=== PATIENT | male | born 1930 | race Asian ===

== ENCOUNTER 2016-12-28 23:38 | Inpatient (IN) | payer MEDICARE, OTHER ==
[~2016-12-28] VITALS: Ht 160 cm; Wt 56.3 kg
[~2016-12-28 23:38] MED LIST: ASPI81TA44 PO; ATOR40TA PO; CLOP75TA PO; FURO20TA3 PO; LEVO50TA5 PO; LEVO75TA PO; LISI-338 PO; LISI10TA2 PO; LISI2.5T PO; METO25TA4 PO; METO25TA9 PO; MULT-208 PO; POTA20TA84 PO; SIMV40TA3 PO; SIMV80TA3 PO; WARF3TAB7 PO
[2016-12-29 00:19] LABS: BASO % 1 % (0-3); EOS % 2 % (0-3); HEMATOCRIT 47.6 % (39.0-53.0); HEMOGLOBIN 15.9 g/dL (13.0-17.5); LYMPH # 1.4 x10^3/uL (1.0-4.8); LYMPH % 23 % (24-48); MEAN CORPUSCULAR HEMOGLOBIN 29 pg (25-35); MEAN CORPUSCULAR HGB CONC 34 g/dL (31-37); MEAN CORPUSCULAR VOLUME 88 fL (79-100); MONO % 11 % (0-9); NEUT % 64 % (31-73); PLATELET COUNT 144 x10^3/uL (140-400); RED BLOOD COUNT 5.42 x10^6/uL (4.30-5.70); RED CELL DISTRIBUTION WIDTH 15.3 % (11.5-14.5); WHITE BLOOD COUNT 6.3 x10^3/uL (4.0-11.0)
[2016-12-29 00:27] LABS: CALCIUM 8.9 mg/dL (8.5-10.1); CREATININE 1.3 mg/dL (0.7-1.3); GFR 52.5; POTASSIUM 4.4 mmol/L (3.5-5.1)
[2016-12-29] MEDS ORDERED: IV NORMAL SALINE 500ML BAG 500 ML IV ONE (00:30)
[2016-12-29] MEDS ORDERED: ONDANSETRON PF 4 MG/2 ML VIAL. IV ONE (00:30)
[2016-12-29 00:33] LABS: ALBUMIN 3.8 g/dL (3.4-5.0); ALBUMIN/GLOBULIN RATIO 0.9 (1.0-1.7); TOTAL BILIRUBIN 0.5 mg/dL (0.2-1.0)
[2016-12-29 00:53] LABS: BILIRUBIN,URINE NEGATIVE (NEG); GLUCOSE,URINE NEGATIVE (NEG); NITRITE,URINE NEGATIVE (NEG); UROBILINOGEN,URINE 0.2 mg/dL (0.2 mg/dL)
[2016-12-29 00:58] LABS: BACTERIA,URINE 0 /HPF (0-FEW); PROTEIN,URINE TRACE mg/dL (NEG-TRACE); RBC,URINE 0 /HPF (0-2); SQUAMOUS EPITHELIAL CELL,UR OCC /LPF; WBC,URINE 0 /HPF (0-4)
[2016-12-29] MEDS ORDERED: ONDANSETRON PF 4 MG/2 ML VIAL. IV PRN (01:00)
[2016-12-29] MEDS ORDERED: ASPIRIN 81 MG TAB.CHEW PO ONE (01:15)
[2016-12-29] MEDS ORDERED: ENOXAPARIN ** NOTE DOSE ** SYRINGE SQ ONE (01:30)
[2016-12-29 03:00] VITALS: BP 117/69
--- NOTE | 2016-12-29 05:55 | PHYS DOC ---
Past Medical History Past Medical History: CHF, DVT, High Cholesterol, Hypertension, Hypothyroid, Other Additional Past Medical Histor: SLEEP APNEA, irregular heart rate Past Surgical History: Pacemaker Alcohol Use: None Drug Use: None Adult General Chief Complaint Chief Complaint: NAUSEA/VOMITING/DIARRHA HPI HPI 86-year-old male presents secondary to a 24-hour history of nausea and vomiting. According to the family he says that he just doesn't feel well. He states he feels weak has no energy. He does have some shortness of breath. He denies any chest pain. He denies fever chills or sweats. The son states that he' s felt weak for several days but the nausea and vomiting just started yesterday. [] Review of Systems Review of Systems Constitutional: Denies fever or chills [] Eyes: Denies change in visual acuity, redness, or eye pain [] HENT: Denies nasal congestion or sore throat [] Respiratory: Denies cough or shortness of breath [] Cardiovascular: No additional information not addressed in HPI [] GI: Per history of present illness [] : Denies dysuria or hematuria [] Musculoskeletal: Denies back pain or joint pain [] Integument: Denies rash or skin lesions [] Neurologic: Denies headache, focal weakness or sensory changes [] Endocrine: Denies polyuria or polydipsia [] Current Medications Current Medications Current Medications Medications (Trade) Dose Ordered Sig/Mel Start Time Stop Time Status Last Admin Dose Admin Ondansetron HCl (Zofran) 4 mg 1X ONCE 12/29/16 00:30 12/29/16 00:31 DC 12/29/16 00:31 4 MG Sodium Chloride (Iv Sodium Chloride 0.9% 500ml Bag) 500 ml @ 0 mls/hr 1X ONCE 12/29/16 00:30 12/29/16 00:31 DC 12/29/16 00:31 500 MLS/HR Allergies Allergies Allergies Coded Allergies Type Severity Reaction Last Updated Verified No Known Drug Allergies 05/24/14 No Physical Exam Physical Exam Constitutional: Well developed, well nourished, no acute distress, non-toxic appearance. [] HENT: Normocephalic, atraumatic, bilateral external ears normal, oropharynx moist, no oral exudates, nose normal. [] Eyes: PERRLA, EOMI, conjunctiva normal, no discharge. [] Neck: Normal range of motion, no tenderness, supple, no stridor. [] Cardiovascular:Heart rate regular rhythm, no murmur [] Lungs & Thorax: Bilateral breath sounds clear to auscultation [] Abdomen: Bowel sounds normal, soft, no tenderness, no masses, no pulsatile masses. [] Skin: Warm, dry, no erythema, no rash. [] Back: No tenderness, no CVA tenderness. [] Extremities: No tenderness, no cyanosis, no clubbing, ROM intact, no edema. [] Neurologic: Alert and oriented X 3, normal motor function, normal sensory function, no focal deficits noted. [] Psychologic: Affect normal, judgement normal, mood normal. [] Current Patient Data Vital Signs Vital Signs Date Time Temp Pulse Resp B/P Pulse Ox O2 Delivery O2 Flow Rate FiO2 12/29/16 00:30 58 18 155/68 95 Room Air 12/28/16 23:51 98.6 98.6 Lab Values Laboratory Tests Test 12/29/16 00:10 12/29/16 00:45 White Blood Count 6.3x10^3/uL (4.0-11.0) Red Blood Count 5.42x10^6/uL (4.30-5.70) Hemoglobin 15.9g/dL (13.0-17.5) Hematocrit 47.6% (39.0-53.0) Mean Corpuscular Volume 88fL (79-100) Mean Corpuscular Hemoglobin 29pg (25-35) Mean Corpuscular Hemoglobin Concent 34g/dL (31-37) Red Cell Distribution Width 15.3% (11.5-14.5) H Platelet Count 144x10^3/uL (140-400) Neutrophils (%) (Auto) 64% (31-73) Lymphocytes (%) (Auto) 23% (24-48) L Monocytes (%) (Auto) 11% (0-9) H Eosinophils (%) (Auto) 2% (0-3) Basophils (%) (Auto) 1% (0-3) Neutrophils # (Auto) 4.0x10^3uL (1.8-7.7) Lymphocytes # (Auto) 1.4x10^3/uL (1.0-4.8) Monocytes # (Auto) 0.7x10^3/uL (0.0-1.1) Eosinophils # (Auto) 0.1x10^3/uL (0.0-0.7) Basophils # (Auto) 0.0x10^3/uL (0.0-0.2) Sodium Level 139mmol/L (136-145) Potassium Level 4.4mmol/L (3.5-5.1) Chloride Level 103mmol/L (98-107) Carbon Dioxide Level 25mmol/L (21-32) Anion Gap 11 (6-14) Blood Urea Nitrogen 23mg/dL (8-26) Creatinine 1.3mg/dL (0.7-1.3) Estimated GFR (Cockcroft-Gault) 52.5 BUN/Creatinine Ratio 18 (6-20) Glucose Level 171mg/dL (70-99) H Calcium Level 8.9mg/dL (8.5-10.1) Total Bilirubin 0.5mg/dL (0.2-1.0) Aspartate Amino Transferase (AST) 24U/L (15-37) Alanine Aminotransferase (ALT) 27U/L (16-63) Alkaline Phosphatase 79U/L (46-116) Troponin I Quantitative 0.587ng/mL (0.000-0.055) Total Protein 8.0g/dL (6.4-8.2) Albumin 3.8g/dL (3.4-5.0) Albumin/Globulin Ratio 0.9 (1.0-1.7) L Lipase 258U/L (73-393) Urine Collection Type Unknown Urine Color Yellow Urine Clarity Clear Urine pH 7.0 Urine Specific [place] 1.020 Urine Protein Tracemg/dL (NEG-TRACE) Urine Glucose (UA) Negativemg/dL (NEG) Urine Ketones (Stick) Negativemg/dL (NEG) Urine Blood Negative (NEG) Urine Nitrite Negative (NEG) Urine Bilirubin Negative (NEG) Urine Urobilinogen Dipstick 0.2mg/dL (0.2 mg/dL) Urine Leukocyte Esterase Negative (NEG) Urine RBC 0/HPF (0-2) Urine WBC 0/HPF (0-4) Urine Squamous Epithelial Cells Occ/LPF Urine Bacteria 0/HPF (0-FEW) Urine Mucus Slight/LPF Laboratory Tests 12/29/16 00:10 Laboratory Tests 12/29/16 00:10 EKG EKG [EKG: Normal sinus rhythm rate of [address]-T changes] Radiology/Procedures Radiology/Procedures [Chest x-ray: Negative exam as interpreted by me] Course & Med Decision Making Course & Med Decision Making Pertinent Labs and Imaging studies reviewed. (See chart for details) [ED course: Evaluation reveals an 86-year-old male in no significant distress. He was given IV Zofran during his stay in the emergency department which did help alleviate his symptoms. I did inform the patient and the family that his troponin was significantly elevated we would go ahead and admit him to Dr. Elias.] Dragon Disclaimer Dragon Disclaimer This electronic medical record was generated, in whole or in part, using a voice recognition dictation system. Departure Departure Impression: Primary Impression: Acute coronary syndrome Disposition: ADMITTED INPATIENT Admitting Physician: August Elias Condition: STABLE Referrals: AUGUST ELIAS MD (PCP) MARIAMA SANCHEZ DO Dec 29, 2016 05:54
--- NOTE | 2016-12-29 06:37 | EKG ---
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
--- NOTE | 2016-12-29 07:16 | RAD ---
Portable chest, 12/29/2016: History: Weakness, nausea Comparison is made to a study from 05/07/2016. A left-sided transvenous pacemaker remains in place with 2 leads extending into the right heart. The heart is enlarged. There is calcific plaquing of the thoracic aorta. The pulmonary vascularity is normal. There appears to be minimal parenchymal scarring. No pulmonary consolidation is seen. There is no evidence of pleural fluid. Degenerative changes are evident in the spine. IMPRESSION: 1. Cardiomegaly and aortic atherosclerosis. 2. No acute abnormality is detected.
[2016-12-29 07:23] LABS: CHOLESTEROL/HDL RATIO 3.8
[2016-12-29 07:26] VITALS: BP 116/61
--- NOTE | 2016-12-29 09:50 | PDOC2 ---
TAYLAMARCELL DOMINIQUE BAG SEALER 12/29/16 0950: CARDIAC CONSULT DATE OF CONSULT Date of Consult DATE: 12/29/16 TIME: 09:23 REASON FOR CONSULT Reason for Consult: elevated troponin REFERRING PHYSICIAN Referring Physician: Dr. Virgil Michaels SOURCE Source: Caregiver (ricardo), Chart review HISTORY OF PRESENT ILLNESS HISTORY OF PRESENT ILLNESS 86 year old male; non-Uzbek speaking and contributed no information to this consult. Per daughter, patient had 1 - 11/2 hours of nausea and vomiting yesterday without diarrhea, fever, chest pain, LE edema, syncope, melena or hematemesis yesterday. Reportedly with c/o dyspnea and cough, though unclear if independent of nausea and vomiting. Patient without nausea or vomiting since admission per nursing. No acute changes in EKG. Initial troponin level was 0.587 Reason for Visit: elevated troponin PAST MEDICAL HISTORY Cardiovascular: CAD (with PCI/THOR to D2- 04/2016), CHF, HTN, Hyperlipidemia, Valve insufficiency (aortic), Other ([facility] PPM - 01/2013) Pulmonary: Other (NANCY/CPAP) Heme/Onc: Other (DVT) Musculoskeletal: Osteoarthritis Renal/: Chronic renal insuff (stage III) Endocrine: Hypothyroidism PAST SURGICAL HISTORY Past Surgical History: Pacemaker ([facility]) FAMILY HISTORY Family History negative for CAD SOCIAL HISTORY Smoke: No ALCOHOL: none Drugs: None Lives: with Family CURRENT MEDICATIONS CURRENT MEDICATIONS Current Medications Medications (Trade) Dose Ordered Sig/Mel Route PRN Reason Start Time Stop Time Status Last Admin Dose Admin Sodium Chloride (Iv Sodium Chloride 0.9% 500ml Bag) 500 ml @ 0 mls/hr 1X ONCE IV 12/29/16 00:30 12/29/16 00:31 DC 12/29/16 00:31 Ondansetron HCl (Zofran) 4 mg 1X ONCE IV 12/29/16 00:30 12/29/16 00:31 DC 12/29/16 00:31 Aspirin (Children'S Aspirin) 324 mg 1X ONCE PO 12/29/16 01:15 12/29/16 01:17 DC 12/29/16 02:37 Enoxaparin Sodium (Lovenox 60mg Syringe) 50 mg ONCE ONCE SQ 12/29/16 01:30 12/29/16 01:31 DC 12/29/16 02:41 ALLERGIES ALLERGIES: Coded Allergies: No Known Drug Allergies (Unverified , 05/24/14) ROS Review of System see HPI for pertinent positives PHYSICAL EXAM General: Alert, Cooperative, No acute distress HEENT: Atraumatic, PERRLA Lungs: Clear to auscultation, Normal air movement Heart: Regular rate, Normal S1, Normal S2, No murmurs, Other (no carotid bruits ) Abdomen: Normal bowel sounds, Soft, No tenderness Extremities: No edema, Normal pulses Skin: No rashes Neuro: Normal speech Psych/Mental Status: Mental status NL, Mood NL MUSCULOSKELETAL: Osteoarthritic changes both hands VITALS VITALS Vital Signs Date Time Temp Pulse Resp B/P Pulse Ox O2 Delivery O2 Flow Rate FiO2 12/29/16 07:26 97.2 65 18 116/61 99 Nasal Cannula 2.0 97.2 LABS Lab: Laboratory Tests Test 12/29/16 00:10 12/29/16 00:45 12/29/16 06:40 12/29/16 06:45 White Blood Count 6.3x10^3/uL (4.0-11.0) Red Blood Count 5.42x10^6/uL (4.30-5.70) Hemoglobin 15.9g/dL (13.0-17.5) Hematocrit 47.6% (39.0-53.0) Mean Corpuscular Volume 88fL (79-100) Mean Corpuscular Hemoglobin 29pg (25-35) Mean Corpuscular Hemoglobin Concent 34g/dL (31-37) Red Cell Distribution Width 15.3% (11.5-14.5) Platelet Count 144x10^3/uL (140-400) Neutrophils (%) (Auto) 64% (31-73) Lymphocytes (%) (Auto) 23% (24-48) Monocytes (%) (Auto) 11% (0-9) Eosinophils (%) (Auto) 2% (0-3) Basophils (%) (Auto) 1% (0-3) Neutrophils # (Auto) 4.0x10^3uL (1.8-7.7) Lymphocytes # (Auto) 1.4x10^3/uL (1.0-4.8) Monocytes # (Auto) 0.7x10^3/uL (0.0-1.1) Eosinophils # (Auto) 0.1x10^3/uL (0.0-0.7) Basophils # (Auto) 0.0x10^3/uL (0.0-0.2) Sodium Level 139mmol/L (136-145) Potassium Level 4.4mmol/L (3.5-5.1) Chloride Level 103mmol/L (98-107) Carbon Dioxide Level 25mmol/L (21-32) Anion Gap 11 (6-14) Blood Urea Nitrogen 23mg/dL (8-26) Creatinine 1.3mg/dL (0.7-1.3) Estimated GFR (Cockcroft-Gault) 52.5 BUN/Creatinine Ratio 18 (6-20) Glucose Level 171mg/dL (70-99) Calcium Level 8.9mg/dL (8.5-10.1) Total Bilirubin 0.5mg/dL (0.2-1.0) Aspartate Amino Transf (AST/SGOT) 24U/L (15-37) Alanine Aminotransferase (ALT/SGPT) 27U/L (16-63) Alkaline Phosphatase 79U/L (46-116) Troponin I Quantitative 0.587ng/mL (0.000-0.055) 0.519ng/mL (0.000-0.055) Total Protein 8.0g/dL (6.4-8.2) Albumin 3.8g/dL (3.4-5.0) Albumin/Globulin Ratio 0.9 (1.0-1.7) Lipase 258U/L (73-393) Urine Collection Type Unknown Urine Color Yellow Urine Clarity Clear Urine pH 7.0 Urine Specific [place] 1.020 Urine Protein Tracemg/dL (NEG-TRACE) Urine Glucose (UA) Negativemg/dL (NEG) Urine Ketones (Stick) Negativemg/dL (NEG) Urine Blood Negative (NEG) Urine Nitrite Negative (NEG) Urine Bilirubin Negative (NEG) Urine Urobilinogen Dipstick 0.2mg/dL (0.2 mg/dL) Urine Leukocyte Esterase Negative (NEG) Urine RBC 0/HPF (0-2) Urine WBC 0/HPF (0-4) Urine Squamous Epithelial Cells Occ/LPF Urine Bacteria 0/HPF (0-FEW) Urine Mucus Slight/LPF Triglycerides Level 85mg/dL (0-150) Cholesterol Level 173mg/dL (0-200) LDL Cholesterol, Calculated 110mg/dL (0-100) VLDL Cholesterol, Calculated 17mg/dL (0-40) HDL Cholesterol 46mg/dL (40-60) Cholesterol/HDL Ratio 3.8 IMAGES IMAGES CXR: Comparison is made to a study from 05/07/2016. A left-sided transvenous pacemaker remains in place with 2 leads extending into the right heart. The heart is enlarged. There is calcific plaquing of the thoracic aorta. The pulmonary vascularity is normal. There appears to be minimal parenchymal scarring. No pulmonary consolidation is seen. There is no evidence of pleural fluid. Degenerative changes are evident in the spine. IMPRESSION: 1. Cardiomegaly and aortic atherosclerosis. 2. No acute abnormality is detected. EKG EKG A-paced; V-sensed ECHOCARDIOGRAM ECHOCARDIOGRAM 05/07/2016: TTE: Mild LV systolic dysfunction. EF 45%. Mild to moderate polyvalvular insufficiency. HEART CATH HEART CATH 05/08/2016: HEMODYNAMICS: LVEDP 30 mm Hg No gradient on LV to aortic pullback. ANGIOGRAPHY: LM is a large caliber vessel with an ostial 10% stenosis. LAD is a large caliber vessel with normal angiographic appearance. The 1st/2nd diagonals are moderate caliber vessels with a 80% stenosis in the mid segment of the 2nd diagonal. Ramus is a small caliber vessel with normal angiographic apeparance. LCx is a moderate caliber non-dominant vessel with mild luminal irregularities. OM1 is a moderate caliber vessel with mild luminal irregularities. RCA is a large caliber dominant vessel with mild irregularities of up to 30%. RPDA and RPL are moderate caliber vessels with normal angiographic appearance. INTERVENTIONAL TECHNIQUE: Based upon the angiographic findings and presenting symptoms (elevated troponin , chest pain), an intervention was planned on the 2nd diagonal. Bivalirudin was administered for anticoagulation. Through a 6Fr EBU 3.75 guide catheter, a 0.014 '' Prowater wire was advanced to the distal 2nd diagonal. The lesion was then direct stented with a 2.25/14 THOR at 9 lisa. Post-PCI angiography demonstreated 0 % residual stenosis with MARCIE 3 flow in the LAD and diagonal vessels. All catheter exchanges and advancements were performed over a guidewire. At case completion the right radial sheath was removed and a Terumo radial band was applied with 13 ml of air. The patient tolerated the procedure well and there were no immediate complications. The patient received Ticagrelor 180mg at case completion. Conclusion 1. Elevated left sided filling pressures. 2. One vessel CAD. 3. Successful PCI of the 2nd Diagonal with implantation of a Resolute THOR. ASSESSMENT/PLAN ASSESSMENT/PLAN 1. elevated troponin ? etiology cath < 1 year ago demonstrated only single vessel disease which was treated daughter denies missed dosages of DAPT echo to evaluate for WMA and assess LV function 2. nausea/vomiting ? gastroenteritis 3. CAD previous PCI/THOR to D2 continue DAPT & medical management with BB and statin therapy 4. HTN controlled with meds 5. Hyperlipidemia LDLS = 110 would treat more aggressively & recommend increasing atorvastatin to 80 mg daily [address] [facility] - will interrogate ? no home interrogation patient reports pt " will not come to office" 7. hypothyroidism check TSH 8. NANCY continue home CPAP 9. CKD - stage III per primary service Problems: PETE ZUÑIGA MD 12/29/16 1540: CARDIAC CONSULT ALLERGIES ALLERGIES: Coded Allergies: No Known Drug Allergies (Unverified , 05/24/14) ASSESSMENT/PLAN ASSESSMENT/PLAN Patient seen and examined. Agree with [facility]'s assessment and plan. Patient admitted with nausea and vomiting and found to have slightly elevated troponin level. 2-D echo showed wall motion abnormalities suspicious for ischemic etiology. We will proceed with cardiac catheterization and possible angioplasty. Pacemaker check showed normal function. Thank you for consultation Problems: MARCELL QUEEN APRN Dec 29, 2016 09:50 PETE ZUÑIGA MD Dec 29, 2016 15:40
--- NOTE | 2016-12-29 10:13 | PDOC ---
Provider Note Provider Note Pt seen .H&P dictated. #[id number] AUGUST HUITRON MD Dec 29, 2016 10:13
[2016-12-29] MEDS ORDERED: CLOPIDOGREL BISULFATE 75 MG TABLET PO SCH (10:15)
[2016-12-29] MEDS ORDERED: ASPIRIN 81 MG TAB.CHEW PO SCH (10:15)
[2016-12-29 10:31] VITALS: BP 118/65
[2016-12-29] MEDS ORDERED: HEPARIN PF for SUB-Q USE 5,000 UNIT/0.5 ML VIAL. SQ SCH (11:00)
--- NOTE | 2016-12-29 11:24 | HP ---
ADMIT DATE: 12/29/2016 LOCATION: 204 DATE OF ADMISSION: 12/29/2016 REASON FOR ADMISSION TO THE HOSPITAL: Nausea, vomiting, acute coronary syndrome, elevated troponin. HISTORY OF PRESENT ILLNESS: The patient is an 86-year-old male. The patient known to me, has a history of coronary artery disease, cardiac catheterization, has a pacemaker and he also has hypertension, hypothyroidism, hyperlipidemia. He has been having nausea and vomiting for the last 24 hours, got progressively worse. Denies any chest pain, but has some shortness of breath, came to the Emergency Room. His troponin was elevated to 0.5. EKG negative for acute ischemia. The patient was admitted with a diagnosis of acute coronary syndrome. Cardiology is being consulted. PAST MEDICAL HISTORY: Sleep apnea, hypertension, hyperlipidemia, hypothyroidism, coronary artery disease, history of congestive heart failure - chronic systolic, and DVT in the past. PAST SURGICAL HISTORY: Had a pacemaker four years ago, cardiac stent last year. ALLERGIES: No known drug allergies. MEDICATIONS AT HOME: Aspirin 81 mg daily, Lipitor 40 mg daily, Plavix 75 mg daily, Lasix 20 mg daily, levothyroxine 75 mcg daily, lisinopril 5 mg daily, metoprolol 25 mg daily, vitamin 1 daily, potassium 20 mEq daily. PERSONAL HISTORY: No history of smoking, alcohol, or drug abuse. FAMILY HISTORY: Positive for hypertension, heart disease. REVIEW OF SYMPTOMS: CARDIAC: No chest pain or shortness of breath, has some nausea, vomiting. Rest of the 14-system was reviewed and negative. PHYSICAL EXAMINATION: GENERAL: The patient is pleasant, not in any distress. VITAL SIGNS: At the time of admission, temperature 98, pulse 61, respiration 17, blood pressure 147/84, 95% on room air. HEENT: Head is atraumatic. Pupils equal. Oral cavity: No congestion. NECK: Supple. Thyroid not enlarged. JVD not elevated. CHEST: Symmetrical. Pacemaker left side of the chest. CARDIOVASCULAR: S1, S2. No murmurs. LUNGS: Clear to auscultation. No wheezing. ABDOMEN: Soft, bowel sounds present, no mass palpable. No epigastric tenderness about. EXTERNAL GENITALIA: No Jose. RECTAL: Deferred. EXTREMITIES: No calf tenderness, no edema. Pulses 1+. NEUROLOGIC: Cranial has intact. Power 5/5 in all extremities. LABORATORY DATA: Shows a white count of 6, hemoglobin 16, platelets 144. Electrolytes show sodium 139, potassium 4.4, chloride 103, bicarbonate 35, BUN 30, creatinine 1.3, glucose 171. Troponin 0.5 x2. Cholesterol 173. TSH 2.3. LDL 110 and HDL 46. Chest x-ray: Cardiomegaly, no acute abnormality, pacemaker present. EKG: Negative for acute ischemic changes, some T waves in V5 and V6 inversion. FINAL IMPRESSION: 1. Acute coronary syndrome. 2. Elevated troponin. 3. Slightly inverted T waves. 4. History of cardiac stent last year. 5. History of pacemaker. 6. Hypertension. 7. Hyperlipidemia. 8. Hypothyroidism. PLAN: At this time, he was admitted to the hospital, given aspirin and Plavix and sq heparin for the present time, seen by cardiology, probably may go for cardiac catheterization once the patient is stabilized at this point. AUGUST HUITRON MD DR: TIMI/lara JOB#: [id number] / [id number] BILLY
--- NOTE | 2016-12-29 11:38 | CARD ---
APPROVED REPORT EXAM: Two-dimensional and M-mode echocardiogram with Doppler and color Doppler. Other Information Quality : GoodHR: 64bpm Rhythm : Pacemaker INDICATION Weakness RISK FACTORS Hypertension 2D DIMENSIONS RVDd2.7 (2.9-3.5cm)Left Atrium(2D)4.2 (1.6-4.0cm) IVSd1.1 (0.7-1.1cm)Aortic Root(2D)2.7 (2.0-3.7cm) LVDd5.0 (3.9-5.9cm)LVOT Diameter2.1 (1.8-2.4cm) PWd1.0 (0.7-1.1cm)LVDs3.7 (2.5-4.0cm) FS (%) 25.3 %SV59.0 ml LVEF(%)49.7 (>50%) Aortic Valve AoV Peak Deion.174.0cm/sAoV VTI39.1cm AO Peak GR.12.1mmHgLVOT Peak Deion.81.9cm/s AO Mean GR.7mmHgAVA (VMAX)1.67cm2 AI P 1/2 [id number] Mitral Valve MV E Jjlebrym26.0cm/sMV E Peak Gr.93mmHg MV DECEL [id number] A Kpafdzlb50.0cm/s MV E Mean Gr.2mmHgE/A Ratio0.8 MV A [id number] Pulmonary Valve PV Peak Xkexbqxb362.8cm/s Tricuspid Valve TR P. Dfzdlxdr629mp/sTR Peak Gr.32mmHg Pulmonary Vein S1 Lguxyjmj15.1cm/sD2 Hhixbxvj73.5cm/s PVa yblhwptv17zowm LEFT VENTRICLE The left ventricle is normal size and wall thickness. Mild LV dysfunction. EF 40-45% There is moderat e to severe hypokinesis in the basal posterior, mid posterior and the mid lateral torrez. All other wa lls appear to contract normally. Transmitral Doppler flow pattern is Grade I-abnormal relaxation thomas tg. RIGHT VENTRICLE The right ventricle is normal size. There is normal right ventricular wall thickness. The right ventr icular systolic function is normal. ATRIA The left atrium is mildly dilated. The right atrium size is normal. The interatrial septum is intact with no evidence for an atrial septal defect or patent foramen ovale as noted on 2-D or Doppler imagi ng. AORTIC VALVE The aortic valve is mildly sclerotic. Doppler and Color Flow revealed mild aortic regurgitation There is no significant aortic valvular stenosis. MITRAL VALVE The mitral valve is normal in structure and function. There is no mitral valve stenosis. Doppler and Color-flow revealed mild mitral regurgitation. TRICUSPID VALVE The tricuspid valve is normal in structure and function. Doppler and Color Flow revealed mild tricusp id regurgitation. The pulmonary artery systolic pressure is estimated at 37 mmHg. There is no tricusp id valve stenosis. PULMONIC VALVE Doppler and Color Flow revealed mild pulmonic valvular regurgitation. There is no pulmonic valvular s tenosis. GREAT VESSELS The aortic root and ascending aorta are normal in size. The IVC is normal in size and collapses >50% with inspiration. PERICARDIAL EFFUSION There is no evidence of significant pericardial effusion. Critical Notification Critical Value: No <Conclusion> Mild LV dysfunction. EF 40-45% There is moderate to severe hypokinesis in the basal posterior, mid posterior and the mid lateral wa lls. All other torrez appear to contract normally. Doppler and Color Flow revealed mild aortic regurgitation
[2016-12-29] MEDS: CLOPIDOGREL BISULFATE 75 MG TABLET PO SCH (12:42)
[2016-12-29] MEDS: LEVOTHYROXINE 75 MCG TABLET PO SCH (12:43)
[2016-12-29] MEDS: LISINOPRIL 5 MG TABLET. PO SCH (12:43)
[2016-12-29] MEDS: METOPROLOL SUCC 24HR ER 25 MG TAB.ER.24H. PO SCH (12:44)
[2016-12-29] MEDS: FUROSEMIDE 20 MG TABLET PO SCH (12:44)
[2016-12-29] MEDS: MULTIVITAMIN with MINERAL TABLET. PO SCH (12:45)
[2016-12-29] MEDS: ASPIRIN ENTERIC COATED 81 MG TABLET.DR. PO SCH (12:45)
[2016-12-29] MEDS: POTASSIUM CHLORIDE 10 MEQ TABLET.ER. PO SCH ×2 (12:45→17:00)
[2016-12-29] MEDS: ANTI-COAG MONITOR BY PHARMACY. MC PRN (14:53)
[2016-12-29 15:15] VITALS: BP 114/62
[2016-12-29 19:00] VITALS: BP 107/61
[2016-12-29] MEDS ORDERED: ATORVASTATIN CALCIUM 40 MG TABLET. PO SCH (21:00)
[2016-12-29] MEDS ORDERED: ENOXAPARIN 30 MG/0.3 ML DISP.SYRIN. SQ SCH (21:00)
[2016-12-29] MEDS: ENOXAPARIN ** NOTE DOSE ** SYRINGE SQ SCH (21:12)
[2016-12-29 23:00] VITALS: BP 114/67
[2016-12-30] VITALS (11 sets, daily range): BP systolic 84–114; BP diastolic 54–73
[2016-12-30] MEDS ORDERED: IOHEXOL 300 MG/ML 100ML VIAL. ONE (07:42)
[2016-12-30] MEDS: ANTI-COAG MONITOR BY PHARMACY. MC PRN (08:30)
[2016-12-30] MEDS: ASPIRIN ENTERIC COATED 81 MG TABLET.DR. PO SCH (08:50)
[2016-12-30] MEDS: LEVOTHYROXINE 75 MCG TABLET PO SCH (08:50)
[2016-12-30] MEDS: METOPROLOL SUCC 24HR ER 25 MG TAB.ER.24H. PO SCH (08:51)
[2016-12-30] MEDS: LISINOPRIL 5 MG TABLET. PO SCH (09:00)
[2016-12-30] MEDS: FUROSEMIDE 20 MG TABLET PO SCH (09:00)
[2016-12-30] MEDS ORDERED: LIDOCAINE 2% 20 ML VIAL. ONE (09:16)
[2016-12-30] MEDS ORDERED: FENTANYL PF 100 MCG/2 ML VIAL. ONE (09:25)
[2016-12-30] MEDS ORDERED: MIDAZOLAM HCL 2 MG/2 ML VIAL. ONE (09:25)
[2016-12-30] MEDS ORDERED: VERAPAMIL 5 MG/2 ML VIAL. ONE (09:26)
[2016-12-30] MEDS ORDERED: HEPARIN for IV BOLUS 10,000 UNIT/10 ML VIAL. ONE (09:26)
[2016-12-30] MEDS ORDERED: NITROGLYCERIN 200 MCG/2 ML SYRINGE FOR CATH/VASC LAB. ONE (09:26)
--- NOTE | 2016-12-30 09:58 | ACF ---
Admission Forms Criteria CARDIOLOGY GRG Clinical Indications for Admission to Inpatient Care ( Place 'X' for any and all applicable criteria): Hospital admission is needed for appropriate care of the patient because of ANY ONE of the following (1): [ ] I. Hemodynamic instability as indicated by ALL of the following (1)(2)(3) (4)(5) [ ]a) Vital signs or other findings not as expected for chronic patient condition or baseline [ ]b) Instability indicated by ANY ONE of the following: [ ]i) Hypotension [ ]ii) Symptomatic Tachycardia unresponsive to treatment ( e.g., analgesia, fluids, sedation as indicated) [ ]iii) Inadequate perfusion indicated by ANY ONE of the following: [ ] 1) Lactic acidosis (> 2 mmol/L) [ ] 2) New abnormal capillary refill (> 3 seconds) [ ] 3) Reduced urine output [ ] 4) New altered mental status [ ]iv) Orthostatic vital sign changes unresponsive to treatment (e.g., fluids) [ ]v) IV inotropic or vasopressor medication required to maintain adequate blood pressure or perfusion [ ] II. Severe heart failure as indicated by ANY ONE of the following(17)(18) [ ]a) Respiratory distress [ ]b) Hypotension [ ]c) Anasarca (refractory to outpatient therapy) [ ]d) Cardiac arrhythmias of immediate concern [ ]e) Myocardial ischemia [ ] III. Cardiac arrhythmias or findings of immediate concern indicated by ANY ONE of the following (19)(20): [ ] a) Heart rhythms that are inherently dangerous or unstable indicated by ANY ONE of the following (21)(22)(23): [ ] i) Resuscitated ventricular fibrillation or cardiac arrest [ ] ii) Ventricular escape rhythm [ ] iii) Sustained ventricular tachycardia (30 seconds or more of ventricular rhythm at greater than 100 beats per minute) [ ] iv) Nonsustained ventricular tachycardia and ANY ONE of the following: [ ] 1) Suspected cardiac ischemia as cause or consequence of ventricular tachycardia [ ] 2) In setting of acute myocarditis [ ] b) Unstable cardiac conduction defects indicated by ANY ONE of the following(23)(24)(25) [ ] i) Type II second-degree atrioventricular block [ ]ii) Third-degree atrioventricular block [ ]iii) New-onset left bundle branch block with suspected myocardial ischemia [ ]c) Any heart rhythm and ANY ONE of the following (21)(22)(26)(27) (28) [ ] i) Continuous long-term ECG monitoring needed (e.g., initiation of drug requiring monitoring for more than 24 hours) [ ] ii) Patient has automatic implanted cardioverter defibrillator that is repeatedly firing, malfunctioning, or in need of immediate adjustment of settings beyond the scope of ambulatory or observation care [ ]d) Heart rhythms of concern due to ANY ONE of the following: [ ] i) Hypotension [ ] ii) Respiratory distress [ ] iii) Association with other significant symptoms (e.g., bradycardia with syncope or ongoing dizziness, supraventricular tachycardia with chest pain (14)(15)(17) [ ] IV. Monitoring for cardiac contusion beyond the scope of observation care needed [A](30)(31)(32) [ ] V. Surgical or device complication (e.g., valve replacement complication , pacemaker dysfunction) (35)(41)(44)(45)(46) [ ] . Inpatient palliative care needed. [B](49) Also use Inpatient Palliative Care Criteria [ ] VII. Nonbacterial thrombotic (marantic) endocarditis (36)(43)(47)(48) [X] VIII. Cardiology condition, symptom, or finding for which emergency and observation care has failed or are not considered appropriate. [ ] IX. Acute valvular disease requiring inpatient as indicated by ANY ONE of the following (41) [ ]a) Acute valvular regurgitation (42) [ ]b) Noninfectious valvulitis (43) [ ]c) Obstructive valve thrombosis [ ]d) Paravalvular leak [ ]e) Other significant valvular disorder remaining after emergency or observation level of care (as appropriate) [ ]X. Pericardial disease requiring inpatient treatment as indicated by ANY ONE of the following (33)(34)(35)(36)(37) [ ]a) Suspected tamponade (38)(39)(40) [ ]b) Hemopericardium [ ]c) Other significant pericardial disorder remaining after emergency or observation level of care (as appropriate) [ ] XI. Cardiac ischemia beyond scope of emergency and observation care. [ ] XII. Hypertension requiring inpatient treatment as indicated by ANY ONE of the following (6)(7)(8) [ ]a) SBP greater than 220 mm Hg or DBP greater than 120 mmHg despite treatment [ ]b) SBP greater than 140 mm Hg or DBP greater than 100 mm Hg with evidence of acute end organ damage as indicated by ANY ONE of the following [ ] i) Encephalopathy [ ] ii) Acute renal failure as indicated by new onset of ANY ONE of the following (9)(10)(11)(12)(13) [ ]1) 3-fold rise in serum creatinine from baseline [ ]2) Serum creatinine greater than 4 mg/dL ( 354 micromoles/L) with acute rise greater than 0.5 mg/dL (44.2 micromoles/L) [ ]3) Reduction of more than 75% in estimated glomerular filtration rate from baseline [ ]4) Estimated glomerular filtration rate less than 35 mL/min/1.73m2 (0.59 mL/sec/1.73m2) in child up to 18 years of age [ ]5) Cessation of urine output indicated by ALL of the following [ ]A. Adequate volume status [ ]B. Inadequate urine output as indicated by ANY ONE of the following [ ]a. Urine output less than 0.3 mL/kg/hr for 24 hours [ ]b. Anuria (urine output less than 0.1 mL/kg/hr) for 12 hours [ ] iii) Aortic dissection [ ] iv) Myocardial Ischemia [ ] v) Left ventricular heart failure [ ]vi) Retinal Hemorrhage [ ]vii) Other significant finding [ ]c) Hypertension in child requiring inpatient treatment as indicated by ALL of the following(14)(15)(16) [ ] i) Outpatient treatment not effective, not available, or not appropriate [ ]ii) SBP or DBP greater than 95th percentile for age [ ]iii) Evidence of acute end organ damage as indicated by ANY ONE of the following [ ]1) Altered mental status [ ]2) Acute renal failure as indicated by new onset of ANY ONE of the following(9)(10)(11)(12)(13) [ ]A. 3-fold rise in serum creatinine from baseline [ ]B. Serum creatinine greater than 4 mg/dL (354 micromoles/L) with acute rise greater than 0.5 mg/dL (44.2 micromoles/L) [ ]C. Reduction of more than 75% in estimated glomerular filtration rate from baseline [ ]D. Estimated glomerular filtration rate less than 35 mL/min/1.73m2 (0.59 mL/sec/1.73m2) in child up to 18 years of age [ ]E. Cessation of urine output indicated by ALL of the following [ ]a. Adequate volume status [ ]b. Inadequate urine output as indicated by ANY ONE of the following [ ]i) Urine output less than 0.3 mL/kg/hr for 24 hours [ ]ii) Anuria ( urine output less than 0.1 mL/kg/hr) for 12 hours [ ]3) Severe headache [ ]4) Visual disturbance [ ]5) Retinal hemorrhage [ ]6) Other significant finding [ ]XIII. Complications of transplanted heart indicated by ANY ONE of the following(61): [ ]a) Acute graft rejection requiring inpatient management (eg, intravenous immunosuppression)(62)(63) [ ]b) Acute graft heart failure indicated by ANY ONE of the following(64): [ ]i) Hemodynamic instability [ ]ii) Cardiac arrhythmias of immediate concern [ ]iii) Pulmonary edema that is very severe (eg, mechanical ventilation needed, imminent or likely, need for 100% oxygen to keep oxygen saturation above 90%) [ ]iv) Pulmonary edema that is persistent as indicated by ALL of the following: [ ]1) New need for oxygen therapy to keep oxygen saturation above 90% (or increased FiO2 need from baseline) [ ]2) Has not improved sufficiently with emergency department or observation care IV diuretics or other heart failure treatments[E] [ ]v) Altered mental status that is severe or persistent [ ]vi) Increased creatinine (new on laboratory test) with reduction of more than 50% in estimated glomerular filtration rate from baseline [ ]vii) Progressively (ongoing) rising creatinine (known from past laboratory test) with reduction of more than 25% in estimated glomerular filtration rate from baseline [ ]viii) Acute renal failure [ ]ix) Acute peripheral ischemia (eg, examination shows pulseless, cool, mottled, or cyanotic extremity) [ ]x) Pulmonary artery catheter monitoring needed [ ]xi) Other sign or symptom of heart failure requiring inpatient treatment (ie, too severe or not responsive to outpatient and observation care treatment) [ ]c) Infection requiring inpatient management (eg, Hemodynamic instability, need for intravenous antimicrobial treatment)(66)(67)(68)(69)(70) [ ]d) Cardiac allograft vasculopathy requiring inpatient management ( eg evidence of cardiac ischemia)(71) [ ]e) Other complication of transplanted heart (eg, stroke, severe pulmonary hypertension, severe valvular dysfunction) requiring inpatient management(72) The original [facility] content created by [facility] has been revised. The portions of the content which have been revised are identified through the use of italic text or in bold, and [facility] has neither reviewed nor approved the modified material. All other unmodified content is copyright [facility]. Please see references footnoted in the original [facility] edition 2016 Admission Criteria Met?: Yes JAVAD DARDEN Dec 30, 2016 09:57
[2016-12-30] MEDS ORDERED: NITROGLYCERIN 4 MG/20 ML SYRINGE for CATH LAB. IV ONE (10:00)
[2016-12-30] MEDS ORDERED: LIDOCAINE 2% 20 ML VIAL. IJ ONE (10:00)
[2016-12-30] MEDS ORDERED: FENTANYL PF 100 MCG/2 ML VIAL. IV ONE (10:00)
[2016-12-30] MEDS ORDERED: VERAPAMIL 5 MG/2 ML VIAL. IART ONE (10:00)
[2016-12-30] MEDS ORDERED: HEPARIN for IV BOLUS 10,000 UNIT/10 ML VIAL. IART ONE (10:00)
[2016-12-30] MEDS ORDERED: MIDAZOLAM HCL 2 MG/2 ML VIAL. IV ONE (10:00)
[2016-12-30] MEDS ORDERED: IOHEXOL 300 MG/ML 100ML VIAL. IART ONE (10:00)
--- NOTE | 2016-12-30 10:12 | PDOC ---
PROGRESS NOTES Subjective Subjective feels better today, less sob ,no vomiting Objective Objective Vital Signs Date Time Temp Pulse Resp B/P Pulse Ox O2 Delivery O2 Flow Rate FiO2 12/30/16 08:51 98 110/61 12/30/16 08:00 Room Air 2.0 12/30/16 07:00 97.5 20 98 97.5 Intake and Output 12/30/16 07:00 Intake Total 990 ml Output Total 750 ml Balance 240 ml Intake Oral 990 ml Output Urine Total 750 ml Physical Exam Abdomen: Normal bowel sounds, Soft, No tenderness Heart: Regular rate, Normal S1, Normal S2, No murmurs, Other (no carotid bruits ) Extremities: No edema, Normal pulses General: Alert, Cooperative, No acute distress HEENT: Atraumatic, PERRLA Lungs: Clear to auscultation, Normal air movement MUSCULOSKELETAL: Osteoarthritic changes both hands Neuro: Normal speech Psych/Mental Status: Mental status NL, Mood NL Skin: No rashes Diagnosis Problem List Problems Medical Problems: (1) Acute coronary syndrome Status: Acute Assessment Assessment Problems Medical Problems: (1) Acute coronary syndrome Status: Acute FINAL IMPRESSION: 1. Acute coronary syndrome. 2. Elevated troponin. 3. Slightly inverted T waves. 4. History of cardiac stent last year. 5. History of pacemaker. 6. Hypertension. 7. Hyperlipidemia. 8. Hypothyroidism. PLAN: cardiac cath today. troponin 0.5 peak. cxr mild chf. medical treatment for now. At this time, he was admitted to the hospital, given aspirin and Plavix and Lovenox for the present time, seen by cardiology, probably may go for cardiac catheterization once the patient is stabilized at this point. Problems: Plan Plan of Care Problems Medical Problems: (1) Acute coronary syndrome Status: Acute Comment Review of Relevant I have reviewed the following items zully (where applicable) has been applied. Labs Laboratory Tests Test 12/29/16 12:45 12/30/16 08:05 Troponin I Quantitative 0.508ng/mL (0.000-0.055) Magnesium Level 2.2mg/dL (1.8-2.4) Medications Current Medications Aspirin (Children'S Aspirin) 81 mg DAILY PO ; Start 12/29/16 at 10:15; Stop at 14:45; Status DC Aspirin (Ecotrin) 81 mg DAILYWBKFT PO Last administered on 12/30/16 08:50; Start 12/29/16 at 10:15 Atorvastatin Calcium (Lipitor) 40 mg HS PO Last administered on 12/29/16 21:11 ; Start 12/29/16 at 21:00 Clopidogrel Bisulfate (Plavix) 75 mg DAILY PO ; Start 12/29/16 at 10:15; Stop at 14:46; Status DC Clopidogrel Bisulfate (Plavix) 75 mg DAILYWBKFT PO Last administered on 12:42; Start 12/29/16 at 10:15 Enoxaparin Sodium (Lovenox 30mg Syringe) 30 mg Q12H SQ ; Start 12/29/16 at 21:00 ; Stop 12/29/16 at 21:00; Status DC Enoxaparin Sodium (Lovenox 60mg Syringe) 60 mg Q24H SQ Last administered on 21:12; Start 12/29/16 at 21:00 Fentanyl Citrate (Fentanyl 2ml Vial) 100 mcg 1X ONCE IV ; Start 12/30/16 at 10: 00; Stop 12/30/16 at 10:06; Status DC Fentanyl Citrate (Fentanyl 2ml Vial) 100 mcg STK-MED ONCE .ROUTE ; Start at 09:25; Stop 12/30/16 at 09:26; Status DC Furosemide (Lasix) 20 mg DAILY PO Last administered on 12/29/16 12:44; Start 12/29/16 at 10:15 Heparin Sodium (Porcine) 2,500 unit 1X ONCE IART ; Start 12/30/16 at 10:00; Stop 12/30/16 at 10:06; Status DC Heparin Sodium (Porcine) 5,000 unit Q8HRS SQ Last administered on 12/29/16 12: 51; Start 12/29/16 at 11:00; Stop 12/29/16 at 14:50; Status DC Heparin Sodium (Porcine) 10,000 unit STK-MED ONCE .ROUTE ; Start 12/30/16 at 09: 26; Stop 12/30/16 at 09:27; Status DC Heparin Sodium/ Sodium Chloride 500 ml @ As Directed STK-MED ONCE .ROUTE ; Start 12/30/16 at 07:43; Stop 12/30/16 at 07:44; Status DC Heparin Sodium/ Sodium Chloride 500 ml @ As Directed STK-MED ONCE .ROUTE ; Start 12/30/16 at 09:16; Stop 12/30/16 at 09:17; Status DC Heparin Sodium/ Sodium Chloride 1,000 unit 1X ONCE IART ; Start 12/30/16 at 10: 00; Stop 12/30/16 at 10:06; Status DC Info (Anti-Coagulation Monitoring By Pharmacy) 1 each PRN DAILY PRN MC SEE COMMENTS Last administered on 12/30/16 08:30; Start 12/29/16 at 15:00 Info (Do NOT chart on this entry -- for MONITORING) 1 each PRN DAILY PRN MC SEE COMMENTS; Start 12/30/16 at 10:15; Stop 01/01/17 at 10:14 Iohexol (Omnipaque 300 Mg/ml) 100 ml 1X ONCE IART ; Start 12/30/16 at 10:00; Stop 12/30/16 at 10:06; Status DC Iohexol 100 ml 100 ml STK-MED ONCE .ROUTE ; Start 12/30/16 at 07:42; Stop at 07:43; Status DC Levothyroxine Sodium (Synthroid) 75 mcg DAILYAC PO Last administered on 08:50; Start 12/29/16 at 10:15 Lidocaine HCl 20 ml 1X ONCE IJ ; Start 12/30/16 at 10:00; Stop 12/30/16 at 10: 06; Status DC Lidocaine HCl 20 ml STK-MED ONCE .ROUTE ; Start 12/30/16 at 09:16; Stop at 09:17; Status DC Lisinopril (Prinivil) 5 mg DAILY PO Last administered on 12/29/16 12:43; Start 12/29/16 at 10:15 Metoprolol Succinate (Toprol Xl) 50 mg DAILY PO Last administered on 12/30/16 08:51; Start 12/29/16 at 10:15 Midazolam HCl (Versed) 2 mg 1X ONCE IV ; Start 12/30/16 at 10:00; Stop at 10:06; Status DC Midazolam HCl (Versed) 2 mg STK-MED ONCE .ROUTE ; Start 12/30/16 at 09:25; Stop 12/30/16 at 09:26; Status DC Multivitamins/ Calcium (Thera M Plus) 1 tab DAILY PO Last administered on t 12:45; Start 12/29/16 at 10:15 Nitroglycerin (Nitroglycerin) 200 mcg STK-MED ONCE .ROUTE ; Start 12/30/16 at 09 :26; Stop 12/30/16 at 09:27; Status DC Nitroglycerin/ Dextrose (Nitroglycerin) 4 mg 1X ONCE IV ; Start 12/30/16 at 10: 00; Stop 12/30/16 at 10:06; Status DC Potassium Chloride (Klor-Con) 10 meq BIDWMEALS PO Last administered on 17:00; Start 12/29/16 at 10:30 Verapamil HCl (Verapamil) 2.5 mg 1X ONCE IART ; Start 12/30/16 at 10:00; Stop 12/30/16 at 10:06; Status DC Verapamil HCl (Verapamil) 5 mg STK-MED ONCE .ROUTE ; Start 12/30/16 at 09:26; Stop 12/30/16 at 09:27; Status DC Vitals/I & O Vital Sign - Last 24 Hours 12/29/16 12/29/16 12/29/16 12/29/16 10:31 12:43 12:44 15:15 Temp 97.5 98.0 97.5 98.0 Pulse 62 62 62 66 Resp 20 20 B/P 118/65 118/65 118/65 114/62 Pulse Ox 98 98 O2 Delivery Nasal Cannula Nasal Cannula O2 Flow Rate 2.0 2.0 12/29/16 12/29/16 12/29/16 12/30/16 19:00 20:00 23:00 03:00 Temp 99.5 98.9 98.1 99.5 98.9 98.1 Pulse 89 61 64 Resp 18 18 16 B/P 107/61 114/67 94/54 Pulse Ox 98 98 98 O2 Delivery Room Air Room Air Nasal Cannula Room Air O2 Flow Rate 2.0 2.0 2.0 12/30/16 12/30/16 12/30/16 07:00 08:00 08:51 Temp 97.5 97.5 Pulse 61 98 Resp 20 B/P 114/64 110/61 Pulse Ox 98 O2 Delivery Nasal Cannula Room Air O2 Flow Rate 2.0 2.0 Intake and Output 12/29/16 12/29/16 12/30/16 15:00 23:00 07:00 Intake Total 240 ml 750 ml 0 ml Output Total 750 ml Balance 240 ml 0 ml 0 ml AUGUST HUITRON MD Dec 30, 2016 10:12
[2016-12-30] MEDS ORDERED: CONTRAST GIVEN MC PRN (10:15)
--- NOTE | 2016-12-30 10:24 | PDOC ---
MODERATE SEDATION ASSESSMENT RISKS/ALTERNATIVES Risks/Alternatives Risks and alternatives of this type of sedation and procedure discussed with: RISK/ALTERNATIVES: Patient H & P ON CHART H & P H & P on chart and reviewed for co-morbid conditions and appropriate labs. H&P ON CHART: Yes STATUS PREG STATUS ASSESSED: N/A MEDS/ALLERGIES REVIEWED Meds/Allergies Reviewed Medications and Allergies including time and route of recently administered narcotics and sedatives. MEDS/ALLERGIES REVIEWED: Yes ASA RATING ASA RATING: II AIRWAY ASSESSMENT Airway Assessment Airway patency, oral function limitations, presence of caps, crowns, dentures, partials, and ability to extend neck assessed. AIRWAY ASSESSMENT: Yes MALLAMPATI SCORE MALLAMPATI SCORE: II PRE-SEDATION ASSESSMENT PRE-SEDATION ASSESSMENT: Yes PETE ZUÑIGA MD Dec 30, 2016 10:24
--- NOTE | 2016-12-30 10:34 | CARD ---
APPROVED REPORT Procedure(s) performed: Left heart catheterization, selective coronary angiography and left ventricul ography via the right transradial approach INDICATION The indication(s) include : unstable angina . PROCEDURE NARRATIVE After explaining the risks, benefits and alternative options, informed consent was obtained from neptali ent. Patient was brought to the cardiac [facility] and right wrist was prepped and draped in the usual fashion after confirming a positive modified Massimo's test. Arterial access was obtained in the rig t radial artery and a 6 [place]ib[place] sheath was inserted. 6 [place] TIG catheter was used to perform [place] angiography of the left and right coronary arteries. 6 [place] pigtail catheter was used to perfo rm left ventriculography. Patient tolerated the procedure well. Hemostasis was achieved using TR ba nd. There were no immediate complications. The following findings were noted. FINDINGS 1. Hemodynamics: Left ventricular end-diastolic pressure of 15 mmHg. No pullback gradient across th e aortic valve. 2. Left ventriculography: Moderate global left ventricle systolic dysfunction with ejection fraction estimated at 35-40%. 1-2+ mitral regurgitation seen. 3. Coronary angiography: a. The left main coronary artery arose from the left sinus of Valsalva, gave rise to the left anteri or descending and left circumflex arteries and did not show any significant stenosis. b. The left anterior descending artery showed 40% stenosis in the very distal segment posterior apic al wall. The previously placed stent in the second diagonal branch was widely patent. c. The left circumflex artery did not show any significant stenosis. d. The right coronary artery was a large and dominant vessel arising from the right sinus of Valsalv a that showed 40-50% stenosis in the midsegment. Conclusion 1. Nonobstructive coronary artery disease as described above with widely patent previously placed st ent in second diagonal branch of left anterior descending artery. 2. Moderate global left ventricle systolic dysfunction with ejection fraction estimated at 35-40% Recommendations Medical Therapy
[2016-12-30] MEDS ORDERED: IV 1/2 NORMAL SALINE 1,000 ML IV SCH (11:00)
[2016-12-30] MEDS: MULTIVITAMIN with MINERAL TABLET. PO SCH (12:35)
[2016-12-30] MEDS: CLOPIDOGREL BISULFATE 75 MG TABLET PO SCH (12:35)
[2016-12-30] MEDS: ENOXAPARIN ** NOTE DOSE ** SYRINGE SQ SCH (12:36)
[2016-12-30] MEDS: POTASSIUM CHLORIDE 10 MEQ TABLET.ER. PO SCH (12:48)
--- NOTE | 2016-12-30 20:13 | PDOC ---
Provider Note Provider Note Discharge summary dictated. #[id number] AUGUST HUITRON MD Dec 30, 2016 20:13
--- NOTE | 2016-12-31 04:07 | DS ---
DATE OF DISCHARGE: 12/30/2016 REASON FOR ADMISSION TO THE HOSPITAL: Nausea, vomiting, elevated troponin, acute coronary syndrome. CONSULTATIONS: Dr. Askew. PROCEDURES DONE: 1. Echocardiogram. 2. Cardiac catheterization. COMPLICATIONS: Noted none. HOSPITAL COURSE: The patient is an 86-year-old male patient has a history of pacemaker and cardiac stents last year and he was having nausea, vomiting for the last 24 hours, came to the Emergency Room. Troponin was slightly elevated to 0.5 and the patient was admitted to the hospital with diagnosis of acute coronary syndrome. EKG negative for acute ST elevation. The patient was given beta blockers, BAYRON inhibitors, Lasix, aspirin, also on Plavix and heparin subQ. The patient had an echocardiogram which shows ejection fraction 40-45%, moderate to severe hypokinesia and baseline posterior segment mild aortic regurgitation. The patient had a cardiac cath which shows ejection fraction 35-40%. 2+ mitral regurgitation. The patient had a previous stent in the second diagonal branch of LAD which was widely patent and no significant other stenosis in the left main, LAD, right coronary, or circumflex and it was recommended that patient could be discharged. Follow as outpatient for medical management and the patient was discharged. FINAL DIAGNOSES: 1. Slightly elevated troponin, borderline elevation no ID, may be demand ischemia. 2. Cardiac catheterizations shows patent stent in the second diagonal branch of the LAD. Rest of the coronaries, no significant stenosis. 3. Mild Systolic heart failure, ejection fraction 35-40%. 4. History of cardiac stent placed last year. 5. History of pacemaker. 6. Hypertension, hyperlipidemia, hypothyroidism. DISPOSITION: Home. DISCHARGE MEDICATIONS: See MRAD. Follow up in the office in 2 weeks. AUGUST HUITRON MD DR: TIMI/lara JOB#: [id number] / [id number] AUGUST Carter MD [facility]
== END 2016-12-30 16:45 | disposition home or self-care (01) | DRG 287 ==
LOC: ER 23:38 → 2 NORTH 12-29 00:50
PROVIDERS: ADMIT Internal Medicine; ATTEND Internal Medicine
PROC: 4A023N7 Measurement of Cardiac Sampling and Pressure, Left Heart, Percutaneous Approach (ICD-10-PCS; principal; 2016-12-30)
PROC: B2111ZZ Fluoroscopy of Multiple Coronary Arteries using Low Osmolar Contrast (ICD-10-PCS; 2016-12-30)
PROC: B2151ZZ Fluoroscopy of Left Heart using Low Osmolar Contrast (ICD-10-PCS; 2016-12-30)
DX: I24.9 Acute ischemic heart disease, unspecified (principal); I50.22 Chronic systolic (congestive) heart failure; I13.0 Hypertensive heart and chronic kidney disease with heart failure and stage 1 through stage 4 chronic kidney disease, or unspecified chronic kidney disease; I25.110 Atherosclerotic heart disease of native coronary artery with unstable angina pectoris; E03.9 Hypothyroidism, unspecified; E78.00 Pure hypercholesterolemia, unspecified; E78.5 Hyperlipidemia, unspecified; G47.33 Obstructive sleep apnea (adult) (pediatric); I70.0 Atherosclerosis of aorta; I34.0 Nonrheumatic mitral (valve) insufficiency; M19.90 Unspecified osteoarthritis, unspecified site; N18.3 Chronic kidney disease, stage 3 (moderate); Z82.49 Family history of ischemic heart disease and other diseases of the circulatory system; Z86.718 Personal history of other venous thrombosis and embolism; Z95.0 Presence of cardiac pacemaker; Z95.5 Presence of coronary angioplasty implant and graft; Z79.82 Long term (current) use of aspirin
CPT/HCPCS: 36415; 71010; 80053; 80061; 81001; 83690; 83735; 84443; 84484; 85027; 93005; 93306; 93458; 96361; 96372; 96374; C1769; C1892; J1650; J2250; J2405; J3010; J7040; Q9967; 99285-25

== ENCOUNTER 2017-03-30 09:18 | Inpatient (IN) | payer MEDICARE, OTHER ==
[~2017-03-30] VITALS: Ht 160 cm; Wt 54.6 kg
--- NOTE | 2017-03-30 09:44 | EKG ---
[facility] [address] [place] [id number] Test Date: 2017-03-30 Test Time: 09:24:26 Pat Name: ZOHRA RICH Department: Room: Gender: M Physiatrist: : [id number] Requested By: TURNER JONES Order Number: [id number] Reading MD: Aishwarya Valero Measurements Intervals [place] Rate: 75 P: -30 TN: 216 QRS: -29 QRSD: 90 T: -84 QT: 402 QTc: 452 Interpretive Statements SINUS RHYTHM VENTRICULAR PREMATURE COMPLEX(ES) LEFTWARD AXIS QRS(T) CONTOUR ABNORMALITY CONSISTENT WITH LATERAL INFARCT AGE UNDETERMINED T ABNORMALITY IN INFEROLATERAL LEADS ABNORMAL ECG Electronically Signed On 03-30-2017 21:11:18 CDT by Aishwarya Valero
--- NOTE | 2017-03-30 09:45 | RAD ---
Indication chest pain for 3 days. A single view of the chest was obtained. Comparison is made to an examination December 29, 2016. Mild cardiomegaly is noted, unchanged. There is no gross congestive heart failure. A focal infiltrate is not seen. Bipolar cardiac pacing device is noted. There is an oval, partially calcified, mass at the right lung apex medially. This is consistent with a partially calcified tyroid nodule is demonstrated on examination 09/20/2014 IMPRESSION: Stable mild cardiomegaly. No acute or focal process seen in the chest
[2017-03-30 09:46] LABS: BASO % 1 % (0-3); EOS % 3 % (0-3); HEMOGLOBIN 15.5 g/dL (13.0-17.5); LYMPH # 1.9 x10^3/uL (1.0-4.8); LYMPH % 31 % (24-48); MEAN CORPUSCULAR HEMOGLOBIN 30 pg (25-35); MEAN CORPUSCULAR HGB CONC 35 g/dL (31-37); MEAN CORPUSCULAR VOLUME 87 fL (79-100); MONO % 6 % (0-9); NEUT % 60 % (31-73); PLATELET COUNT 139 x10^3/uL (140-400); RED BLOOD COUNT 5.18 x10^6/uL (4.30-5.70); WHITE BLOOD COUNT 6.2 x10^3/uL (4.0-11.0)
[2017-03-30 10:01] LABS: CALCIUM 9.6 mg/dL (8.5-10.1); CREATININE 1.1 mg/dL (0.7-1.3); GFR 63.6; POTASSIUM 3.9 mmol/L (3.5-5.1)
[2017-03-30 10:07] LABS: ALBUMIN 3.5 g/dL (3.4-5.0); ALBUMIN/GLOBULIN RATIO 0.8 (1.0-1.7); TOTAL BILIRUBIN 0.6 mg/dL (0.2-1.0); TOTAL PROTEIN 7.7 g/dL (6.4-8.2)
--- NOTE | 2017-03-30 10:17 | ED.ADGEN ---
Past Medical History Past Medical History: CHF, DVT, High Cholesterol, Hypertension, Hypothyroid, Other Additional Past Medical Histor: SLEEP APNEA, irregular heart rate Past Surgical History: Angioplasty, Pacemaker, Other Additional Past Surgical Histo: CARDIAC STENTS Alcohol Use: None Drug Use: None Adult General Chief Complaint Chief Complaint: CHEST PAIN-CARDIAC NATURE HPI HPI Patient is a 86 year [id number] male with history of CAD and stent placement who presents with exertional chest pain for the past 3 days. Pain is worse with slight exertion and is partially lead with resting nitroglycerin. Pain is located in left chest and radiates to shoulder. Associated with shortness of breath. Patient has not had nausea vomiting or sweats per patient's daughter. Review of Systems Review of Systems ROS as per HPI. Current Medications Current Medications Current Medications Medications (Trade) Dose Ordered Sig/Mel Start Time Stop Time Status Last Admin Dose Admin Nitroglycerin/ Dextrose (Nitroglycerin Drip) 250 ml @ 0 mls/hr 1X ONCE 03/30/17 10:30 03/30/17 10:31 DC Allergies Allergies Allergies Coded Allergies Type Severity Reaction Last Updated Verified No Known Drug Allergies 05/24/14 No Physical Exam Physical Exam Constitutional: Well developed, well nourished, no acute distress, non-toxic appearance. HENT: Normocephalic, atraumatic, bilateral external ears normal, oropharynx moist, no oral exudates, nose normal. Eyes: PERRLA, EOMI. Neck: Normal range of motion, no tenderness. Cardiovascular:Heart rate regular rhythm, no murmur. Lungs & Thorax: Bilateral breath sounds clear to auscultation. Abdomen: Bowel sounds normal, soft. Skin: Warm, dry, no erythema, no rash. Back: No tenderness. Extremities: No tenderness, no cyanosis, no clubbing, ROM intact, no edema. Neurologic: Alert and oriented, normal motor function, normal sensory function, no focal deficits noted. Psychologic: Affect normal, judgement normal, mood normal. Current Patient Data Vital Signs Vital Signs Date Time Temp Pulse Resp B/P Pulse Ox O2 Delivery O2 Flow Rate FiO2 03/30/17 09:18 98.6 69 20 159/79 97 Room Air 98.6 Lab Values Laboratory Tests Test 03/30/17 09:30 White Blood Count 6.2x10^3/uL (4.0-11.0) Red Blood Count 5.18x10^6/uL (4.30-5.70) Hemoglobin 15.5g/dL (13.0-17.5) Hematocrit 45.0% (39.0-53.0) Mean Corpuscular Volume 87fL (79-100) Mean Corpuscular Hemoglobin 30pg (25-35) Mean Corpuscular Hemoglobin Concent 35g/dL (31-37) Red Cell Distribution Width 15.0% (11.5-14.5) H Platelet Count 139x10^3/uL (140-400) L Neutrophils (%) (Auto) 60% (31-73) Lymphocytes (%) (Auto) 31% (24-48) Monocytes (%) (Auto) 6% (0-9) Eosinophils (%) (Auto) 3% (0-3) Basophils (%) (Auto) 1% (0-3) Neutrophils # (Auto) 3.7x10^3uL (1.8-7.7) Lymphocytes # (Auto) 1.9x10^3/uL (1.0-4.8) Monocytes # (Auto) 0.3x10^3/uL (0.0-1.1) Eosinophils # (Auto) 0.2x10^3/uL (0.0-0.7) Basophils # (Auto) 0.0x10^3/uL (0.0-0.2) Sodium Level 138mmol/L (136-145) Potassium Level 3.9mmol/L (3.5-5.1) Chloride Level 104mmol/L (98-107) Carbon Dioxide Level 27mmol/L (21-32) Anion Gap 7 (6-14) Blood Urea Nitrogen 22mg/dL (8-26) Creatinine 1.1mg/dL (0.7-1.3) Estimated GFR (Cockcroft-Gault) 63.6 BUN/Creatinine Ratio 20 (6-20) Glucose Level 110mg/dL (70-99) H Calcium Level 9.6mg/dL (8.5-10.1) Total Bilirubin 0.6mg/dL (0.2-1.0) Aspartate Amino Transferase (AST) 23U/L (15-37) Alanine Aminotransferase (ALT) 28U/L (16-63) Alkaline Phosphatase 73U/L (46-116) Troponin I Quantitative 0.690ng/mL (0.000-0.055) Total Protein 7.7g/dL (6.4-8.2) Albumin 3.5g/dL (3.4-5.0) Albumin/Globulin Ratio 0.8 (1.0-1.7) L Laboratory Tests 03/30/17 09:30 Laboratory Tests 03/30/17 09:30 EKG EKG [EKG: Normal sinus rhythm, occasional PAC, T-wave abnormalities in inferior lateral leads.] Radiology/Procedures Radiology/Procedures [Chest x-ray: No acute cardiopulmonary disease per radiology report.] Impressions: Unstable angina without findings of acute ST segment elevation on EKG with elevated troponin. Course & Med Decision Making Course & Med Decision Making Pertinent Labs and Imaging studies reviewed. (See chart for details) [Case reviewed with Dr. Askew on-call for cardiology. Patient remains pain- free. Nitroglycerin drip and PCP admission with cardiology consult. ] Dragon Disclaimer Dragon Disclaimer This electronic medical record was generated, in whole or in part, using a voice recognition dictation system. TURNER JONES DO March 30, 2017 10:17
[2017-03-30] MEDS ORDERED: NITROGLYCERIN PREMIX 250 ML IV ONE (10:30)
[2017-03-30] MEDS ORDERED: HEPARIN for IV BOLUS 10,000 UNIT/10 ML VIAL. IV ONE (10:45)
[2017-03-30] MEDS ORDERED: HEPARIN 25,000UTS/500ML PREMIX 500 ML IV PRN (10:45)
[2017-03-30] MEDS ORDERED: ASPIRIN CHEWABLE 81 MG TABLET. PO ONE (11:00)
[2017-03-30] MEDS ORDERED: ONDANSETRON PF 4 MG/2 ML VIAL. IV PRN (11:00)
[2017-03-30 12:15] VITALS: BP 150/77
[2017-03-30] MEDS ORDERED: ASPI81TA2 PO (13:04)
[2017-03-30] MEDS ORDERED: MULT-245 PO (13:04)
[2017-03-30 15:06] VITALS: BP 157/78
--- NOTE | 2017-03-30 15:18 | PDOC2 ---
CARTER BLOCK FLOORLEADER 03/30/17 1518: CARDIAC CONSULT DATE OF CONSULT Date of Consult DATE: 03/30/17 TIME: 15:09 REASON FOR CONSULT Reason for Consult: Elevated troponin REFERRING PHYSICIAN Referring Physician: Dr. Elias SOURCE Source: Caregiver, Chart review, Patient HISTORY OF PRESENT ILLNESS HISTORY OF PRESENT ILLNESS This is an 86 yo male, with a h/o CAD s/p THOR to second diagonal branch of the LAD, who presented with complaints of chest pain. Pain began 3 days ago. Initially located in mid-epigastric region. Described as stabbing in nature. Pain resolved with Tums and Pepto Bismol. Pain returned yesterday afternoon. Again, began in the mid-epigastric region but radiated upward and eventually through to his back. This time, antacids did not seem to help. This morning, patient was apparently pale and diaphoretic and pain was significantly worse so family called EMS. Pain associated with mild SOA. Denies any dizziness, palpitations, or nausea/vomiting. Pain worsens with activity. No worsened with deep breath, palpation to affected area, or with specific movements. Reports compliance with medications. Does have a history of GERD and takes Tums daily. Not on PPI. Pain similar to what he previously experienced with admission in November; cardiac cath at that time with no obstructive disease with previously placed stent patent. PAST MEDICAL HISTORY Past Medical History Cardiovascular: CAD (with PCI/THOR to D2- 04/2016), CHF, HTN, Hyperlipidemia, Valve insufficiency (aortic), Other ([facility] PPM - 01/2013) Pulmonary: Other (NANCY/CPAP) GI: GERD Heme/Onc: Other (DVT) Musculoskeletal: Osteoarthritis Renal/: Chronic renal insuff (stage III) Endocrine: Hypothyroidism PAST SURGICAL HISTORY Past Surgical History Pacemaker ([facility]) FAMILY HISTORY Family History: Other (noncontributory ) SOCIAL HISTORY Social History Smoke: No ALCOHOL: none Drugs: None Lives: with Family CURRENT MEDICATIONS CURRENT MEDICATIONS Current Medications Medications (Trade) Dose Ordered Sig/Mel Route PRN Reason Start Time Stop Time Status Last Admin Dose Admin Nitroglycerin/ Dextrose (Nitroglycerin Drip) 250 ml @ 0 mls/hr 1X ONCE IV 03/30/17 10:30 03/30/17 10:31 DC 03/30/17 10:46 Heparin Sodium (Porcine) 3350 unit 3,350 unit 1X ONCE IV 03/30/17 10:45 03/30/17 10:47 DC 03/30/17 11:12 Heparin Sodium/ Dextrose 500 ml @ 0 mls/hr CONT PRN IV SEE I/O RECORD 03/30/17 10:45 03/30/17 11:17 ALLERGIES ALLERGIES: Coded Allergies: No Known Drug Allergies (Unverified , 05/24/14) ROS Review of System 14 point ROS conducted with pertinent positives noted above in HPI. PHYSICAL EXAM PHYSICAL EXAM General: Alert, Cooperative, No acute distress HEENT: Atraumatic, PERRLA Lungs: Clear to auscultation, Normal air movement Heart: Regular rate, Normal S1, Normal S2, No murmurs, Other (2/6 systolic murmur) Abdomen: Normal bowel sounds, Soft, No tenderness Extremities: No edema, Normal pulses Skin: No rashes Neuro: Normal speech Psych/Mental Status: Mental status NL, Mood NL MUSCULOSKELETAL: Osteoarthritic changes both hands VITALS VITALS Vital Signs Date Time Temp Pulse Resp B/P Pulse Ox O2 Delivery O2 Flow Rate FiO2 03/30/17 15:06 97.5 68 16 157/78 95 Room Air 97.5 LABS Lab: Laboratory Tests Test 03/30/17 09:30 White Blood Count 6.2x10^3/uL (4.0-11.0) Red Blood Count 5.18x10^6/uL (4.30-5.70) Hemoglobin 15.5g/dL (13.0-17.5) Hematocrit 45.0% (39.0-53.0) Mean Corpuscular Volume 87fL (79-100) Mean Corpuscular Hemoglobin 30pg (25-35) Mean Corpuscular Hemoglobin Concent 35g/dL (31-37) Red Cell Distribution Width 15.0% (11.5-14.5) Platelet Count 139x10^3/uL (140-400) Neutrophils (%) (Auto) 60% (31-73) Lymphocytes (%) (Auto) 31% (24-48) Monocytes (%) (Auto) 6% (0-9) Eosinophils (%) (Auto) 3% (0-3) Basophils (%) (Auto) 1% (0-3) Neutrophils # (Auto) 3.7x10^3uL (1.8-7.7) Lymphocytes # (Auto) 1.9x10^3/uL (1.0-4.8) Monocytes # (Auto) 0.3x10^3/uL (0.0-1.1) Eosinophils # (Auto) 0.2x10^3/uL (0.0-0.7) Basophils # (Auto) 0.0x10^3/uL (0.0-0.2) Sodium Level 138mmol/L (136-145) Potassium Level 3.9mmol/L (3.5-5.1) Chloride Level 104mmol/L (98-107) Carbon Dioxide Level 27mmol/L (21-32) Anion Gap 7 (6-14) Blood Urea Nitrogen 22mg/dL (8-26) Creatinine 1.1mg/dL (0.7-1.3) Estimated GFR (Cockcroft-Gault) 63.6 BUN/Creatinine Ratio 20 (6-20) Glucose Level 110mg/dL (70-99) Calcium Level 9.6mg/dL (8.5-10.1) Total Bilirubin 0.6mg/dL (0.2-1.0) Aspartate Amino Transf (AST/SGOT) 23U/L (15-37) Alanine Aminotransferase (ALT/SGPT) 28U/L (16-63) Alkaline Phosphatase 73U/L (46-116) Troponin I Quantitative 0.690ng/mL (0.000-0.055) Total Protein 7.7g/dL (6.4-8.2) Albumin 3.5g/dL (3.4-5.0) Albumin/Globulin Ratio 0.8 (1.0-1.7) ECHOCARDIOGRAM ECHOCARDIOGRAM DATE: 05/07/16 1644 <Conclusion> Mild LV systolic dysfunction. EF 45%. Mild to moderate polyvalvular insufficiency. DATE: 12/29/16 1137 <Conclusion> Mild LV dysfunction. EF 40-45% There is moderate to severe hypokinesis in the basal posterior, mid posterior and the mid lateral torrez. All other torrez appear to contract normally. Doppler and Color Flow revealed mild aortic regurgitation HEART CATH HEART CATH 3. Coronary angiography: a. The left main coronary artery arose from the left sinus of Valsalva, gave rise to the left anterior descending and left circumflex arteries and did not show any significant stenosis. b. The left anterior descending artery showed 40% stenosis in the very distal segment posterior apical wall. The previously placed stent in the second diagonal branch was widely patent. c. The left circumflex artery did not show any significant stenosis. d. The right coronary artery was a large and dominant vessel arising from the right sinus of Valsalva that showed 40-50% stenosis in the midsegment. Conclusion 1. Nonobstructive coronary artery disease as described above with widely patent previously placed stent in second diagonal branch of left anterior descending artery. 2. Moderate global left ventricle systolic dysfunction with ejection fraction estimated at 35-40% DATE: 12/30/16 1033 ASSESSMENT/PLAN ASSESSMENT/PLAN 1. Elevated troponin chronic elevation; ? etiology previous admission trop peak 0.587 and cath without obstruction disease with previously placed D2 stent patent will trend enzymes. check limited echo. stop heparin and nitro gtt. Will give dose of Lovenox. 2. Chest pain atypical suspect pain is GI in nature; possible reflux or esophagitis will try GI cocktail and note response; add PPI 3. CAD s/p previous PCI/THOR to D2 continue DAPT & medical management with BB and statin therapy 4. Chronic systolic HF echo 12/16 with an EF 40-45% compensated 4. HTN controlled with meds 5. Hyperlipidemia 12/16 LDL= [address] [facility] recent device check with normal function 7. hypothyroidism recent TSH WNL 8. NANCY continue home CPAP 9. GERD add PPI 10. CKD - stage III per primary service Problems: PETE ZUÑIGA MD 03/30/17 1703: CARDIAC CONSULT ALLERGIES ALLERGIES: Coded Allergies: No Known Drug Allergies (Unverified , 05/24/14) ASSESSMENT/PLAN ASSESSMENT/PLAN Patient seen and examined. Agree with ENGINEERING SYSTEMS ANALYST's assessment and plan Chest pain with atypical features and most probably GI in etiology Recent cardiac catheterization showed patent stent in diagonal branch Stop heparin infusion Agree with checking 2-D echo to rule out any new wall motion abnormalities Chronic systolic heart failure clinically well compensated Recent pacemaker interrogation showed normal function Continue current medical regimen Thank you for your consultation Problems: CARTER BLOCK APRN March 30, 2017 15:18 PETE ZUÑIGA MD March 30, 2017 17:03
[2017-03-30] MEDS ORDERED: LIDO:MAALOX:DONNATAL 1:1:1 15 ML SINGLE DOSE SWSW ONE (16:00)
[2017-03-30] MEDS ORDERED: ANTI-COAG MONITOR BY PHARMACY. MC PRN (16:45)
[2017-03-30] MEDS: POTASSIUM CHLORIDE 10 MEQ TABLET.ER. PO SCH (18:17)
[2017-03-30] MEDS: PANTOPRAZOLE 40 MG TABLET.DR. PO SCH (18:17)
[2017-03-30] MEDS: LISINOPRIL 5 MG TABLET. PO SCH (18:17)
[2017-03-30] MEDS: FUROSEMIDE 20 MG TABLET PO SCH (18:18)
[2017-03-30] MEDS: METOPROLOL SUCC 24HR ER 50 MG TAB.ER.24H. PO SCH (18:18)
[2017-03-30 19:00] VITALS: BP 146/69
[2017-03-30] MEDS ORDERED: MORPHINE SULFATE 4 MG/ML DISP.SYRIN. IV PRN (20:00)
[2017-03-30] MEDS: MORPHINE SULFATE 2 MG/ML DISP.SYRIN. IV PRN (20:12)
[2017-03-30] MEDS ORDERED: ATORVASTATIN CALCIUM 40 MG TABLET. PO SCH (21:00)
[2017-03-30 23:00] VITALS: BP 114/65
[2017-03-31 03:00] VITALS: BP 117/63
[2017-03-31 05:03] LABS: BASO % 1 % (0-3); EOS % 4 % (0-3); HEMATOCRIT 46.6 % (39.0-53.0); HEMOGLOBIN 15.4 g/dL (13.0-17.5); LYMPH # 1.9 x10^3/uL (1.0-4.8); LYMPH % 38 % (24-48); MEAN CORPUSCULAR HEMOGLOBIN 29 pg (25-35); MEAN CORPUSCULAR HGB CONC 33 g/dL (31-37); MEAN CORPUSCULAR VOLUME 89 fL (79-100); MONO % 8 % (0-9); NEUT % 49 % (31-73); PLATELET COUNT 159 x10^3/uL (140-400); RED BLOOD COUNT 5.26 x10^6/uL (4.30-5.70); RED CELL DISTRIBUTION WIDTH 14.9 % (11.5-14.5)
[2017-03-31 05:06] LABS: CALCIUM 9.1 mg/dL (8.5-10.1); CREATININE 1.4 mg/dL (0.7-1.3); GFR 48.2; POTASSIUM 3.9 mmol/L (3.5-5.1)
[2017-03-31 05:12] LABS: CHOLESTEROL/HDL RATIO 3.9
--- NOTE | 2017-03-31 05:35 | ACF ---
Admission Forms Criteria CARDIOLOGY GRG Clinical Indications for Admission to Inpatient Care ( Place 'X' for any and all applicable criteria): Hospital admission is needed for appropriate care of the patient because of ANY ONE of the following (1): [ ] I. Hemodynamic instability as indicated by ALL of the following (1)(2)(3) (4)(5) [ ]a) Vital signs or other findings not as expected for chronic patient condition or baseline [ ]b) Instability indicated by ANY ONE of the following: [ ]i) Hypotension [ ]ii) Symptomatic Tachycardia unresponsive to treatment ( e.g., analgesia, fluids, sedation as indicated) [ ]iii) Inadequate perfusion indicated by ANY ONE of the following: [ ] 1) Lactic acidosis (> 2 mmol/L) [ ] 2) New abnormal capillary refill (> 3 seconds) [ ] 3) Reduced urine output [ ] 4) New altered mental status [ ]iv) Orthostatic vital sign changes unresponsive to treatment (e.g., fluids) [ ]v) IV inotropic or vasopressor medication required to maintain adequate blood pressure or perfusion [ ] II. Severe heart failure as indicated by ANY ONE of the following(17)(18) [ ]a) Respiratory distress [ ]b) Hypotension [ ]c) Anasarca (refractory to outpatient therapy) [ ]d) Cardiac arrhythmias of immediate concern [ ]e) Myocardial ischemia [ ] III. Cardiac arrhythmias or findings of immediate concern indicated by ANY ONE of the following (19)(20): [ ] a) Heart rhythms that are inherently dangerous or unstable indicated by ANY ONE of the following (21)(22)(23): [ ] i) Resuscitated ventricular fibrillation or cardiac arrest [ ] ii) Ventricular escape rhythm [ ] iii) Sustained ventricular tachycardia (30 seconds or more of ventricular rhythm at greater than 100 beats per minute) [ ] iv) Nonsustained ventricular tachycardia and ANY ONE of the following: [ ] 1) Suspected cardiac ischemia as cause or consequence of ventricular tachycardia [ ] 2) In setting of acute myocarditis [ ] b) Unstable cardiac conduction defects indicated by ANY ONE of the following(23)(24)(25) [ ] i) Type II second-degree atrioventricular block [ ]ii) Third-degree atrioventricular block [ ]iii) New-onset left bundle branch block with suspected myocardial ischemia [ ]c) Any heart rhythm and ANY ONE of the following (21)(22)(26)(27) (28) [ ] i) Continuous long-term ECG monitoring needed (e.g., initiation of drug requiring monitoring for more than 24 hours) [ ] ii) Patient has automatic implanted cardioverter defibrillator that is repeatedly firing, malfunctioning, or in need of immediate adjustment of settings beyond the scope of ambulatory or observation care [ ]d) Heart rhythms of concern due to ANY ONE of the following: [ ] i) Hypotension [ ] ii) Respiratory distress [ ] iii) Association with other significant symptoms (e.g., bradycardia with syncope or ongoing dizziness, supraventricular tachycardia with chest pain (14)(15)(17) [ ] IV. Monitoring for cardiac contusion beyond the scope of observation care needed [A](30)(31)(32) [ ] V. Surgical or device complication (e.g., valve replacement complication , pacemaker dysfunction) (35)(41)(44)(45)(46) [ ] . Inpatient palliative care needed. [B](49) Also use Inpatient Palliative Care Criteria [ ] VII. Nonbacterial thrombotic (marantic) endocarditis (36)(43)(47)(48) [X] VIII. Cardiology condition, symptom, or finding for which emergency and observation care has failed or are not considered appropriate. [ ] IX. Acute valvular disease requiring inpatient as indicated by ANY ONE of the following (41) [ ]a) Acute valvular regurgitation (42) [ ]b) Noninfectious valvulitis (43) [ ]c) Obstructive valve thrombosis [ ]d) Paravalvular leak [ ]e) Other significant valvular disorder remaining after emergency or observation level of care (as appropriate) [ ]X. Pericardial disease requiring inpatient treatment as indicated by ANY ONE of the following (33)(34)(35)(36)(37) [ ]a) Suspected tamponade (38)(39)(40) [ ]b) Hemopericardium [ ]c) Other significant pericardial disorder remaining after emergency or observation level of care (as appropriate) [ ] XI. Cardiac ischemia beyond scope of emergency and observation care. [ ] XII. Hypertension requiring inpatient treatment as indicated by ANY ONE of the following (6)(7)(8) [ ]a) SBP greater than 220 mm Hg or DBP greater than 120 mmHg despite treatment [ ]b) SBP greater than 140 mm Hg or DBP greater than 100 mm Hg with evidence of acute end organ damage as indicated by ANY ONE of the following [ ] i) Encephalopathy [ ] ii) Acute renal failure as indicated by new onset of ANY ONE of the following (9)(10)(11)(12)(13) [ ]1) 3-fold rise in serum creatinine from baseline [ ]2) Serum creatinine greater than 4 mg/dL ( 354 micromoles/L) with acute rise greater than 0.5 mg/dL (44.2 micromoles/L) [ ]3) Reduction of more than 75% in estimated glomerular filtration rate from baseline [ ]4) Estimated glomerular filtration rate less than 35 mL/min/1.73m2 (0.59 mL/sec/1.73m2) in child up to 18 years of age [ ]5) Cessation of urine output indicated by ALL of the following [ ]A. Adequate volume status [ ]B. Inadequate urine output as indicated by ANY ONE of the following [ ]a. Urine output less than 0.3 mL/kg/hr for 24 hours [ ]b. Anuria (urine output less than 0.1 mL/kg/hr) for 12 hours [ ] iii) Aortic dissection [ ] iv) Myocardial Ischemia [ ] v) Left ventricular heart failure [ ]vi) Retinal Hemorrhage [ ]vii) Other significant finding [ ]c) Hypertension in child requiring inpatient treatment as indicated by ALL of the following(14)(15)(16) [ ] i) Outpatient treatment not effective, not available, or not appropriate [ ]ii) SBP or DBP greater than 95th percentile for age [ ]iii) Evidence of acute end organ damage as indicated by ANY ONE of the following [ ]1) Altered mental status [ ]2) Acute renal failure as indicated by new onset of ANY ONE of the following(9)(10)(11)(12)(13) [ ]A. 3-fold rise in serum creatinine from baseline [ ]B. Serum creatinine greater than 4 mg/dL (354 micromoles/L) with acute rise greater than 0.5 mg/dL (44.2 micromoles/L) [ ]C. Reduction of more than 75% in estimated glomerular filtration rate from baseline [ ]D. Estimated glomerular filtration rate less than 35 mL/min/1.73m2 (0.59 mL/sec/1.73m2) in child up to 18 years of age [ ]E. Cessation of urine output indicated by ALL of the following [ ]a. Adequate volume status [ ]b. Inadequate urine output as indicated by ANY ONE of the following [ ]i) Urine output less than 0.3 mL/kg/hr for 24 hours [ ]ii) Anuria ( urine output less than 0.1 mL/kg/hr) for 12 hours [ ]3) Severe headache [ ]4) Visual disturbance [ ]5) Retinal hemorrhage [ ]6) Other significant finding [ ]XIII. Complications of transplanted heart indicated by ANY ONE of the following(61): [ ]a) Acute graft rejection requiring inpatient management (eg, intravenous immunosuppression)(62)(63) [ ]b) Acute graft heart failure indicated by ANY ONE of the following(64): [ ]i) Hemodynamic instability [ ]ii) Cardiac arrhythmias of immediate concern [ ]iii) Pulmonary edema that is very severe (eg, mechanical ventilation needed, imminent or likely, need for 100% oxygen to keep oxygen saturation above 90%) [ ]iv) Pulmonary edema that is persistent as indicated by ALL of the following: [ ]1) New need for oxygen therapy to keep oxygen saturation above 90% (or increased FiO2 need from baseline) [ ]2) Has not improved sufficiently with emergency department or observation care IV diuretics or other heart failure treatments[E] [ ]v) Altered mental status that is severe or persistent [ ]vi) Increased creatinine (new on laboratory test) with reduction of more than 50% in estimated glomerular filtration rate from baseline [ ]vii) Progressively (ongoing) rising creatinine (known from past laboratory test) with reduction of more than 25% in estimated glomerular filtration rate from baseline [ ]viii) Acute renal failure [ ]ix) Acute peripheral ischemia (eg, examination shows pulseless, cool, mottled, or cyanotic extremity) [ ]x) Pulmonary artery catheter monitoring needed [ ]xi) Other sign or symptom of heart failure requiring inpatient treatment (ie, too severe or not responsive to outpatient and observation care treatment) [ ]c) Infection requiring inpatient management (eg, Hemodynamic instability, need for intravenous antimicrobial treatment)(66)(67)(68)(69)(70) [ ]d) Cardiac allograft vasculopathy requiring inpatient management ( eg evidence of cardiac ischemia)(71) [ ]e) Other complication of transplanted heart (eg, stroke, severe pulmonary hypertension, severe valvular dysfunction) requiring inpatient management(72) The original [facility] content created by [facility] has been revised. The portions of the content which have been revised are identified through the use of italic text or in bold, and [facility] has neither reviewed nor approved the modified material. All other unmodified content is copyright [facility]. Please see references footnoted in the original [facility] edition 2016 Admission Criteria Met?: Yes AL RAMIREZ March 31, 2017 05:35
[2017-03-31] MEDS ORDERED: LEVOTHYROXINE 75 MCG TABLET PO SCH (07:30)
[2017-03-31] MEDS ORDERED: SULFUR HEXAFLUORIDE MICROSPHR 25 MG VIAL. IVP ONE ×2 (08:13→09:00)
--- NOTE | 2017-03-31 09:16 | PDOC ---
Provider Note Provider Note Pt seen,H&P dictated. #[id number] AUGUST HUITRON MD March 31, 2017 09:16
[2017-03-31] MEDS: MORPHINE SULFATE 2 MG/ML DISP.SYRIN. IV PRN ×2 (10:12→11:27)
[2017-03-31] MEDS ORDERED: CONTRAST GIVEN MC PRN (10:45)
--- NOTE | 2017-03-31 10:57 | PDOC2 ---
GI CONSULT Reason For Consult: Epigastric pain HPI: HPI: 86 y/o male admitted w/ chest pain w/ mildly elevated troponin. Cardiology workup is complete, pain felt likely GI related. His daughter provides history and translation. Has a h/o upper abd pain w/ radiation to left back/flank, occurs intermittently w/o precipitating events x 3 years. She relates that usually pain starts in abdomen, spreads to chest, and he is usually admitted/ treated for a cardiac issue. Has not had previous GI eval. Currently pain is LUQ/epigastric w/ upper back pain unimproved w/ morphine. Previously, at home, pain has improved w/ Tums or Pepto-Bismol or Pepcid. Per RN, GI cocktail was ineffective yesterday. Denies reflux/heartburn, although his daughter has suspected this. No n/v or weight loss, although doesn't eat much. Reports long h/o "diarrhea" (soft/loose stools about once daily). No hematochezia, melena. No NSAID use. CT A/P has been ordered, along w/ x-ray of thoracolumbar spine. Has been started on PPI. PMH: PMH: CAD (with PCI/THOR 206), CHF, HTN, HLD, aortic valve insufficiency, NANCY, DVT, OA , chronic renal insufficiency, hypothyroidism, pacemaker FH: Family History: No pertinent hx (noncontributory due to age) Social History: Smoke: Quit ALCOHOL: none Drugs: None ROS: GEN: Denies fevers, chills, sweats HEENT: Denies blurred vision, sore throat CV: +chest pain RESP: Denies shortness of air, cough GI: Per HPI : Denies hematuria, dysuria ENDO: Denies weight changes NEURO: Denies confusion, dizziness MSK: Denies weakness, joint pain/swelling SKIN: Denies jaundice, pruritus VItals: Vitals: Vital Signs Date Time Temp Pulse Resp B/P Pulse Ox O2 Delivery O2 Flow Rate FiO2 03/31/17 10:12 Room Air 03/31/17 03:00 97.5 99 18 117/63 95 97.5 Labs: Labs: Laboratory Tests Test 03/30/17 16:15 03/30/17 21:55 03/31/17 03:20 Heparin Anti-Xa Act, Unfractionated 0.65IU/mL (0.30-0.70) Troponin I Quantitative 0.584ng/mL (0.000-0.055) 0.576ng/mL (0.000-0.055) 0.593ng/mL (0.000-0.055) White Blood Count 5.0x10^3/uL (4.0-11.0) Red Blood Count 5.26x10^6/uL (4.30-5.70) Hemoglobin 15.4g/dL (13.0-17.5) Hematocrit 46.6% (39.0-53.0) Mean Corpuscular Volume 89fL (79-100) Mean Corpuscular Hemoglobin 29pg (25-35) Mean Corpuscular Hemoglobin Concent 33g/dL (31-37) Red Cell Distribution Width 14.9% (11.5-14.5) Platelet Count 159x10^3/uL (140-400) Neutrophils (%) (Auto) 49% (31-73) Lymphocytes (%) (Auto) 38% (24-48) Monocytes (%) (Auto) 8% (0-9) Eosinophils (%) (Auto) 4% (0-3) Basophils (%) (Auto) 1% (0-3) Neutrophils # (Auto) 2.5x10^3uL (1.8-7.7) Lymphocytes # (Auto) 1.9x10^3/uL (1.0-4.8) Monocytes # (Auto) 0.4x10^3/uL (0.0-1.1) Eosinophils # (Auto) 0.2x10^3/uL (0.0-0.7) Basophils # (Auto) 0.0x10^3/uL (0.0-0.2) Sodium Level 141mmol/L (136-145) Potassium Level 3.9mmol/L (3.5-5.1) Chloride Level 105mmol/L (98-107) Carbon Dioxide Level 28mmol/L (21-32) Anion Gap 8 (6-14) Blood Urea Nitrogen 27mg/dL (8-26) Creatinine 1.4mg/dL (0.7-1.3) Estimated GFR (Cockcroft-Gault) 48.2 Glucose Level 91mg/dL (70-99) Calcium Level 9.1mg/dL (8.5-10.1) Triglycerides Level 92mg/dL (0-150) Cholesterol Level 185mg/dL (0-200) LDL Cholesterol, Calculated 120mg/dL (0-100) VLDL Cholesterol, Calculated 18mg/dL (0-40) Non-HDL Cholesterol Calculated 138mg/dL (0-129) HDL Cholesterol 47mg/dL (40-60) Cholesterol/HDL Ratio 3.9 Thyroid Stimulating Hormone (TSH) 9.614uIU/mL (0.358-3.74) Allergies: Coded Allergies: No Known Drug Allergies (Unverified , 05/24/14) Medications: Current Medications Medications (Trade) Dose Ordered Sig/Mel Route PRN Reason Start Time Stop Time Status Last Admin Dose Admin Heparin Sodium (Porcine) 3350 unit 3,350 unit 1X ONCE IV 03/30/17 10:45 03/30/17 10:47 DC 03/30/17 11:12 Heparin Sodium/ Dextrose 500 ml @ 0 mls/hr CONT PRN IV SEE I/O RECORD 03/30/17 10:45 03/30/17 16:28 DC 03/30/17 11:17 Atorvastatin Calcium (Lipitor) 40 mg HS PO 03/30/17 21:00 03/31/17 10:02 DC 03/30/17 21:07 Furosemide (Lasix) 20 mg DAILY PO 03/30/17 15:00 03/30/17 18:18 Lisinopril (Prinivil) 5 mg DAILY PO 03/30/17 15:00 03/30/17 18:17 Metoprolol Succinate (Toprol Xl) 50 mg DAILY PO 03/30/17 15:00 03/30/17 18:18 Potassium Chloride (Klor-Con) 10 meq DAILYWBKFT PO 03/30/17 15:00 03/30/17 18:17 Multi-Ingredient Mouthwash/Gargle (Gi Cocktail Single Dose) 15 ml 1X ONCE SWSW 03/30/17 16:00 03/30/17 16:01 DC 03/30/17 16:07 Pantoprazole Sodium (Protonix) 40 mg DAILYAC PO 03/30/17 16:00 03/30/17 18:17 Enoxaparin Sodium (Lovenox 60mg Syringe) 50 mg Q12HR SQ 03/30/17 17:00 03/30/17 18:19 Morphine Sulfate 2 mg PRN Q4HRS PRN IV CHEST PAIN 03/30/17 20:00 03/31/17 10:12 Sulfur Hexafluoride Microspheres (Lumason) 25 mg 1X ONCE IVP 03/31/17 09:00 03/31/17 09:01 DC 03/31/17 08:52 Imaging: Imaging: CXR 03/30/17 IMPRESSION: Stable mild cardiomegaly. No acute or focal process seen in the chest. Echocardiogram 03/31/17 PENDING PE: GEN: NAD, sitting up in bed HEENT: Atraumatic, PERRL LUNGS: CTAB HEART: RRR ABD: NABS, S/ND, perhaps LUQ/epigastric tenderness to deep palpation EXTREMITY: No edema SKIN: No rashes, no jaundice NEURO/PSYCH: A & O 3 A/P: A/P: Upper abd pain, back pain -intermittent for 3 years -no triggering factors, sometimes relieved w/ Pepcid/Tums (GI cocktail ineffective yesterday) -denies reflux/heartburn, n/v CAD on Plavix CRC screen -no previous colonoscopy -- Await CT A/P. Agree w/ PPI. Will review w/ Dr. Hernandez. KAY CORNEJO March 31, 2017 10:56
--- NOTE | 2017-03-31 11:08 | CARD ---
APPROVED REPORT EXAM: Two-dimensional and M-mode echocardiogram with Doppler and color Doppler. Other Information Quality : GoodHR: 68bpm Rhythm : NSR INDICATION Chest Pain Echo Enhancing Agent Indication: Endocardial border delineation Agent/Amount Used: Lumason 2mL 2D DIMENSIONS RVDd3.0 (2.9-3.5cm)Left Atrium(2D)4.0 (1.6-4.0cm) IVSd1.3 (0.7-1.1cm)Aortic Root(2D)3.2 (2.0-3.7cm) LVDd4.5 (3.9-5.9cm)LVOT Diameter2.2 (1.8-2.4cm) PWd1.0 (0.7-1.1cm)LVDs3.6 (2.5-4.0cm) FS (%) 21.5 %SV41.0 ml LVEF(%)43.7 (>50%) LEFT VENTRICLE Limited echo for LV wall assessment only, the cardiac valves were not assessed. The left ventricle is normal size. There is normal left ventricular wall thickness. The systolic function is moderately im paired.EF 35% There is severe hypokinesis of the ventricle. The distal 2/3 of the septum is severely hypokinetic, the distal 1/3 of the LV is severely hypokinetic. Left ventricular compliance was not as sessed at this time. No left ventricle thrombus noted on this study. RIGHT VENTRICLE The right ventricle is normal size. The right ventricular systolic function is normal. ATRIA The left atrium size is normal. The interatrial septum is intact with no evidence for an atrial septa l defect or patent foramen ovale as noted on 2-D or Doppler imaging. TRICUSPID VALVE Unable to determine pulmonary artery pressure at exam time. GREAT VESSELS The aortic root is normal in size. The ascending aorta is normal in size. The IVC was not assessed at exam time. PERICARDIAL EFFUSION There is no evidence of significant pericardial effusion. Critical Notification Critical Value: No <Conclusion> Limited echo for EF only. EF 30-35% Severe LV dysfunction and global hypokinesis.
[2017-03-31] MEDS ORDERED: IOHEXOL 240 MG/ML 50ML VIAL. PO ONE (11:15)
[2017-03-31 11:26] VITALS: BP 108/73
--- NOTE | 2017-03-31 12:27 | HP ---
ADMIT DATE: 03/30/2017 REASON FOR ADMISSION TO THE HOSPITAL: 1. Chest pain. 2. Slightly elevated troponin. The patient has a known history of coronary artery disease with previous cardiac stents in the past. HISTORY OF PRESENT ILLNESS: The patient is an 86-year-old male patient known to me as he has a history of coronary artery disease and had a stent to the diagonal branch of the LAD, and he also has a history of hypertension, hyperlipidemia, and hypothyroidism. He is also complaining of abdominal pain and epigastric, going to the back, and the patient was seen and EKG showed no acute ST elevation. Troponin was slightly elevated at 0.5. The patient was admitted with a diagnosis of possible unstable angina and was put on heparin drip and nitroglycerin drip, seen by Cardiology. PAST MEDICAL HISTORY: Has a history of coronary artery disease, had a drug-eluting stent to the diagonal last year in April 2016. History of hypertension, hyperlipidemia, aortic valve insufficiency, hypothyroidism, heart failure, obstructive sleep apnea on CPAP, GERD, arthritis, and hypothyroidism. PAST SURGICAL HISTORY: He had a [employer] pacemaker cardiac stent last year. FAMILY HISTORY: Unremarkable except for hypertension. SOCIAL HISTORY: No history of smoking, alcohol, or drug abuse. ALLERGIES: No known allergies. MEDICATIONS: At home, the patient is on aspirin 81 mg daily, atorvastatin 40 mg daily, Plavix 75 mg daily, Lasix 20 mg daily, levothyroxine 75 mcg daily, lisinopril 5 mg daily, metoprolol 50 mg daily, succinate potassium 20 mEq, takes half a tablet daily. REVIEW OF SYSTEMS: The patient complains of back pain, epigastric pain as well as pain going upper to the chest. LUNGS: No cough or sputum. GASTROINTESTINAL: Heartburn. Rest of the 14-system was reviewed and negative. PHYSICAL EXAMINATION: GENERAL: The patient is not in any distress, resting comfortably. VITAL SIGNS: Temperature 98, pulse 69, respirations 20, blood pressure 159/79, and 97% on room air. HEENT: Head is atraumatic. Pupils are equal. Oral cavity: No congestion. NECK: Supple. Thyroid not enlarged. JVD not elevated. No mass palpable in the neck. CHEST: Symmetrical, has a pacemaker in left side of the chest. CARDIOVASCULAR: S1, S2. No murmurs. LUNGS: Clear to auscultation, no wheezing. GASTROINTESTINAL: Epigastric slight pain, no tenderness. No rebound. Bowel sounds present. No mass palpable. EXTERNAL GENITALIA: No Jose. RECTAL: Deferred. EXTREMITIES: No calf tenderness, no edema. Pulses 1+. NEUROLOGIC: Cranial nerves intact. Power 5/5 in all extremities. IMAGING STUDIES: The patient had an echocardiogram in November of this year which showed an ejection fraction 45% with hypokinesia and mild aortic regurgitation. LABORATORY DATA: Shows a creatinine of 1.4, troponin 0.58, his cholesterol 195, LDL 120, HDL 47, and TSH 9.6. CBC was normal. Chest x-ray stable, no acute infiltrations. EKG shows PVCs and T-wave abnormalities. FINAL IMPRESSION: 1. Chest pain, unstable angina. The patient has history of coronary artery disease, previous cardiac stents. 2. Slightly elevated troponin. 3. Hypertension. 4. Hyperlipidemia. 5. Hypothyroidism. 6. Gastroesophageal reflux disease. PLAN: Plan at this time is to admit to the hospital, seen by Cardiology, and does not think any cardiac issue at the present time. The patient had slightly similarly elevated troponins last time, and cardiac catheterization shows a patent stent, and we will also do a CT of the abdomen and pelvis, GI consult, probably needs EGD and an echocardiogram for left ventricular function and see how the patient's condition improves. AUGUST HUITRON MD DR: TIMI/lara JOB#: [id number] / [id number]
--- NOTE | 2017-03-31 13:36 | PDOC ---
CARDIO Progress Notes Date and Time Date of Service 03/31/17 Time of Evaluation 1120 Subjective Subjective: No shortness of breath, No Palpitations, Other (c/o LUQ abdominal pain and back pain) Vitals Vitals Vital Signs Date Time Temp Pulse Resp B/P Pulse Ox O2 Delivery O2 Flow Rate FiO2 03/31/17 11:27 Room Air 03/31/17 11:26 97.6 88 20 108/73 97 97.6 Weight Weight [ ] Input and Output Intake and Output Intake and Output 03/31/17 07:00 Intake Total 100 ml Output Total 300 ml Balance -200 ml Intake Oral 100 ml Output Urine Total 300 ml Laboratory Labs Laboratory Tests Test 03/30/17 16:15 03/30/17 21:55 03/31/17 03:20 Heparin Anti-Xa Act, Unfractionated 0.65IU/mL (0.30-0.70) Troponin I Quantitative 0.584ng/mL (0.000-0.055) 0.576ng/mL (0.000-0.055) 0.593ng/mL (0.000-0.055) White Blood Count 5.0x10^3/uL (4.0-11.0) Red Blood Count 5.26x10^6/uL (4.30-5.70) Hemoglobin 15.4g/dL (13.0-17.5) Hematocrit 46.6% (39.0-53.0) Mean Corpuscular Volume 89fL (79-100) Mean Corpuscular Hemoglobin 29pg (25-35) Mean Corpuscular Hemoglobin Concent 33g/dL (31-37) Red Cell Distribution Width 14.9% (11.5-14.5) Platelet Count 159x10^3/uL (140-400) Neutrophils (%) (Auto) 49% (31-73) Lymphocytes (%) (Auto) 38% (24-48) Monocytes (%) (Auto) 8% (0-9) Eosinophils (%) (Auto) 4% (0-3) Basophils (%) (Auto) 1% (0-3) Neutrophils # (Auto) 2.5x10^3uL (1.8-7.7) Lymphocytes # (Auto) 1.9x10^3/uL (1.0-4.8) Monocytes # (Auto) 0.4x10^3/uL (0.0-1.1) Eosinophils # (Auto) 0.2x10^3/uL (0.0-0.7) Basophils # (Auto) 0.0x10^3/uL (0.0-0.2) Sodium Level 141mmol/L (136-145) Potassium Level 3.9mmol/L (3.5-5.1) Chloride Level 105mmol/L (98-107) Carbon Dioxide Level 28mmol/L (21-32) Anion Gap 8 (6-14) Blood Urea Nitrogen 27mg/dL (8-26) Creatinine 1.4mg/dL (0.7-1.3) Estimated GFR (Cockcroft-Gault) 48.2 Glucose Level 91mg/dL (70-99) Calcium Level 9.1mg/dL (8.5-10.1) Triglycerides Level 92mg/dL (0-150) Cholesterol Level 185mg/dL (0-200) LDL Cholesterol, Calculated 120mg/dL (0-100) VLDL Cholesterol, Calculated 18mg/dL (0-40) Non-HDL Cholesterol Calculated 138mg/dL (0-129) HDL Cholesterol 47mg/dL (40-60) Cholesterol/HDL Ratio 3.9 Thyroid Stimulating Hormone (TSH) 9.614uIU/mL (0.358-3.74) Physical Exam HEENT: Neck Supple W Full Motion Chest: Symmetric LUNGS: Clear to Auscultation Heart: S1S2, RRR, murmurs (2/6 systolic murmur ) Abdomen: Other (mild LUQ tenderness with palpation) Extremities: 2+ Dorsalis Pedis, No Edema Neurology: alert, oriented, follow commands Assessment Assessment 1. Elevated troponin chronic elevation; ? etiology previous admission trop peak 0.587 and cath without obstruction disease with previously placed D2 stent patent limited echo reveals depressed LV function with global hypokinesis 2. Chest pain atypical suspect pain is GI in nature; possible reflux or esophagitis GI following; plan for EGD in am no further cardiac workup warranted. Please call with questions 3. CAD s/p previous PCI/THOR to D2 continue DAPT & medical management with BB and statin therapy 4. Chronic systolic HF compensated continue with optimization therapy 4. HTN controlled with meds 5. Hyperlipidemia 12/16 LDL= 110 [address]in [address] 6[address] PPM [facility] recent device check with normal function 7. hypothyroidism recent TSH WNL 8. NANCY continue home CPAP 9. GERD PPI 10. CKD - stage III per primary service CARTER BLOCK APRN March 31, 2017 13:36
[2017-03-31 14:07] LABS: BILIRUBIN,URINE NEGATIVE (NEG); GLUCOSE,URINE NEGATIVE (NEG); NITRITE,URINE NEGATIVE (NEG); PROTEIN,URINE NEGATIVE (NEG-TRACE); UROBILINOGEN,URINE 0.2 mg/dL (0.2 mg/dL)
[2017-03-31 14:18] LABS: BACTERIA,URINE 0 /HPF (0-FEW); RBC,URINE 0 /HPF (0-2); SQUAMOUS EPITHELIAL CELL,UR FEW /LPF; WBC,URINE 0 /HPF (0-4)
[2017-03-31 15:00] VITALS: BP 116/70
--- NOTE | 2017-03-31 15:13 | RAD ---
Indication upper abdominal pain radiating to the left flank. Chronic. Axial images through the abdomen and pelvis were obtained. Oral contrast was administered. IV contrast was not. Note is made of a previous examination 01/06/2015. The lung bases are clear. Some coronary artery calcification is noted. The liver and spleen appear grossly normal. No pancreatic abnormality is seen. There are no adrenal masses and the kidneys appear unremarkable. A mass inflammatory process or acute finding in the abdomen is not seen. In the pelvis no focal mass inflammatory process or acute finding is seen. The prostate is moderately enlarged. IMPRESSION: No acute or significant finding seen in the abdomen or pelvis
--- NOTE | 2017-03-31 15:19 | RAD ---
Thoracic spine, 3 views, 03/31/2017: History: Upper back pain The vertebral heights are well-maintained. No fracture or destructive bony lesion is seen. There is disc space narrowing and moderate scattered marginal spurring at multiple levels. There is a slight thoracic scoliosis. Moderate degenerative changes are also noted in this lower cervical spine. IMPRESSION: 1. Moderate scattered degenerative changes. 2. No acute bony abnormality is detected. Lumbar spine, 3 views, 03/31/2017: The lumbar vertebral heights are well-maintained. There are mild scattered marginal spurs. The intervertebral disc spaces are fairly well preserved. There are moderate degenerative changes involving the facet joints in the lower lumbar spine. Moderate aortoiliac calcific plaquing is present. IMPRESSION: 1. Moderate facet joint arthropathy in the lower lumbar spine. 2. No acute bony abnormality is detected.
--- NOTE | 2017-03-31 15:28 | EKG ---
[facility] [address] [place] [address] Test Date: 2017-03-31 Test Time: 15:19:43 Pat Name: ZOHRA RICH Department: Room: 207 Gender: M Patent Drafter: BEATRIZ : 1930 Requested By: CARTER BLOCK Order Number: [id number] Reading MD: Francis Askew Measurements Intervals [place] Rate: 65 P: -64 SC: 198 QRS: -72 QRSD: 168 T: 107 QT: 496 QTc: 517 Interpretive Statements SR SUSPECT V-PACING Electronically Signed On 04-01-2017 9:54:33 CDT by Francis Askew
[2017-03-31] MEDS: CLOPIDOGREL BISULFATE 75 MG TABLET PO SCH (15:33)
[2017-03-31] MEDS: LISINOPRIL 5 MG TABLET. PO SCH (15:34)
[2017-03-31] MEDS: METOPROLOL SUCC 24HR ER 50 MG TAB.ER.24H. PO SCH (15:34)
[2017-03-31] MEDS: ASPIRIN CHEWABLE 81 MG TABLET. PO SCH (15:34)
[2017-03-31] MEDS: POTASSIUM CHLORIDE 10 MEQ TABLET.ER. PO SCH (15:34)
[2017-03-31] MEDS: FUROSEMIDE 20 MG TABLET PO SCH (15:35)
[2017-03-31] MEDS: PANTOPRAZOLE 40 MG TABLET.DR. PO SCH (15:35)
[2017-03-31 19:54] VITALS: BP 130/60
[2017-03-31] MEDS ORDERED: IV RINGERS,LACTATED 1000ML 1,000 ML IV SCH (20:00)
[2017-03-31] MEDS ORDERED: HYDROcodone/APAP 5/325MG 1 TAB TABLET PO PRN (21:00)
[2017-03-31] MEDS ORDERED: ATORVASTATIN CALCIUM 40 MG TABLET. PO SCH (21:00)
[2017-03-31 23:54] VITALS: BP 116/57
[2017-04-01 02:19] VITALS: BP 98/68
[2017-04-01 07:00] VITALS: BP 112/73
[2017-04-01] MEDS ORDERED: LEVOTHYROXINE 100 MCG TABLET PO SCH (07:30)
[2017-04-01] MEDS: METOPROLOL SUCC 24HR ER 50 MG TAB.ER.24H. PO SCH (09:00)
--- NOTE | 2017-04-01 09:35 | PDOC ---
PROGRESS NOTES Subjective Subjective feeling better ,wanting to go home, EGD today Objective Objective Vital Signs Date Time Temp Pulse Resp B/P Pulse Ox O2 Delivery O2 Flow Rate FiO2 04/01/17 02:19 98.0 75 20 98/68 96 Room Air 98.0 Intake and Output 04/01/17 06:59 Intake Total 600 ml Output Total 250 ml Balance 350 ml Intake Oral 600 ml Output Urine Total 250 ml # Voids 2 Physical Exam Abdomen: Normal bowel sounds, Soft Heart: Regular rate, Normal S1, Normal S2 Extremities: No clubbing General: Alert HEENT: Atraumatic Lungs: Clear to auscultation MUSCULOSKELETAL: No deformity, Osteoarthritic changes both hands Neck: Supple Neuro: Normal speech Psych/Mental Status: Mental status NL Skin: No breakdown Diagnosis Problem List Problems Medical Problems: (1) Acute coronary syndrome Status: Acute (2) Unstable angina Status: Acute Assessment Assessment Problems Medical Problems: (1) Acute coronary syndrome Status: Acute (2) Unstable angina Status: Acute FINAL IMPRESSION: 1. Chest pain, unstable angina. The patient has history of coronary artery disease, previous cardiac stents. 2. Slightly elevated troponin chronically elevated. 3. Hypertension. 4. Hyperlipidemia. 5. Hypothyroidism. 6. Gastroesophageal reflux disease. PLAN: CT abd and pelvis -ve. x ray spine djd. ECHO 35% EJF. EGD today. home later today. inc dose of synthroid ,lipitor and lisinopril.. Plan at this time is to admit to the hospital, seen by Cardiology, and does not think any cardiac issue at the present time. The patient had slightly similarly elevated troponins last time, and cardiac catheterization shows a patent stent, and we will also do a CT of the abdomen and pelvis, GI consult, probably needs EGD and an echocardiogram for left ventricular function and see how the patient's condition improves. Problems: Plan Plan of Care Problems Medical Problems: (1) Acute coronary syndrome Status: Acute (2) Unstable angina Status: Acute Comment Review of Relevant I have reviewed the following items zully (where applicable) has been applied. Labs Laboratory Tests Test 03/31/17 14:00 Urine Collection Type Unknown Urine Color Yellow Urine Clarity Clear Urine pH 6.0 Urine Specific [place] 1.025 Urine Protein Negativemg/dL (NEG-TRACE) Urine Glucose (UA) Negativemg/dL (NEG) Urine Ketones (Stick) Negativemg/dL (NEG) Urine Blood Negative (NEG) Urine Nitrite Negative (NEG) Urine Bilirubin Negative (NEG) Urine Urobilinogen Dipstick 0.2mg/dL (0.2 mg/dL) Urine Leukocyte Esterase Negative (NEG) Urine RBC 0/HPF (0-2) Urine WBC 0/HPF (0-4) Urine Squamous Epithelial Cells Few/LPF Urine Bacteria 0/HPF (0-FEW) Urine Mucus Marked/LPF Medications Current Medications Acetaminophen/ Hydrocodone Bitart (Lortab 5/325) 1 tab PRN Q6HRS PRN PO SEVERE PAIN Last administered on 03/31/17 21:38; Start 03/31/17 at 21:00 Atorvastatin Calcium (Lipitor) 80 mg HS PO Last administered on 03/31/17 21:38 ; Start 03/31/17 at 21:00 Info (Do NOT chart on this entry -- for MONITORING) 1 each PRN DAILY PRN MC SEE COMMENTS; Start 03/31/17 at 10:45; Stop 04/02/17 at 10:44 Iohexol (Omnipaque 240 Mg/ml) 30 ml 1X ONCE PO ; Start 03/31/17 at 11:15; Stop 03/31/17 at 11:16; Status DC Levothyroxine Sodium (Synthroid) 100 mcg DAILYAC PO ; Start 04/01/17 at 07:30 Vitals/I & O Vital Sign - Last 24 Hours 03/31/17 03/31/17 03/31/17 03/31/17 10:12 11:26 11:27 15:00 Temp 97.6 97.3 97.6 97.3 Pulse 88 69 Resp 20 20 B/P 108/73 116/70 Pulse Ox 97 96 O2 Delivery Room Air Room Air Room Air Room Air 03/31/17 03/31/17 03/31/17 03/31/17 15:34 15:34 16:44 19:54 Temp 98.2 98.2 Pulse 88 88 57 Resp 20 B/P 108/73 108/73 130/60 Pulse Ox 95 O2 Delivery Room Air Room Air 03/31/17 03/31/17 03/31/17 04/01/17 21:38 22:38 23:54 02:19 Temp 97.7 98.0 97.7 98.0 Pulse 64 75 Resp 22 20 18 20 B/P 116/57 98/68 Pulse Ox 97 96 O2 Delivery Room Air Room Air Intake and Output 03/31/17 03/31/17 04/01/17 14:59 22:59 06:59 Intake Total 600 ml 0 ml Output Total 250 ml 0 ml Balance 350 ml 0 ml AUGUST HUITRON MD April 01, 2017 09:35
[2017-04-01] MEDS ORDERED: LISI10TA2 PO (09:42)
[2017-04-01] MEDS ORDERED: PANT40TA5 PO (09:42)
[2017-04-01] MEDS ORDERED: HYDR-2666 PO (09:42)
[2017-04-01] MEDS ORDERED: ATOR40TA59 PO (09:42)
[2017-04-01] MEDS ORDERED: LEVO100T PO (09:42)
--- NOTE | 2017-04-01 09:49 | PDOC ---
Provider Note Provider Note Discharge summary dictated. #[id number]. AUGUST HUITRON MD April 01, 2017 09:49
[2017-04-01] MEDS ORDERED: LISINOPRIL 10 MG TABLET PO SCH (10:00)
[2017-04-01] MEDS ORDERED: LIDOCAINE 2% PF Vial for OR 5 ML VIAL. ONE (10:23)
[2017-04-01] MEDS ORDERED: PROPOFOL 20 ML IV ONE (10:23)
[2017-04-01] MEDS ORDERED: PHENYLEPHRINE 10 MG/ML VIAL. ONE (10:36)
--- NOTE | 2017-04-01 10:37 | PDOC4 ---
PROCEDURE Procedure EGD/biopsies Indication: heartburn/NCCP Meds: per anesthesia Findings: E--Markedly irregular Z-line at 39-40 c/w chronic reflux. G--Generalized atrophy. Patches of erythema in antrum. 2 nearly villous appearing 4-5mm flat white lesions in body. Biopsies from antrum and body. D-Normal to second portion. Yuval. well. IMP: GERD Probable chronic gastritis; high likelihood of H.pylori. REC: PPI Await biopsies. Diet. Thanks. GORDO VIERA MD April 01, 2017 10:37
[2017-04-01 11:15] VITALS: BP 98/64
[2017-04-01 11:45] VITALS: BP 123/83
[2017-04-01 12:45] VITALS: BP 109/64
[2017-04-01 13:45] VITALS: BP 96/58
[2017-04-01] MEDS: CLOPIDOGREL BISULFATE 75 MG TABLET PO SCH (14:42)
[2017-04-01] MEDS: POTASSIUM CHLORIDE 10 MEQ TABLET.ER. PO SCH (14:43)
[2017-04-01] MEDS: PANTOPRAZOLE 40 MG TABLET.DR. PO SCH (14:43)
[2017-04-01] MEDS: ASPIRIN CHEWABLE 81 MG TABLET. PO SCH (14:43)
[2017-04-01] MEDS: FUROSEMIDE 20 MG TABLET PO SCH (14:43)
--- NOTE | 2017-04-01 19:35 | DS ---
DATE OF DISCHARGE: 04/01/2017 REASON FOR ADMISSION TO THE HOSPITAL: Chest pain, epigastric pain. CONSULTATIONS: 1. Francis Askew MD., Cardiology, 2. Ben Hernandez MD., GI. PROCEDURES DONE: 1. Echocardiogram. 2. CT of the abdomen and pelvis. 3. EGD. COMPLICATIONS NOTED: None. HOSPITAL COURSE: The patient is an 86-year-old male with chronic systolic heart failure, ejection fraction 30-35%. The patient has a history of AICD, on medications. The patient has a drug-eluting stent placed last year to the diagonal branch of the LAD and he was admitted a couple of months ago. At that time, had a slight elevated troponin. Cardiac catheterization shows patent stent. This time, also came with chest pain, epigastric pain. His troponin was borderline at 0.5, looks like has a chronically persistent elevated troponin. The patient was seen by Cardiology, does not think he has any acute cardiac event at this time. The patient has history of hypertension, hypothyroidism and hyperlipidemia. The patient had an echocardiogram which shows ejection fraction 30-35%. The patient had a CT of the abdomen and pelvis, was benign. The patient was seen by GI, scheduled for EGD. Some of the medications were changed. His LDL is 120. Increase Lipitor from 40 to 80. Total cholesterol is 185. His TSH is 9.6. Increase Synthroid from 75 to 100. Creatinine 1.4, which has slightly elevated to 1.1 before. Troponin was 0.9, chronically still. Chest x-ray was negative. EKG, no acute ischemic changes. FINAL IMPRESSION: 1. Chest pain, probably looks like more of a gastroesophageal reflux disease with esophagitis. The patient is scheduled for EGD which showed GERD. 2. Chronic systolic heart failure 30-35 %,Pt has AICD. 3. Hypertension. 4. Hyperlipidemia. 5. Hypothyroidism. 6. Back pain secondary to degenerative joint disease. PLAN: At this time, discharge home and medication changed at this time. Follow up in the office in 1 week. Waiting for EGD results which showed GERD. AUGUST HUITRON MD DR: TIMI/lara JOB#: [id number] / [id number] MTDD
--- NOTE | 2017-04-03 17:42 | PATHOLOGY ---
PATHOLOGY REPORT * * * * * * * * FINAL DIAGNOSIS: A. Gastric biopsy, antrum: - Chronic gastritis, mild to moderate, with focal intestinal metaplasia. B. Gastric biopsy, distal stomach: - Gastric xanthelasma. COMMENT: Sections of the gastric antral biopsy show congestion and mild to moderate chronic inflammation with focal intestinal metaplasia. An immunoperoxidase stain for Helicobacter is obtained. There are no Helicobacter organisms identified. Sections of the distal gastric biopsy reveal focally polypoid segments of gastric body mucosa. The polypoid segment shows an infiltrate of foamy histiocytes within the lamina propria consistent with gastric xanthelasma. An immunoperoxidase stain for Helicobacter is obtained. There are no Helicobacter organisms identified. There is no evidence of malignancy. Special stain performed: Immunoperoxidase stain for Helicobacter on A1 and B1. REPORT ELECTRONICALLY SIGNED BY: Carmine Joseph M.D. DATE/TIME: 04/03/2017 17:41 * * * * * * * * GROSS PATHOLOGY: A. Received in formalin labeled "Zohra Veloz, antrum, biopsy," are 2 segments of peterson soft tissue measuring 0.4 cm in aggregate dimensions and ranging from 0.2 to 0.3 cm in maximum dimension. The specimen is submitted entirely in cassette A1. B. Received in formalin labeled "Zohra Veloz, distal gastric biopsy," are 2 segments of peterson soft tissue measuring 0.5 cm in aggregate dimensions and ranging from 0.3 to 0.4 cm in maximum dimension. The specimen is submitted entirely in cassette B1. (SNA; 04/02/2017) INITIAL CPT CODE(S): A; 85143, 43903 B; 14563, 22789 Professional services performed by [facility] at [address] [address] Technical services performed by [facility] at [address] [place] [address], [facility] [address] [address]. SPECIMEN(S) RECEIVED: A.Antrum biopsy B.Distal gastric biopsy CLINICAL HISTORY: Chest pain PATIENT: ZOHRA VELOZ /AGE: 6 1930 (Age: 86) PATIENT #: [id number] ALT CASE #: SPECIMEN COLLECTION DATE: 04/01/2017 SPECIMEN RECEIVED DATE: 04/01/2017 [facility] - [address] [place] [address] - PHONE: [phone] * * * END OF REPORT * * *
== END 2017-04-01 15:55 | disposition home or self-care (01) | DRG 392 ==
LOC: ER 09:20 → 2 NORTH 11:00
PROVIDERS: ADMIT Internal Medicine; ATTEND Internal Medicine
PROC: 0DB68ZX Excision of Stomach, Via Natural or Artificial Opening Endoscopic, Diagnostic (ICD-10-PCS; principal; 2017-04-01 11:00)
DX: K21.0 Gastro-esophageal reflux disease with esophagitis (principal); I25.110 Atherosclerotic heart disease of native coronary artery with unstable angina pectoris; I50.22 Chronic systolic (congestive) heart failure; I13.0 Hypertensive heart and chronic kidney disease with heart failure and stage 1 through stage 4 chronic kidney disease, or unspecified chronic kidney disease; I24.9 Acute ischemic heart disease, unspecified; R07.9 Chest pain, unspecified; Z82.49 Family history of ischemic heart disease and other diseases of the circulatory system; I35.1 Nonrheumatic aortic (valve) insufficiency; G47.33 Obstructive sleep apnea (adult) (pediatric); E78.5 Hyperlipidemia, unspecified; E03.9 Hypothyroidism, unspecified; M19.90 Unspecified osteoarthritis, unspecified site; N18.3 Chronic kidney disease, stage 3 (moderate); K29.50 Unspecified chronic gastritis without bleeding; E78.00 Pure hypercholesterolemia, unspecified; Z95.5 Presence of coronary angioplasty implant and graft; Z95.810 Presence of automatic (implantable) cardiac defibrillator
CPT/HCPCS: 99285; C8924; 36415; 71010; 72072; 72100; 74176; 80048; 80053; 80061; 81001; 84443; 84484; 85027; 85520; 88305; 88342; 93005; 96374; 96375; J1650; J2270; J2704; J3490; G0641; Q9950

== ENCOUNTER → 2018-12-17 | Outpatient (CLI) | payer MEDICARE, OTHER ==
[2018-12-04 10:46] VITALS: BP 156/82
[~2018-12-17] MED LIST changes: +AMOX1TAB58 PO; +APIX5TAB; +ASPI-630 PO; -ASPI81TA44 PO; +ASPI81TA50 PO; +ASPI81TA59 PO; +ATOR40TA59 PO; +HYDR-2761 PO; +ISOS30TA4 PO; +LEVO100T PO; +LEVO250T7 PO; +LEVO50TA PO; +METO-239 PO; -METO25TA9 PO; +METO50TA29 PO; +MULT-245 PO; +PANT40TA5 PO; +PRED-220 PO; +SIMV80TA17 PO; -SIMV80TA3 PO; +WARF3TAB50 PO; -WARF3TAB7 PO
--- NOTE | 2018-12-17 10:18 | RAD ---
Chest, 2 views, 12/17/2018: HISTORY: Follow-up pneumonia Comparison is made to a study from 12/03/2018. A left-sided transvenous pacing device remains in place with 2 leads extending in the right heart. The heart is enlarged. There is calcific plaquing the aorta. The pulmonary infiltrates have improved. There is only minimal residual hazy and interstitial type infiltrate on the right. No significant residual pleural fluid is evident. No new abnormality is seen. IMPRESSION: 1. Cardiomegaly and aortic atherosclerosis. 2. Resolving pulmonary infiltrates. Electronically signed by: Pieter Lassiter MD (12/17/2018 10:13 AM) [facility]
== END | disposition home or self-care (01) ==
LOC: LAB 09:24
PROVIDERS: ATTEND Internal Medicine
DX: J13 Pneumonia due to Streptococcus pneumoniae (principal); I51.7 Cardiomegaly; I70.0 Atherosclerosis of aorta; R91.8 Other nonspecific abnormal finding of lung field
CPT/HCPCS: 71046

== ENCOUNTER 2019-01-28 07:54 | Inpatient (IN) | payer OTHER ==
[~2019-01-28] VITALS: Ht 160 cm; Wt 55.4 kg
[2019-01-28] MEDS ORDERED: ASPIRIN 325 MG TABLET PO ONE (08:30)
[2019-01-28] MEDS ORDERED: IPRATRPIUM/ALBUTEROL 0.5/2.5MG 3 ML NEBU. NEB ONE (08:30)
[2019-01-28 08:34] LABS: BASO # 0.1 x10^3/uL (0.0-0.2); BASO % 1 % (0-3); EOS # 0.2 x10^3/uL (0.0-0.7); EOS % 3 % (0-3); HEMATOCRIT 41.9 % (39.0-53.0); HEMOGLOBIN 13.9 g/dL (13.0-17.5); LYMPH # 1.7 x10^3/uL (1.0-4.8); LYMPH % 27 % (24-48); MEAN CORPUSCULAR HEMOGLOBIN 29 pg (25-35); MEAN CORPUSCULAR HGB CONC 33 g/dL (31-37); MEAN CORPUSCULAR VOLUME 88 fL (79-100); MONO # 0.5 x10^3/uL (0.0-1.1); MONO % 8 % (0-9); NEUT # 3.8 x10^3uL (1.8-7.7); NEUT % 62 % (31-73); PLATELET COUNT 169 x10^3/uL (140-400); RED BLOOD COUNT 4.78 x10^6/uL (4.30-5.70); RED CELL DISTRIBUTION WIDTH 14.8 % (11.5-14.5); WHITE BLOOD COUNT 6.2 x10^3/uL (4.0-11.0)
--- NOTE | 2019-01-28 08:34 | PHYS DOC ---
Past Medical History Past Medical History: Arrhythmia, Dementia, GERD, High Cholesterol, Hypertension, NC Additional Past Medical Histor: SLEEP APNEA, irregular heart rate, THYROID DZ Past Surgical History: Angioplasty, Pacemaker Additional Past Surgical Histo: CARDIAC STENTS, HEART CATH 09/2018 Alcohol Use: None Drug Use: None Adult General Chief Complaint Chief Complaint: CHEST PAIN HPI HPI Patient is a 88 year old male with history of dementia, arrhythmias with pacemaker, hypertension, high cholesterol, who presents today complaining of chest pressure rated at 8/10 mid substernal that began at 11 PM last night. Family states patient took nitroglycerin with relief of his symptoms. They states at 2 AM patient was complaining of chest pressure again. On arrival to the ED, patient states he does not have any pain right now. Family state patient has dementia and sometimes is not able to express himself well. Patient speaks Emiliano family is interpreting. PCP Dr. Huitron Review of Systems Review of Systems Constitutional: Denies fever or chills [] Eyes: Denies change in visual acuity, redness, or eye pain [] HENT: Denies nasal congestion or sore throat [] Respiratory: Denies cough or shortness of breath [] Cardiovascular: Reports chest pressure. GI: Denies abdominal pain, nausea, vomiting, bloody stools or diarrhea [] : Denies dysuria or hematuria [] Musculoskeletal: Denies back pain or joint pain [] Integument: Denies rash or skin lesions [] Neurologic: Denies headache, focal weakness or sensory changes [] All other systems were reviewed and found to be within normal limits, except as documented in this note. Current Medications Current Medications Current Medications Medications (Trade) Dose Ordered Sig/Mel Start Time Stop Time Status Last Admin Dose Admin Albuterol/ Ipratropium (Duoneb) 3 ml 1X ONCE 01/28/19 08:30 01/28/19 08:31 DC 01/28/19 08:33 3 ML Aspirin (Laurie Aspirin) 325 mg 1X ONCE 01/28/19 08:30 01/28/19 08:31 DC 01/28/19 08:50 325 MG Allergies Allergies Allergies Coded Allergies Type Severity Reaction Last Updated Verified No Known Drug Allergies 04/01/17 No Physical Exam Physical Exam Constitutional: Well developed, well nourished, no acute distress, non-toxic appearance. [] HENT: Normocephalic, atraumatic, bilateral external ears normal, oropharynx moist, no oral exudates, nose normal. [] Eyes: PERRLA, EOMI, conjunctiva normal, no discharge. [] Neck: Normal range of motion, no tenderness, supple, no stridor. [] Cardiovascular:left upper chest pace maker, paced rhythm, Lungs & Thorax: Bilateral breath sounds clear to auscultation [] Abdomen: Bowel sounds normal, soft, no tenderness, no masses, no pulsatile masses. [] Skin: Warm, dry, no erythema, no rash. [] Back: No tenderness, no CVA tenderness. [] Extremities: No tenderness, no cyanosis, no clubbing, ROM intact, no edema. [] Neurologic: Alert and oriented X 3, normal motor function, normal sensory function, no focal deficits noted. [] Psychologic: Affect normal, judgement normal, mood normal. [] Current Patient Data Vital Signs Vital Signs Date Time Temp Pulse Resp B/P (MAP) Pulse Ox O2 Delivery O2 Flow Rate FiO2 01/28/19 07:59 97.5 68 16 126/71 (89) 91 Room Air 97.5 Lab Values Laboratory Tests Test 01/28/19 08:18 01/28/19 09:01 White Blood Count 6.2 x10^3/uL (4.0-11.0) Red Blood Count 4.78 x10^6/uL (4.30-5.70) Hemoglobin 13.9 g/dL (13.0-17.5) Hematocrit 41.9 % (39.0-53.0) Mean Corpuscular Volume 88 fL (79-100) Mean Corpuscular Hemoglobin 29 pg (25-35) Mean Corpuscular Hemoglobin Concent 33 g/dL (31-37) Red Cell Distribution Width 14.8 % (11.5-14.5) H Platelet Count 169 x10^3/uL (140-400) Neutrophils (%) (Auto) 62 % (31-73) Lymphocytes (%) (Auto) 27 % (24-48) Monocytes (%) (Auto) 8 % (0-9) Eosinophils (%) (Auto) 3 % (0-3) Basophils (%) (Auto) 1 % (0-3) Neutrophils # (Auto) 3.8 x10^3uL (1.8-7.7) Lymphocytes # (Auto) 1.7 x10^3/uL (1.0-4.8) Monocytes # (Auto) 0.5 x10^3/uL (0.0-1.1) Eosinophils # (Auto) 0.2 x10^3/uL (0.0-0.7) Basophils # (Auto) 0.1 x10^3/uL (0.0-0.2) Prothrombin Time 13.4 SEC (11.7-14.0) Prothrombin Time INR 1.1 (0.8-1.1) Sodium Level 142 mmol/L (136-145) Potassium Level 3.8 mmol/L (3.5-5.1) Chloride Level 106 mmol/L (98-107) Carbon Dioxide Level 23 mmol/L (21-32) Anion Gap 13 (6-14) Blood Urea Nitrogen 18 mg/dL (8-26) Creatinine 1.1 mg/dL (0.7-1.3) Estimated GFR (Cockcroft-Gault) 63.3 BUN/Creatinine Ratio 16 (6-20) Glucose Level 110 mg/dL (70-99) H Calcium Level 8.4 mg/dL (8.5-10.1) L Magnesium Level 2.1 mg/dL (1.8-2.4) Total Bilirubin 0.5 mg/dL (0.2-1.0) Aspartate Amino Transferase (AST) 28 U/L (15-37) Alanine Aminotransferase (ALT) 18 U/L (16-63) Alkaline Phosphatase 99 U/L (46-116) Creatine Kinase 105 U/L (39-308) Creatine Kinase MB (Mass) 2.3 ng/mL (0.0-3.6) Creatine Kinase MB Relative Index 2.2 % (0-4) Troponin I Quantitative 0.464 ng/mL (0.000-0.055) AR-Xdz-R-Type Natriuretic Peptide 2445 pg/mL (0-449) H Total Protein 7.1 g/dL (6.4-8.2) Albumin 3.2 g/dL (3.4-5.0) L Albumin/Globulin Ratio 0.8 (1.0-1.7) L Thyroid Stimulating Hormone (TSH) 8.510 uIU/mL (0.358-3.74) H Urine Collection Type Unknown Urine Color Yellow Urine Clarity Clear Urine pH 6.5 Urine Specific [place] 1.015 Urine Protein Negative mg/dL (NEG-TRACE) Urine Glucose (UA) Negative mg/dL (NEG) Urine Ketones (Stick) Negative mg/dL (NEG) Urine Blood Negative (NEG) Urine Nitrite Negative (NEG) Urine Bilirubin Negative (NEG) Urine Urobilinogen Dipstick 0.2 mg/dL (0.2 mg/dL) Urine Leukocyte Esterase Negative (NEG) Urine RBC 0 /HPF (0-2) Urine WBC 1-4 /HPF (0-4) Urine Squamous Epithelial Cells Few /LPF Urine Bacteria Few /HPF (0-FEW) Urine Mucus Slight /LPF Urine Opiates Screen Neg (NEG) Urine Methadone Screen Neg (NEG) Urine Barbiturates Neg (NEG) Urine Phencyclidine Screen Neg (NEG) Urine Amphetamine/Methamphetamine Neg (NEG) Urine Benzodiazepines Screen Neg (NEG) Urine Cocaine Screen Neg (NEG) Urine Cannabinoids Screen Neg (NEG) Urine Ethyl Alcohol Neg (NEG) Laboratory Tests 01/28/19 08:18 Laboratory Tests 01/28/19 08:18 EKG EKG [] Radiology/Procedures Radiology/Procedures []PROCEDURE: PORTABLE CHEST 1V PORTABLE CHEST 1V Clinical Indication: CHEST PAIN Comparison: Two-view chest, December 17, 2018. Findings: Left chest dual-chamber pacer. Atherosclerotic thoracic aorta. Stable cardiomegaly. Interstitial opacities in the right lung are unchanged. No pleural abnormality. Bones appear stable. IMPRESSION: Right lung interstitial opacities are unchanged. Electronically signed by: Dave Connell MD (01/28/2019 8:52 AM) [id number] DICTATED and SIGNED BY: DAVE CONNELL MD DATE: 01/28/19 0842 Course & Med Decision Making Course & Med Decision Making Pertinent Labs and Imaging studies reviewed. (See chart for details) This is a 88-year-old male patient presented to the ED today with chest pressure that last night. Troponin 0.464, EKGs negative, chest x-ray is negative for any acute findings. Spoke with Valeria VINCENT for icer machine Spoke with who accepted patient for admission Naresh Disclaimer Kobeon Disclaimer This electronic medical record was generated, in whole or in part, using a voice recognition dictation system. Departure Departure Impression: Primary Impression: Chest pain Additional Impression: NSTEMI (non-ST elevated myocardial infarction) Disposition: 09 ADMITTED INPATIENT Condition: STABLE Referrals: AUGUST HUITRON MD (PCP) Problem Qualifiers Primary Impression: Chest pain Chest pain type: unspecified Qualified Codes: R07.9 - Chest pain, unspecified ANABELLE SHELL GLOVE CUTTER Jan 28, 2019 08:34
--- NOTE | 2019-01-28 08:55 | RAD ---
PORTABLE CHEST 1V Clinical Indication: CHEST PAIN Comparison: Two-view chest, December 17, 2018. Findings: Left chest dual-chamber pacer. Atherosclerotic thoracic aorta. Stable cardiomegaly. Interstitial opacities in the right lung are unchanged. No pleural abnormality. Bones appear stable. IMPRESSION: Right lung interstitial opacities are unchanged. Electronically signed by: Dave Connell MD (01/28/2019 8:52 AM) [id number]
[2019-01-28 08:58] LABS: PROTHROMBIN TIME PATIENT 13.4 SEC (11.7-14.0)
[2019-01-28 09:04] LABS: CALCIUM 8.4 mg/dL (8.5-10.1); CREATININE 1.1 mg/dL (0.7-1.3); GFR 63.3; POTASSIUM 3.8 mmol/L (3.5-5.1)
[2019-01-28 09:06] LABS: ALBUMIN 3.2 g/dL (3.4-5.0); ALBUMIN/GLOBULIN RATIO 0.8 (1.0-1.7); MAGNESIUM 2.1 mg/dL (1.8-2.4); TOTAL BILIRUBIN 0.5 mg/dL (0.2-1.0); TOTAL PROTEIN 7.1 g/dL (6.4-8.2)
[2019-01-28 09:15] LABS: BILIRUBIN,URINE NEGATIVE (NEG); CLARITY,URINE CLEAR; COLOR,URINE YELLOW; NITRITE,URINE NEGATIVE (NEG); PH,URINE 6.5; PROTEIN,URINE NEGATIVE (NEG-TRACE); UROBILINOGEN,URINE 0.2 mg/dL (0.2 mg/dL)
[2019-01-28 09:24] LABS: BARBITURATES NEG (NEG); BENZODIAZEPINES NEG (NEG); CANNABINOIDS NEG (NEG); COCAINE NEG (NEG); METHADONE NEG (NEG); OPIATES NEG (NEG); PHENCYCLIDINE NEG (NEG)
[2019-01-28 09:25] LABS: AMPHETAMINE/METHAMPHETAMINE NEG (NEG)
[2019-01-28 09:26] LABS: BACTERIA,URINE FEW /HPF (0-FEW); RBC,URINE 0 /HPF (0-2); SQUAMOUS EPITHELIAL CELL,UR FEW /LPF
[2019-01-28] MEDS ORDERED: NITROGLYCERIN SUBLINGUAL 0.4 MG BOTTLE OF 25. SL PRN (10:00)
[2019-01-28] MEDS ORDERED: MORPHINE SULFATE 2 MG/ML VIAL. IV PRN (10:00)
[2019-01-28] MEDS ORDERED: ONDANSETRON PF 4 MG/2 ML VIAL. IV PRN (10:00)
--- NOTE | 2019-01-28 11:05 | EKG ---
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
[2019-01-28 11:20] VITALS: BP 111/75
[2019-01-28] MEDS: IPRATRPIUM/ALBUTEROL 0.5/2.5MG 3 ML NEBU. NEB SCH ×3 (11:25→21:11)
--- NOTE | 2019-01-28 13:37 | PDOC2 ---
ASHA PAUL SHINGLE CUTTER 01/28/19 1337: CARDIAC CONSULT DATE OF CONSULT Date of Consult DATE: 01/28/19 TIME: 13:25 REASON FOR CONSULT Reason for Consult: Chest pain REFERRING PHYSICIAN Referring Physician: Comfort SOURCE Source: Caregiver (daughters), Chart review HISTORY OF PRESENT ILLNESS HISTORY OF PRESENT ILLNESS This is an 88 yo male admitted for complains of chest pain. Reports that last night he started having chest tightness. It did get better with NTG. He then went to sleep and woke up at 2 AM and had some more chest tightness and was given some NTG. He had a total of 3 NTG. His BP was OK at that time so they decided not to bring him to ED. 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 He does not speak Sami but she lives with her daughter who oversees his treatment. They brought his medications and he has been complaint with his meds. His NTG does relieve his chest discomfort. Denies any heartburn. No recent falls or injury. No palpiations and no nausea or vomiting. He is the type of person that only speaks out about his symptoms when it is already bad. No frequent dizziness. PAST MEDICAL HISTORY Past Medical History Cardiovascular: CAD (with PCI/THOR to D2- 04/2016), CHF, HTN, Hyperlipidemia, Valve insufficiency (aortic), Other ([facility] PPM - 01/2013), ICM, SSS Pulmonary: Other (NANCY/CPAP), Pneumonia GI: GERD Heme/Onc: Other (DVT) Musculoskeletal: Osteoarthritis Renal/: Chronic renal insuff (stage III) Endocrine: Hypothyroidism, thyroid nodules Neuro: dementia PAST SURGICAL HISTORY Past Surgical History Pacemaker ([facility]), Other (PCI/stent LAD) FAMILY HISTORY Family History noncontributory SOCIAL HISTORY Smoke: No ALCOHOL: none Drugs: None Lives: with Family CURRENT MEDICATIONS CURRENT MEDICATIONS Current Medications Medications (Trade) Dose Ordered Sig/Mel Route PRN Reason Start Time Stop Time Status Last Admin Dose Admin Aspirin (Laurie Aspirin) 325 mg 1X ONCE PO 01/28/19 08:30 01/28/19 08:31 DC 01/28/19 08:50 Albuterol/ Ipratropium (Duoneb) 3 ml 1X ONCE NEB 01/28/19 08:30 01/28/19 08:31 DC 01/28/19 08:33 Albuterol/ Ipratropium (Duoneb) 3 ml RTQID NEB 01/28/19 12:00 01/29/19 11:59 01/28/19 11:25 ALLERGIES ALLERGIES: Coded Allergies: No Known Drug Allergies (Unverified , 04/01/17) ROS Review of System limited, language barrier, family at the bedside. PHYSICAL EXAM General: Alert, Oriented X3, Cooperative, No acute distress HEENT: Mucous membr. moist/pink Lungs: Clear to auscultation, Normal air movement Heart: Regular rate (Atrial paced), Normal S1, Normal S2, Other (2/6 systolic murmur to LLS border) Abdomen: Soft, No tenderness Extremities: No cyanosis, No edema Skin: No breakdown, No significant lesion Neuro: Normal speech, Sensation intact Psych/Mental Status: Mental status NL, Mood NL MUSCULOSKELETAL: Osteoarthritic changes both hands VITALS VITALS Vital Signs Date Time Temp Pulse Resp B/P (MAP) Pulse Ox O2 Delivery O2 Flow Rate FiO2 01/28/19 11:30 Nasal Cannula 2.0 01/28/19 11:20 97.8 60 24 111/75 (87) 100 97.8 LABS Lab: Laboratory Tests Test 01/28/19 08:18 01/28/19 09:01 01/28/19 12:05 White Blood Count 6.2 x10^3/uL (4.0-11.0) Red Blood Count 4.78 x10^6/uL (4.30-5.70) Hemoglobin 13.9 g/dL (13.0-17.5) Hematocrit 41.9 % (39.0-53.0) Mean Corpuscular Volume 88 fL (79-100) Mean Corpuscular Hemoglobin 29 pg (25-35) Mean Corpuscular Hemoglobin Concent 33 g/dL (31-37) Red Cell Distribution Width 14.8 % (11.5-14.5) Platelet Count 169 x10^3/uL (140-400) Neutrophils (%) (Auto) 62 % (31-73) Lymphocytes (%) (Auto) 27 % (24-48) Monocytes (%) (Auto) 8 % (0-9) Eosinophils (%) (Auto) 3 % (0-3) Basophils (%) (Auto) 1 % (0-3) Neutrophils # (Auto) 3.8 x10^3uL (1.8-7.7) Lymphocytes # (Auto) 1.7 x10^3/uL (1.0-4.8) Monocytes # (Auto) 0.5 x10^3/uL (0.0-1.1) Eosinophils # (Auto) 0.2 x10^3/uL (0.0-0.7) Basophils # (Auto) 0.1 x10^3/uL (0.0-0.2) Prothrombin Time 13.4 SEC (11.7-14.0) Prothromb Time International Ratio 1.1 (0.8-1.1) Sodium Level 142 mmol/L (136-145) Potassium Level 3.8 mmol/L (3.5-5.1) Chloride Level 106 mmol/L (98-107) Carbon Dioxide Level 23 mmol/L (21-32) Anion Gap 13 (6-14) Blood Urea Nitrogen 18 mg/dL (8-26) Creatinine 1.1 mg/dL (0.7-1.3) Estimated GFR (Cockcroft-Gault) 63.3 BUN/Creatinine Ratio 16 (6-20) Glucose Level 110 mg/dL (70-99) Calcium Level 8.4 mg/dL (8.5-10.1) Magnesium Level 2.1 mg/dL (1.8-2.4) Total Bilirubin 0.5 mg/dL (0.2-1.0) Aspartate Amino Transf (AST/SGOT) 28 U/L (15-37) Alanine Aminotransferase (ALT/SGPT) 18 U/L (16-63) Alkaline Phosphatase 99 U/L (46-116) Creatine Kinase 105 U/L (39-308) Creatine Kinase MB (Mass) 2.3 ng/mL (0.0-3.6) Creatine Kinase MB Relative Index 2.2 % (0-4) Troponin I Quantitative 0.464 ng/mL (0.000-0.055) 0.460 ng/mL (0.000-0.055) WN-Olg-L-Type Natriuretic Peptide 2445 pg/mL (0-449) Total Protein 7.1 g/dL (6.4-8.2) Albumin 3.2 g/dL (3.4-5.0) Albumin/Globulin Ratio 0.8 (1.0-1.7) Thyroid Stimulating Hormone (TSH) 8.510 uIU/mL (0.358-3.74) Urine Collection Type Unknown Urine Color Yellow Urine Clarity Clear Urine pH 6.5 Urine Specific [place] 1.015 Urine Protein Negative mg/dL (NEG-TRACE) Urine Glucose (UA) Negative mg/dL (NEG) Urine Ketones (Stick) Negative mg/dL (NEG) Urine Blood Negative (NEG) Urine Nitrite Negative (NEG) Urine Bilirubin Negative (NEG) Urine Urobilinogen Dipstick 0.2 mg/dL (0.2 mg/dL) Urine Leukocyte Esterase Negative (NEG) Urine RBC 0 /HPF (0-2) Urine WBC 1-4 /HPF (0-4) Urine Squamous Epithelial Cells Few /LPF Urine Bacteria Few /HPF (0-FEW) Urine Mucus Slight /LPF Urine Opiates Screen Neg (NEG) Urine Methadone Screen Neg (NEG) Urine Barbiturates Neg (NEG) Urine Phencyclidine Screen Neg (NEG) Urine Amphetamine/Methamphetamine Neg (NEG) Urine Benzodiazepines Screen Neg (NEG) Urine Cocaine Screen Neg (NEG) Urine Cannabinoids Screen Neg (NEG) Urine Ethyl Alcohol Neg (NEG) ECHOCARDIOGRAM ECHOCARDIOGRAM <Conclusion> Limited echo to assess LV function. The left ventricular systolic function is mildly diminished The ejection fraction is estimated at 45%.. There is normal LV segmental wall motion. There is no evidence of significant pericardial effusion. DATE: 12/03/18 1434 HEART CATH HEART CATH FINDINGS 1. Hemodynamics: Left ventricular end-diastolic pressure of 30 mmHg. No pullback gradient across the aortic valve. 2. Left ventriculography: Mild left ventricular systolic dysfunction with ejection fraction estimated at 40-45%. 1+ mitral regurgitation seen. 3. Coronary angiography: a. The left main coronary artery arose from the left sinus of Valsalva, gave rise to the left anterior descending and left circumflex arteries and did not show any significant stenosis. b. The left anterior descending artery showed a widely patent previously placed stent in the second diagonal branch. c. The left circumflex artery showed 40% stenosis in the midsegment. The first obtuse marginal branch showed 50% ostial segment stenosis in the second obtuse marginal branch showed 40% prox-mid segment stenosis. d. The right coronary artery was a large and dominant vessel arising from the right sinus of Valsalva that showed 40% mid segment stenosis. Conclusion 1. Nonobstructive coronary artery disease as described above. The previously placed stent in the second diagonal branch was widely patent. Angiographic findings unchanged from prior cardiac catheterization. 2. Mild left ventricle systolic dysfunction with ejection fraction estimated at 40-45%. Recommendations Optimization of medical therapy. Consider maximizing antianginal treatment. Slight troponin elevation probably type II non-STEMI/demand ischemia. DATE: 12/03/18 1504 ASSESSMENT/PLAN ASSESSMENT/PLAN 1. Chest pain: EKG atrial paced, no acute changes by comparison. Likely from vasopasm relieved with NTG. 2. Chronic troponin elevation range 0.3-0.6 since 09/2018 with likely contributing microvascular dysfunction and vasospasm. 3. CAD: Recent C with patent stent to D2 otherwise nonobstructive on 12/03/2018 4. HTN: controlled 5. Chronic diastolic/systolic CHF: appears compensated 6. PPM in situ/hx of SSS: [facility] 7. COPD 8. CKD3 9. HLP 10. PAFIB: trial paced 11. Hypothyroidism: TSH 8.5. Has been taking replacement with food. Recommendations 1. I dont think he will be able to tolerate increase in Imdur. Will add and start on low dose amlodipine and ranexa. 2. Restart his home medications including antiplatelets. 3. Discussed to take his thyroid replacement in empty stomach1-2 hours prior to breakfast. 4. Will interrogate device and note any contributing arrhythmias. PETE ZUÑIGA MD 01/28/192058: CARDIAC CONSULT ASSESSMENT/PLAN ASSESSMENT/PLAN Patient seen and examined. Agree with MACHINE SET UP's assessment and plan. CP could be secondary to microvascular disease - agree with ranexa Slight troponin elevation probably demand ischemia Recent cardiac cath showed patient stent Diag without any significant stenosis SSS s/p PPM stable Thank you for your consultation ASHA PAUL APRN Jan 28, 2019 13:37 PETE ZUÑIGA MD Jan 28, 2019 20:59
[2019-01-28 15:00] VITALS: BP 113/62
[2019-01-28] MEDS: ISOSORBIDE MONONITRATE ER 30 MG TAB.ER.24H PO SCH (15:00)
[2019-01-28] MEDS: METOPROLOL SUCC 24HR ER 25 MG TAB.ER.24H. PO SCH (15:00)
[2019-01-28] MEDS: FUROSEMIDE 20 MG TABLET PO SCH (15:00)
[2019-01-28] MEDS: PANTOPRAZOLE 40 MG TABLET.DR. PO SCH (15:00)
[2019-01-28] MEDS: LISINOPRIL 5 MG TABLET. PO SCH (15:00)
[2019-01-28] MEDS: LEVOTHYROXINE 50 MCG TABLET PO SCH (15:00)
[2019-01-28] MEDS: CLOPIDOGREL BISULFATE 75 MG TABLET PO SCH (15:00)
[2019-01-28] MEDS: amLODIPine BESYLATE 5 MG TABLET PO SCH (15:21)
[2019-01-28 19:04] VITALS: BP 148/66
[2019-01-28] MEDS ORDERED: ATORVASTATIN CALCIUM 40 MG TABLET. PO SCH (21:00)
[2019-01-28] MEDS: RANOLAZINE 500 MG TAB.ER.12H PO SCH (21:20)
[2019-01-28 22:39] VITALS: BP 132/63
--- NOTE | 2019-01-29 | NUR ---
pt has been very impulsive and anxious throughout shift; multiple attempts to get out of bed without assistance, pulling off all monitoring equipment and pulled out IV. attempted to reorient pt with little to no success, continues to pull off all equipment, take out IV sites and get out of bed without assistance. at one point, pt's bed alarm was going off and he was found standing on the mattress on his bed. then pt placed in chair and brought to nursing station for closer observation and for pt's safety. will pass on in report, will continue to closely monitor.
--- NOTE | 2019-01-29 01:40 | NUR ---
he refused to sit out at the nurses' station in the chair, c/o the chair being "no good." assisted back to bed with bed alarm in place. pt continues to consistently take off gown, heart monitor, blood pressure cuff, pull out IV sites and try to get out of bed. IV left out, pt refusing all monitoring equipment and bed alarm reapplied. will pass on in report. will continue to closely monitor.
[2019-01-29 02:53] VITALS: BP 136/97
[2019-01-29 05:00] LABS: BASO % 1 % (0-3); EOS # 0.1 x10^3/uL (0.0-0.7); EOS % 2 % (0-3); HEMATOCRIT 47.3 % (39.0-53.0); HEMOGLOBIN 15.7 g/dL (13.0-17.5); LYMPH # 1.8 x10^3/uL (1.0-4.8); LYMPH % 22 % (24-48); MEAN CORPUSCULAR HEMOGLOBIN 29 pg (25-35); MEAN CORPUSCULAR HGB CONC 33 g/dL (31-37); MEAN CORPUSCULAR VOLUME 88 fL (79-100); MONO # 0.5 x10^3/uL (0.0-1.1); MONO % 6 % (0-9); NEUT # 5.9 x10^3uL (1.8-7.7); NEUT % 70 % (31-73); PLATELET COUNT 186 x10^3/uL (140-400); RED BLOOD COUNT 5.37 x10^6/uL (4.30-5.70); RED CELL DISTRIBUTION WIDTH 15.1 % (11.5-14.5); WHITE BLOOD COUNT 8.5 x10^3/uL (4.0-11.0)
[2019-01-29 05:43] LABS: CALCIUM 9.1 mg/dL (8.5-10.1); CREATININE 1.3 mg/dL (0.7-1.3); GFR 52.2; POTASSIUM 3.9 mmol/L (3.5-5.1)
[2019-01-29] MEDS: LEVOTHYROXINE 50 MCG TABLET PO SCH (06:20)
[2019-01-29 07:16] VITALS: BP 158/78
[2019-01-29] MEDS: LISINOPRIL 5 MG TABLET. PO SCH (07:26)
[2019-01-29] MEDS: RANOLAZINE 500 MG TAB.ER.12H PO SCH (07:26)
[2019-01-29] MEDS: ISOSORBIDE MONONITRATE ER 30 MG TAB.ER.24H PO SCH (07:26)
[2019-01-29] MEDS: PANTOPRAZOLE 40 MG TABLET.DR. PO SCH (07:27)
[2019-01-29] MEDS: FUROSEMIDE 20 MG TABLET PO SCH (07:27)
[2019-01-29] MEDS: CLOPIDOGREL BISULFATE 75 MG TABLET PO SCH (07:27)
[2019-01-29] MEDS: METOPROLOL SUCC 24HR ER 25 MG TAB.ER.24H. PO SCH (07:27)
[2019-01-29 07:28] VITALS: BP 158/78
[2019-01-29] MEDS: amLODIPine BESYLATE 5 MG TABLET PO SCH (07:28)
[2019-01-29] MEDS: IPRATRPIUM/ALBUTEROL 0.5/2.5MG 3 ML NEBU. NEB SCH (08:02)
[2019-01-29] MEDS ORDERED: RANO500T2 PO (11:31)
[2019-01-29] MEDS ORDERED: AMLO5TAB10 PO (11:31)
--- NOTE | 2019-01-29 11:41 | PDOC ---
Provider Note Provider Note P seen.Combined H&P and discharge summary dictated. #[id number] AUGUST HUITRON MD Jan 29, 2019 11:40
--- NOTE | 2019-01-29 11:57 | HP ---
ADMIT DATE: 01/28/2019 COMBINED HISTORY AND PHYSICAL AND DISCHARGE SUMMARY PATIENT LOCATION: [facility]. REASON FOR ADMISSION TO THE HOSPITAL: Chest pain, angina. The patient has a known history of coronary artery disease. HISTORY OF PRESENT ILLNESS: The patient is an 88-year-old male. The patient was having chest pain, tightness, took some nitro that improved, just came back again, total of 3 nights he took, and the patient was brought to the hospital. Troponin was slightly elevated to 0.4. EKG negative for ischemia. The patient had persistent elevated troponins in last 3-4 admissions in last 2 years. The patient had a cardiac catheterization not too long ago, which shows a patent stent, no major blockages, probably spasm. The patient was admitted to the hospital, seen by Cardiology. 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 PAST SURGICAL HISTORY: Has a pacemaker, cardiac stents in the LAD. FAMILY HISTORY: Unremarkable. SOCIAL HISTORY: Denies smoking, alcohol, or drug abuse. The patient lives with his family. ALLERGIES: No known drug allergies. MEDICATIONS AT HOME: Atorvastatin 40 mg daily, Plavix 75 mg daily, Lasix 20 mg daily, isosorbide 30 mg daily, levothyroxine 50 mcg daily, metoprolol total of 75 mg daily, pantoprazole 40 mg daily, lisinopril 5 mg twice a day. REVIEW OF SYMPTOMS: CARDIAC: Had some chest pain, but now feels better, anxious to go home. GASTROINTESTINAL: No nausea or vomiting. Rest of the 14-system was reviewed and negative. PHYSICAL EXAMINATION: GENERAL: The patient is not in any distress. Family at bedside. VITAL SIGNS: Temperature 97, pulse 68, respirations 16, blood pressure 126/71, 91 went up to 97 on room air. HEENT: Head is atraumatic. Pupils equal. Oral cavity: No congestion. NECK: Supple. Thyroid not enlarged. JVD not elevated. CHEST: Symmetrical, has a pacemaker. CARDIOVASCULAR: S1, S2. No murmurs. LUNGS: Clear to auscultation. Occasional crackles. ABDOMEN: Soft, no mass palpable. EXTERNAL GENITALIA: No Jose. RECTAL: Deferred. EXTREMITIES: No calf tenderness, no edema. Pulses 1+. NEUROLOGIC: Moving all extremities. No focal deficits noted. LABORATORY DATA: Shows a white count was 6, hemoglobin 14, platelets 169. INR is 1.1. Electrolytes show sodium 142, potassium 3.8, chloride 106, bicarbonate 23, anion gap 13, BUN 18, creatinine 1.1, glucose 110, magnesium 2.1. LFTs normal. ProBNP was 2445, troponin 0.46. Cholesterol 166, LDL 105, HDL 42. TSH 8.5. Chest x-ray, chronic scarring in the lungs. EKG negative for ischemia, has a pacemaker. FINAL IMPRESSION: 1. Angina. 2. Known history of coronary artery disease, has a cardiac cath within the last year, which shows patent stent, no major blockages, small vessel disease with spasm. 3. Hypothyroidism. 4. Hypertension. 5. Hyperlipidemia. 6. Chronic interstitial lung disease. HOSPITAL COURSE: The patient was admitted to the hospital, seen by Cardiology, serial cardiac enzymes, director of cardiac cath lab was done and the patient is feeling better. Because of vasospasm, amlodipine 2.5 mg was added, Ranexa 500 mg twice daily was added and the patient was discharged home. The patient is recommended to take thyroid on empty stomach. AUGUST HUITRON MD DR: TIMI/lara JOB#: [id number] / [id number]
--- NOTE | 2019-01-29 12:00 | NUR ---
Discharge Note: BUDDY RICH Discharge instructions and discharge home medications reviewed with Family Member and a copy given. All questions have been answered and understanding verbalized. The following instructions and handouts were given: information about chest pain. Discontinued lines and drains: no IV line present, patient removed during previous shift. Patient discharged to home with self care with family members, patient ambulated to discharge vehicle.
--- NOTE | 2019-01-31 15:46 | PDOC ---
Provider Note Provider Note Discharge summary dictated. #[id number] AUGUST HUITRON MD Jan 31, 2019 15:46
--- NOTE | 2019-01-31 23:44 | DS ---
DATE OF DISCHARGE: 01/29/2019 CONSULTATION: Dr. Botello. PROCEDURES DONE: None. COMPLICATIONS NOTED: None. HOSPITAL COURSE: The patient is an 88-year-old male with history of coronary artery disease, pacemaker, cardiac stent. Was having chest pain, took nitro that improved his pain, came back to the hospital. Troponin was borderline elevated 0.46 like before and the patient had a cardiac cath within last 1 year, which showed the patent stent, has a pacemaker defibrillator. The patient was seen by Cardiology. It was felt that the patient would need Ranexa as well as calcium channel maria m for coronary spasm and the patient was discharged on that. TSH was high at 8, he was taking with food. Recommend to take in empty stomach, we will monitor thyroid functions in 1 month. His LDL is 105. Cholesterol 166, on cholesterol medication. FINAL DIAGNOSES: 1. Coronary artery disease, had a patent stent, cardiac catheterization last 2 months ago, showed no significant blockages. 2. Coronary spasm. 3. 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 4. Hypertension. 5. Hyperlipidemia. DISPOSITION: Home. MEDICATIONS ON DISCHARGE: Ranexa and amlodipine was added to the current regimen. AUGUST HUITRON MD DR: TIMI/lara JOB#: [id number] / [id number] BILLY
== END 2019-01-29 12:00 | disposition home or self-care (01) | DRG 303 ==
LOC: ER 07:54 → 1 WEST ICU 09:53 → 2 SOUTH 18:35
PROVIDERS: ADMIT Internal Medicine; ATTEND Internal Medicine
DX: I25.111 Atherosclerotic heart disease of native coronary artery with angina pectoris with documented spasm (principal); I13.0 Hypertensive heart and chronic kidney disease with heart failure and stage 1 through stage 4 chronic kidney disease, or unspecified chronic kidney disease; I50.42 Chronic combined systolic (congestive) and diastolic (congestive) heart failure; J84.9 Interstitial pulmonary disease, unspecified; E03.9 Hypothyroidism, unspecified; E78.00 Pure hypercholesterolemia, unspecified; E78.5 Hyperlipidemia, unspecified; F03.90 Unspecified dementia, unspecified severity, without behavioral disturbance, psychotic disturbance, mood disturbance, and anxiety; G47.33 Obstructive sleep apnea (adult) (pediatric); I35.1 Nonrheumatic aortic (valve) insufficiency; I49.5 Sick sinus syndrome; M19.90 Unspecified osteoarthritis, unspecified site; I48.0 Paroxysmal atrial fibrillation; I25.5 Ischemic cardiomyopathy; J84.10 Pulmonary fibrosis, unspecified; J44.9 Chronic obstructive pulmonary disease, unspecified; K21.9 Gastro-esophageal reflux disease without esophagitis; N18.3 Chronic kidney disease, stage 3 (moderate); Z95.5 Presence of coronary angioplasty implant and graft; Z95.810 Presence of automatic (implantable) cardiac defibrillator; Z87.01 Personal history of pneumonia (recurrent); Z79.899 Other long term (current) drug therapy
CPT/HCPCS: 36415; 71045; 80048; 80053; 80061; 80307; 81001; 82553; 83735; 83880; 84443; 84484; 85025; 85610; 93005; 94640; J7620; 99285-25

== ENCOUNTER 2019-02-22 09:13 | Inpatient (IN) | payer OTHER ==
[2019-02-22] VITALS (11 sets, daily range): BP systolic 108–153; BP diastolic 69–83
[~2019-02-22] VITALS: Ht 160 cm; Wt 54.2 kg
[~2019-02-22 09:13] MED LIST changes: +AMLO5TAB10 PO; +RANO500T2 PO
--- NOTE | 2019-02-22 09:54 | PHYS DOC ---
Past Medical History Past Medical History: Arrhythmia, Dementia, GERD, High Cholesterol, Hypertension, HI Additional Past Medical Histor: SLEEP APNEA, irregular heart rate, THYROID DZ Past Surgical History: Angioplasty, Pacemaker Additional Past Surgical Histo: CARDIAC STENTS, HEART CATH 09/2018 Alcohol Use: None Drug Use: None Adult General Chief Complaint Chief Complaint: ALTERED MENTAL STATUS HPI HPI 88-year-old male presents to ER via EMS from his residence following a fall this morning around 8:20 AM. EMS reported to staff they had admin'd 324mg aspirin [employer]. Per report patient lives with his son and [id number]-[id number] as well as his . Per son and [id number] who is at bedside pt's heard fall and found patient on his back on the kitchen floor. Since fall patient has not recognized his son or [id number]. Patient has large hematoma on left posterior/parietal head. Patient is on blood thinners uncertain of which one. He denies patient with recent illness. Family denies pt has been lethargy, vomiting, or having c/o CP/SOA/abd pain. Patient has not had any vomiting episodes since fall her family. Patient's ijjgfmjc-[id number]-fmi states patient has dem entia which has been progressively worsening for several months. 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 Family is translating for patient. They report patient is alert to self and is denying any pain or complaints. Review of Systems Review of Systems Constitutional: Denies fever. Reports pt has been fatigued- denies lethargy since fall Eyes: Denies change in visual acuity, redness, or eye pain [] HENT: Denies nasal congestion or sore throat [] Respiratory: Denies cough or shortness of breath [] Cardiovascular: Denies CP GI: Denies abdominal pain, nausea, vomiting, bloody stools or diarrhea [] : Denies dysuria or hematuria [] Musculoskeletal: Denies back/neck pain or joint pain [] Integument: Denies rash or skin lesions [] Neurologic: Denies headache, focal weakness or sensory changes [] Endocrine: Denies polyuria or polydipsia [] All other systems were reviewed and found to be within normal limits, except as documented in this note. Current Medications Current Medications Current Medications Medications (Trade) Dose Ordered Sig/Mel Start Time Stop Time Status Last Admin Dose Admin Sodium Chloride 500 ml @ 500 mls/hr 1X ONCE 02/22/19 10:00 02/22/19 10:59 DC 02/22/19 09:55 500 MLS/HR Allergies Allergies Allergies Coded Allergies Type Severity Reaction Last Updated Verified No Known Drug Allergies 04/01/17 No Physical Exam Physical Exam Constitutional: Well developed, well nourished, no acute distress, non-toxic appearance. Fatigued appearance- smiling and cooperative during exam HENT: Normocephalic, lt side parietal/posterior scalp hematoma- facial grimacing on palp. of area- no open wounds, bilateral ears normal, mucous membranes pink/dry, no oral injury, nose normal. [] Eyes: Pupils equal- hazed sclera/corneal appearance with family reporting pt is blind in lt eye and partially blind rt eye- they report eye appearance is NL for pt, no nystagmus, conjunctiva normal, no discharge. [] Neck: Normal range of motion when this provider entered room prior to receiving report from family on fall/head injury pt was looking around room with side to side head movements without facial grimacing, no tenderness on palp. of cspine- no palp deformity with pt's fall and head injury pt was placed in ccollar and cspine precautions maintained during completion of exam, supple, no stridor. Trachea midline Cardiovascular: Heart rate regular rhythm, no murmur [] Lungs & Thorax: Bilateral breath sounds clear to auscultation. Resp. equal/nonlabored. No chest wall deformity/visible injury Abdomen: Bowel sounds normal, soft- no distention/rigidity, no tenderness Skin: Warm, dry, no erythema, no rash. [] Back: With 3 person assist and cspine precautions maintained- pt log rolled. No palp. deformity along cspine and no visible bruising/injury on back. Pt denying pain on palp. of spine. No tenderness, no CVA tenderness. [] Extremities: Pelvis stable/no grimacing on palp. of pelvis. No cyanosis, no clubbing, ROM intact- no drift, no edema. 2+ bilat. radial and 2+ bilat. dorsalis pedis/posterior tibial Neurologic: Alert and oriented X 1- smiling no facial droop, normal motor function, no focal deficits noted. [] Psychologic: Affect normal, confused per family, mood normal- no agitation/anxiety. [] Current Patient Data Vital Signs Vital Signs Date Time Temp Pulse Resp B/P (MAP) Pulse Ox O2 Delivery O2 Flow Rate FiO2 02/22/19 12:06 82 16 97 02/22/19 09:14 98.9 107/61 (76) Room Air 98.9 Lab Values Laboratory Tests Test 02/22/19 09:47 02/22/19 10:00 White Blood Count 7.2 x10^3/uL (4.0-11.0) Red Blood Count 5.19 x10^6/uL (4.30-5.70) Hemoglobin 15.3 g/dL (13.0-17.5) Hematocrit 45.4 % (39.0-53.0) Mean Corpuscular Volume 88 fL (79-100) Mean Corpuscular Hemoglobin 30 pg (25-35) Mean Corpuscular Hemoglobin Concent 34 g/dL (31-37) Red Cell Distribution Width 14.6 % (11.5-14.5) H Platelet Count 156 x10^3/uL (140-400) Neutrophils (%) (Auto) 68 % (31-73) Lymphocytes (%) (Auto) 24 % (24-48) Monocytes (%) (Auto) 6 % (0-9) Eosinophils (%) (Auto) 2 % (0-3) Basophils (%) (Auto) 0 % (0-3) Neutrophils # (Auto) 4.9 x10^3uL (1.8-7.7) Lymphocytes # (Auto) 1.7 x10^3/uL (1.0-4.8) Monocytes # (Auto) 0.4 x10^3/uL (0.0-1.1) Eosinophils # (Auto) 0.2 x10^3/uL (0.0-0.7) Basophils # (Auto) 0.0 x10^3/uL (0.0-0.2) Prothrombin Time 13.5 SEC (11.7-14.0) Prothrombin Time INR 1.1 (0.8-1.1) PTT 32 SEC (24-38) Sodium Level 142 mmol/L (136-145) Potassium Level 4.4 mmol/L (3.5-5.1) Chloride Level 105 mmol/L (98-107) Carbon Dioxide Level 27 mmol/L (21-32) Anion Gap 10 (6-14) Blood Urea Nitrogen 19 mg/dL (8-26) Creatinine 1.3 mg/dL (0.7-1.3) Estimated GFR (Cockcroft-Gault) 52.2 BUN/Creatinine Ratio 15 (6-20) Glucose Level 105 mg/dL (70-99) H Calcium Level 9.0 mg/dL (8.5-10.1) Total Bilirubin 0.5 mg/dL (0.2-1.0) Aspartate Amino Transferase (AST) 20 U/L (15-37) Alanine Aminotransferase (ALT) 18 U/L (16-63) Alkaline Phosphatase 103 U/L (46-116) Troponin I Quantitative 0.402 ng/mL (0.000-0.055) Total Protein 7.3 g/dL (6.4-8.2) Albumin 3.6 g/dL (3.4-5.0) Albumin/Globulin Ratio 1.0 (1.0-1.7) Urine Collection Type Unknown Urine Color Yellow Urine Clarity Clear Urine pH 5.5 Urine Specific Noble 1.010 Urine Protein Negative mg/dL (NEG-TRACE) Urine Glucose (UA) Negative mg/dL (NEG) Urine Ketones (Stick) Negative mg/dL (NEG) Urine Blood Negative (NEG) Urine Nitrite Negative (NEG) Urine Bilirubin Negative (NEG) Urine Urobilinogen Dipstick 0.2 mg/dL (0.2 mg/dL) Urine Leukocyte Esterase Negative (NEG) Urine RBC 0 /HPF (0-2) Urine WBC Occ /HPF (0-4) Urine Squamous Epithelial Cells Occ /LPF Urine Bacteria 0 /HPF (0-FEW) Urine Hyaline Casts Occasional /HPF Urine Mucus Slight /LPF Laboratory Tests 02/22/19 09:47 Laboratory Tests 02/22/19 09:47 EKG EKG EKG obtained 02/22/19 at [address] Lao Afib Rate 80 No STEMI Radiology/Procedures Radiology/Procedures PROCEDURE: CHEST AP ONLY Chest radiograph 02/22/2019 10:24 AM INDICATION: Fall today COMPARISON: January 28, 2019 TECHNIQUE: Portable frontal semi-upright view of the chest is provided. FINDINGS: The cardiomediastinal silhouette is enlarged, stable. Left chest wall cardiac device is in similar position. Mild coronary vascular congestion appears stable. No pleural effusions or pneumothorax. No suspicious osseous abnormality is identified. IMPRESSION: Stable mild pulmonary vascular congestion. Electronically signed by: Taye King MD (02/22/2019 10:34 AM) [facility] DICTATED and SIGNED BY: TAYE KING MD DATE: 02/22/19 1034 PROCEDURE: CT HEAD AND CERVICAL SPINE [facility] Compliance Statement: One or more of the following individualized dose reduction techniques were utilized for this examination: 1. Automated exposure control 2. Adjustment of the mA and/or kV according to patient size 3. Use of iterative reconstruction technique CT HEAD AND CERVICAL SPINE WITHOUT CONTRAST History: S/P FALL CONFUSION PT. ON ANTICOAGULANTS Comparison: CT head and cervical spine without contrast, October 10, 2018. Procedure: Axial images are obtained of the head from the skull base through the vertex without IV contrast. Noncontrast helical CT of the cervical spine was performed. Axial, sagittal, and coronal reconstructions were obtained. Findings: The ventricles and sulci are prominent, consistent with age-related cerebral atrophy. There is periventricular white matter hypoattenuation. This is a nonspecific finding but is commonly due to chronic small vessel ischemic disease in a patient of this age. There is acute hemorrhage dependently in the lateral ventricles. There is acute hemorrhage in the quadrigeminal cistern. There is hemorrhage along the septum pellucidum. No mass-effect, midline shift, hemorrhage or obvious acute infarction is identified. Basilar cisterns are patent. Bone windows demonstrate no significant calvarial abnormality. There is moderate left parietal scalp hematoma. There is left globe scleral banding. Mild mucosal thickening bilateral ethmoid sinuses, no air-fluid level. Mastoid air cells are well aerated. There is no evidence of acute fracture or acute malalignment of the cervical spine. Grade 1 retrolisthesis of C5 on C6. Alignment is otherwise maintained. There is degenerative endplate spurring of the cervical spine. There is disc space narrowing of C5/C6 and C6/C7. Moderate hypertrophy of the facets. No perched or jumped facets. The craniovertebral junction is intact. Rim calcified thyroid nodules redemonstrated. The visualized lung apices are clear. IMPRESSION: 1. There is small acute hemorrhage along the septum pellucidum. There is acute hemorrhage dependently in the lateral ventricles and in the quadrigeminal cistern. 2. No acute fracture of the cervical spine. 3. Generalized cerebral atrophy and supratentorial white matter changes of chronic small vessel ischemic disease. 4. Moderate left parietal scalp hematoma. Findings discussed with AYDIN MEAD at 02/22/2019 11:06 AM. FOR INTERNAL CODING PURPOSES Critical result: RESULT CODE: (C) Electronically signed by: Dave Connell MD (02/22/2019 11:09 AM) [id number] DICTATED and SIGNED BY: DAVE CONNELL MD DATE: 02/22/19 1109 Course & Med Decision Making Course & Med Decision Making Pertinent Labs and Imaging studies reviewed. (See chart for details) 1105: Spoke with radiologist Dr. Connell and discussed patient's case and CT results. Cspine neg. for fxs. Test results were discussed with patient's family who remains at bedside c-collar was removed. Patient has had no change in mental status per family. He is in no distress at this time. Will admit to his primary care physician Dr. Huitron and consult Dr. Lord. Pt's case and plan of care was discussed with Dr. Lao. CT head report with "small acute hemorrhage along the septum pellucidum. There is acute hemorrhage dependently in the lateral ventricles and in the quadrigeminal cistern". EKG with no acute ST elevation/STEMI- troponin was 0.402- which on 01/28/19 pt also had elevated troponin of 0.393. Pt has denied CP. Will place orders with admit orders for serial cardiac enzymes. 1150: Spoke with MELISA Cardona with Dr. Lord neurosurg. and discussed pt's case/test results and admit plan. Will hold plavix and aspirin and pt will have repeat CT in a.m. Discussed cspine neg. findings and that CCollar had been removed- was ok with pt having collar removed. 1212: Spoke with Dr. Huitron, pt's PCP and discussed pt's case and admit plan. Dragon Disclaimer Dragon Disclaimer This electronic medical record was generated, in whole or in part, using a voice recognition dictation system. Departure Departure Impression: Primary Impression: Fall Additional Impression: Intracranial hemorrhage Disposition: ADMITTED INPATIENT Admitting Physician: Lavelle Huitron Condition: GUARDED Referrals: LAVELLE HUITRON MD (PCP) Problem Qualifiers REFFITTAYDIN APRN Feb 22, 2019 09:54
[2019-02-22] MEDS ORDERED: IV NORMAL SALINE 500ML BAG 500 ML IV ONE (10:00)
[2019-02-22 10:13] LABS: CREATININE 1.3 mg/dL (0.7-1.3); GFR 52.2; POTASSIUM 4.4 mmol/L (3.5-5.1)
[2019-02-22 10:18] LABS: BASO % 0 % (0-3); EOS # 0.2 x10^3/uL (0.0-0.7); EOS % 2 % (0-3); HEMATOCRIT 45.4 % (39.0-53.0); HEMOGLOBIN 15.3 g/dL (13.0-17.5); LYMPH # 1.7 x10^3/uL (1.0-4.8); LYMPH % 24 % (24-48); MEAN CORPUSCULAR HEMOGLOBIN 30 pg (25-35); MEAN CORPUSCULAR HGB CONC 34 g/dL (31-37); MEAN CORPUSCULAR VOLUME 88 fL (79-100); MONO # 0.4 x10^3/uL (0.0-1.1); MONO % 6 % (0-9); NEUT # 4.9 x10^3uL (1.8-7.7); NEUT % 68 % (31-73); PLATELET COUNT 156 x10^3/uL (140-400); RED BLOOD COUNT 5.19 x10^6/uL (4.30-5.70); RED CELL DISTRIBUTION WIDTH 14.6 % (11.5-14.5); WHITE BLOOD COUNT 7.2 x10^3/uL (4.0-11.0)
[2019-02-22 10:19] LABS: ALBUMIN 3.6 g/dL (3.4-5.0); TOTAL BILIRUBIN 0.5 mg/dL (0.2-1.0); TOTAL PROTEIN 7.3 g/dL (6.4-8.2)
[2019-02-22 10:19] LABS: BILIRUBIN,URINE NEGATIVE (NEG); CLARITY,URINE CLEAR; COLOR,URINE YELLOW; NITRITE,URINE NEGATIVE (NEG); PH,URINE 5.5; PROTEIN,URINE NEGATIVE (NEG-TRACE); UROBILINOGEN,URINE 0.2 mg/dL (0.2 mg/dL)
[2019-02-22 10:34] LABS: HYALINE CASTS, URINE OCCASIONAL /HPF; SQUAMOUS EPITHELIAL CELL,UR OCC /LPF
[2019-02-22 10:35] LABS: BACTERIA,URINE 0 /HPF (0-FEW); RBC,URINE 0 /HPF (0-2); WBC,URINE OCC /HPF (0-4)
--- NOTE | 2019-02-22 10:37 | RAD ---
Chest radiograph 02/22/2019 10:24 AM INDICATION: Fall today COMPARISON: January 28, 2019 TECHNIQUE: Portable frontal semi-upright view of the chest is provided. FINDINGS: The cardiomediastinal silhouette is enlarged, stable. Left chest wall cardiac device is in similar position. Mild coronary vascular congestion appears stable. No pleural effusions or pneumothorax. No suspicious osseous abnormality is identified. IMPRESSION: Stable mild pulmonary vascular congestion. Electronically signed by: Yuni Cee MD (02/22/2019 10:34 AM) [facility]
[2019-02-22 10:49] LABS: PROTHROMBIN TIME PATIENT 13.5 SEC (11.7-14.0)
--- NOTE | 2019-02-22 10:52 | EKG ---
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
--- NOTE | 2019-02-22 11:13 | RAD ---
PQ[facility] Compliance Statement: One or more of the following individualized dose reduction techniques were utilized for this examination: 1. Automated exposure control 2. Adjustment of the mA and/or kV according to patient size 3. Use of iterative reconstruction technique CT HEAD AND CERVICAL SPINE WITHOUT CONTRAST History: S/P FALL CONFUSION PT. ON ANTICOAGULANTS Comparison: CT head and cervical spine without contrast, October 10, 2018. Procedure: Axial images are obtained of the head from the skull base through the vertex without IV contrast. Noncontrast helical CT of the cervical spine was performed. Axial, sagittal, and coronal reconstructions were obtained. Findings: The ventricles and sulci are prominent, consistent with age-related cerebral atrophy. There is periventricular white matter hypoattenuation. This is a nonspecific finding but is commonly due to chronic small vessel ischemic disease in a patient of this age. There is acute hemorrhage dependently in the lateral ventricles. There is acute hemorrhage in the quadrigeminal cistern. There is hemorrhage along the septum pellucidum. No mass-effect, midline shift, hemorrhage or obvious acute infarction is identified. Basilar cisterns are patent. Bone windows demonstrate no significant calvarial abnormality. There is moderate left parietal scalp hematoma. There is left globe scleral banding. Mild mucosal thickening bilateral ethmoid sinuses, no air-fluid level. Mastoid air cells are well aerated. There is no evidence of acute fracture or acute malalignment of the cervical spine. Grade 1 retrolisthesis of C5 on C6. Alignment is otherwise maintained. There is degenerative endplate spurring of the cervical spine. There is disc space narrowing of C5/C6 and C6/C7. Moderate hypertrophy of the facets. No perched or jumped facets. The craniovertebral junction is intact. Rim calcified thyroid nodules redemonstrated. The visualized lung apices are clear. IMPRESSION: 1. There is small acute hemorrhage along the septum pellucidum. There is acute hemorrhage dependently in the lateral ventricles and in the quadrigeminal cistern. 2. No acute fracture of the cervical spine. 3. Generalized cerebral atrophy and supratentorial white matter changes of chronic small vessel ischemic disease. 4. Moderate left parietal scalp hematoma. Findings discussed with AYDIN Tom APRN REFFITT at 02/22/2019 11:06 AM. FOR INTERNAL CODING PURPOSES Critical result: RESULT CODE: (C) Electronically signed by: Dave Connell MD (02/22/2019 11:09 AM) [id number]
--- NOTE | 2019-02-22 15:54 | PDOC ---
Provider Note Provider Note PT seen.H&P dictated.#[id number]. AUGUST HUITRON MD Feb 22, 2019 15:54
--- NOTE | 2019-02-22 16:38 | HP ---
ADMIT DATE: 02/22/2019 LOCATION: 111 ICU. REASON FOR ADMISSION TO THE HOSPITAL: Fall, intracranial bleed. HISTORY OF PRESENT ILLNESS: The patient is an 88-year-old male. The patient has a history of coronary artery disease and he has been not feeling well and he was found to have a fall this morning at 08:20. The patient was brought to the hospital, had a hematoma in the posterior head. CT of the head shows intracranial bleed. The patient was admitted to the ICU. Neurosurgery was consulted. The patient is on Plavix for cardiac intervention, had a cardiac cath and a stent placed almost 2 years ago. PAST MEDICAL HISTORY: Has a history of coronary artery disease, had a stent placed in 04/2016, drug-eluting stent to diagonal branch and the patient had a cardiac catheterization 2 months ago, shows patent stent. He had history of hypertension, congestive heart failure, hyperlipidemia, 40% ejection fraction, aortic insufficiency, pacemaker, sick sinus syndrome, sleep apnea, GERD, arthritis, chronic kidney disease, hypothyroidism. PAST SURGICAL HISTORY: Had a pacemaker, [facility], in 2012; had a SUPERVISOR DOPING, stent in diagonal branch, 2015; last cardiac catheterization 2 months ago, patent stent. FAMILY HISTORY: Positive for hypertension and heart disease. ALLERGIES: No known allergies. MEDICATIONS AT HOME: Amlodipine 5 mg daily, atorvastatin 40 mg daily, Plavix 75 mg daily, Lasix 20 mg daily, isosorbide 30 mg daily, metoprolol 50 mg daily, pantoprazole 40 mg daily, Ranexa 500 mg twice a day, Synthroid 50 mcg daily, lisinopril 5 mg twice a day. PERSONAL HISTORY: Ex-smoker, in the past. Denies alcohol, denies street drugs. REVIEW OF SYSTEMS: Denies any chest pain, shortness of breath. PHYSICAL EXAMINATION: GENERAL: The patient looks at me, but does not talk, easily talks one or two words. VITAL SIGNS: Temperature 98, pulse 80, respirations 16, blood pressure 107/61, 99% on room air. HEENT: Head is atraumatic. Pupils equal. Oral cavity: No congestion. NECK: Supple. Thyroid not enlarged. JVD not elevated. CHEST: Symmetrical. Pacemaker, left side of the chest. CARDIOVASCULAR: S1, S2. LUNGS: Clear to auscultation. ABDOMEN: Soft, bowel sounds present, no mass palpable. EXTERNAL GENITALIA: No Jose. RECTAL: Deferred. EXTREMITIES: No calf tenderness, no edema. Pulses 1+. Extremities slightly weak or week, both upper and lower extremities, unable to move them. LABORATORY DATA: Shows a white count of 7, hemoglobin 15, platelets 156. INR 1.0. Electrolytes show sodium 142, potassium 4.4, chloride 105, bicarbonate 27, BUN 19, creatinine 1.3, glucose 105. LFTs normal. Troponin 0.4, chronically elevated. Urine was negative. Chest x-ray shows mild vascular congestion. CT head shows a small acute hemorrhage along the septum pellucidum, no acute fracture, atrophy, parietal scalp hematoma. FINAL IMPRESSION: 1. Intracranial bleed. 2. Mechanical fall at home.Scalp hematoma. 3. Coronary artery disease. The patient had a cardiac stent 2 years ago. He is on Plavix.Chronically elevated troponin. 4. Hypothyroidism. 5. Pacemaker for sick sinus syndrome. 6. 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 7. Mild aortic insufficiency. 8. Hypertension. 9. Hyperlipidemia. PLAN: At this time was admitted to hospital. CT head was done. Neurosurgery was consulted. Admit to the ICU. Hold Plavix and repeat a CT scan in the morning and see how the patient's condition responds.No anticoagulation .Neuro checks.spoke with pts daughter. AUGUST HUITRON MD DR: TIMI/lara JOB#: [id number] / [id number] BILLY
[2019-02-22] MEDS ORDERED: METOPROLOL SUCC 24HR ER 50 MG TAB.ER.24H. PO SCH (17:00)
[2019-02-22] MEDS: LEVOTHYROXINE 50 MCG TABLET PO SCH (17:00)
[2019-02-22] MEDS: ISOSORBIDE MONONITRATE ER 30 MG TAB.ER.24H PO SCH (17:00)
[2019-02-22] MEDS: PANTOPRAZOLE 40 MG TABLET.DR. PO SCH (17:00)
--- NOTE | 2019-02-22 17:54 | NUR ---
PO medications not given d/t patient being NPO and decreased LOC at this time.
[2019-02-22] MEDS: IV DEXTROSE 5% - 0.9 % NACL 1,000 ML IV SCH (17:57)
[2019-02-22] MEDS: LISINOPRIL 5 MG TABLET. PO SCH (19:57)
[2019-02-22] MEDS: RANOLAZINE 500 MG TAB.ER.12H PO SCH (19:57)
[2019-02-22] MEDS: ATORVASTATIN CALCIUM 40 MG TABLET. PO SCH (19:57)
[2019-02-23] VITALS (9 sets, daily range): BP systolic 103–144; BP diastolic 47–87
[2019-02-23] MEDS: IV DEXTROSE 5% - 0.9 % NACL 1,000 ML IV SCH ×2 (03:39→13:50)
[2019-02-23] MEDS: LEVOTHYROXINE 50 MCG TABLET PO SCH (06:00)
[2019-02-23] MEDS: PANTOPRAZOLE 40 MG TABLET.DR. PO SCH (07:30)
[2019-02-23] MEDS: RANOLAZINE 500 MG TAB.ER.12H PO SCH ×2 (09:00→21:00)
[2019-02-23] MEDS: LISINOPRIL 5 MG TABLET. PO SCH ×2 (09:00→21:00)
[2019-02-23] MEDS: ISOSORBIDE MONONITRATE ER 30 MG TAB.ER.24H PO SCH (09:00)
--- NOTE | 2019-02-23 09:48 | PDOC ---
PROGRESS NOTES Subjective Subjective pt feels better ,talking few words Objective Objective Vital Signs Date Time Temp Pulse Resp B/P (MAP) Pulse Ox O2 Delivery O2 Flow Rate FiO2 02/23/19 06:00 85 20 112/47 (68) 97 Room Air 02/23/19 04:00 98.3 98.3 Intake and Output 02/23/19 07:00 Intake Total 1771.39 ml Balance 1771.39 ml Intake Oral 0 ml IV Total 1771.39 ml # Voids 4 Physical Exam Abdomen: Normal bowel sounds, Soft Heart: Regular rate, Normal S1 Extremities: No clubbing General: Alert, No acute distress HEENT: Atraumatic Lungs: Clear to auscultation MUSCULOSKELETAL: Osteoarthritic changes both hands Neuro: Normal speech Psych/Mental Status: Mood NL Skin: No significant lesion Diagnosis Problem List Problems Medical Problems: (1) Fall Status: Acute (2) Intracranial hemorrhage Status: Acute Assessment Assessment Problems Medical Problems: (1) Fall Status: Acute (2) Intracranial hemorrhage Status: Acute FINAL IMPRESSION: 1. Intracranial bleed. 2. Mechanical fall at home.Scalp hematoma. 3. Coronary artery disease. The patient had a cardiac stent 2 years ago. He is on Plavix.Chronically elevated troponin. 4. Hypothyroidism. 5. Pacemaker for sick sinus syndrome. 6. 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 7. Mild aortic insufficiency. 8. Hypertension. 9. Hyperlipidemia. PLAN: repeat CT head today neuro surgical consult. labs ok. speech to see today clear liquid diet. hold on Plavix cardiology consult. At this time was admitted to hospital. CT head was done. Neurosurgery was consulted. Admit to the ICU. Hold Plavix and repeat a CT scan in the morning and see how the patient's condition responds.No anticoagulation .Neuro checks.spoke with pts daughter. Plan Plan of Care Problems Medical Problems: (1) Fall Status: Acute (2) Intracranial hemorrhage Status: Acute Comment Review of Relevant I have reviewed the following items zully (where applicable) has been applied. Labs Laboratory Tests Test 02/22/19 09:47 02/22/19 10:00 02/22/19 13:10 White Blood Count 7.2 x10^3/uL (4.0-11.0) Red Blood Count 5.19 x10^6/uL (4.30-5.70) Hemoglobin 15.3 g/dL (13.0-17.5) Hematocrit 45.4 % (39.0-53.0) Mean Corpuscular Volume 88 fL (79-100) Mean Corpuscular Hemoglobin 30 pg (25-35) Mean Corpuscular Hemoglobin Concent 34 g/dL (31-37) Red Cell Distribution Width 14.6 % (11.5-14.5) Platelet Count 156 x10^3/uL (140-400) Neutrophils (%) (Auto) 68 % (31-73) Lymphocytes (%) (Auto) 24 % (24-48) Monocytes (%) (Auto) 6 % (0-9) Eosinophils (%) (Auto) 2 % (0-3) Basophils (%) (Auto) 0 % (0-3) Neutrophils # (Auto) 4.9 x10^3uL (1.8-7.7) Lymphocytes # (Auto) 1.7 x10^3/uL (1.0-4.8) Monocytes # (Auto) 0.4 x10^3/uL (0.0-1.1) Eosinophils # (Auto) 0.2 x10^3/uL (0.0-0.7) Basophils # (Auto) 0.0 x10^3/uL (0.0-0.2) Prothrombin Time 13.5 SEC (11.7-14.0) Prothromb Time International Ratio 1.1 (0.8-1.1) Activated Partial Thromboplast Time 32 SEC (24-38) Sodium Level 142 mmol/L (136-145) Potassium Level 4.4 mmol/L (3.5-5.1) Chloride Level 105 mmol/L (98-107) Carbon Dioxide Level 27 mmol/L (21-32) Anion Gap 10 (6-14) Blood Urea Nitrogen 19 mg/dL (8-26) Creatinine 1.3 mg/dL (0.7-1.3) Estimated GFR (Cockcroft-Gault) 52.2 BUN/Creatinine Ratio 15 (6-20) Glucose Level 105 mg/dL (70-99) Calcium Level 9.0 mg/dL (8.5-10.1) Total Bilirubin 0.5 mg/dL (0.2-1.0) Aspartate Amino Transf (AST/SGOT) 20 U/L (15-37) Alanine Aminotransferase (ALT/SGPT) 18 U/L (16-63) Alkaline Phosphatase 103 U/L (46-116) Troponin I Quantitative 0.402 ng/mL (0.000-0.055) Total Protein 7.3 g/dL (6.4-8.2) Albumin 3.6 g/dL (3.4-5.0) Albumin/Globulin Ratio 1.0 (1.0-1.7) Urine Collection Type Unknown Urine Color Yellow Urine Clarity Clear Urine pH 5.5 Urine Specific [place] 1.010 Urine Protein Negative mg/dL (NEG-TRACE) Urine Glucose (UA) Negative mg/dL (NEG) Urine Ketones (Stick) Negative mg/dL (NEG) Urine Blood Negative (NEG) Urine Nitrite Negative (NEG) Urine Bilirubin Negative (NEG) Urine Urobilinogen Dipstick 0.2 mg/dL (0.2 mg/dL) Urine Leukocyte Esterase Negative (NEG) Urine RBC 0 /HPF (0-2) Urine WBC Occ /HPF (0-4) Urine Squamous Epithelial Cells Occ /LPF Urine Bacteria 0 /HPF (0-FEW) Urine Hyaline Casts Occasional /HPF Urine Mucus Slight /LPF Nasal Screen MRSA (PCR) Negative (Negative) Medications Current Medications Atorvastatin Calcium (Lipitor) 40 mg HS PO ; Start 02/22/19 at 21:00 Dextrose/Sodium Chloride 1,000 ml @ 100 mls/hr Q10H IV Last administered on at 03:39; Start 02/22/19 at 16:30 Isosorbide Mononitrate (Imdur) 30 mg DAILY PO ; Start 02/22/19 at 17:00 Levothyroxine Sodium (Synthroid) 50 mcg DAILY06 PO ; Start 02/22/19 at 17:00 Lisinopril (Prinivil) 5 mg BID PO ; Start 02/22/19 at 21:00 Metoprolol Succinate (Toprol Xl) 75 mg DAILY PO ; Start 02/22/19 at 17:00 Pantoprazole Sodium (Protonix) 40 mg DAILYAC PO ; Start 02/22/19 at 17:00 Ranolazine (Ranexa) 500 mg BID PO ; Start 02/22/19 at 21:00 Sodium Chloride 500 ml @ 500 mls/hr 1X ONCE IV Last administered on at 09:55; Start 02/22/19 at 10:00; Stop 02/22/19 at 10:59; Status DC Vitals/I & O Vital Sign - Last 24 Hours 02/22/19 02/22/19 02/22/19 02/22/19 09:51 10:06 10:36 11:06 Pulse 80 78 80 80 Resp 16 16 20 20 Pulse Ox 98 98 99 99 02/22/19 02/22/19 02/22/19 02/22/19 11:36 12:06 12:36 13:00 Temp 98.0 98.0 Pulse 80 82 80 82 Resp 16 16 20 18 B/P (MAP) 135/72 (93) Pulse Ox 100 97 97 93 O2 Delivery Room Air 02/22/19 02/22/19 02/22/19 02/22/19 14:00 15:00 16:00 17:00 Temp 97.5 97.5 Pulse 80 83 79 83 Resp 18 18 18 18 B/P (MAP) 108/69 (82) 119/76 (90) 135/75 (95) 147/78 (101) Pulse Ox 99 99 95 98 O2 Delivery Room Air Room Air Room Air Room Air 02/22/19 02/22/19 02/22/19 02/22/19 18:00 19:00 20:00 21:00 Pulse 82 80 80 80 Resp 18 16 16 14 B/P (MAP) 147/75 (99) 145/73 (97) 153/83 (106) 137/73 (94) Pulse Ox 98 94 94 97 O2 Delivery Room Air Room Air Room Air Room Air 02/22/19 02/22/19 02/23/19 02/23/19 22:00 23:00 00:01 01:00 Temp 97.5 97.5 Pulse 80 80 80 89 Resp 14 14 14 14 B/P (MAP) 131/76 (94) 141/79 (99) 141/75 (97) 144/87 (106) Pulse Ox 96 99 95 95 O2 Delivery Room Air Room Air Room Air Room Air 02/23/19 02/23/19 02/23/19 02/23/19 02:00 03:00 04:00 05:00 Temp 98.3 98.3 Pulse 80 80 80 79 Resp 14 14 14 12 B/P (MAP) 124/74 (91) 129/75 (93) 103/66 (78) 115/62 (79) Pulse Ox 92 92 99 96 O2 Delivery Room Air Room Air Room Air Room Air 02/23/19 06:00 Pulse 85 Resp 20 B/P (MAP) 112/47 (68) Pulse Ox 97 O2 Delivery Room Air Intake and Output 02/22/19 02/22/19 02/23/19 15:00 23:00 07:00 Intake Total 500 ml 0 ml 1271.39 ml Balance 500 ml 0 ml 1271.39 ml AUGUST HUITRON MD Feb 23, 2019 09:48
--- NOTE | 2019-02-23 09:53 | PDOC2 ---
[facility] 02/23/19 0953: CARDIAC CONSULT DATE OF CONSULT Date of Consult DATE: 02/23/19 TIME: 09:52 REASON FOR CONSULT Reason for Consult: Brain bleed, on Plavix for CAD REFERRING PHYSICIAN Referring Physician: Dr. Elias SOURCE Source: Chart review, Patient HISTORY OF PRESENT ILLNESS HISTORY OF PRESENT ILLNESS This is an 88 yo male, with a history of CAD s/p PCI/stents placement, dementia , who presented secondary to fall. Since fall, has had altered mental status and has had difficulty recognizing family. Daughter reports he was in kitchen and heard him fall. Was unconscious for about 10-15 minutes. Has large hematoma on left posterior head. EMS was called. Unclear of events leading up to fall as it was not witnessed and patient is unable to provide any details. Daughter reports he has c/o intermittent dizziness recently. No chest pain, palpitations, AYE, diaphoresis, or nausea/vomiting. PAST MEDICAL HISTORY Past Medical History Cardiovascular: CAD (with PCI/THOR to D2- 04/2016), CHF, HTN, Hyperlipidemia, Valve insufficiency (aortic), Other ([facility] PPM - 01/2013), ICM, SSS Pulmonary: Other (NANCY/CPAP), Pneumonia GI: GERD Heme/Onc: Other (DVT) Musculoskeletal: Osteoarthritis Renal/: Chronic renal insuff (stage III) Endocrine: Hypothyroidism, thyroid nodules Neuro: dementia PAST SURGICAL HISTORY Past Surgical History Pacemaker ([facility]), Other (PCI/stent to D2) FAMILY HISTORY Family History: Other (noncontributory ) SOCIAL HISTORY Social History Smoke: No ALCOHOL: none Drugs: None Lives: with Family CURRENT MEDICATIONS CURRENT MEDICATIONS Current Medications Medications (Trade) Dose Ordered Sig/Mel Route PRN Reason Start Time Stop Time Status Last Admin Dose Admin Sodium Chloride 500 ml @ 500 mls/hr 1X ONCE IV 02/22/19 10:00 02/22/19 10:59 DC 02/22/19 09:55 Dextrose/Sodium Chloride 1,000 ml @ 100 mls/hr Q10H IV 02/22/19 16:30 02/23/19 03:39 ALLERGIES ALLERGIES: Coded Allergies: No Known Drug Allergies (Unverified , 04/01/17) ROS Review of System unobtainable PHYSICAL EXAM PHYSICAL EXAM General: Alert, No acute distress HEENT: Mucous membr. moist/pink Lungs: Clear to auscultation, Normal air movement Heart: Regular rate (100% paced), Normal S1, Normal S2, Other (2/6 systolic murmur to LLS border) Abdomen: Soft, No tenderness Extremities: No cyanosis, No edema Skin: No breakdown, No significant lesion Neuro: Normal speech, Sensation intact Psych/Mental Status: confused MUSCULOSKELETAL: Osteoarthritic changes both hands VITALS VITALS Vital Signs Date Time Temp Pulse Resp B/P (MAP) Pulse Ox O2 Delivery O2 Flow Rate FiO2 02/23/19 06:00 85 20 112/47 (68) 97 Room Air 02/23/19 04:00 98.3 98.3 LABS Lab: Laboratory Tests Test 02/22/19 10:00 02/22/19 13:10 Urine Collection Type Unknown Urine Color Yellow Urine Clarity Clear Urine pH 5.5 Urine Specific [place] 1.010 Urine Protein Negative mg/dL (NEG-TRACE) Urine Glucose (UA) Negative mg/dL (NEG) Urine Ketones (Stick) Negative mg/dL (NEG) Urine Blood Negative (NEG) Urine Nitrite Negative (NEG) Urine Bilirubin Negative (NEG) Urine Urobilinogen Dipstick 0.2 mg/dL (0.2 mg/dL) Urine Leukocyte Esterase Negative (NEG) Urine RBC 0 /HPF (0-2) Urine WBC Occ /HPF (0-4) Urine Squamous Epithelial Cells Occ /LPF Urine Bacteria 0 /HPF (0-FEW) Urine Hyaline Casts Occasional /HPF Urine Mucus Slight /LPF Nasal Screen MRSA (PCR) Negative (Negative) ECHOCARDIOGRAM ECHOCARDIOGRAM <Conclusion> The left ventricle is normal size. The left ventricular systolic function is normal. The ejection fraction is 55-60%. There is mild left ventricular hypertrophy with mild septal hypertrophy. There is no significant aortic valvular stenosis. Doppler and Color Flow revealed mild to moderate aortic regurgitation. Doppler and Color-flow revealed trace mitral regurgitation. Doppler and Color Flow revealed trace to mild tricuspid regurgitation. DATE: 10/11/18 1424 STRESS TEST STRESS TEST Conclusion 1. Regadenoson cardioisotope stress test showed moderate to large infarction involving the lateral wall without any significant ischemia. 2. Mild left ventricular dysfunction with ejection fraction calculated at 44%. 3. Low to intermediate risk for cardiac events. DATE: 04/13/18 1447 HEART CATH HEART CATH FINDINGS 1. Hemodynamics: Left ventricular end-diastolic pressure of 30 mmHg. No pullback gradient across the aortic valve. 2. Left ventriculography: Mild left ventricular systolic dysfunction with ejection fraction estimated at 40-45%. 1+ mitral regurgitation seen. 3. Coronary angiography: a. The left main coronary artery arose from the left sinus of Valsalva, gave rise to the left anterior descending and left circumflex arteries and did not show any significant stenosis. b. The left anterior descending artery showed a widely patent previously placed stent in the second diagonal branch. c. The left circumflex artery showed 40% stenosis in the midsegment. The first obtuse marginal branch showed 50% ostial segment stenosis in the second obtuse marginal branch showed 40% prox-mid segment stenosis. d. The right coronary artery was a large and dominant vessel arising from the right sinus of Valsalva that showed 40% mid segment stenosis. Conclusion 1. Nonobstructive coronary artery disease as described above. The previously placed stent in the second diagonal branch was widely patent. Angiographic findings unchanged from prior cardiac catheterization. 2. Mild left ventricle systolic dysfunction with ejection fraction estimated at 40-45%. Recommendations Optimization of medical therapy. Consider maximizing antianginal treatment. Slight troponin elevation probably type II non-STEMI/demand ischemia. DATE: 12/03/18 1504 ASSESSMENT/PLAN ASSESSMENT/PLAN 1. Syncope/traumatic fall with small ICM. Details unclear as family was not present and patient unable to provide any details 2. NSTEMI; trop 0.4. Most probably type II, demand ischemia. H/o chronic troponin elevation 3. CAD: Recent LHC with patent stent to D2, otherwise nonobstructive disease as noted above 4. HTN: controlled 5. Mild acute on chronic diastolic CHF; LVEF 55-60%. CXR with mild vascular congestion. Monitor with IVFs 6. SSS s/p PPM implantation ([facility]) 7. COPD 8. CKD3; Cr near baseline per review 9. HLP; statin 10. PAFIB; v-paced 11. Hypothyroidism 12. Dementia Recommendations Metoprolol IV while NPO May hold ASA and Plavix with ICH as PCI/stent was in 2016 Will interrogate device to note any significant arrhythmias Orthostatic VS Supportive care PETE ZUÑIGA MD 02/24/19 0651: CARDIAC CONSULT ASSESSMENT/PLAN ASSESSMENT/PLAN Patient seen and examined 02/23/19. Agree with BASKET ASSEMBLER's assessment and plan. Stop Plavix secondary to ICH that most probably resulted from traumatic fall Agree with checking device to rule out any significant arrhythmias Non-STEMI most of the type 2/demand ischemia - doubt ACS Recent 2-D echo showed normal LV systolic function and recent cardiac catheterization showed patent stent Thank you for your consultation CARTER BLOCK APRN Feb 23, 2019 09:53 PETE ZUÑIGA MD Feb 24, 2019 06:51
--- NOTE | 2019-02-23 10:06 | RAD ---
PQRS Compliance Statement: One or more of the following individualized dose reduction techniques were utilized for this examination: 1. Automated exposure control 2. Adjustment of the mA and/or kV according to patient size 3. Use of iterative reconstruction technique CT head without contrast 02/23/2019 9:29 AM INDICATION: Follow-up intracranial hemorrhage. COMPARISON: CT head February 22, 2019 TECHNIQUE: Multiple axial CT images of the head were obtained from skull base through the vertex without intravenous contrast. FINDINGS: Head: There is a left parietal vertex scalp hematoma measuring approximately 8 mm in thickness, not significantly changed. There is size of left superior frontal gyrus intraparenchymal hematoma previously measuring 5 mm. Increase in currently measuring 14 x 12 mm hematoma which previously measured 8 x 8 mm. There is intraventricular hemorrhage with layering blood products identified within the occipital horns of lateral ventricles. Third ventricle at the foramen of Jimenez appears similar in size. There is persistent prominence of the lateral ventricles, not significantly changed since the prior examination. May be mild transependymal flow along the occipital horn of the right lateral ventricle. Hydrocephalus may have similar appearance. Hemorrhage is identified along the midline, not significantly changed. There may be minimal subarachnoid hemorrhage within the right frontal lobe (series 2, image 24). Orbits are normal in appearance with exception of bilateral lens replacement. Left scleral buckle is identified. Posterior fossa is normal in appearance. Mastoid air cells are well aerated. Paranasal sinuses are well aerated. IMPRESSION: There is increase in size of left superior frontal gyrus intraparenchymal hemorrhage previously measuring 8 x 8 mm and currently measuring 14 x 12 mm. No increase in mass effect or midline shift. Similar appearance of ventricular hemorrhage without worsening hydrocephalus. No midline shift. Results were discussed with the patient's nurse, Alem, at 9:55 AM on 02/23/[address] Cee. Electronically signed by: Yuni Cee MD (02/23/2019 10:03 AM) [id number]
--- NOTE | 2019-02-23 11:30 | NUR ---
SS following for discharge planning. SS reviewed pt chart. Pt is from home with family and is currently on room air. No discharge needs noted at this time. SS will continue to follow for pending discharge needs.
--- NOTE | 2019-02-23 13:41 | PDOC ---
PROGRESS NOTES Subjective Subjective resting in bed family reports that he has been more alert today and has intermittency complained of headache Objective Objective Vital Signs Date Time Temp Pulse Resp B/P (MAP) Pulse Ox O2 Delivery O2 Flow Rate FiO2 02/23/19 06:00 85 20 112/47 (68) 97 Room Air 02/23/19 04:00 98.3 98.3 Intake and Output 02/23/19 07:00 Intake Total 1771.39 ml Balance 1771.39 ml Intake Oral 0 ml IV Total 1771.39 ml # Voids 4 Physical Exam MUSCULOSKELETAL: Other (BELTRAN) Assessment Assessment Problems Medical Problems: (1) Fall Status: Acute (2) Intracranial hemorrhage Status: Acute Plan Plan of Care Follow up CT head reviewed with Dr. Lord, stable ok to transfer to floor from NS standpoint will consult Dr. Le will follow Comment Review of Relevant I have reviewed the following items zully (where applicable) has been applied. Labs Laboratory Tests Test 02/22/19 09:47 02/22/19 10:00 02/22/19 13:10 White Blood Count 7.2 x10^3/uL (4.0-11.0) Red Blood Count 5.19 x10^6/uL (4.30-5.70) Hemoglobin 15.3 g/dL (13.0-17.5) Hematocrit 45.4 % (39.0-53.0) Mean Corpuscular Volume 88 fL (79-100) Mean Corpuscular Hemoglobin 30 pg (25-35) Mean Corpuscular Hemoglobin Concent 34 g/dL (31-37) Red Cell Distribution Width 14.6 % (11.5-14.5) Platelet Count 156 x10^3/uL (140-400) Neutrophils (%) (Auto) 68 % (31-73) Lymphocytes (%) (Auto) 24 % (24-48) Monocytes (%) (Auto) 6 % (0-9) Eosinophils (%) (Auto) 2 % (0-3) Basophils (%) (Auto) 0 % (0-3) Neutrophils # (Auto) 4.9 x10^3uL (1.8-7.7) Lymphocytes # (Auto) 1.7 x10^3/uL (1.0-4.8) Monocytes # (Auto) 0.4 x10^3/uL (0.0-1.1) Eosinophils # (Auto) 0.2 x10^3/uL (0.0-0.7) Basophils # (Auto) 0.0 x10^3/uL (0.0-0.2) Prothrombin Time 13.5 SEC (11.7-14.0) Prothromb Time International Ratio 1.1 (0.8-1.1) Activated Partial Thromboplast Time 32 SEC (24-38) Sodium Level 142 mmol/L (136-145) Potassium Level 4.4 mmol/L (3.5-5.1) Chloride Level 105 mmol/L (98-107) Carbon Dioxide Level 27 mmol/L (21-32) Anion Gap 10 (6-14) Blood Urea Nitrogen 19 mg/dL (8-26) Creatinine 1.3 mg/dL (0.7-1.3) Estimated GFR (Cockcroft-Gault) 52.2 BUN/Creatinine Ratio 15 (6-20) Glucose Level 105 mg/dL (70-99) Calcium Level 9.0 mg/dL (8.5-10.1) Total Bilirubin 0.5 mg/dL (0.2-1.0) Aspartate Amino Transf (AST/SGOT) 20 U/L (15-37) Alanine Aminotransferase (ALT/SGPT) 18 U/L (16-63) Alkaline Phosphatase 103 U/L (46-116) Troponin I Quantitative 0.402 ng/mL (0.000-0.055) Total Protein 7.3 g/dL (6.4-8.2) Albumin 3.6 g/dL (3.4-5.0) Albumin/Globulin Ratio 1.0 (1.0-1.7) Urine Collection Type Unknown Urine Color Yellow Urine Clarity Clear Urine pH 5.5 Urine Specific [place] 1.010 Urine Protein Negative mg/dL (NEG-TRACE) Urine Glucose (UA) Negative mg/dL (NEG) Urine Ketones (Stick) Negative mg/dL (NEG) Urine Blood Negative (NEG) Urine Nitrite Negative (NEG) Urine Bilirubin Negative (NEG) Urine Urobilinogen Dipstick 0.2 mg/dL (0.2 mg/dL) Urine Leukocyte Esterase Negative (NEG) Urine RBC 0 /HPF (0-2) Urine WBC Occ /HPF (0-4) Urine Squamous Epithelial Cells Occ /LPF Urine Bacteria 0 /HPF (0-FEW) Urine Hyaline Casts Occasional /HPF Urine Mucus Slight /LPF Nasal Screen MRSA (PCR) Negative (Negative) Medications Current Medications Sodium Chloride 500 ml @ 500 mls/hr 1X ONCE IV Last administered on at 09:55; Start 02/22/19 at 10:00; Stop 02/22/19 at 10:59; Status DC Atorvastatin Calcium (Lipitor) 40 mg HS PO ; Start 02/22/19 at 21:00 Isosorbide Mononitrate (Imdur) 30 mg DAILY PO ; Start 02/22/19 at 17:00 Metoprolol Succinate (Toprol Xl) 75 mg DAILY PO ; Start 02/22/19 at 17:00 Pantoprazole Sodium (Protonix) 40 mg DAILYAC PO ; Start 02/22/19 at 17:00 Ranolazine (Ranexa) 500 mg BID PO ; Start 02/22/19 at 21:00 Levothyroxine Sodium (Synthroid) 50 mcg DAILY06 PO ; Start 02/22/19 at 17:00 Lisinopril (Prinivil) 5 mg BID PO ; Start 02/22/19 at 21:00 Dextrose/Sodium Chloride 1,000 ml @ 100 mls/hr Q10H IV Last administered on at 03:39; Start 02/22/19 at 16:30 Active Scripts Active Amlodipine Besylate 5 Mg Tablet 2.5 Mg PO DAILY 30 Days Ranexa (Ranolazine) 500 Mg Tab.er.12h 500 Mg PO BID 30 Days Isosorbide Mononitrate Er (Isosorbide Mononitrate) 30 Mg Tab.er.24h 30 Mg PO DAILY 30 Days Clopidogrel (Clopidogrel Bisulfate) 75 Mg Tablet 75 Mg PO DAILYWBKFT 30 Days Synthroid (Levothyroxine Sodium) 50 Mcg Tablet 1 Tab PO DAILY Furosemide 20 Mg Tablet 20 Mg PO DAILY 30 Days Lisinopril 5 Mg Tablet 5 Mg PO BID 30 Days Metoprolol Succinate 50 Mg Tab.er.24h 75 Mg PO DAILY 30 Days Pantoprazole Sodium 40 Mg Tablet.dr 40 Mg PO DAILYAC 30 Days Reported Lipitor (Atorvastatin Calcium) 40 Mg Tablet 40 Mg PO HS Vitals/I & O Vital Sign - Last 24 Hours 02/22/19 02/22/19 02/22/1902/22/19 14:00 15:00 16:00 17:00 Temp 97.5 97.5 Pulse 80 83 79 83 Resp 18 18 18 18 B/P (MAP) 108/69 (82) 119/76 (90) 135/75 (95) 147/78 (101) Pulse Ox 99 99 95 98 O2 Delivery Room Air Room Air Room Air Room Air 02/22/19 02/22/19 02/22/19 02/22/19 18:00 19:00 20:00 21:00 Pulse 82 80 80 80 Resp 18 16 16 14 B/P (MAP) 147/75 (99) 145/73 (97) 153/83 (106) 137/73 (94) Pulse Ox 98 94 94 97 O2 Delivery Room Air Room Air Room Air Room Air 02/22/19 02/22/19 02/23/19 02/23/19 22:00 23:00 00:01 01:00 Temp 97.5 97.5 Pulse 80 80 80 89 Resp 14 14 14 14 B/P (MAP) 131/76 (94) 141/79 (99) 141/75 (97) 144/87 (106) Pulse Ox 96 99 95 95 O2 Delivery Room Air Room Air Room Air Room Air 02/23/19 02/23/19 02/23/19 02/23/19 02:00 03:00 04:00 05:00 Temp 98.3 98.3 Pulse 80 80 80 79 Resp 14 14 14 12 B/P (MAP) 124/74 (91) 129/75 (93) 103/66 (78) 115/62 (79) Pulse Ox 92 92 99 96 O2 Delivery Room Air Room Air Room Air Room Air 02/23/19 06:00 Pulse 85 Resp 20 B/P (MAP) 112/47 (68) Pulse Ox 97 O2 Delivery Room Air Intake and Output 02/22/19 02/22/19 02/23/19 15:00 23:00 07:00 Intake Total 500 ml 0 ml 1271.39 ml Balance 500 ml 0 ml 1271.39 ml JOSE ALEJANDRO KELLY APRN Feb 23, 2019 13:41
[2019-02-23] MEDS: METOPROLOL TARTRATE 5 MG/5 ML VIAL. IVP SCH (16:30)
--- NOTE | 2019-02-23 18:39 | NUR ---
Back to pre hospital status, active in bed ,moves self from side to side. Informed to stay in bed wo much success. Report to floor ,will transfer [facility] . Pacer rep just in w/o documented changed =s in pacer function w syncopal episode
--- NOTE | 2019-02-23 20:00 | NUR ---
Family in room voiced concerns re: pt's AMS and plan of care. Family encouraged to write concerns and questions on whiteboard to ensure clear communication between providers and family. Pt remains confused but A&O to self and able to answer yes/no questions, pt currently sleeping and will continue to monitor.
[2019-02-23] MEDS: ATORVASTATIN CALCIUM 40 MG TABLET. PO SCH (21:00)
--- NOTE | 2019-02-23 21:00 | NUR ---
Pt refused scheduled medications this evening, family at bedside and pt resting, will continue to monitor.
--- NOTE | 2019-02-23 23:00 | NUR ---
Pt remains lethargic and unable to get OOB for orthostatic BP readings at this time, will continue to monitor.
--- NOTE | 2019-02-24 01:45 | CONS ---
DATE OF CONSULTATION: 02/22/2019 REASON FOR CONSULTATION: Intracranial hemorrhage. HISTORY OF PRESENT ILLNESS: The patient is a pleasant 88-year-old man who was brought to the Emergency Room after falling yesterday morning at about 8:00 a.m. He lives with his son and daughter and has problems with dementia and his family found him on his back on the kitchen floor after hearing a fall. After the fall, the patient did not recognize his family members and was brought to the Emergency Room for further evaluation. The patient does take Plavix related to cardiac stenting. PAST MEDICAL HISTORY: Includes dementia, arrhythmia, GERD, hypercholesterolemia, hypertension, history of an MT, history of sleep apnea, and atrial fibrillation. PAST SURGICAL HISTORY: Includes pacemaker placement and cardiac stenting. MEDICATIONS: Reviewed on the MRAD and do include Plavix. ALLERGIES: There are no known drug allergies. PERSONAL HISTORY: He lives with his family. He does not take alcohol. REVIEW OF SYSTEMS: 12 points was performed and other than outlined above was negative. PHYSICAL EXAMINATION: GENERAL: He was supine in the bed, head of bed is elevated about 10 degrees. His eyes were intermittently open. He would not follow commands, but would open his eyes and look toward me when I called his name. NEUROLOGIC: He resisted eye opening. His gaze appears conjugate. I was unable to assess his pupils. His face was symmetric. He moved his extremities equally and was able to squeeze my hand and move both of his feet on command. He responded to light touch in the upper and lower extremities bilaterally, was hyporeflexic throughout. HEENT: Head is normocephalic. There was subcutaneous hematoma in the occipital region. NECK: Supple. LUNGS: Respirations were symmetric. EXTREMITIES: He exhibited full range of motion of his upper and lower extremities bilaterally. LABORATORY DATA: I reviewed the CT scan of the head. On that study, there were a number of abnormalities. There is blood within the ventricular system, which has layered in the occipital horns and I would describe this as a small amount of blood. There is also blood in the quadrigeminal cistern predominantly on the right side. There is no significant mass effect. I did not see a definite parenchymal hemorrhage. There is also some blood along the septum pellucidum. I also reviewed a cervical CT scan in which significant degenerative changes were seen, but I did not see evidence of an acute injury. IMPRESSION: Intracranial hemorrhages associated with fall. The patient exhibits a significant confusion in an already demented state. The recommendations are, I would keep him in the intensive care unit today. We will hold Plavix and have him undergo a CT scan tomorrow morning. I appreciate you asking us to see him. SAMSON GONZALEZ MD DR: JORDEN/lara JOB#: [id number] / [id number] BILLY
[2019-02-24 03:00] VITALS: BP 152/91
[2019-02-24 04:34] LABS: BASO % 1 % (0-3); EOS # 0.2 x10^3/uL (0.0-0.7); EOS % 3 % (0-3); HEMOGLOBIN 15.4 g/dL (13.0-17.5); LYMPH # 1.8 x10^3/uL (1.0-4.8); LYMPH % 26 % (24-48); MEAN CORPUSCULAR HEMOGLOBIN 29 pg (25-35); MEAN CORPUSCULAR HGB CONC 34 g/dL (31-37); MEAN CORPUSCULAR VOLUME 87 fL (79-100); MONO # 0.4 x10^3/uL (0.0-1.1); MONO % 6 % (0-9); NEUT # 4.3 x10^3uL (1.8-7.7); NEUT % 64 % (31-73); PLATELET COUNT 144 x10^3/uL (140-400); WHITE BLOOD COUNT 6.8 x10^3/uL (4.0-11.0)
[2019-02-24 05:01] LABS: CALCIUM 8.4 mg/dL (8.5-10.1); CREATININE 1.1 mg/dL (0.7-1.3); GFR 63.3; POTASSIUM 3.6 mmol/L (3.5-5.1)
[2019-02-24] MEDS: LEVOTHYROXINE 50 MCG TABLET PO SCH (05:52)
[2019-02-24] MEDS: PANTOPRAZOLE 40 MG TABLET.DR. PO SCH (05:52)
[2019-02-24] MEDS: METOPROLOL TARTRATE 5 MG/5 ML VIAL. IVP SCH ×4 (05:56→18:00)
--- NOTE | 2019-02-24 06:05 | NUR ---
Pt awake and cooperative this AM, scheduled medications administered, and family remains at bedside, will continue to monitor.
[2019-02-24 07:00] VITALS: BP 149/76
[2019-02-24] MEDS: RANOLAZINE 500 MG TAB.ER.12H PO SCH ×2 (09:00→21:00)
[2019-02-24] MEDS: ISOSORBIDE MONONITRATE ER 30 MG TAB.ER.24H PO SCH ×2 (09:00→14:11)
[2019-02-24] MEDS: LISINOPRIL 5 MG TABLET. PO SCH ×2 (09:05→21:00)
--- NOTE | 2019-02-24 09:44 | PDOC ---
PROGRESS NOTES Subjective Subjective feeling better Objective Objective Vital Signs Date Time Temp Pulse Resp B/P (MAP) Pulse Ox O2 Delivery O2 Flow Rate FiO2 02/24/19 09:05 54 128/65 02/24/19 07:00 97.7 17 97 Room Air 97.7 Intake and Output 02/24/19 07:00 Intake Total 0 ml Output Total 350 ml Balance -350 ml Intake Oral 0 ml Output Urine Total 350 ml # Voids 3 Physical Exam Abdomen: Normal bowel sounds, Soft Heart: Regular rate, Normal S1 Extremities: No clubbing General: Alert, No acute distress HEENT: Atraumatic (scalp hematoma) Lungs: Clear to auscultation MUSCULOSKELETAL: Other (BELTRAN) Neuro: Normal speech Psych/Mental Status: Mood NL Skin: No significant lesion Diagnosis Problem List Problems Medical Problems: (1) Fall Status: Acute (2) Intracranial hemorrhage Status: Acute Assessment Assessment Problems Medical Problems: (1) Fall Status: Acute (2) Intracranial hemorrhage Status: Acute FINAL IMPRESSION: 1. Intracranial bleed. 2. Mechanical fall at home.Scalp hematoma. 3. Coronary artery disease. The patient had a cardiac stent 2 years ago. He is on Plavix.Chronically elevated troponin. 4. Hypothyroidism. 5. Pacemaker for sick sinus syndrome. 6. 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 7. Mild aortic insufficiency. 8. Hypertension. 9. Hyperlipidemia. PLAN: repeat CT head mild inc in bleed neuro surgical consult appreciated. labs ok. speech to see today advance diet. hold on Plavix cardiology consult appreciated. moved out of icu Plan Plan of Care Problems Medical Problems: (1) Fall Status: Acute (2) Intracranial hemorrhage Status: Acute Comment Review of Relevant I have reviewed the following items zully (where applicable) has been applied. Labs Laboratory Tests Test 02/24/19 03:45 White Blood Count 6.8 x10^3/uL (4.0-11.0) Red Blood Count 5.30 x10^6/uL (4.30-5.70) Hemoglobin 15.4 g/dL (13.0-17.5) Hematocrit 46.0 % (39.0-53.0) Mean Corpuscular Volume 87 fL (79-100) Mean Corpuscular Hemoglobin 29 pg (25-35) Mean Corpuscular Hemoglobin Concent 34 g/dL (31-37) Red Cell Distribution Width 15.0 % (11.5-14.5) Platelet Count 144 x10^3/uL (140-400) Neutrophils (%) (Auto) 64 % (31-73) Lymphocytes (%) (Auto) 26 % (24-48) Monocytes (%) (Auto) 6 % (0-9) Eosinophils (%) (Auto) 3 % (0-3) Basophils (%) (Auto) 1 % (0-3) Neutrophils # (Auto) 4.3 x10^3uL (1.8-7.7) Lymphocytes # (Auto) 1.8 x10^3/uL (1.0-4.8) Monocytes # (Auto) 0.4 x10^3/uL (0.0-1.1) Eosinophils # (Auto) 0.2 x10^3/uL (0.0-0.7) Basophils # (Auto) 0.0 x10^3/uL (0.0-0.2) Sodium Level 143 mmol/L (136-145) Potassium Level 3.6 mmol/L (3.5-5.1) Chloride Level 106 mmol/L (98-107) Carbon Dioxide Level 23 mmol/L (21-32) Anion Gap 14 (6-14) Blood Urea Nitrogen 15 mg/dL (8-26) Creatinine 1.1 mg/dL (0.7-1.3) Estimated GFR (Cockcroft-Gault) 63.3 Glucose Level 103 mg/dL (70-99) Calcium Level 8.4 mg/dL (8.5-10.1) Thyroid Stimulating Hormone (TSH) 2.801 uIU/mL (0.358-3.74) Medications Current Medications Metoprolol Tartrate (Lopressor Vial) 5 mg Q6HRS IVP ; Start 02/23/19 at 16:30 Vitals/I & O Vital Sign - Last 24 Hours 02/23/19 02/23/19 02/23/19 02/23/19 10:00 11:00 12:00 13:00 Temp 98.0 98.0 Pulse 80 80 80 80 Resp 32 24 21 19 B/P (MAP) Pulse Ox 97 97 96 O2 Delivery Room Air Room Air Room Air Room Air 02/23/19 02/23/19 02/23/19 02/23/19 14:00 16:00 16:30 19:20 Temp 97.8 98.3 97.8 98.3 Pulse 80 80 81 Resp 18 B/P (MAP) 133/79 133/86 (102) Pulse Ox 94 O2 Delivery Room Air Room Air Room Air 02/23/19 02/23/19 02/23/19 02/24/19 21:00 21:00 23:00 03:00 Temp 98.3 98.0 98.3 98.0 Pulse 81 81 76 78 Resp 18 18 B/P (MAP) 133/86 133/86 120/61 (80) 152/91 (111) Pulse Ox 95 97 O2 Delivery Room Air Room Air 02/24/19 02/24/19 07:00 09:05 Temp 97.7 97.7 Pulse 44 54 Resp 17 B/P (MAP) 149/76 (100) 128/65 Pulse Ox 97 O2 Delivery Room Air Intake and Output 02/23/19 02/23/19 02/24/19 15:00 23:00 07:00 Intake Total 0 ml 0 ml Output Total 300 ml 50 ml Balance 0 ml -300 ml -50 ml Nutrition Consultation Dietary Evaluation: Recommendations by RD: Protein supplementation Comments: Continue regular diet as ordered, honor food preferences, and provide snacks as requested REC Ensure (vanill) w/dinner Expected Outcomes/Goals: PO intake to meet >75% est needs Interpretation of weight loss: >7.5% in 3 months Malnutrition Findings: Weight Status: Appropriate AUGUST HUITRON MD Feb 24, 2019 09:44
--- NOTE | 2019-02-24 10:18 | PDOC ---
PROGRESS NOTES Subjective Subjective No new complaints. Objective Objective Vital Signs Date Time Temp Pulse Resp B/P (MAP) Pulse Ox O2 Delivery O2 Flow Rate FiO2 02/24/19 09:05 54 128/65 02/24/19 07:00 97.7 17 97 Room Air 97.7 Intake and Output 02/24/19 07:00 Intake Total 0 ml Output Total 350 ml Balance -350 ml Intake Oral 0 ml Output Urine Total 350 ml # Voids 3 Physical Exam Physical Exam He got up with assistance and walked at bedside with roller walker with wide based gait and his gait is not steady. He is eating good as for family. Assessment Assessment Problems Medical Problems: (1) Fall Status: Acute (2) Intracranial hemorrhage Status: Acute Plan Plan of Care To continue present physical and occupational therapy follow up and hopefully home with home health follow up when he is medically stable or to a SNF if he continues with balance problems. Comment Review of Relevant I have reviewed the following items zully (where applicable) has been applied. Labs Laboratory Tests Test 02/22/19 13:10 02/24/19 03:45 Nasal Screen MRSA (PCR) Negative (Negative) White Blood Count 6.8 x10^3/uL (4.0-11.0) Red Blood Count 5.30 x10^6/uL (4.30-5.70) Hemoglobin 15.4 g/dL (13.0-17.5) Hematocrit 46.0 % (39.0-53.0) Mean Corpuscular Volume 87 fL (79-100) Mean Corpuscular Hemoglobin 29 pg (25-35) Mean Corpuscular Hemoglobin Concent 34 g/dL (31-37) Red Cell Distribution Width 15.0 % (11.5-14.5) Platelet Count 144 x10^3/uL (140-400) Neutrophils (%) (Auto) 64 % (31-73) Lymphocytes (%) (Auto) 26 % (24-48) Monocytes (%) (Auto) 6 % (0-9) Eosinophils (%) (Auto) 3 % (0-3) Basophils (%) (Auto) 1 % (0-3) Neutrophils # (Auto) 4.3 x10^3uL (1.8-7.7) Lymphocytes # (Auto) 1.8 x10^3/uL (1.0-4.8) Monocytes # (Auto) 0.4 x10^3/uL (0.0-1.1) Eosinophils # (Auto) 0.2 x10^3/uL (0.0-0.7) Basophils # (Auto) 0.0 x10^3/uL (0.0-0.2) Sodium Level 143 mmol/L (136-145) Potassium Level 3.6 mmol/L (3.5-5.1) Chloride Level 106 mmol/L (98-107) Carbon Dioxide Level 23 mmol/L (21-32) Anion Gap 14 (6-14) Blood Urea Nitrogen 15 mg/dL (8-26) Creatinine 1.1 mg/dL (0.7-1.3) Estimated GFR (Cockcroft-Gault) 63.3 Glucose Level 103 mg/dL (70-99) Calcium Level 8.4 mg/dL (8.5-10.1) Thyroid Stimulating Hormone (TSH) 2.801 uIU/mL (0.358-3.74) Laboratory Tests Test 02/24/19 03:45 White Blood Count 6.8 x10^3/uL (4.0-11.0) Red Blood Count 5.30 x10^6/uL (4.30-5.70) Hemoglobin 15.4 g/dL (13.0-17.5) Hematocrit 46.0 % (39.0-53.0) Mean Corpuscular Volume 87 fL (79-100) Mean Corpuscular Hemoglobin 29 pg (25-35) Mean Corpuscular Hemoglobin Concent 34 g/dL (31-37) Red Cell Distribution Width 15.0 % (11.5-14.5) Platelet Count 144 x10^3/uL (140-400) Neutrophils (%) (Auto) 64 % (31-73) Lymphocytes (%) (Auto) 26 % (24-48) Monocytes (%) (Auto) 6 % (0-9) Eosinophils (%) (Auto) 3 % (0-3) Basophils (%) (Auto) 1 % (0-3) Neutrophils # (Auto) 4.3 x10^3uL (1.8-7.7) Lymphocytes # (Auto) 1.8 x10^3/uL (1.0-4.8) Monocytes # (Auto) 0.4 x10^3/uL (0.0-1.1) Eosinophils # (Auto) 0.2 x10^3/uL (0.0-0.7) Basophils # (Auto) 0.0 x10^3/uL (0.0-0.2) Sodium Level 143 mmol/L (136-145) Potassium Level 3.6 mmol/L (3.5-5.1) Chloride Level 106 mmol/L (98-107) Carbon Dioxide Level 23 mmol/L (21-32) Anion Gap 14 (6-14) Blood Urea Nitrogen 15 mg/dL (8-26) Creatinine 1.1 mg/dL (0.7-1.3) Estimated GFR (Cockcroft-Gault) 63.3 Glucose Level 103 mg/dL (70-99) Calcium Level 8.4 mg/dL (8.5-10.1) Thyroid Stimulating Hormone (TSH) 2.801 uIU/mL (0.358-3.74) Medications Current Medications Sodium Chloride 500 ml @ 500 mls/hr 1X ONCE IV Last administered on at 09:55; Start 02/22/19 at 10:00; Stop 02/22/19 at 10:59; Status DC Atorvastatin Calcium (Lipitor) 40 mg HS PO ; Start 02/22/19 at 21:00 Isosorbide Mononitrate (Imdur) 30 mg DAILY PO ; Start 02/22/19 at 17:00 Metoprolol Succinate (Toprol Xl) 75 mg DAILY PO ; Start 02/22/19 at 17:00; Stop 02/23/19 at 15:45; Status DC Pantoprazole Sodium (Protonix) 40 mg DAILYAC PO Last administered on 02/24/19at 05:52; Start 02/22/19 at 17:00 Ranolazine (Ranexa) 500 mg BID PO ; Start 02/22/19 at 21:00 Levothyroxine Sodium (Synthroid) 50 mcg DAILY06 PO Last administered on at 05:52; Start 02/22/19 at 17:00 Lisinopril (Prinivil) 5 mg BID PO Last administered on 02/24/19at 09:05; Start 02/22/19 at 21:00 Dextrose/Sodium Chloride 1,000 ml @ 100 mls/hr Q10H IV Last administered on at 13:50; Start 02/22/19 at 16:30; Stop 02/23/19 at 18:50; Status DC Metoprolol Tartrate (Lopressor Vial) 5 mg Q6HRS IVP ; Start 02/23/19 at 16:30 Active Scripts Active Amlodipine Besylate 5 Mg Tablet 2.5 Mg PO DAILY 30 Days Ranexa (Ranolazine) 500 Mg Tab.er.12h 500 Mg PO BID 30 Days Isosorbide Mononitrate Er (Isosorbide Mononitrate) 30 Mg Tab.er.24h 30 Mg PO DAILY 30 Days Clopidogrel (Clopidogrel Bisulfate) 75 Mg Tablet 75 Mg PO DAILYWBKFT 30 Days Synthroid (Levothyroxine Sodium) 50 Mcg Tablet 1 Tab PO DAILY Furosemide 20 Mg Tablet 20 Mg PO DAILY 30 Days Lisinopril 5 Mg Tablet 5 Mg PO BID 30 Days Metoprolol Succinate 50 Mg Tab.er.24h 75 Mg PO DAILY 30 Days Pantoprazole Sodium 40 Mg Tablet.dr 40 Mg PO DAILYAC 30 Days Reported Lipitor (Atorvastatin Calcium) 40 Mg Tablet 40 Mg PO HS Vitals/I & O Vital Sign - Last 24 Hours 02/23/19 02/23/19 02/23/19 02/23/19 11:00 12:00 13:00 14:00 Temp 98.0 98.0 Pulse 80 80 80 80 Resp 24 21 19 B/P (MAP) Pulse Ox 97 96 O2 Delivery Room Air Room Air Room Air Room Air 02/23/19 02/23/19 02/23/19 02/23/19 16:00 16:30 19:20 21:00 Temp 97.8 98.3 97.8 98.3 Pulse 80 81 81 Resp 18 B/P (MAP) 133/79 133/86 (102) 133/86 Pulse Ox 94 O2 Delivery Room Air Room Air 02/23/19 02/23/19 02/24/19 02/24/19 21:00 23:00 03:00 07:00 Temp 98.3 98.0 97.7 98.3 98.0 97.7 Pulse 81 76 78 44 Resp 18 18 17 B/P (MAP) 133/86 120/61 (80) 152/91 (111) 149/76 (100) Pulse Ox 95 97 97 O2 Delivery Room Air Room Air Room Air 02/24/19 09:05 Pulse 54 B/P (MAP) 128/65 Intake and Output 02/23/19 02/23/19 02/24/19 15:00 23:00 07:00 Intake Total 0 ml 0 ml Output Total 300 ml 50 ml Balance 0 ml -300 ml -50 ml Nutrition Consultation Dietary Evaluation: Recommendations by RD: Protein supplementation Comments: Continue regular diet as ordered, honor food preferences, and provide snacks as requested REC Ensure (vanill) w/dinner Expected Outcomes/Goals: PO intake to meet >75% est needs Interpretation of weight loss: >7.5% in 3 months Malnutrition Findings: Weight Status: Appropriate DAYA DUBON MD Feb 24, 2019 10:18
--- NOTE | 2019-02-24 10:52 | PDOC ---
PROGRESS NOTES Subjective Subjective up in chair more alert family at bedside denies headache still unsteady with ambulation Objective Objective Vital Signs Date Time Temp Pulse Resp B/P (MAP) Pulse Ox O2 Delivery O2 Flow Rate FiO2 02/24/19 09:05 54 128/65 02/24/19 07:00 97.7 17 97 Room Air 97.7 Intake and Output 02/24/19 07:00 Intake Total 0 ml Output Total 350 ml Balance -350 ml Intake Oral 0 ml Output Urine Total 350 ml # Voids 3 Physical Exam General: Alert, Cooperative, No acute distress MUSCULOSKELETAL: Other (BELTRAN) Assessment Assessment Problems Medical Problems: (1) Fall Status: Acute (2) Intracranial hemorrhage Status: Acute Plan Plan of Care continue PT will order f/u CT will follow Comment Review of Relevant I have reviewed the following items zully (where applicable) has been applied. Labs Laboratory Tests Test 02/22/19 13:10 02/24/19 03:45 Nasal Screen MRSA (PCR) Negative (Negative) White Blood Count 6.8 x10^3/uL (4.0-11.0) Red Blood Count 5.30 x10^6/uL (4.30-5.70) Hemoglobin 15.4 g/dL (13.0-17.5) Hematocrit 46.0 % (39.0-53.0) Mean Corpuscular Volume 87 fL (79-100) Mean Corpuscular Hemoglobin 29 pg (25-35) Mean Corpuscular Hemoglobin Concent 34 g/dL (31-37) Red Cell Distribution Width 15.0 % (11.5-14.5) Platelet Count 144 x10^3/uL (140-400) Neutrophils (%) (Auto) 64 % (31-73) Lymphocytes (%) (Auto) 26 % (24-48) Monocytes (%) (Auto) 6 % (0-9) Eosinophils (%) (Auto) 3 % (0-3) Basophils (%) (Auto) 1 % (0-3) Neutrophils # (Auto) 4.3 x10^3uL (1.8-7.7) Lymphocytes # (Auto) 1.8 x10^3/uL (1.0-4.8) Monocytes # (Auto) 0.4 x10^3/uL (0.0-1.1) Eosinophils # (Auto) 0.2 x10^3/uL (0.0-0.7) Basophils # (Auto) 0.0 x10^3/uL (0.0-0.2) Sodium Level 143 mmol/L (136-145) Potassium Level 3.6 mmol/L (3.5-5.1) Chloride Level 106 mmol/L (98-107) Carbon Dioxide Level 23 mmol/L (21-32) Anion Gap 14 (6-14) Blood Urea Nitrogen 15 mg/dL (8-26) Creatinine 1.1 mg/dL (0.7-1.3) Estimated GFR (Cockcroft-Gault) 63.3 Glucose Level 103 mg/dL (70-99) Calcium Level 8.4 mg/dL (8.5-10.1) Thyroid Stimulating Hormone (TSH) 2.801 uIU/mL (0.358-3.74) Laboratory Tests Test 02/24/19 03:45 White Blood Count 6.8 x10^3/uL (4.0-11.0) Red Blood Count 5.30 x10^6/uL (4.30-5.70) Hemoglobin 15.4 g/dL (13.0-17.5) Hematocrit 46.0 % (39.0-53.0) Mean Corpuscular Volume 87 fL (79-100) Mean Corpuscular Hemoglobin 29 pg (25-35) Mean Corpuscular Hemoglobin Concent 34 g/dL (31-37) Red Cell Distribution Width 15.0 % (11.5-14.5) Platelet Count 144 x10^3/uL (140-400) Neutrophils (%) (Auto) 64 % (31-73) Lymphocytes (%) (Auto) 26 % (24-48) Monocytes (%) (Auto) 6 % (0-9) Eosinophils (%) (Auto) 3 % (0-3) Basophils (%) (Auto) 1 % (0-3) Neutrophils # (Auto) 4.3 x10^3uL (1.8-7.7) Lymphocytes # (Auto) 1.8 x10^3/uL (1.0-4.8) Monocytes # (Auto) 0.4 x10^3/uL (0.0-1.1) Eosinophils # (Auto) 0.2 x10^3/uL (0.0-0.7) Basophils # (Auto) 0.0 x10^3/uL (0.0-0.2) Sodium Level 143 mmol/L (136-145) Potassium Level 3.6 mmol/L (3.5-5.1) Chloride Level 106 mmol/L (98-107) Carbon Dioxide Level 23 mmol/L (21-32) Anion Gap 14 (6-14) Blood Urea Nitrogen 15 mg/dL (8-26) Creatinine 1.1 mg/dL (0.7-1.3) Estimated GFR (Cockcroft-Gault) 63.3 Glucose Level 103 mg/dL (70-99) Calcium Level 8.4 mg/dL (8.5-10.1) Thyroid Stimulating Hormone (TSH) 2.801 uIU/mL (0.358-3.74) Medications Current Medications Sodium Chloride 500 ml @ 500 mls/hr 1X ONCE IV Last administered on at 09:55; Start 02/22/19 at 10:00; Stop 02/22/19 at 10:59; Status DC Atorvastatin Calcium (Lipitor) 40 mg HS PO ; Start 02/22/19 at 21:00 Isosorbide Mononitrate (Imdur) 30 mg DAILY PO ; Start 02/22/19 at 17:00 Metoprolol Succinate (Toprol Xl) 75 mg DAILY PO ; Start 02/22/19 at 17:00; Stop 02/23/19 at 15:45; Status DC Pantoprazole Sodium (Protonix) 40 mg DAILYAC PO Last administered on 02/24/19at 05:52; Start 02/22/19 at 17:00 Ranolazine (Ranexa) 500 mg BID PO ; Start 02/22/19 at 21:00 Levothyroxine Sodium (Synthroid) 50 mcg DAILY06 PO Last administered on at 05:52; Start 02/22/19 at 17:00 Lisinopril (Prinivil) 5 mg BID PO Last administered on 02/24/19at 09:05; Start 02/22/19 at 21:00 Dextrose/Sodium Chloride 1,000 ml @ 100 mls/hr Q10H IV Last administered on at 13:50; Start 02/22/19 at 16:30; Stop 02/23/19 at 18:50; Status DC Metoprolol Tartrate (Lopressor Vial) 5 mg Q6HRS IVP ; Start 02/23/19 at 16:30 Active Scripts Active Amlodipine Besylate 5 Mg Tablet 2.5 Mg PO DAILY 30 Days Ranexa (Ranolazine) 500 Mg Tab.er.12h 500 Mg PO BID 30 Days Isosorbide Mononitrate Er (Isosorbide Mononitrate) 30 Mg Tab.er.24h 30 Mg PO DAILY 30 Days Clopidogrel (Clopidogrel Bisulfate) 75 Mg Tablet 75 Mg PO DAILYWBKFT 30 Days Synthroid (Levothyroxine Sodium) 50 Mcg Tablet 1 Tab PO DAILY Furosemide 20 Mg Tablet 20 Mg PO DAILY 30 Days Lisinopril 5 Mg Tablet 5 Mg PO BID 30 Days Metoprolol Succinate 50 Mg Tab.er.24h 75 Mg PO DAILY 30 Days Pantoprazole Sodium 40 Mg Tablet.dr 40 Mg PO DAILYAC 30 Days Reported Lipitor (Atorvastatin Calcium) 40 Mg Tablet 40 Mg PO HS Vitals/I & O Vital Sign - Last 24 Hours 02/23/19 02/23/19 02/23/19 02/23/19 11:00 12:00 13:00 14:00 Temp 98.0 98.0 Pulse 80 80 80 80 Resp 24 21 19 B/P (MAP) Pulse Ox 97 96 O2 Delivery Room Air Room Air Room Air Room Air 02/23/19 02/23/19 02/23/19 02/23/19 16:00 16:30 19:20 21:00 Temp 97.8 98.3 97.8 98.3 Pulse 80 81 81 Resp 18 B/P (MAP) 133/79 133/86 (102) 133/86 Pulse Ox 94 O2 Delivery Room Air Room Air 02/23/19 02/23/19 02/24/19 02/24/19 21:00 23:00 03:00 07:00 Temp 98.3 98.0 97.7 98.3 98.0 97.7 Pulse 81 76 78 44 Resp 18 18 17 B/P (MAP) 133/86 120/61 (80) 152/91 (111) 149/76 (100) Pulse Ox 95 97 97 O2 Delivery Room Air Room Air Room Air 02/24/19 09:05 Pulse 54 B/P (MAP) 128/65 Intake and Output 02/23/19 02/23/19 02/24/19 15:00 23:00 07:00 Intake Total 0 ml 0 ml Output Total 300 ml 50 ml Balance 0 ml -300 ml -50 ml Nutrition Consultation Dietary Evaluation: Recommendations by RD: Protein supplementation Comments: Continue regular diet as ordered, honor food preferences, and provide snacks as requested REC Ensure (vanill) w/dinner Expected Outcomes/Goals: PO intake to meet >75% est needs Interpretation of weight loss: >7.5% in 3 months Malnutrition Findings: Weight Status: Appropriate JOSE ALEJANDRO KELLY APRN Feb 24, 2019 10:52
[2019-02-24 11:00] VITALS: BP 153/77
--- NOTE | 2019-02-24 11:35 | NUR ---
SW following. Discussed with RN, pt is from home with and son. PT/OT has been ordered, Speech has recommended SNU. SW will continue to follow for discharge planning. RN notified.
--- NOTE | 2019-02-24 13:23 | CONS ---
DATE OF CONSULTATION: I saw him at the request of Dr. Lord for rehab evaluation. HISTORY OF PRESENT ILLNESS: This is an 88-year-old male with history of coronary artery disease, feeling somewhat weak recently, he fell on the morning of 02/22/2019. He was admitted through the Emergency Room where he was noted to have hematoma of the posterior head. CT scan of the brain revealed intracranial bleed. The patient is being followed by Neurosurgery. He has been on Plavix for cardiac intervention, had a cardiac catheterization and stent placed about 2 years ago, also with known hypertension, congestive heart failure, hyperlipidemia, 40% ejection fraction as per echocardiogram, aortic insufficiency, permanent pacemaker placement, sick sinus syndrome, sleep apnea, gastroesophageal reflux disease, degenerative joint disease, chronic kidney disease, and hypothyroidism. FAMILY HISTORY: Positive for hypertension and heart disease. He is not known allergic to any medication. The patient smoked in the past. The patient lives with his son and he had stairs to go to the basement, but he does not need to go to the basement. The patient has not been using any assistive devices prior to the present fall. PHYSICAL EXAMINATION: Today revealed he is somewhat lethargic, but can be awakened. The patient apparently had blindness. The patient moves all 4 extremities voluntarily where he had 4+/5 grade muscle strength and deep tendon reflexes are decreased overall with absent ankle jerks. He had equal perception of touch and pinprick sensation bilaterally. The patient is somewhat resting supine and does not want to get up at present time, so I have not tested his mobility skills at this time. ASSESSMENT: An elderly male with recent intracranial hemorrhage from mechanical fall with associated skull hematoma in a patient with known coronary artery disease status post stent placement, also permanent pacemaker placement for sick sinus syndrome, hypothyroidism, mild systolic heart failure with 40% cardiac ejection fraction, mild aortic insufficiency, hypertension, hyperlipidemia, blindness, peripheral neuropathy. RECOMMENDATIONS: Agree with the plan for physical therapy and occupational therapy to get him up as tolerated. Dr. Elias and Dr. Lord, I appreciate asking me to participate in the care of this interesting patient. I will be glad to follow him with you as needed for the rehabilitation. DAYA DUBON MD DR: YANDY/lara JOB#: [id number] / [id number]
[2019-02-24 14:00] VITALS: BP 130/82
[2019-02-24] MEDS: ACETAMINOPHEN 325 MG TABLET. PO PRN (14:51)
[2019-02-24 19:00] VITALS: BP 123/52
[2019-02-24] MEDS: ATORVASTATIN CALCIUM 40 MG TABLET. PO SCH (21:00)
[2019-02-24 23:00] VITALS: BP 111/59
[2019-02-25 03:00] VITALS: BP 109/57
[2019-02-25] MEDS: PANTOPRAZOLE 40 MG TABLET.DR. PO SCH (05:51)
[2019-02-25] MEDS: LEVOTHYROXINE 50 MCG TABLET PO SCH (05:51)
[2019-02-25] MEDS: METOPROLOL TARTRATE 5 MG/5 ML VIAL. IVP SCH ×4 (05:53→18:00)
[2019-02-25 07:00] VITALS: BP 123/66
--- NOTE | 2019-02-25 09:16 | PDOC ---
PROGRESS NOTES Subjective Subjective He admits headache. Objective Objective Vital Signs Date Time Temp Pulse Resp B/P (MAP) Pulse Ox O2 Delivery O2 Flow Rate FiO2 02/25/19 07:00 97.9 60 18 123/66 (85) 98 Room Air 97.9 Intake and Output 02/25/19 07:00 Intake Total 840 ml Balance 840 ml Intake Oral 840 ml # Voids 5 # Bowel Movements 1 Physical Exam Physical Exam He got up with minimal assistance and transferred to beside chair without leaning backwards just like he did yesterday with walker. Assessment Assessment Problems Medical Problems: (1) Fall Status: Acute (2) Intracranial hemorrhage Status: Acute Plan Plan of Group Home with home health follow up when medically stable. Comment Review of Relevant I have reviewed the following items zully (where applicable) has been applied. Labs Laboratory Tests Test 02/24/19 03:45 White Blood Count 6.8 x10^3/uL (4.0-11.0) Red Blood Count 5.30 x10^6/uL (4.30-5.70) Hemoglobin 15.4 g/dL (13.0-17.5) Hematocrit 46.0 % (39.0-53.0) Mean Corpuscular Volume 87 fL (79-100) Mean Corpuscular Hemoglobin 29 pg (25-35) Mean Corpuscular Hemoglobin Concent 34 g/dL (31-37) Red Cell Distribution Width 15.0 % (11.5-14.5) Platelet Count 144 x10^3/uL (140-400) Neutrophils (%) (Auto) 64 % (31-73) Lymphocytes (%) (Auto) 26 % (24-48) Monocytes (%) (Auto) 6 % (0-9) Eosinophils (%) (Auto) 3 % (0-3) Basophils (%) (Auto) 1 % (0-3) Neutrophils # (Auto) 4.3 x10^3uL (1.8-7.7) Lymphocytes # (Auto) 1.8 x10^3/uL (1.0-4.8) Monocytes # (Auto) 0.4 x10^3/uL (0.0-1.1) Eosinophils # (Auto) 0.2 x10^3/uL (0.0-0.7) Basophils # (Auto) 0.0 x10^3/uL (0.0-0.2) Sodium Level 143 mmol/L (136-145) Potassium Level 3.6 mmol/L (3.5-5.1) Chloride Level 106 mmol/L (98-107) Carbon Dioxide Level 23 mmol/L (21-32) Anion Gap 14 (6-14) Blood Urea Nitrogen 15 mg/dL (8-26) Creatinine 1.1 mg/dL (0.7-1.3) Estimated GFR (Cockcroft-Gault) 63.3 Glucose Level 103 mg/dL (70-99) Calcium Level 8.4 mg/dL (8.5-10.1) Thyroid Stimulating Hormone (TSH) 2.801 uIU/mL (0.358-3.74) Medications Current Medications Sodium Chloride 500 ml @ 500 mls/hr 1X ONCE IV Last administered on at 09:55; Start 02/22/19 at 10:00; Stop 02/22/19 at 10:59; Status DC Atorvastatin Calcium (Lipitor) 40 mg HS PO ; Start 02/22/19 at 21:00 Isosorbide Mononitrate (Imdur) 30 mg DAILY PO Last administered on 02/24/19at 14 :11; Start 02/22/19 at 17:00 Metoprolol Succinate (Toprol Xl) 75 mg DAILY PO ; Start 02/22/19 at 17:00; Stop 02/23/19 at 15:45; Status DC Pantoprazole Sodium (Protonix) 40 mg DAILYAC PO Last administered on 02/25/19at 05:51; Start 02/22/19 at 17:00 Ranolazine (Ranexa) 500 mg BID PO ; Start 02/22/19 at 21:00 Levothyroxine Sodium (Synthroid) 50 mcg DAILY06 PO Last administered on at 05:51; Start 02/22/19 at 17:00 Lisinopril (Prinivil) 5 mg BID PO Last administered on 02/24/19at 09:05; Start 02/22/19 at 21:00 Dextrose/Sodium Chloride 1,000 ml @ 100 mls/hr Q10H IV Last administered on at 13:50; Start 02/22/19 at 16:30; Stop 02/23/19 at 18:50; Status DC Metoprolol Tartrate (Lopressor Vial) 5 mg Q6HRS IVP Last administered on at 12:40; Start 02/23/19 at 16:30 Acetaminophen (Tylenol) 650 mg PRN Q8HRS PRN PO pain Last administered on at 14:51; Start 02/24/19 at 14:30 Active Scripts Active Amlodipine Besylate 5 Mg Tablet 2.5 Mg PO DAILY 30 Days Ranexa (Ranolazine) 500 Mg Tab.er.12h 500 Mg PO BID 30 Days Isosorbide Mononitrate Er (Isosorbide Mononitrate) 30 Mg Tab.er.24h 30 Mg PO DAILY 30 Days Clopidogrel (Clopidogrel Bisulfate) 75 Mg Tablet 75 Mg PO DAILYWBKFT 30 Days Synthroid (Levothyroxine Sodium) 50 Mcg Tablet 1 Tab PO DAILY Furosemide 20 Mg Tablet 20 Mg PO DAILY 30 Days Lisinopril 5 Mg Tablet 5 Mg PO BID 30 Days Metoprolol Succinate 50 Mg Tab.er.24h 75 Mg PO DAILY 30 Days Pantoprazole Sodium 40 Mg Tablet.dr 40 Mg PO DAILYAC 30 Days Reported Lipitor (Atorvastatin Calcium) 40 Mg Tablet 40 Mg PO HS Vitals/I & O Vital Sign - Last 24 Hours 02/24/19 02/24/19 02/24/19 02/24/19 11:00 12:40 14:00 14:11 Temp 97.9 97.7 97.9 97.7 Pulse 62 62 59 62 Resp 18 17 B/P (MAP) 153/77 (102) 153/77 130/82 (98) 153/77 Pulse Ox 98 95 O2 Delivery Room Air Room Air 02/24/19 02/24/19 02/24/19 02/24/19 19:00 20:00 21:00 23:00 Temp 97.8 97.5 97.8 97.5 Pulse 57 62 61 Resp 18 18 B/P (MAP) 123/52 (75) 153/77 111/59 (76) Pulse Ox 94 99 O2 Delivery Room Air Room Air Room Air 02/25/19 02/25/19 02/25/19 02/25/19 00:00 03:00 05:53 07:00 Temp 97.7 97.9 97.7 97.9 Pulse 61 55 55 60 Resp 18 18 B/P (MAP) 111/59 109/57 (74) 109/57 123/66 (85) Pulse Ox 96 98 O2 Delivery Room Air Room Air Intake and Output 02/24/19 02/24/19 02/25/19 15:00 23:00 07:00 Intake Total 300 ml 450 ml 90 ml Balance 300 ml 450 ml 90 ml Nutrition Consultation Dietary Evaluation: Recommendations by RD: Protein supplementation Comments: Continue regular diet as ordered, honor food preferences, and provide snacks as requested REC Ensure (vanill) w/dinner Expected Outcomes/Goals: PO intake to meet >75% est needs Interpretation of weight loss: >7.5% in 3 months Malnutrition Findings: Weight Status: Appropriate DAYA DUBON MD Feb 25, 2019 09:16
--- NOTE | 2019-02-25 09:47 | PDOC ---
PROGRESS NOTES Subjective Subjective improving ,unsteady gait Objective Objective Vital Signs Date Time Temp Pulse Resp B/P (MAP) Pulse Ox O2 Delivery O2 Flow Rate FiO2 02/25/19 07:00 97.9 60 18 123/66 (85) 98 Room Air 97.9 Intake and Output 02/25/19 07:00 Intake Total 840 ml Balance 840 ml Intake Oral 840 ml # Voids 5 # Bowel Movements 1 Physical Exam Abdomen: Normal bowel sounds, Soft Heart: Regular rate, Normal S1 Extremities: No clubbing General: Alert, Cooperative, No acute distress HEENT: Atraumatic (scalp hematoma) Lungs: Clear to auscultation MUSCULOSKELETAL: Other (BELTRAN) Neuro: Normal speech Psych/Mental Status: Mood NL Skin: No significant lesion Diagnosis Problem List Problems Medical Problems: (1) Fall Status: Acute (2) Intracranial hemorrhage Status: Acute Assessment Assessment Problems Medical Problems: (1) Fall Status: Acute (2) Intracranial hemorrhage Status: Acute FINAL IMPRESSION: 1. Intracranial bleed. 2. Mechanical fall at home.Scalp hematoma. 3. Coronary artery disease. The patient had a cardiac stent 2 years ago. He is on Plavix.Chronically elevated troponin. 4. Hypothyroidism. 5. Pacemaker for sick sinus syndrome. 6. 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 7. Mild aortic insufficiency. 8. Hypertension. 9. Hyperlipidemia. PLAN: CT head today, spoke with dr Le repeat CT head 2 days ago showed mild inc in bleed neuro surgical consult appreciated. labs ok. speech to see today advance diet. d/c Plavix due to bleed cardiology consult appreciated. home soon Plan Plan of Care Problems Medical Problems: (1) Fall Status: Acute (2) Intracranial hemorrhage Status: Acute Comment Review of Relevant I have reviewed the following items zully (where applicable) has been applied. Medications Current Medications Acetaminophen (Tylenol) 650 mg PRN Q8HRS PRN PO pain Last administered on at 14:51; Start 02/24/19 at 14:30 Vitals/I & O Vital Sign - Last 24 Hours 02/24/19 02/24/19 02/24/19 02/24/19 11:00 12:40 14:00 14:11 Temp 97.9 97.7 97.9 97.7 Pulse 62 62 59 62 Resp 18 17 B/P (MAP) 153/77 (102) 153/77 130/82 (98) 153/77 Pulse Ox 98 95 O2 Delivery Room Air Room Air 02/24/19 02/24/19 02/24/19 02/24/19 19:00 20:00 21:00 23:00 Temp 97.8 97.5 97.8 97.5 Pulse 57 62 61 Resp 18 18 B/P (MAP) 123/52 (75) 153/77 111/59 (76) Pulse Ox 94 99 O2 Delivery Room Air Room Air Room Air 02/25/19 02/25/19 02/25/19 02/25/19 00:00 03:00 05:53 07:00 Temp 97.7 97.9 97.7 97.9 Pulse 61 55 55 60 Resp 18 18 B/P (MAP) 111/59 109/57 (74) 109/57 123/66 (85) Pulse Ox 96 98 O2 Delivery Room Air Room Air Intake and Output 02/24/19 02/24/19 02/25/19 15:00 23:00 07:00 Intake Total 300 ml 450 ml 90 ml Balance 300 ml 450 ml 90 ml Nutrition Consultation Dietary Evaluation: Recommendations by RD: Protein supplementation Comments: Continue regular diet as ordered, honor food preferences, and provide snacks as requested REC Ensure (vanill) w/dinner Expected Outcomes/Goals: PO intake to meet >75% est needs Interpretation of weight loss: >7.5% in 3 months Malnutrition Findings: Weight Status: Appropriate AUGUST HUITRON MD Feb 25, 2019 09:47
[2019-02-25] MEDS: LISINOPRIL 5 MG TABLET. PO SCH ×2 (10:09→20:42)
[2019-02-25] MEDS: ISOSORBIDE MONONITRATE ER 30 MG TAB.ER.24H PO SCH (10:09)
[2019-02-25] MEDS: RANOLAZINE 500 MG TAB.ER.12H PO SCH ×2 (10:10→20:42)
--- NOTE | 2019-02-25 10:47 | NUR ---
SALUD following. Discussed with RN, pt's daughter, Yonis ([phone]) requested to speak with SALUD about discharge planning. SALUD contacted Yonis, pt lives with her and she is his caregiver. Yonis reported prior to coming to [facility] pt was starting to get disorientated, was strong enough to do activities of daily living. Pt is apparently not strong enough to go to the bathroom currently. Yonis is interested in pt going to rehab at discharge. SALUD has meeting with pt, pt's daughter and possibly the son around 1400 today. Family is from [place]. SALUD will continue to follow.
[2019-02-25 11:00] VITALS: BP 120/60
--- NOTE | 2019-02-25 11:16 | RAD ---
RS Compliance Statement: One or more of the following individualized dose reduction techniques were utilized for this examination: 1. Automated exposure control 2. Adjustment of the mA and/or kV according to patient size 3. Use of iterative reconstruction technique CT head without contrast 02/25/2019 9:43 AM INDICATION: Intracranial hemorrhage COMPARISON: February 23, 2019 TECHNIQUE: Multiple axial CT images of the head were obtained from skull base through the vertex without intravenous contrast. FINDINGS: Head: Stable intraparenchymal hemorrhage in the left superior frontal gyrus measuring 12 x 10 mm. Stable additional 5 mm intraparenchymal hemorrhage in the left frontal lobe. There is stable intraventricular hemorrhage. Ventricle a mildly dilated, not significant changed. No significant transependymal flow. Low-attenuation in the periventricular white matter is suggestive of chronic small vessel ischemic changes. There is no midline shift or mass effect. No new areas of hemorrhage are identified. Orbits are symmetric in appearance. The sinuses and mastoid air cells are well aerated. Posterior fossa is normal in appearance. Continued interval decrease in left parietal scalp hematoma. No calvarial defect. IMPRESSION: Stable intracranial hemorrhage, as described in detail above. No new areas of hemorrhage are identified. Electronically signed by: Yuni Cee MD (02/25/2019 11:13 AM) [id number]
[2019-02-25 14:00] VITALS: BP 117/67
--- NOTE | 2019-02-25 14:03 | NUR ---
SALUD following. SALUD met with pt and pt's family. Family spoke with pt and he agreed to go to rehab. SW also asked pt, he agreed to going. Family would like referral sent to Transitional Care unit (ph: [phone], fax: [phone]). SALUD faxed referral, awaiting confirmation. Pt's daughter, Yonis, reported pt has Medicare and that she gave pt Medicare card in the ER. Per Yonis, pt's Medicare card is always given in the ER, but [place] is listed as primary every time and pt is given a bill. SALUD contacted Barb Lowe to discuss, Barb will contact family. SALUD will continue to follow.
--- NOTE | 2019-02-25 14:10 | NUR ---
Per Barb Elizondo, pt's insurance is listed correctly.
--- NOTE | 2019-02-25 14:22 | NUR ---
SW following. SALUD faxed pt face sheet to [facility] rehab to determine if they take pt's insurance. [facility] is the second choice for placement.
--- NOTE | 2019-02-25 15:06 | NUR ---
SALUD following. [facility] does not take pt's insurance, SALUD informed Yonis, pt's daughter in law. SALUD contacted [facility] to determine if referral packet had been received and if they take pt's insurance - SALUD was on hold for over 10 minutes so ended the call. Family would like referral sent to [facility] if transitional care cannot take pt or pt's insurance.
[2019-02-25 19:59] VITALS: BP 157/73
[2019-02-25] MEDS: ATORVASTATIN CALCIUM 40 MG TABLET. PO SCH (20:42)
[2019-02-25 23:59] VITALS: BP 118/70
[2019-02-26] VITALS (8 sets, daily range): BP systolic 130–176; BP diastolic 58–81
[2019-02-26] MEDS: METOPROLOL TARTRATE 5 MG/5 ML VIAL. IVP SCH ×6 (06:00→23:45)
[2019-02-26] MEDS: LEVOTHYROXINE 50 MCG TABLET PO SCH (06:29)
[2019-02-26] MEDS: PANTOPRAZOLE 40 MG TABLET.DR. PO SCH (06:29)
[2019-02-26] MEDS: RANOLAZINE 500 MG TAB.ER.12H PO SCH ×2 (08:23→21:16)
[2019-02-26] MEDS: ISOSORBIDE MONONITRATE ER 30 MG TAB.ER.24H PO SCH (08:23)
[2019-02-26] MEDS: LISINOPRIL 5 MG TABLET. PO SCH ×2 (08:23→21:15)
[2019-02-26] MEDS: ACETAMINOPHEN 325 MG TABLET. PO PRN (08:36)
--- NOTE | 2019-02-26 10:06 | PDOC ---
IM PROGRESS NOTES- Subjective Subjective No complaints of headaches or pain. Objective Vitals Vital Signs Date Time Temp Pulse Resp B/P (MAP) Pulse Ox O2 Delivery O2 Flow Rate FiO2 02/26/19 09:33 66 176/74 02/26/19 07:00 97.4 16 98 Room Air 97.4 Input & Output Intake and Output 02/26/19 07:00 Intake Total 795 ml Output Total 350 ml Balance 445 ml Intake Oral 795 ml Output Urine Total 350 ml # Voids 1 Physical Exam Physical Exam General appearance - alert, Mental Status - alert, following commands. Head - normal Chest - clear to auscultation, no wheezes, rales or rhonchi, symmetric air entry Heart - S1 and S2 normal Abdomen - soft, nontender, nondistended, no masses or organomegaly Neurological - alert and able to respond. Musculoskeletal - no muscular tenderness noted Extremities - no pedal edema Skin - warm and dry Assessment Assessment Problems Medical Problems: (1) Fall Status: Acute (2) Intracranial hemorrhage Status: Acute FINAL IMPRESSION: 1. Intracranial bleed. 2. Mechanical fall at home.Scalp hematoma. 3. Coronary artery disease. The patient had a cardiac stent 2 years ago. He is on Plavix.Chronically elevated troponin. 4. Hypothyroidism. 5. Pacemaker for sick sinus syndrome. 6. 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 7. Mild aortic insufficiency. 8. Hypertension. 9. Hyperlipidemia. PLAN: CT scan of head yesterday shows slight decrease in the hemorrhage. Hypertension- not controlled. Blood pressure is 176/74. Start amlodipine 5 mg by mouth daily. Continue PT OT speech therapy. Plan Plan For more details regarding further plans, please refer to the orders. Nutrition Consultation Dietary Evaluation: Recommendations by RD: Protein supplementation Comments: Continue regular diet as ordered, honor food preferences, and provide snacks as requested REC Ensure (vanill) w/dinner Expected Outcomes/Goals: PO intake to meet >75% est needs Interpretation of weight loss: >7.5% in 3 months Malnutrition Findings: Weight Status: Appropriate ROSA DOWNS MD Feb 26, 2019 10:06
--- NOTE | 2019-02-26 11:09 | PDOC ---
PROGRESS NOTES Subjective Subjective No new complaints. Objective Objective Vital Signs Date Time Temp Pulse Resp B/P (MAP) Pulse Ox O2 Delivery O2 Flow Rate FiO2 02/26/19 11:02 97.5 75 16 151/77 (101) 98 Room Air 97.5 Intake and Output 02/26/19 06:59 Intake Total 795 ml Output Total 350 ml Balance 445 ml Intake Oral 795 ml Output Urine Total 350 ml # Voids 1 Physical Exam Physical Exam He is awake,supine in bed and he is getting up with assistance. Assessment Assessment Problems Medical Problems: (1) Fall Status: Acute (2) Intracranial hemorrhage Status: Acute Plan Plan of Care To get him up as tolerated and home with home health follow up when medically stable. Comment Review of Relevant I have reviewed the following items zully (where applicable) has been applied. Medications Current Medications Sodium Chloride 500 ml @ 500 mls/hr 1X ONCE IV Last administered on 09:55; Start 02/22/19 at 10:00; Stop 02/22/19 at 10:59; Status DC Atorvastatin Calcium (Lipitor) 40 mg HS PO Last administered on 02/25/19 20:42 ; Start 02/22/19 at 21:00 Isosorbide Mononitrate (Imdur) 30 mg DAILY PO Last administered on 02/26/19 08 :23; Start 02/22/19 at 17:00 Metoprolol Succinate (Toprol Xl) 75 mg DAILY PO ; Start 02/22/19 at 17:00; Stop 02/23/19 at 15:45; Status DC Pantoprazole Sodium (Protonix) 40 mg DAILYAC PO Last administered on 02/26/19 06:29; Start 02/22/19 at 17:00 Ranolazine (Ranexa) 500 mg BID PO Last administered on 02/26/19 08:23; Start 02/22/19 at 21:00 Levothyroxine Sodium (Synthroid) 50 mcg DAILY06 PO Last administered on 06:29; Start 02/22/19 at 17:00 Lisinopril (Prinivil) 5 mg BID PO Last administered on 02/26/19 08:23; Start 02/22/19 at 21:00 Dextrose/Sodium Chloride 1,000 ml @ 100 mls/hr Q10H IV Last administered on at 13:50; Start 02/22/19 at 16:30; Stop 02/23/19 at 18:50; Status DC Metoprolol Tartrate (Lopressor Vial) 5 mg Q6HRS IVP Last administered on at 09:33; Start 02/23/19 at 16:30 Acetaminophen (Tylenol) 650 mg PRN Q8HRS PRN PO pain Last administered on at 08:36; Start 02/24/19 at 14:30 Amlodipine Besylate (Norvasc) 5 mg DAILY PO ; Start 02/26/19 at 10:15 Active Scripts Active Amlodipine Besylate 5 Mg Tablet 2.5 Mg PO DAILY 30 Days Ranexa (Ranolazine) 500 Mg Tab.er.12h 500 Mg PO BID 30 Days Isosorbide Mononitrate Er (Isosorbide Mononitrate) 30 Mg Tab.er.24h 30 Mg PO DAILY 30 Days Clopidogrel (Clopidogrel Bisulfate) 75 Mg Tablet 75 Mg PO DAILYWBKFT 30 Days Synthroid (Levothyroxine Sodium) 50 Mcg Tablet 1 Tab PO DAILY Furosemide 20 Mg Tablet 20 Mg PO DAILY 30 Days Lisinopril 5 Mg Tablet 5 Mg PO BID 30 Days Metoprolol Succinate 50 Mg Tab.er.24h 75 Mg PO DAILY 30 Days Pantoprazole Sodium 40 Mg Tablet.dr 40 Mg PO DAILYAC 30 Days Reported Lipitor (Atorvastatin Calcium) 40 Mg Tablet 40 Mg PO HS Vitals/I & O Vital Sign - Last 24 Hours 02/25/19 02/25/19 02/25/19 02/25/19 12:00 14:00 18:00 19:59 Temp 98.0 96.7 98.0 96.7 Pulse 49 53 53 67 Resp 18 18 B/P (MAP) 120/60 117/67 (84) 117/67 157/73 (101) Pulse Ox 100 99 O2 Delivery Room Air Room Air 02/25/19 02/25/19 02/25/19 02/25/19 20:00 20:42 20:42 23:59 Temp 97.5 97.5 Pulse 67 67 45 Resp 17 B/P (MAP) 157/73 157/73 118/70 (86) Pulse Ox 97 O2 Delivery Room Air Room Air 02/26/19 02/26/19 02/26/1919 00:00 03:59 07:00 08:00 Temp 98.3 97.4 98.3 97.4 Pulse 59 64 67 Resp 18 16 B/P (MAP) 157/73 155/81 (105) 163/78 (106) Pulse Ox 92 98 O2 Delivery Room Air Room Air Room Air 02/26/19 02/26/19 02/26/19 02/26/19 08:23 08:23 08:23 09:30 Pulse 67 67 67 66 B/P (MAP) 163/78 163/78 163/78 176/74 (108) 02/26/19 02/26/19 09:33 11:02 Temp 97.5 97.5 Pulse 66 75 Resp 16 B/P (MAP) 176/74 151/77 (101) Pulse Ox 98 O2 Delivery Room Air Intake and Output 02/25/19 02/25/19 02/26/19 14:59 22:59 06:59 Intake Total 320 ml 475 ml Output Total 350 ml Balance 320 ml 475 ml -350 ml Nutrition Consultation Dietary Evaluation: Recommendations by RD: Protein supplementation Comments: Continue regular diet as ordered, honor food preferences, and provide snacks as requested REC Ensure (vanill) w/dinner Expected Outcomes/Goals: PO intake to meet >75% est needs Interpretation of weight loss: >7.5% in 3 months Malnutrition Findings: Weight Status: Appropriate DAYA DUBON MD Feb 26, 2019 11:09
--- NOTE | 2019-02-26 12:30 | NUR ---
This nurse paged MD with concerns of no BM this admission, orders received this nurse will continue to monitor.
[2019-02-26] MEDS ORDERED: DOCUSATE SODIUM 100 MG CAPSULE. PO ONE (13:00)
[2019-02-26] MEDS: SENNOSIDES 8.6 MG TABLET PO PRN (13:13)
[2019-02-26] MEDS: amLODIPine BESYLATE 5 MG TABLET PO SCH (13:14)
[2019-02-26] MEDS: ATORVASTATIN CALCIUM 40 MG TABLET. PO SCH (21:16)
[2019-02-27 03:46] VITALS: BP 98/71
[2019-02-27] MEDS: LEVOTHYROXINE 50 MCG TABLET PO SCH (06:22)
[2019-02-27] MEDS: METOPROLOL TARTRATE 5 MG/5 ML VIAL. IVP SCH ×3 (06:25→18:00)
[2019-02-27 07:00] VITALS: BP 129/65
[2019-02-27] MEDS: PANTOPRAZOLE 40 MG TABLET.DR. PO SCH (08:00)
[2019-02-27] MEDS: SENNOSIDES 8.6 MG TABLET PO PRN (08:52)
[2019-02-27] MEDS: ISOSORBIDE MONONITRATE ER 30 MG TAB.ER.24H PO SCH (08:52)
[2019-02-27] MEDS: amLODIPine BESYLATE 5 MG TABLET PO SCH (08:53)
[2019-02-27] MEDS: LISINOPRIL 5 MG TABLET. PO SCH ×2 (09:00→20:49)
[2019-02-27] MEDS: RANOLAZINE 500 MG TAB.ER.12H PO SCH ×2 (09:00→20:49)
--- NOTE | 2019-02-27 09:30 | PDOC ---
IM PROGRESS NOTES- Subjective Subjective At present time patient is more awake and following some commands but last night patient left through the night which she normally does not do and also could not recognize family members and was more confused. Objective Vitals Vital Signs Date Time Temp Pulse Resp B/P (MAP) Pulse Ox O2 Delivery O2 Flow Rate FiO2 02/27/19 08:53 60 129/65 02/27/19 07:00 97.6 20 93 Room Air 97.6 Input & Output Intake and Output 02/27/19 07:00 Intake Total 0 ml Balance 0 ml Intake Oral 0 ml # Voids 4 Physical Exam Physical Exam General appearance - alert, Mental Status - alert, following commands. Head - normal Chest - clear to auscultation, no wheezes, rales or rhonchi, symmetric air entry Heart - S1 and S2 normal Abdomen - soft, nontender, nondistended, no masses or organomegaly Neurological - alert and able to respond. Musculoskeletal - no muscular tenderness noted Extremities - no pedal edema, able to move upper extremities. Skin - warm and dry Meds Current Medications Amlodipine Besylate (Norvasc) 5 mg DAILY PO Last administered on 02/27/19at 08: 53; Start 02/26/19 at 10:15 Docusate Sodium (Colace) 100 mg 1X ONCE PO Last administered on 02/26/19at 13: 13; Start 02/26/19 at 13:00; Stop 02/26/19 at 13:01; Status DC Sennosides (Senna) 8.6 mg PRN BID PRN PO CONSTIPATION Last administered on 02/27at 08:52; Start 02/26/19 at 13:00 Assessment Assessment Problems Medical Problems: (1) Fall Status: Acute (2) Intracranial hemorrhage Status: Acute FINAL IMPRESSION: 1. Intracranial bleed. 2. Mechanical fall at home.Scalp hematoma. 3. Coronary artery disease. The patient had a cardiac stent 2 years ago. He is on Plavix.Chronically elevated troponin. 4. Hypothyroidism. 5. Pacemaker for sick sinus syndrome. 6. 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 7. Mild aortic insufficiency. 8. Hypertension. 9. Hyperlipidemia. PLAN: CT scan of head yesterday shows slight decrease in the hemorrhage. Hypertension- not controlled. Blood pressure is 176/74. Start amlodipine 5 mg by mouth daily. Continue PT OT speech therapy. Patient may again have had possible change in mental status. I'll repeat CT scan of head and a consult Dr. Hoffman for neurology evaluation and management. Plan Plan For more details regarding further plans, please refer to the orders. Nutrition Consultation Dietary Evaluation: Recommendations by RD: Protein supplementation Comments: Continue regular diet as ordered, honor food preferences, and provide snacks as requested REC Ensure (vanill) w/dinner Expected Outcomes/Goals: PO intake to meet >75% est needs Interpretation of weight loss: >7.5% in 3 months Malnutrition Findings: Weight Status: Appropriate ROSA DOWNS MD Feb 27, 2019 09:30
[2019-02-27 10:51] VITALS: BP 138/79
--- NOTE | 2019-02-27 12:20 | RAD ---
CT head without contrast: Reason for examination: Follow-up hemorrhage. Comparison is made to previous study dated 02/25/2019. Helical images were obtained through the brain with no contrast administered. Reconstruction was performed in sagittal and coronal planes. Exposure: One or more of the following individualized dose reduction techniques were utilized for this examination: 1. Automated exposure control 2. Adjustment of the mA and/or kV according to patient size 3. Use of iterative reconstruction technique. Ventricular systems are prominent but symmetric. There appears to be interval resolution of the intraventricular hemorrhage. No midline shift is seen. There is some generalized cerebral atrophy with some chronic deep white matter microischemic changes in the frontal and parietal lobes. There continues to be intraparenchymal hemorrhage in the left frontal gyrus measuring 1.3 cm in greatest dimension which has not changed. There appears to be resolution of the small intraparenchymal hemorrhage in the left frontal lobe anterior medially. No new sites of hemorrhage are seen. No sites of new infarct or masses are seen. No acute abnormalities are seen at the orbits. No acute abnormality is seen at the skull. There continues to be a scalp hematoma laterally in the left parietal convexity region. IMPRESSION: Continued presence of a 1.3 cm intraparenchymal hemorrhage in the superior left frontal gyrus without change. Apparent interval improvement of the small intraparenchymal hemorrhage in the left frontal lobe anteromedially. No intraventricular hemorrhage now evident. Generalized cerebral atrophy with microvascular ischemic changes bilaterally in the frontal and parietal lobes. Scalp hematoma in the left parietal convexity. Electronically signed by: Edwina Sorensen MD (02/27/2019 12:16 PM) [id number]
[2019-02-27 15:00] VITALS: BP 111/69
--- NOTE | 2019-02-27 16:38 | PDOC2 ---
NEUROLOGY CONSULT Date of Admission Date of Admission DATE: 02/27/19 TIME: 16:28 Reason for Consult Reason for Consult: IMPRESSION: ICH, right superior frontal lobe, 14 mm x 12 mm. IVH. Metabolic encephalopathy. Fall. HTN. HLD. CAD. CHF. Pacemaker in site. RECOMMENDATIONS/PLAN: Avoid antiplatelet and anticoagulant agent at the present time. Repeat HCT w/o contrast if worse. BP control. Treat medical diseases. Stool softner. Discussed with his son and other family members at bedside on 02/27/19. HISTORY OF THE PRESENT ILLNESS: This is an 88-yo-male patient with a history of CAD s/p PCI/stents placement, dementia, who presented secondary to fall. Since fall, has had altered mental status and has had difficulty recognizing family. Daughter reports he was in kitchen and heard him fall. He was reportedly was unconscious for about 10-15 minutes. He was found to have a large hematoma on left posterior head. EMS was called. Unclear of events leading up to fall as it was not witnessed and patient is unable to provide any details. Daughter reports he has complained intermittent dizziness recently. PAST MEDICAL HISTORY Cardiovascular: CAD (with PCI/THOR to D2- 04/2016), CHF, HTN, Hyperlipidemia, Valve insufficiency (aortic), Other ([facility] PPM - 01/2013), ICM, SSS Pulmonary: Other (NANCY/CPAP), Pneumonia GI: GERD Heme/Onc: Other (DVT) Musculoskeletal: Osteoarthritis Renal/: Chronic renal insuff (stage III) Endocrine: Hypothyroidism, thyroid nodules Neuro: dementia PAST SURGICAL HISTORY Pacemaker ([facility]), PCI/stent to D2. FAMILY HISTORY Noncontributory. ALLERGY: NKDA MEDICATIONS: Refer to [facility] SOCIAL HISTORY: Lives with his , his son and son's family. Denies smoking, drinking, and illicit drug use. He She smokes pack of cigarettes a day for years. He She drinks OZ alcohol a day for years. REVIEW OF SYSTEMS: Constitutional: No malnutrition, weight loss, cachexia. Head: No traumatic brain or head injury. Skin: No edema, or rash. Ear: No infection. Eyes: No vision loss or color blindness. Nose: No bleeding or purulent discharges. Hearing: Hearing decrease. Neck: No injury. Cardiac: CAD, Pacemaker Placement, HTN. Pulmonary: No COPD. GI: No GI ulcer, GI bleeding. Urinary/genital: No dysuria, incontinence, urinary retention. Endocrinologic: No cousin face, craniofacial dysmorphism, polydactyly. Skeletomuscular: No muscular atrophy, deformity. Neurological: see HP. Psychiatric: Denies drug use/abuse. Otherwise, not [id number] review of systems. PHYSICAL EXAMINATION: General appearance is in subacute distress. HEENT: Normocephalic and nontraumatic. Eyes, nose, ears, and throat are unremarkable. Neck is supple. No lymphadenopathy. No bruits are heard over the carotid artery. No crepitus. Cardiovascular: S1, S2, regular rate and rhythm. Pulmonary: Clear to auscultation bilaterally. Abdomen: Bowel sounds are positive. Abdomen is soft, nontender, and nondistended. Extremities: No rash, lesions, or edema. No restriction of range of motion NEUROLOGICAL EXAMINATION: Awake. He does not speak [place]. His son helped interpretation. Not oriented to time, place but knew his family members. PERRL. EOMI. CN: no focal findings. Muscle tone: within normal. Muscle strength: 5- DTR: 2+ Plantar reflex: Neutral response bilaterally Gait: not examined in bed. Sensory exam: no abnormal findings. No cerebellar signs elicited. F-T-N test fine. Current Medications Current Medications Current Medications Sodium Chloride 500 ml @ 500 mls/hr 1X ONCE IV Last administered on 09:55; Start 02/22/19 at 10:00; Stop 02/22/19 at 10:59; Status DC Atorvastatin Calcium (Lipitor) 40 mg HS PO Last administered on 02/26/19 21:16 ; Start 02/22/19 at 21:00 Isosorbide Mononitrate (Imdur) 30 mg DAILY PO Last administered on 02/27/19 08 :52; Start 02/22/19 at 17:00 Metoprolol Succinate (Toprol Xl) 75 mg DAILY PO ; Start 02/22/19 at 17:00; Stop 02/23/19 at 15:45; Status DC Pantoprazole Sodium (Protonix) 40 mg DAILYAC PO Last administered on 02/27/19 08:00; Start 02/22/19 at 17:00 Ranolazine (Ranexa) 500 mg BID PO Last administered on 02/26/19 21:16; Start 02/22/19 at 21:00 Levothyroxine Sodium (Synthroid) 50 mcg DAILY06 PO Last administered on 06:22; Start 02/22/19 at 17:00 Lisinopril (Prinivil) 5 mg BID PO Last administered on 02/26/19at 21:15; Start 02/22/19 at 21:00 Dextrose/Sodium Chloride 1,000 ml @ 100 mls/hr Q10H IV Last administered on at 13:50; Start 02/22/19 at 16:30; Stop 02/23/19 at 18:50; Status DC Metoprolol Tartrate (Lopressor Vial) 5 mg Q6HRS IVP Last administered on 09:33; Start 02/23/19 at 16:30 Acetaminophen (Tylenol) 650 mg PRN Q8HRS PRN PO pain Last administered on 08:36; Start 02/24/19 at 14:30 Amlodipine Besylate (Norvasc) 5 mg DAILY PO Last administered on 02/27/19 08: 53; Start 02/26/19 at 10:15 Docusate Sodium (Colace) 100 mg 1X ONCE PO Last administered on 02/26/19 13: 13; Start 02/26/19 at 13:00; Stop 02/26/19 at 13:01; Status DC Sennosides (Senna) 8.6 mg PRN BID PRN PO CONSTIPATION Last administered on 02/27 08:52; Start 02/26/19 at 13:00; Stop 02/27/19 at 15:58; Status DC Sennosides (Senna) 8.6 mg BID PO ; Start 02/27/19 at 21:00 Active Scripts Active Amlodipine Besylate 5 Mg Tablet 2.5 Mg PO DAILY 30 Days Ranexa (Ranolazine) 500 Mg Tab.er.12h 500 Mg PO BID 30 Days Isosorbide Mononitrate Er (Isosorbide Mononitrate) 30 Mg Tab.er.24h 30 Mg PO DAILY 30 Days Clopidogrel (Clopidogrel Bisulfate) 75 Mg Tablet 75 Mg PO DAILYWBKFT 30 Days Synthroid (Levothyroxine Sodium) 50 Mcg Tablet 1 Tab PO DAILY Furosemide 20 Mg Tablet 20 Mg PO DAILY 30 Days Lisinopril 5 Mg Tablet 5 Mg PO BID 30 Days Metoprolol Succinate 50 Mg Tab.er.24h 75 Mg PO DAILY 30 Days Pantoprazole Sodium 40 Mg Tablet.dr 40 Mg PO DAILYAC 30 Days Reported Lipitor (Atorvastatin Calcium) 40 Mg Tablet 40 Mg PO HS Allergies Allergies: Allergies Coded Allergies Type Severity Reaction Last Updated Verified No Known Drug Allergies 04/01/17 No ROS Review of System The patient denies any associated fevers, chills, headache, ear pain, rhinorrhea , sore throat, stiff neck, productive cough, chest pain, shortness of breath, back or flank pain, abdominal pain, nausea, vomiting, diarrhea, constipation, dysuria, rash, numbness, weakness, tingling, incontinence, difficulty ambulating, or diaphoresis. Physical Exam Physical Exam General: Well developed, well nourished, no acute distress, well appearing HEENT: Pupils equally round and reactive to light, EOMI, no discharge, normal conjunctiva Neck: Supple, no nuchal rigidity, no JVD, trachea midline, no tenderness Cardiac: RRR, no murmurs, no gallops, no rubs Chest/Lungs: CTAB, no wheeze, no rhonchi, no crackles Abdomen: soft, non-distended, no guarding, no peritoneal signs, non-tender Back: No tenderness Extremities: no edema, pulses intact, non-tender,capillary refill <3 sec bilateral upper and lower extremities, Neuro: Alert and oriented x 4, no focal deficits, normal speech Vitals Vitals: Vital Signs Date Time Temp Pulse Resp B/P (MAP) Pulse Ox O2 Delivery O2 Flow Rate FiO2 02/27/19 15:00 97.4 60 18 111/69 (83) 98 Room Air 97.4 ALLY NO MD Feb 27, 2019 16:38
[2019-02-27 19:00] VITALS: BP 140/58
[2019-02-27] MEDS: ATORVASTATIN CALCIUM 40 MG TABLET. PO SCH (20:49)
[2019-02-27] MEDS: SENNOSIDES 8.6 MG TABLET PO SCH (20:49)
[2019-02-27 23:00] VITALS: BP 102/57
[2019-02-28 03:00] VITALS: BP 138/50
[2019-02-28] MEDS: METOPROLOL TARTRATE 5 MG/5 ML VIAL. IVP SCH ×2 (06:00)
[2019-02-28] MEDS: LEVOTHYROXINE 50 MCG TABLET PO SCH (06:02)
[2019-02-28 07:00] VITALS: BP 138/77
[2019-02-28] MEDS: RANOLAZINE 500 MG TAB.ER.12H PO SCH ×2 (08:11→21:05)
[2019-02-28] MEDS: METOPROLOL TART IMMED RELEASE 50 MG TABLET. PO SCH ×2 (08:11→21:05)
[2019-02-28] MEDS: LISINOPRIL 5 MG TABLET. PO SCH ×2 (08:12→21:04)
[2019-02-28] MEDS: SENNOSIDES 8.6 MG TABLET PO SCH ×2 (08:12→21:05)
[2019-02-28] MEDS: ISOSORBIDE MONONITRATE ER 30 MG TAB.ER.24H PO SCH (08:12)
[2019-02-28] MEDS: PANTOPRAZOLE 40 MG TABLET.DR. PO SCH (08:12)
[2019-02-28] MEDS: amLODIPine BESYLATE 5 MG TABLET PO SCH (08:13)
--- NOTE | 2019-02-28 09:33 | NUR ---
SALUD following. Discussed with RN, SALUD attempted to call [facility] this morning to discuss referral, SW could not get through to anyone in admissions and there was no option to leave a voicemail. SALUD contacted [place] dtr [place] to discuss this problem. [place] gave permission for SALUD to fax referral to [facility]. SALUD faxed referral to [facility], [place] contacted SW to advise she had gotten through to the facility, when family confirmed phone number with SALUD it became apparent the family actually wanted the rehab [facility]. SALUD phoned and faxed referral to [facility] (ph:[phone] admissions, ph: [phone], fax: [phone]). Dr. Le spoke with SALUD about pt being better appropriate for home with home health due to someone having to be at the facility most of the time with pt in order for pt to properly participate in therapy. SALUD left voicemail for [place] requesting a call back to discuss this with her. SALUD will continue to follow.
--- NOTE | 2019-02-28 09:51 | PDOC ---
PROGRESS NOTES Subjective Subjective says few words, walking with walker with therapist Objective Objective Vital Signs Date Time Temp Pulse Resp B/P (MAP) Pulse Ox O2 Delivery O2 Flow Rate FiO2 02/28/19 08:13 70 138/77 02/28/19 07:00 98.0 18 100 Room Air 98.0 Intake and Output 02/28/19 07:00 Output Total 150 ml Balance -150 ml Output Urine Total 150 ml # Voids 4 # Bowel Movements 1 Physical Exam Abdomen: Normal bowel sounds, Soft Heart: Regular rate, Normal S1 Extremities: No clubbing General: Alert, Cooperative, No acute distress HEENT: Atraumatic (scalp hematoma) Lungs: Clear to auscultation MUSCULOSKELETAL: Other (BELTRAN) Neuro: Normal speech Psych/Mental Status: Mood NL Skin: No significant lesion Diagnosis Problem List Problems Medical Problems: (1) Fall Status: Acute (2) Intracranial hemorrhage Status: Acute Assessment Assessment Problems Medical Problems: (1) Fall Status: Acute (2) Intracranial hemorrhage Status: Acute FINAL IMPRESSION: 1. Intracranial bleed. 2. Mechanical fall at home.Scalp hematoma. 3. Coronary artery disease. The patient had a cardiac stent 2 years ago. He is on Plavix.Chronically elevated troponin. 4. Hypothyroidism. 5. Pacemaker for sick sinus syndrome. 6. 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 7. Mild aortic insufficiency. 8. Hypertension. 9. Hyperlipidemia. PLAN: d/c to Rehab/SNU today CT scan of head yesterday shows slight decrease in the hemorrhage. Hypertension- improving Continue PT OT speech therapy. spoke with rehab dr espinosa. d/riki all blood thinners, due to ICB. Plan Plan of Care Problems Medical Problems: (1) Fall Status: Acute (2) Intracranial hemorrhage Status: Acute Comment Review of Relevant I have reviewed the following items zully (where applicable) has been applied. Medications Current Medications Metoprolol Tartrate (Lopressor) 50 mg BID PO Last administered on 02/28/19at 08: 11; Start 02/28/19 at 09:00 Sennosides (Senna) 8.6 mg BID PO Last administered on 02/28/19at 08:12; Start at 21:00 Vitals/I & O Vital Sign - Last 24 Hours 02/27/19 02/27/19 02/27/19 02/27/19 10:51 15:00 19:00 20:00 Temp 97.4 97.9 97.4 97.9 Pulse 65 60 65 Resp 18 18 18 B/P (MAP) 138/79 (98) 111/69 (83) 140/58 (85) Pulse Ox 99 98 92 O2 Delivery Room Air Room Air Room Air Room Air 02/27/19 02/27/19 02/27/19 02/28/19 20:49 20:49 23:00 00:00 Temp 97.7 97.7 Pulse 65 65 65 65 Resp 18 B/P (MAP) 140/58 140/58 102/57 (72) 102/57 Pulse Ox 93 O2 Delivery Room Air 02/28/19 02/28/19 02/28/19 02/28/19 03:00 06:00 07:00 08:11 Temp 97.7 98.0 97.7 98.0 Pulse 87 65 52 70 Resp 18 18 B/P (MAP) 138/50 (79) 124/64 138/77 (97) 138/77 Pulse Ox 93 100 O2 Delivery Room Air Room Air 02/28/19 02/28/19 02/28/19 02/28/19 08:11 08:12 08:12 08:13 Pulse 70 70 70 70 B/P (MAP) 138/77 138/77 138/77 138/77 Intake and Output 02/27/19 02/27/19 02/28/19 15:00 23:00 07:00 Output Total 150 ml Balance -150 ml Nutrition Consultation Dietary Evaluation: Recommendations by RD: Protein supplementation Comments: Continue regular diet as ordered, honor food preferences, and provide snacks as requested REC Ensure (vanill) w/dinner Expected Outcomes/Goals: PO intake to meet >75% est needs Interpretation of weight loss: >7.5% in 3 months Malnutrition Findings: Weight Status: Appropriate AUGUST HUITRON MD Feb 28, 2019 09:51
--- NOTE | 2019-02-28 09:56 | SNU/HH DC ---
DISCHARGE ORDERS DISCHARGE INFORMATION: DISCHARGE DATE: Feb 28, 2019 FINAL DIAGNOSIS Problems Medical Problems: (1) Fall Status: Acute (2) Intracranial hemorrhage Status: Acute CONDITION ON DISCHARGE: Stable CODE STATUS: Code Status: Full HALF-WAY: SNF STAY <30 DAYS: Yes HOSPICE: HOSPICE: No LTAC: ADMIT TO LTAC: No POST DISCHARGE ORDERS: ACTIVITY ORDERS: Activity as tolerated WEIGHT BEARING STATUS: As tolerated BATHING ORDERS: No Tub Bath until see DIET AFTER DISCHARGE: Cardiac WOUND/INCISION CARE: No wound care needed CHECKS AFTER DISCHARGE: CHECKS AFTER DISCHARGE: Check blood press - daily, Check your Temp as needed, Weigh Yourself Daily FOLLOW-UP: ANTICOAGULATION F/U NEEDED: no blood thinners due to intra cranial bleed TREATMENT/EQUIPMENT ORDERS: ADAPTIVE EQUIPMENT NEEDED: None, Front wheeled walker Physical Therapy For: Evalulation/Treatment Occupational Therapy For: Evaluation/Treatment Speech Language Pathology For: Evaluation/Treatment DISCHARGE MEDICATIONS: Home Meds Active Scripts Amlodipine Besylate (AMLODIPINE BESYLATE) 5 Mg Tablet, 2.5 MG PO DAILY for htn for 30 Days, #15 TAB Prov:AUGUST HUITRON MD 01/29/19 Ranolazine (RANEXA) 500 Mg Tab.er.12h, 500 MG PO BID for cad for 30 Days, #60 TAB.SR Prov:AUGUST HUITRON MD 01/29/19 Isosorbide Mononitrate (ISOSORBIDE MONONITRATE ER) 30 Mg Tab.er.24h, 30 MG PO DAILY for cad for 30 Days, #30 TAB.SR Prov:ROSA DOWNS MD 12/04/18 Levothyroxine Sodium (SYNTHROID) 50 Mcg Tablet, 1 TAB PO DAILY, #30 TAB 5 Refills Prov:AUGUST HUITRON MD 04/14/18 Furosemide (FUROSEMIDE) 20 Mg Tablet, 20 MG PO DAILY for 30 Days, #30 TAB Prov:AUGUST HUITRON MD 04/14/18 Lisinopril (LISINOPRIL) 5 Mg Tablet, 5 MG PO BID for 30 Days, #60 TAB Prov:UAGUST HUITRON MD 04/14/18 Metoprolol Succinate (Metoprolol Succinate) 50 Mg Tab.er.24h, 75 MG PO DAILY for 30 Days, #45 TAB.SR Prov:AUGUST HUITRON MD 04/14/18 Pantoprazole Sodium (PANTOPRAZOLE SODIUM) 40 Mg Tablet.dr, 40 MG PO DAILYAC for 30 Days, TAB.SR 2 Refills Prov:AUGUST HUITRON MD 04/01/17 Reported Medications Atorvastatin Calcium (LIPITOR) 40 Mg Tablet, 40 MG PO HS for FOR CHOLESTEROL, # 30 TAB 0 Refills 05/09/16 Discontinued Scripts Clopidogrel Bisulfate (CLOPIDOGREL) 75 Mg Tablet, 75 MG PO DAILYWBKFT for cad for 30 Days, #30 TAB Prov:ROSA DOWNS MD 12/04/18 AUGUST HUITRON MD Feb 28, 2019 09:56
--- NOTE | 2019-02-28 09:56 | PDOC ---
PROGRESS NOTES Subjective Subjective No new complaints. Objective Objective Vital Signs Date Time Temp Pulse Resp B/P (MAP) Pulse Ox O2 Delivery O2 Flow Rate FiO2 02/28/19 08:13 70 138/77 02/28/19 07:00 98.0 18 100 Room Air 98.0 Intake and Output 02/28/19 07:00 Output Total 150 ml Balance -150 ml Output Urine Total 150 ml # Voids 4 # Bowel Movements 1 Physical Exam Physical Exam He is awake and sitting in bedside chair and working with physical therapy and he continues with ataxia and mobility and self care limitations. Assessment Assessment Problems Medical Problems: (1) Fall Status: Acute (2) Intracranial hemorrhage Status: Acute Plan Plan of Care Agree with plans for transfer to rehab unit or SNF that can accept him. Comment Review of Relevant I have reviewed the following items zully (where applicable) has been applied. Medications Current Medications Sodium Chloride 500 ml @ 500 mls/hr 1X ONCE IV Last administered on at 09:55; Start 02/22/19 at 10:00; Stop 02/22/19 at 10:59; Status DC Atorvastatin Calcium (Lipitor) 40 mg HS PO Last administered on 02/27/19at 20:49 ; Start 02/22/19 at 21:00 Isosorbide Mononitrate (Imdur) 30 mg DAILY PO Last administered on 02/28/19 08: 12; Start 02/22/19 at 17:00 Metoprolol Succinate (Toprol Xl) 75 mg DAILY PO ; Start 02/22/19 at 17:00; Stop 02/23/19 at 15:45; Status DC Pantoprazole Sodium (Protonix) 40 mg DAILYAC PO Last administered on 02/28/19 08:12; Start 02/22/19 at 17:00 Ranolazine (Ranexa) 500 mg BID PO Last administered on 02/28/19 08:11; Start at 21:00 Levothyroxine Sodium (Synthroid) 50 mcg DAILY06 PO Last administered on 06:02; Start 02/22/19 at 17:00 Lisinopril (Prinivil) 5 mg BID PO Last administered on 02/28/19 08:12; Start at 21:00 Dextrose/Sodium Chloride 1,000 ml @ 100 mls/hr Q10H IV Last administered on 13:50; Start 02/22/19 at 16:30; Stop 02/23/19 at 18:50; Status DC Metoprolol Tartrate (Lopressor Vial) 5 mg Q6HRS IVP Last administered on 09:33; Start 02/23/19 at 16:30; Stop 02/28/19 at 06:18; Status DC Acetaminophen (Tylenol) 650 mg PRN Q8HRS PRN PO pain Last administered on 08:36; Start 02/24/19 at 14:30 Amlodipine Besylate (Norvasc) 5 mg DAILY PO Last administered on 02/28/19 08:13 ; Start 02/26/19 at 10:15 Docusate Sodium (Colace) 100 mg 1X ONCE PO Last administered on 02/26/19 13: 13; Start 02/26/19 at 13:00; Stop 02/26/19 at 13:01; Status DC Sennosides (Senna) 8.6 mg PRN BID PRN PO CONSTIPATION Last administered on 02/27at 08:52; Start 02/26/19 at 13:00; Stop 02/27/19 at 15:58; Status DC Sennosides (Senna) 8.6 mg BID PO Last administered on 02/28/19at 08:12; Start at 21:00 Metoprolol Tartrate (Lopressor) 50 mg BID PO Last administered on 02/28/19at 08: 11; Start 02/28/19 at 09:00 Active Scripts Active Amlodipine Besylate 5 Mg Tablet 2.5 Mg PO DAILY 30 Days Ranexa (Ranolazine) 500 Mg Tab.er.12h 500 Mg PO BID 30 Days Isosorbide Mononitrate Er (Isosorbide Mononitrate) 30 Mg Tab.er.24h 30 Mg PO DAILY 30 Days Clopidogrel (Clopidogrel Bisulfate) 75 Mg Tablet 75 Mg PO [id number] 30 Days Synthroid (Levothyroxine Sodium) 50 Mcg Tablet 1 Tab PO DAILY Furosemide 20 Mg Tablet 20 Mg PO DAILY 30 Days Lisinopril 5 Mg Tablet 5 Mg PO BID 30 Days Metoprolol Succinate 50 Mg Tab.er.24h 75 Mg PO DAILY 30 Days Pantoprazole Sodium 40 Mg Tablet.dr 40 Mg PO DAILYAC 30 Days Reported Lipitor (Atorvastatin Calcium) 40 Mg Tablet 40 Mg PO HS Vitals/I & O Vital Sign - Last 24 Hours 02/27/19 02/27/19 02/27/19 02/27/19 10:51 15:00 19:00 20:00 Temp 97.4 97.9 97.4 97.9 Pulse 65 60 65 Resp 18 18 18 B/P (MAP) 138/79 (98) 111/69 (83) 140/58 (85) Pulse Ox 99 98 92 O2 Delivery Room Air Room Air Room Air Room Air 02/27/19 02/27/19 02/27/19 02/28/19 20:49 20:49 23:00 00:00 Temp 97.7 97.7 Pulse 65 65 65 65 Resp 18 B/P (MAP) 140/58 140/58 102/57 (72) 102/57 Pulse Ox 93 O2 Delivery Room Air 02/28/19 02/28/19 02/28/19 02/28/19 03:00 06:00 07:00 08:11 Temp 97.7 98.0 97.7 98.0 Pulse 87 65 52 70 Resp 18 18 B/P (MAP) 138/50 (79) 124/64 138/77 (97) 138/77 Pulse Ox 93 100 O2 Delivery Room Air Room Air 02/28/19 02/28/19 02/28/19 02/28/19 08:11 08:12 08:12 08:13 Pulse 70 70 70 70 B/P (MAP) 138/77 138/77 138/77 138/77 Intake and Output 02/27/19 02/27/19 02/28/19 15:00 23:00 07:00 Output Total 150 ml Balance -150 ml Nutrition Consultation Dietary Evaluation: Recommendations by RD: Protein supplementation Comments: Continue regular diet as ordered, honor food preferences, and provide snacks as requested REC Ensure (vanill) w/dinner Expected Outcomes/Goals: PO intake to meet >75% est needs Interpretation of weight loss: >7.5% in 3 months Malnutrition Findings: Weight Status: Appropriate DAYA DUBON MD Feb 28, 2019 09:56
[2019-02-28 11:00] VITALS: BP 129/68
--- NOTE | 2019-02-28 12:02 | PDOC ---
PROGRESS NOTES Assessment Problems Medical Problems: (1) Fall Status: Acute (2) Intracranial hemorrhage Status: Acute Right superior frontal lobe intracranial hemorrhage and intraventricular hemorrhage, 14 mm x 12 mm. IMetabolic encephalopathy. Fall. HTN. HLD. CAD. CHF. Pacemaker in site. Plan Avoid antiplatelet and anticoagulant agent at the present time. Repeat HCT w/o contrast if worse. BP control. Treat medical diseases. Stool softener. Agree with discharge back to [facility] for palliative care Subjective None Objective Vital Signs Date Time Temp Pulse Resp B/P (MAP) Pulse Ox O2 Delivery O2 Flow Rate FiO2 02/28/19 11:00 98.0 60 18 129/68 (88) 100 Room Air 98.0 Intake and Output 02/28/19 06:59 Output Total 150 ml Balance -150 ml Output Urine Total 150 ml # Voids 4 # Bowel Movements 1 PHYSICAL EXAM Alert. Does not follow commands or speak Malay. PERRL. EOMI. CN: no focal findings. Muscle tone: gegenhalten type rigidity Muscle strength: 4/5 DTR: 1+ Plantar reflex: flex or Gait: not examined in bed. Sensory exam: not cooperative. Cerebellar: not cooperative Review of Relevant I have reviewed the following items zully (where applicable) has been applied. Medications Current Medications Sodium Chloride 500 ml @ 500 mls/hr 1X ONCE IV Last administered on at 09:55; Start 02/22/19 at 10:00; Stop 02/22/19 at 10:59; Status DC Atorvastatin Calcium (Lipitor) 40 mg HS PO Last administered on 02/27/19at 20:49 ; Start 02/22/19 at 21:00 Isosorbide Mononitrate (Imdur) 30 mg DAILY PO Last administered on 02/28/19at 08: 12; Start 02/22/19 at 17:00 Metoprolol Succinate (Toprol Xl) 75 mg DAILY PO ; Start 02/22/19 at 17:00; Stop 02/23/19 at 15:45; Status DC Pantoprazole Sodium (Protonix) 40 mg DAILYAC PO Last administered on 02/28/19at 08:12; Start 02/22/19 at 17:00 Ranolazine (Ranexa) 500 mg BID PO Last administered on 02/28/19at 08:11; Start at 21:00 Levothyroxine Sodium (Synthroid) 50 mcg DAILY06 PO Last administered on 06:02; Start 02/22/19 at 17:00 Lisinopril (Prinivil) 5 mg BID PO Last administered on 02/28/19 08:12; Start at 21:00 Dextrose/Sodium Chloride 1,000 ml @ 100 mls/hr Q10H IV Last administered on at 13:50; Start 02/22/19 at 16:30; Stop 02/23/19 at 18:50; Status DC Metoprolol Tartrate (Lopressor Vial) 5 mg Q6HRS IVP Last administered on 09:33; Start 02/23/19 at 16:30; Stop 02/28/19 at 06:18; Status DC Acetaminophen (Tylenol) 650 mg PRN Q8HRS PRN PO pain Last administered on 08:36; Start 02/24/19 at 14:30 Amlodipine Besylate (Norvasc) 5 mg DAILY PO Last administered on 02/28/19at 08:13 ; Start 02/26/19 at 10:15 Docusate Sodium (Colace) 100 mg 1X ONCE PO Last administered on 02/26/19 13: 13; Start 02/26/19 at 13:00; Stop 02/26/19 at 13:01; Status DC Sennosides (Senna) 8.6 mg PRN BID PRN PO CONSTIPATION Last administered on 02/27at 08:52; Start 02/26/19 at 13:00; Stop 02/27/19 at 15:58; Status DC Sennosides (Senna) 8.6 mg BID PO Last administered on 02/28/19 08:12; Start at 21:00 Metoprolol Tartrate (Lopressor) 50 mg BID PO Last administered on 02/28/19at 08: 11; Start 02/28/19 at 09:00 Active Scripts Active Amlodipine Besylate 5 Mg Tablet 2.5 Mg PO DAILY 30 Days Ranexa (Ranolazine) 500 Mg Tab.er.12h 500 Mg PO BID 30 Days Isosorbide Mononitrate Er (Isosorbide Mononitrate) 30 Mg Tab.er.24h 30 Mg PO DAILY 30 Days Synthroid (Levothyroxine Sodium) 50 Mcg Tablet 1 Tab PO DAILY Furosemide 20 Mg Tablet 20 Mg PO DAILY 30 Days Lisinopril 5 Mg Tablet 5 Mg PO BID 30 Days Metoprolol Succinate 50 Mg Tab.er.24h 75 Mg PO DAILY 30 Days Pantoprazole Sodium 40 Mg Tablet.dr 40 Mg PO DAILYAC 30 Days Reported Lipitor (Atorvastatin Calcium) 40 Mg Tablet 40 Mg PO HS Vitals/I & O Vital Sign - Last 24 Hours 02/27/19 02/27/19 02/27/19 02/27/19 15:00 19:00 20:00 20:49 Temp 97.4 97.9 97.4 97.9 Pulse 60 65 65 Resp 18 18 B/P (MAP) 111/69 (83) 140/58 (85) 140/58 Pulse Ox 98 92 O2 Delivery Room Air Room Air Room Air 02/27/19 02/27/19 02/28/19 02/28/19 20:49 23:00 00:00 03:00 Temp 97.7 97.7 97.7 97.7 Pulse 65 65 65 87 Resp 18 18 B/P (MAP) 140/58 102/57 (72) 102/57 138/50 (79) Pulse Ox 93 93 O2 Delivery Room Air Room Air 02/28/19 02/28/19 02/28/19 02/28/19 06:00 07:00 08:11 08:11 Temp 98.0 98.0 Pulse 65 52 70 70 Resp 18 B/P (MAP) 124/64 138/77 (97) 138/77 138/77 Pulse Ox 100 O2 Delivery Room Air 02/28/19 02/28/19 02/28/19 02/28/19 08:12 08:12 08:13 11:00 Temp 98.0 98.0 Pulse 70 70 70 60 Resp 18 B/P (MAP) 138/77 138/77 138/77 129/68 (88) Pulse Ox 100 O2 Delivery Room Air Intake and Output 02/27/19 02/27/19 02/28/19 14:59 22:59 06:59 Output Total 150 ml Balance -150 ml YANIRA BAIRD MD Feb 28, 2019 12:02
--- NOTE | 2019-02-28 13:12 | NUR ---
SW following. Pt has been accepted at [facility] pending insurance approval. [facility] does not transport pt's so this will need to be set up after insurance auth has been given. SW will continue to follow.
[2019-02-28 15:00] VITALS: BP 126/70
[2019-02-28 19:00] VITALS: BP 142/83
[2019-02-28] MEDS: ATORVASTATIN CALCIUM 40 MG TABLET. PO SCH (21:04)
[2019-02-28 23:00] VITALS: BP 109/60
[2019-03-01 03:00] VITALS: BP 126/77
[2019-03-01] MEDS: LEVOTHYROXINE 50 MCG TABLET PO SCH ×2 (05:58→06:00)
[2019-03-01] MEDS: PANTOPRAZOLE 40 MG TABLET.DR. PO SCH ×2 (05:58→07:39)
--- NOTE | 2019-03-01 06:02 | NUR ---
Pt. will not allow me to give him synthroid and protonix this morning. tried to dump them out of my hand.
[2019-03-01 07:48] VITALS: BP 155/70
[2019-03-01] MEDS: RANOLAZINE 500 MG TAB.ER.12H PO SCH ×2 (09:00→21:11)
[2019-03-01] MEDS: SENNOSIDES 8.6 MG TABLET PO SCH ×2 (09:00→21:12)
[2019-03-01] MEDS: ISOSORBIDE MONONITRATE ER 30 MG TAB.ER.24H PO SCH (09:01)
[2019-03-01] MEDS: amLODIPine BESYLATE 5 MG TABLET PO SCH (09:01)
[2019-03-01] MEDS: LISINOPRIL 5 MG TABLET. PO SCH ×2 (09:01→21:12)
--- NOTE | 2019-03-01 09:01 | PDOC ---
PROGRESS NOTES Subjective Subjective No new complaints. Objective Objective Vital Signs Date Time Temp Pulse Resp B/P (MAP) Pulse Ox O2 Delivery O2 Flow Rate FiO2 03/01/19 07:48 97.7 60 18 155/70 (98) 95 Room Air 97.7 Intake and Output 03/01/19 07:00 Intake Total 240 ml Balance 240 ml Intake Oral 240 ml # Voids 5 Physical Exam Physical Exam He is awake,supine in bed and in no acute distress and he continues with balance problems requiring physical assistance with transfers and he is walking with roller walker. Assessment Assessment Problems Medical Problems: (1) Fall Status: Acute (2) Intracranial hemorrhage Status: Acute Plan Plan of Care To continue present physical and occupational therapy follow up and waiting for transfer to rehab unit at when his health insurance approves. Comment Review of Relevant I have reviewed the following items zully (where applicable) has been applied. Medications Current Medications Sodium Chloride 500 ml @ 500 mls/hr 1X ONCE IV Last administered on at 09:55; Start 02/22/19 at 10:00; Stop 02/22/19 at 10:59; Status DC Atorvastatin Calcium (Lipitor) 40 mg HS PO Last administered on 02/28/19 21:04 ; Start 02/22/19 at 21:00 Isosorbide Mononitrate (Imdur) 30 mg DAILY PO Last administered on 02/28/19at 08: 12; Start 02/22/19 at 17:00 Metoprolol Succinate (Toprol Xl) 75 mg DAILY PO ; Start 02/22/19 at 17:00; Stop 02/23/19 at 15:45; Status DC Pantoprazole Sodium (Protonix) 40 mg DAILYAC PO Last administered on 03/01/19at 07:39; Start 02/22/19 at 17:00 Ranolazine (Ranexa) 500 mg BID PO Last administered on 02/28/19 21:05; Start at 21:00 Levothyroxine Sodium (Synthroid) 50 mcg DAILY06 PO Last administered on at 06:02; Start 02/22/19 at 17:00 Lisinopril (Prinivil) 5 mg BID PO Last administered on 02/28/19 21:04; Start at 21:00 Dextrose/Sodium Chloride 1,000 ml @ 100 mls/hr Q10H IV Last administered on 13:50; Start 02/22/19 at 16:30; Stop 02/23/19 at 18:50; Status DC Metoprolol Tartrate (Lopressor Vial) 5 mg Q6HRS IVP Last administered on 09:33; Start 02/23/19 at 16:30; Stop 02/28/19 at 06:18; Status DC Acetaminophen (Tylenol) 650 mg PRN Q8HRS PRN PO pain Last administered on at 08:36; Start 02/24/19 at 14:30 Amlodipine Besylate (Norvasc) 5 mg DAILY PO Last administered on 02/28/19at 08:13 ; Start 02/26/19 at 10:15 Docusate Sodium (Colace) 100 mg 1X ONCE PO Last administered on 02/26/19at 13: 13; Start 02/26/19 at 13:00; Stop 02/26/19 at 13:01; Status DC Sennosides (Senna) 8.6 mg PRN BID PRN PO CONSTIPATION Last administered on 02/27at 08:52; Start 02/26/19 at 13:00; Stop 02/27/19 at 15:58; Status DC Sennosides (Senna) 8.6 mg BID PO Last administered on 02/28/19at 21:05; Start at 21:00 Metoprolol Tartrate (Lopressor) 50 mg BID PO Last administered on 02/28/19at 21: 05; Start 02/28/19 at 09:00 Active Scripts Active Amlodipine Besylate 5 Mg Tablet 2.5 Mg PO DAILY 30 Days Ranexa (Ranolazine) 500 Mg Tab.er.12h 500 Mg PO BID 30 Days Isosorbide Mononitrate Er (Isosorbide Mononitrate) 30 Mg Tab.er.24h 30 Mg PO DAILY 30 Days Synthroid (Levothyroxine Sodium) 50 Mcg Tablet 1 Tab PO DAILY Furosemide 20 Mg Tablet 20 Mg PO DAILY 30 Days Lisinopril 5 Mg Tablet 5 Mg PO BID 30 Days Metoprolol Succinate 50 Mg Tab.er.24h 75 Mg PO DAILY 30 Days Pantoprazole Sodium 40 Mg Tablet.dr 40 Mg PO DAILYAC 30 Days Reported Lipitor (Atorvastatin Calcium) 40 Mg Tablet 40 Mg PO HS Vitals/I & O Vital Sign - Last 24 Hours 02/28/19 02/28/19 02/28/19 02/28/19 11:00 15:00 19:00 20:00 Temp 98.0 97.9 98.3 98.0 97.9 98.3 Pulse 60 62 61 Resp 18 18 18 B/P (MAP) 129/68 (88) 126/70 (88) 142/83 (102) Pulse Ox 100 100 96 O2 Delivery Room Air Room Air Room Air Room Air 02/28/19 02/28/19 02/28/19 02/28/19 21:04 21:05 21:05 23:00 Temp 98.7 98.7 Pulse 61 61 61 65 Resp 16 B/P (MAP) 142/83 142/83 142/83 109/60 (76) Pulse Ox 94 O2 Delivery Room Air 03/01/19 03/01/19 03:00 07:48 Temp 98.1 97.7 98.1 97.7 Pulse 63 60 Resp 18 18 B/P (MAP) 126/77 (93) 155/70 (98) Pulse Ox 97 95 O2 Delivery Room Air Room Air Intake and Output 02/28/19 02/28/19 03/01/19 15:00 23:00 07:00 Intake Total 240 ml 0 ml Balance 240 ml 0 ml Nutrition Consultation Dietary Evaluation: Recommendations by RD: Protein supplementation Comments: Continue regular diet as ordered, honor food preferences, and provide snacks as requested REC Ensure (vanill) w/dinner Expected Outcomes/Goals: PO intake to meet >75% est needs Interpretation of weight loss: >7.5% in 3 months Malnutrition Findings: Weight Status: Appropriate DAYA DUBON MD Mar 01, 2019 09:01
[2019-03-01] MEDS: METOPROLOL TART IMMED RELEASE 50 MG TABLET. PO SCH ×2 (09:02→21:13)
--- NOTE | 2019-03-01 10:33 | PDOC ---
IM PROGRESS NOTES- Subjective Subjective No complaints of pain, headaches or dyspnea. Unable to communicate well with the patient. Objective Vitals Vital Signs Date Time Temp Pulse Resp B/P (MAP) Pulse Ox O2 Delivery O2 Flow Rate FiO2 03/01/19 09:02 60 155/70 03/01/19 07:48 97.7 18 95 Room Air 97.7 Input & Output Intake and Output 03/01/19 07:00 Intake Total 240 ml Balance 240 ml Intake Oral 240 ml # Voids 5 Physical Exam Physical Exam General appearance - alert, Mental Status - alert, following commands. Head - normal Chest - clear to auscultation, no wheezes, rales or rhonchi, symmetric air entry Heart - S1 and S2 normal Abdomen - soft, nontender, nondistended, no masses or organomegaly Neurological - alert and able to respond. Musculoskeletal - no muscular tenderness noted Extremities - no pedal edema, able to move upper extremities. Skin - warm and dry Assessment Assessment Problems Medical Problems: (1) Fall Status: Acute (2) Intracranial hemorrhage Status: Acute FINAL IMPRESSION: 1. Intracranial bleed. 2. Mechanical fall at home.Scalp hematoma. 3. Coronary artery disease. The patient had a cardiac stent 2 years ago. He is on Plavix.Chronically elevated troponin. 4. Hypothyroidism. 5. Pacemaker for sick sinus syndrome. 6. 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 7. Mild aortic insufficiency. 8. Hypertension. 9. Hyperlipidemia. PLAN: d/c to [facility]hab[facility] today CT scan of head yesterday shows slight decrease in the hemorrhage. Hypertension- improving Continue PT OT speech therapy. spoke with rehab dr espinosa. d/riki all blood thinners, due to ICB. Dr. Kendrick's notes appreciated. Discharge management 25 minutes. Plan Plan For more details regarding further plans, please refer to the orders. Nutrition Consultation Dietary Evaluation: Recommendations by RD: Protein supplementation Comments: Continue regular diet as ordered, honor food preferences, and provide snacks as requested d/c Ensure Expected Outcomes/Goals: PO intake to meet >75% est needs- met, goal ongoing Interpretation of weight loss: >7.5% in 3 months Malnutrition Findings: Weight Status: Appropriate ROSA DOWNS MD Mar 01, 2019 10:33
--- NOTE | 2019-03-01 11:11 | PDOC ---
PROGRESS NOTES Assessment Problems Medical Problems: (1) Fall Status: Acute (2) Intracranial hemorrhage Status: Acute Right superior frontal lobe intracranial hemorrhage and intraventricular hemorrhage, improved on yesterday's study Metabolic encephalopathy. Plan Avoid antiplatelet and anticoagulant agent at the present time. Agree with discharge plans, palliative care Subjective none Objective Vital Signs Date Time Temp Pulse Resp B/P (MAP) Pulse Ox O2 Delivery O2 Flow Rate FiO2 03/01/19 09:02 60 155/70 03/01/19 07:48 97.7 18 95 Room Air 97.7 Intake and Output 03/01/19 07:00 Intake Total 240 ml Balance 240 ml Intake Oral 240 ml # Voids 5 PHYSICAL EXAM Alert. Does not follow commands or speak Tu[place]. PERRL. EOMI. CN: no focal findings. Muscle tone: gegenhalten type rigidity Muscle strength: 4/5 DTR: 1+ Plantar reflex: flex or Gait: not examined in bed. Sensory exam: not cooperative. Cerebellar: not cooperative Review of Relevant I have reviewed the following items zully (where applicable) has been applied. Medications Current Medications Sodium Chloride 500 ml @ 500 mls/hr 1X ONCE IV Last administered on at 09:55; Start 02/22/19 at 10:00; Stop 02/22/19 at 10:59; Status DC Atorvastatin Calcium (Lipitor) 40 mg HS PO Last administered on 02/28/19at 21:04 ; Start 02/22/19 at 21:00 Isosorbide Mononitrate (Imdur) 30 mg DAILY PO Last administered on 03/01/19at 09: 01; Start 02/22/19 at 17:00 Metoprolol Succinate (Toprol Xl) 75 mg DAILY PO ; Start 02/22/19 at 17:00; Stop 02/23/19 at 15:45; Status DC Pantoprazole Sodium (Protonix) 40 mg DAILYAC PO Last administered on 03/01/19 07:39; Start 02/22/19 at 17:00 Ranolazine (Ranexa) 500 mg BID PO Last administered on 03/01/19 09:00; Start at 21:00 Levothyroxine Sodium (Synthroid) 50 mcg DAILY06 PO Last administered on 06:02; Start 02/22/19 at 17:00 Lisinopril (Prinivil) 5 mg BID PO Last administered on 03/01/19 09:01; Start at 21:00 Dextrose/Sodium Chloride 1,000 ml @ 100 mls/hr Q10H IV Last administered on 13:50; Start 02/22/19 at 16:30; Stop 02/23/19 at 18:50; Status DC Metoprolol Tartrate (Lopressor Vial) 5 mg Q6HRS IVP Last administered on 09:33; Start 02/23/19 at 16:30; Stop 02/28/19 at 06:18; Status DC Acetaminophen (Tylenol) 650 mg PRN Q8HRS PRN PO pain Last administered on 08:36; Start 02/24/19 at 14:30 Amlodipine Besylate (Norvasc) 5 mg DAILY PO Last administered on 03/01/19 09:01 ; Start 02/26/19 at 10:15 Docusate Sodium (Colace) 100 mg 1X ONCE PO Last administered on 02/26/19 13: 13; Start 02/26/19 at 13:00; Stop 02/26/19 at 13:01; Status DC Sennosides (Senna) 8.6 mg PRN BID PRN PO CONSTIPATION Last administered on 02/27 08:52; Start 02/26/19 at 13:00; Stop 02/27/19 at 15:58; Status DC Sennosides (Senna) 8.6 mg BID PO Last administered on 03/01/19 09:00; Start at 21:00 Metoprolol Tartrate (Lopressor) 50 mg BID PO Last administered on 03/01/19 09: 02; Start 02/28/19 at 09:00 Active Scripts Active Amlodipine Besylate 5 Mg Tablet 2.5 Mg PO DAILY 30 Days Ranexa (Ranolazine) 500 Mg Tab.er.12h 500 Mg PO BID 30 Days Isosorbide Mononitrate Er (Isosorbide Mononitrate) 30 Mg Tab.er.24h 30 Mg PO DAILY 30 Days Synthroid (Levothyroxine Sodium) 50 Mcg Tablet 1 Tab PO DAILY Furosemide 20 Mg Tablet 20 Mg PO DAILY 30 Days Lisinopril 5 Mg Tablet 5 Mg PO BID 30 Days Metoprolol Succinate 50 Mg Tab.er.24h 75 Mg PO DAILY 30 Days Pantoprazole Sodium 40 Mg Tablet.dr 40 Mg PO DAILYAC 30 Days Reported Lipitor (Atorvastatin Calcium) 40 Mg Tablet 40 Mg PO HS Vitals/I & O Vital Sign - Last 24 Hours 02/28/19 02/28/19 02/28/19 02/28/19 15:00 19:00 20:00 21:04 Temp 97.9 98.3 97.9 98.3 Pulse 62 61 61 Resp 18 18 B/P (MAP) 126/70 (88) 142/83 (102) 142/83 Pulse Ox 100 96 O2 Delivery Room Air Room Air Room Air 02/28/19 02/28/19 02/28/19 03/01/19 21:05 21:05 23:00 03:00 Temp 98.7 98.1 98.7 98.1 Pulse 61 61 65 63 Resp 16 18 B/P (MAP) 142/83 142/83 109/60 (76) 126/77 (93) Pulse Ox 94 97 O2 Delivery Room Air Room Air 03/01/19 03/01/19 03/01/19 03/01/19 07:48 09:00 09:01 09:01 Temp 97.7 97.7 Pulse 60 60 60 60 Resp 18 B/P (MAP) 155/70 (98) 155/70 155/70 155/70 Pulse Ox 95 O2 Delivery Room Air 03/01/19 03/01/19 09:01 09:02 Pulse 60 60 B/P (MAP) 155/70 155/70 Intake and Output 02/28/19 02/28/19 03/01/19 15:00 23:00 07:00 Intake Total 240 ml 0 ml Balance 240 ml [address] head without contrast: Ventricular systems are prominent but symmetric. There appears to be interval resolution of the intraventricular hemorrhage. No midline shift is seen. There is some generalized cerebral atrophy with some chronic deep white matter microischemic changes in the frontal and parietal lobes. There continues to be intraparenchymal hemorrhage in the left frontal gyrus measuring 1.3 cm in greatest dimension which has not changed. There appears to be resolution of the small intraparenchymal hemorrhage in the left frontal lobe anterior medially. No new sites of hemorrhage are seen. No sites of new infarct or masses are seen. No acute abnormalities are seen at the orbits. No acute abnormality is seen at the skull. There continues to be a scalp hematoma laterally in the left parietal convexity region. IMPRESSION: Continued presence of a 1.3 cm intraparenchymal hemorrhage in the superior left frontal gyrus without change. Apparent interval improvement of the small intraparenchymal hemorrhage in the left frontal lobe anteromedially. No intraventricular hemorrhage now evident. Generalized cerebral atrophy with microvascular ischemic changes bilaterally in the frontal and parietal lobes. Scalp hematoma in the left parietal convexity. YANIRA BAIRD MD Mar 01, 2019 11:11
[2019-03-01 11:20] VITALS: BP 101/63
--- NOTE | 2019-03-01 13:01 | NUR ---
[facility] following. [facility] received insurance auth for pt to go to their facility today. Pt will be transported by express transportation between [id number]. RN and family notified.
--- NOTE | 2019-03-01 14:05 | NUR ---
Pt found unresponsive in chair. Sternal rub performed with minimal response. This RN and GABBY Tao transferred pt to bed without complications. Rapid response called. Pt wincing with IV start. Rapid response team arrives. Pt becomes more alert/responses to light pain. Pt wheeled off unit for STAT head CT. Dr. Villalobos notified. Transfer canceled until tomorrow.
--- NOTE | 2019-03-01 14:56 | RAD ---
CT HEAD WO CONTRAST History: Mental status change Comparison: February 27, 2019 Technique: Noncontrast CT imaging was performed of the head. Exposure: One or more of the following individualized dose reduction techniques were utilized for this examination: 1. Automated exposure control 2. Adjustment of the mA and/or kV according to patient size 3. Use of iterative reconstruction technique. Findings: There is a 1.4 cm transverse by 1.1 cm AP by 1.3 cm cc focus of hyperdense parenchymal hemorrhage of the left frontal lobe extending to the cortical surface. Size is very similar. No new focus of intracranial hemorrhage is identified. There is no new midline shift. There is stable third and lateral ventriculomegaly, component of supratentorial atrophy. There is again scattered at least moderate ill-defined low-density of the supratentorial parenchyma bilaterally. There is atherosclerotic calcification of the carotid siphons bilaterally. Impression: 1. Previously seen left frontal region parenchymal hematoma is similar, no new hemorrhage. There is again scattered ill-defined low-density of the supratentorial parenchyma bilaterally most commonly due to chronic microvascular ischemic disease in a patient this age. There is third and lateral ventriculomegaly although there is component of atrophy present. Electronically signed by: Eduardo Davis MD (03/01/2019 2:53 PM) [id number]
[2019-03-01 15:00] VITALS: BP 106/62
--- NOTE | 2019-03-01 15:06 | NUR ---
Rapid Response. NA stated when she entered room she could not get patient to respond. Initial BP 86/56 with pulse of 56. Glucose checked 166. RN stated when she attempted sternal rub she got no response. Sternal rub again patient opens eyes, at second rub pt talking to RN. repeat bp 96/52. Pt still not as alert as earlier. CT head ordered . Floor RN calling Dr Elias to update on condition. Addendum: 03/01/19 at 1513 by FORTINO AVITIA RN Amended: Links added.
--- NOTE | 2019-03-01 15:21 | NUR ---
SW following, discussed with RN. Discharge to Acute rehab cancelled today due to pt being found unresponsive and rapid being called. SW called Acute Rehab to advise and plan for possible discharge tomorrow (03/02/19). SALUD will continue to follow.
--- NOTE | 2019-03-01 15:24 | EKG ---
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
[2019-03-01 19:25] VITALS: BP 109/56
[2019-03-01] MEDS: ATORVASTATIN CALCIUM 40 MG TABLET. PO SCH (21:07)
[2019-03-01 23:41] VITALS: BP 121/47
[2019-03-02] VITALS (8 sets, daily range): BP systolic 80–135; BP diastolic 50–89
[2019-03-02 03:31] LABS: BASO % 1 % (0-3); EOS # 0.3 x10^3/uL (0.0-0.7); EOS % 3 % (0-3); HEMATOCRIT 47.3 % (39.0-53.0); HEMOGLOBIN 15.9 g/dL (13.0-17.5); LYMPH # 2.3 x10^3/uL (1.0-4.8); LYMPH % 31 % (24-48); MEAN CORPUSCULAR HEMOGLOBIN 29 pg (25-35); MEAN CORPUSCULAR HGB CONC 34 g/dL (31-37); MEAN CORPUSCULAR VOLUME 87 fL (79-100); MONO # 0.7 x10^3/uL (0.0-1.1); MONO % 10 % (0-9); NEUT % 55 % (31-73); PLATELET COUNT 181 x10^3/uL (140-400); RED BLOOD COUNT 5.46 x10^6/uL (4.30-5.70); RED CELL DISTRIBUTION WIDTH 14.4 % (11.5-14.5); WHITE BLOOD COUNT 7.3 x10^3/uL (4.0-11.0)
[2019-03-02 04:01] LABS: ALBUMIN 3.6 g/dL (3.4-5.0); ALBUMIN/GLOBULIN RATIO 0.8 (1.0-1.7); CALCIUM 9.2 mg/dL (8.5-10.1); CREATININE 1.4 mg/dL (0.7-1.3); GFR 47.9; POTASSIUM 4.6 mmol/L (3.5-5.1); TOTAL BILIRUBIN 0.4 mg/dL (0.2-1.0); TOTAL PROTEIN 8.2 g/dL (6.4-8.2)
[2019-03-02] MEDS: LEVOTHYROXINE 50 MCG TABLET PO SCH (06:08)
[2019-03-02] MEDS: PANTOPRAZOLE 40 MG TABLET.DR. PO SCH (06:08)
[2019-03-02] MEDS: LISINOPRIL 5 MG TABLET. PO SCH ×2 (09:00→21:00)
[2019-03-02] MEDS: METOPROLOL TART IMMED RELEASE 50 MG TABLET. PO SCH ×2 (09:41→21:04)
[2019-03-02] MEDS: RANOLAZINE 500 MG TAB.ER.12H PO SCH ×2 (09:41→21:00)
[2019-03-02] MEDS: SENNOSIDES 8.6 MG TABLET PO SCH ×2 (09:41→20:59)
[2019-03-02] MEDS: amLODIPine BESYLATE 5 MG TABLET PO SCH (09:42)
--- NOTE | 2019-03-02 09:44 | PDOC ---
PROGRESS NOTES Subjective Subjective feels better today, smiling and participating Objective Objective Vital Signs Date Time Temp Pulse Resp B/P (MAP) Pulse Ox O2 Delivery O2 Flow Rate FiO2 03/02/19 07:00 97.9 62 18 130/74 (92) 99 Room Air 97.9 Intake and Output 03/02/19 06:59 Intake Total 360 ml Output Total 150 ml Balance 210 ml Intake Oral 360 ml Output Urine Total 150 ml # Voids 4 Physical Exam Abdomen: Normal bowel sounds, Soft Heart: Regular rate, Normal S1 Extremities: No clubbing General: Alert, Cooperative, No acute distress HEENT: Atraumatic (scalp hematoma) Lungs: Clear to auscultation MUSCULOSKELETAL: Other (BELTRAN) Neuro: Normal speech Psych/Mental Status: Mood NL Skin: No significant lesion Diagnosis Problem List Problems Medical Problems: (1) Fall Status: Acute (2) Intracranial hemorrhage Status: Acute Assessment Assessment Problems Medical Problems: (1) Fall Status: Acute (2) Intracranial hemorrhage Status: Acute FINAL IMPRESSION: 1. Intracranial bleed. 2. Mechanical fall at home.Scalp hematoma. 3. Coronary artery disease. The patient had a cardiac stent 2 years ago. He is on Plavix.Chronically elevated troponin. 4. Hypothyroidism. 5. Pacemaker for sick sinus syndrome. 6. 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 7. Mild aortic insufficiency. 8. Hypertension. 9. Hyperlipidemia. PLAN: episode of confusion yesterday improved. smiling and participating in therapy stable for discharge to rehab. d/c to Rehab/SNU today CT scan of head yesterday shows ,decrease in the hemorrhage. Hypertension- stable Continue PT OT speech therapy. spoke with rehab dr espinosa. d/riki all blood thinners, due to ICB. Dr. Kendrick's notes appreciated. Discharge management 25 minutes. Plan Plan of Care Problems Medical Problems: (1) Fall Status: Acute (2) Intracranial hemorrhage Status: Acute Comment Review of Relevant I have reviewed the following items zully (where applicable) has been applied. Labs Laboratory Tests Test 03/01/19 14:21 03/02/19 03:00 Glucose (Fingerstick) 161 mg/dL (70-99) White Blood Count 7.3 x10^3/uL (4.0-11.0) Red Blood Count 5.46 x10^6/uL (4.30-5.70) Hemoglobin 15.9 g/dL (13.0-17.5) Hematocrit 47.3 % (39.0-53.0) Mean Corpuscular Volume 87 fL (79-100) Mean Corpuscular Hemoglobin 29 pg (25-35) Mean Corpuscular Hemoglobin Concent 34 g/dL (31-37) Red Cell Distribution Width 14.4 % (11.5-14.5) Platelet Count 181 x10^3/uL (140-400) Neutrophils (%) (Auto) 55 % (31-73) Lymphocytes (%) (Auto) 31 % (24-48) Monocytes (%) (Auto) 10 % (0-9) Eosinophils (%) (Auto) 3 % (0-3) Basophils (%) (Auto) 1 % (0-3) Neutrophils # (Auto) 4.0 x10^3uL (1.8-7.7) Lymphocytes # (Auto) 2.3 x10^3/uL (1.0-4.8) Monocytes # (Auto) 0.7 x10^3/uL (0.0-1.1) Eosinophils # (Auto) 0.3 x10^3/uL (0.0-0.7) Basophils # (Auto) 0.0 x10^3/uL (0.0-0.2) Sodium Level 136 mmol/L (136-145) Potassium Level 4.6 mmol/L (3.5-5.1) Chloride Level 99 mmol/L (98-107) Carbon Dioxide Level 25 mmol/L (21-32) Anion Gap 12 (6-14) Blood Urea Nitrogen 27 mg/dL (8-26) Creatinine 1.4 mg/dL (0.7-1.3) Estimated GFR (Cockcroft-Gault) 47.9 BUN/Creatinine Ratio 19 (6-20) Glucose Level 122 mg/dL (70-99) Calcium Level 9.2 mg/dL (8.5-10.1) Total Bilirubin 0.4 mg/dL (0.2-1.0) Aspartate Amino Transf (AST/SGOT) 21 U/L (15-37) Alanine Aminotransferase (ALT/SGPT) 22 U/L (16-63) Alkaline Phosphatase 115 U/L (46-116) Total Protein 8.2 g/dL (6.4-8.2) Albumin 3.6 g/dL (3.4-5.0) Albumin/Globulin Ratio 0.8 (1.0-1.7) Vitals/I & O Vital Sign - Last 24 Hours 03/01/19 03/01/19 03/01/19 03/01/19 11:20 15:00 19:25 20:00 Temp 97.3 97.6 97.3 97.6 Pulse 69 60 60 Resp 16 18 28 B/P (MAP) 101/63 (76) 106/62 (77) 109/56 (73) Pulse Ox 94 97 97 O2 Delivery Room Air Room Air Room Air Room Air 03/01/19 03/01/19 03/01/19 03/01/19 21:11 21:12 21:13 23:41 Temp 97.4 97.4 Pulse 60 60 60 60 Resp 20 B/P (MAP) 109/56 109/56 109/56 121/47 (71) Pulse Ox 99 O2 Delivery Room Air 03/02/19 03/02/19 03:21 07:00 Temp 98.0 97.9 98.0 97.9 Pulse 60 62 Resp 20 18 B/P (MAP) 127/71 (89) 130/74 (92) Pulse Ox 98 99 O2 Delivery Room Air Room Air Intake and Output 03/01/19 03/01/19 03/02/19 14:59 22:59 06:59 Intake Total 360 ml Output Total 150 ml Balance 210 ml Nutrition Consultation Dietary Evaluation: Recommendations by RD: Protein supplementation Comments: Continue regular diet as ordered, honor food preferences, and provide snacks as requested d/c Ensure Expected Outcomes/Goals: PO intake to meet >75% est needs- met, goal ongoing Interpretation of weight loss: >7.5% in 3 months Malnutrition Findings: Weight Status: Appropriate AUGUST HUITRON MD Mar 02, 2019 09:44
--- NOTE | 2019-03-02 09:46 | SNU/HH DC ---
DISCHARGE ORDERS DISCHARGE INFORMATION: DISCHARGE DATE: Mar 02, 2019 FINAL DIAGNOSIS Problems Medical Problems: (1) Fall Status: Acute (2) Intracranial hemorrhage Status: Acute CONDITION ON DISCHARGE: Stable CODE STATUS: Code Status: Full POST DISCHARGE ORDERS: ACTIVITY ORDERS: Activity as tolerated WEIGHT BEARING STATUS: As tolerated BATHING ORDERS: No Tub Bath until see Dr. WYLIE AFTER DISCHARGE: Cardiac WOUND/INCISION CARE: No wound care needed CHECKS AFTER DISCHARGE: CHECKS AFTER DISCHARGE: Check blood press - daily, Check your Temp as needed, Weigh Yourself Daily FOLLOW-UP: ANTICOAGULATION F/U NEEDED: no blood thinners due to intra cranial bleed TREATMENT/EQUIPMENT ORDERS: ADAPTIVE EQUIPMENT NEEDED: None, Front wheeled walker Physical Therapy For: Evalulation/Treatment Occupational Therapy For: Evaluation/Treatment Speech Language Pathology For: Evaluation/Treatment DISCHARGE MEDICATIONS: Home Meds Active Scripts Amlodipine Besylate (AMLODIPINE BESYLATE) 5 Mg Tablet, 2.5 MG PO DAILY for htn for 30 Days, #15 TAB Prov:AUGUST HUITRON MD 01/29/19 Ranolazine (RANEXA) 500 Mg Tab.er.12h, 500 MG PO BID for cad for 30 Days, #60 TAB.SR Prov:AUGUST HUITRON MD 01/29/19 Isosorbide Mononitrate (ISOSORBIDE MONONITRATE ER) 30 Mg Tab.er.24h, 30 MG PO DAILY for cad for 30 Days, #30 TAB.SR Prov:ROSA DOWNS MD 12/04/18 Levothyroxine Sodium (SYNTHROID) 50 Mcg Tablet, 1 TAB PO DAILY, #30 TAB 5 Refills Prov:AUGUST HUITRON MD 04/14/18 Furosemide (FUROSEMIDE) 20 Mg Tablet, 20 MG PO DAILY for 30 Days, #30 TAB Prov:AUGUST HUITRON MD 04/14/18 Lisinopril (LISINOPRIL) 5 Mg Tablet, 5 MG PO BID for 30 Days, #60 TAB Prov:AUGUST HUITRON MD 04/14/18 Metoprolol Succinate (Metoprolol Succinate) 50 Mg Tab.er.24h, 75 MG PO DAILY for 30 Days, #45 TAB.SR Prov:AUGUST HUITRON MD 04/14/18 Pantoprazole Sodium (PANTOPRAZOLE SODIUM) 40 Mg Tablet.dr, 40 MG PO DAILYAC for 30 Days, TAB.SR 2 Refills Prov:AUGUST HUITRON MD 04/01/17 Reported Medications Atorvastatin Calcium (LIPITOR) 40 Mg Tablet, 40 MG PO HS for FOR CHOLESTEROL, # 30 TAB 0 Refills 05/09/16 Discontinued Scripts Clopidogrel Bisulfate (CLOPIDOGREL) 75 Mg Tablet, 75 MG PO DAILYWBKFT for cad for 30 Days, #30 TAB Prov:ROSA DOWNS MD 12/04/18 AUGUST HUITRON MD Mar 02, 2019 09:46
--- NOTE | 2019-03-02 10:22 | PDOC ---
PROGRESS NOTES Subjective Subjective No new complaints. Objective Objective Vital Signs Date Time Temp Pulse Resp B/P (MAP) Pulse Ox O2 Delivery O2 Flow Rate FiO2 03/02/19 09:42 62 130/74 03/02/19 07:00 97.9 18 99 Room Air 97.9 Intake and Output 03/02/19 06:59 Intake Total 360 ml Output Total 150 ml Balance 210 ml Intake Oral 360 ml Output Urine Total 150 ml # Voids 4 Physical Exam Physical Exam He is alert,sitting in bedside chair and seems to be in no distress and he continues with balance problems.He has been participating with therapy. Assessment Assessment Problems Medical Problems: (1) Fall Status: Acute (2) Intracranial hemorrhage Status: Acute Plan Plan of Care Agree with plans for transfer to rehab unit at [facility] for continued in-patient rehab program. Comment Review of Relevant I have reviewed the following items zully (where applicable) has been applied. Labs Laboratory Tests Test 03/01/19 14:21 03/02/19 03:00 Glucose (Fingerstick) 161 mg/dL (70-99) White Blood Count 7.3 x10^3/uL (4.0-11.0) Red Blood Count 5.46 x10^6/uL (4.30-5.70) Hemoglobin 15.9 g/dL (13.0-17.5) Hematocrit 47.3 % (39.0-53.0) Mean Corpuscular Volume 87 fL (79-100) Mean Corpuscular Hemoglobin 29 pg (25-35) Mean Corpuscular Hemoglobin Concent 34 g/dL (31-37) Red Cell Distribution Width 14.4 % (11.5-14.5) Platelet Count 181 x10^3/uL (140-400) Neutrophils (%) (Auto) 55 % (31-73) Lymphocytes (%) (Auto) 31 % (24-48) Monocytes (%) (Auto) 10 % (0-9) Eosinophils (%) (Auto) 3 % (0-3) Basophils (%) (Auto) 1 % (0-3) Neutrophils # (Auto) 4.0 x10^3uL (1.8-7.7) Lymphocytes # (Auto) 2.3 x10^3/uL (1.0-4.8) Monocytes # (Auto) 0.7 x10^3/uL (0.0-1.1) Eosinophils # (Auto) 0.3 x10^3/uL (0.0-0.7) Basophils # (Auto) 0.0 x10^3/uL (0.0-0.2) Sodium Level 136 mmol/L (136-145) Potassium Level 4.6 mmol/L (3.5-5.1) Chloride Level 99 mmol/L (98-107) Carbon Dioxide Level 25 mmol/L (21-32) Anion Gap 12 (6-14) Blood Urea Nitrogen 27 mg/dL (8-26) Creatinine 1.4 mg/dL (0.7-1.3) Estimated GFR (Cockcroft-Gault) 47.9 BUN/Creatinine Ratio 19 (6-20) Glucose Level 122 mg/dL (70-99) Calcium Level 9.2 mg/dL (8.5-10.1) Total Bilirubin 0.4 mg/dL (0.2-1.0) Aspartate Amino Transf (AST/SGOT) 21 U/L (15-37) Alanine Aminotransferase (ALT/SGPT) 22 U/L (16-63) Alkaline Phosphatase 115 U/L (46-116) Total Protein 8.2 g/dL (6.4-8.2) Albumin 3.6 g/dL (3.4-5.0) Albumin/Globulin Ratio 0.8 (1.0-1.7) Laboratory Tests Test 03/01/19 14:21 03/02/19 03:00 Glucose (Fingerstick) 161 mg/dL (70-99) White Blood Count 7.3 x10^3/uL (4.0-11.0) Red Blood Count 5.46 x10^6/uL (4.30-5.70) Hemoglobin 15.9 g/dL (13.0-17.5) Hematocrit 47.3 % (39.0-53.0) Mean Corpuscular Volume 87 fL (79-100) Mean Corpuscular Hemoglobin 29 pg (25-35) Mean Corpuscular Hemoglobin Concent 34 g/dL (31-37) Red Cell Distribution Width 14.4 % (11.5-14.5) Platelet Count 181 x10^3/uL (140-400) Neutrophils (%) (Auto) 55 % (31-73) Lymphocytes (%) (Auto) 31 % (24-48) Monocytes (%) (Auto) 10 % (0-9) Eosinophils (%) (Auto) 3 % (0-3) Basophils (%) (Auto) 1 % (0-3) Neutrophils # (Auto) 4.0 x10^3uL (1.8-7.7) Lymphocytes # (Auto) 2.3 x10^3/uL (1.0-4.8) Monocytes # (Auto) 0.7 x10^3/uL (0.0-1.1) Eosinophils # (Auto) 0.3 x10^3/uL (0.0-0.7) Basophils # (Auto) 0.0 x10^3/uL (0.0-0.2) Sodium Level 136 mmol/L (136-145) Potassium Level 4.6 mmol/L (3.5-5.1) Chloride Level 99 mmol/L (98-107) Carbon Dioxide Level 25 mmol/L (21-32) Anion Gap 12 (6-14) Blood Urea Nitrogen 27 mg/dL (8-26) Creatinine 1.4 mg/dL (0.7-1.3) Estimated GFR (Cockcroft-Gault) 47.9 BUN/Creatinine Ratio 19 (6-20) Glucose Level 122 mg/dL (70-99) Calcium Level 9.2 mg/dL (8.5-10.1) Total Bilirubin 0.4 mg/dL (0.2-1.0) Aspartate Amino Transf (AST/SGOT) 21 U/L (15-37) Alanine Aminotransferase (ALT/SGPT) 22 U/L (16-63) Alkaline Phosphatase 115 U/L (46-116) Total Protein 8.2 g/dL (6.4-8.2) Albumin 3.6 g/dL (3.4-5.0) Albumin/Globulin Ratio 0.8 (1.0-1.7) Medications Current Medications Sodium Chloride 500 ml @ 500 mls/hr 1X ONCE IV Last administered on at 09:55; Start 02/22/19 at 10:00; Stop 02/22/19 at 10:59; Status DC Atorvastatin Calcium (Lipitor) 40 mg HS PO Last administered on 03/01/19at 21:07 ; Start 02/22/19 at 21:00 Isosorbide Mononitrate (Imdur) 30 mg DAILY PO Last administered on 03/01/19 09: 01; Start 02/22/19 at 17:00 Metoprolol Succinate (Toprol Xl) 75 mg DAILY PO ; Start 02/22/19 at 17:00; Stop 02/23/19 at 15:45; Status DC Pantoprazole Sodium (Protonix) 40 mg DAILYAC PO Last administered on 03/02/19 06:08; Start 02/22/19 at 17:00 Ranolazine (Ranexa) 500 mg BID PO Last administered on 03/02/19 09:41; Start at 21:00 Levothyroxine Sodium (Synthroid) 50 mcg DAILY06 PO Last administered on 06:08; Start 02/22/19 at 17:00 Lisinopril (Prinivil) 5 mg BID PO Last administered on 03/01/19 21:12; Start at 21:00 Dextrose/Sodium Chloride 1,000 ml @ 100 mls/hr Q10H IV Last administered on 13:50; Start 02/22/19 at 16:30; Stop 02/23/19 at 18:50; Status DC Metoprolol Tartrate (Lopressor Vial) 5 mg Q6HRS IVP Last administered on 09:33; Start 02/23/19 at 16:30; Stop 02/28/19 at 06:18; Status DC Acetaminophen (Tylenol) 650 mg PRN Q8HRS PRN PO pain Last administered on 08:36; Start 02/24/19 at 14:30 Amlodipine Besylate (Norvasc) 5 mg DAILY PO Last administered on 03/02/19 09:42 ; Start 02/26/19 at 10:15 Docusate Sodium (Colace) 100 mg 1X ONCE PO Last administered on 02/26/19 13: 13; Start 02/26/19 at 13:00; Stop 02/26/19 at 13:01; Status DC Sennosides (Senna) 8.6 mg PRN BID PRN PO CONSTIPATION Last administered on 02/27 08:52; Start 02/26/19 at 13:00; Stop 02/27/19 at 15:58; Status DC Sennosides (Senna) 8.6 mg BID PO Last administered on 03/02/19at 09:41; Start at 21:00 Metoprolol Tartrate (Lopressor) 50 mg BID PO Last administered on 03/02/19at 09: 41; Start 02/28/19 at 09:00 Active Scripts Active Amlodipine Besylate 5 Mg Tablet 2.5 Mg PO DAILY 30 Days Ranexa (Ranolazine) 500 Mg Tab.er.12h 500 Mg PO BID 30 Days Isosorbide Mononitrate Er (Isosorbide Mononitrate) 30 Mg Tab.er.24h 30 Mg PO DAILY 30 Days Synthroid (Levothyroxine Sodium) 50 Mcg Tablet 1 Tab PO DAILY Furosemide 20 Mg Tablet 20 Mg PO DAILY 30 Days Lisinopril 5 Mg Tablet 5 Mg PO BID 30 Days Metoprolol Succinate 50 Mg Tab.er.24h 75 Mg PO DAILY 30 Days Pantoprazole Sodium 40 Mg Tablet.dr 40 Mg PO DAILYAC 30 Days Reported Lipitor (Atorvastatin Calcium) 40 Mg Tablet 40 Mg PO HS Vitals/I & O Vital Sign - Last 24 Hours 03/01/19 03/01/19 03/01/19 03/01/19 11:20 15:00 19:25 20:00 Temp 97.3 97.6 97.3 97.6 Pulse 69 60 60 Resp 16 18 28 B/P (MAP) 101/63 (76) 106/62 (77) 109/56 (73) Pulse Ox 94 97 97 O2 Delivery Room Air Room Air Room Air Room Air 03/01/19 03/01/19 03/01/19 03/01/19 21:11 21:12 21:13 23:41 Temp 97.4 97.4 Pulse 60 60 60 60 Resp 20 B/P (MAP) 109/56 109/56 109/56 121/47 (71) Pulse Ox 99 O2 Delivery Room Air 03/02/19 03/02/19 03/02/19 03/02/19 03:21 07:00 09:41 09:41 Temp 98.0 97.9 98.0 97.9 Pulse 60 62 62 62 Resp 20 18 B/P (MAP) 127/71 (89) 130/74 (92) 130/74 130/74 Pulse Ox 98 99 O2 Delivery Room Air Room Air 03/02/19 09:42 Pulse 62 B/P (MAP) 130/74 Intake and Output 03/01/19 03/01/19 03/02/19 14:59 22:59 06:59 Intake Total 360 ml Output Total 150 ml Balance 210 ml Nutrition Consultation Dietary Evaluation: Recommendations by RD: Protein supplementation Comments: Continue regular diet as ordered, honor food preferences, and provide snacks as requested d/c Ensure Expected Outcomes/Goals: PO intake to meet >75% est needs- met, goal ongoing Interpretation of weight loss: >7.5% in 3 months Malnutrition Findings: Weight Status: Appropriate DAYA DUBON MD Mar 02, 2019 10:22
--- NOTE | 2019-03-02 12:06 | PDOC ---
PROGRESS NOTES Assessment Problems Medical Problems: (1) Fall Status: Acute (2) Intracranial hemorrhage Status: Acute He had an episode of unresponsiveness yesterday, I was not notified. Note CT result Right superior frontal lobe intracranial hemorrhage and intraventricular hemorrhage, improved on yesterday's study Metabolic encephalopathy. Plan Avoid antiplatelet and anticoagulant agent at the present time. Agree with discharge plans, palliative care. He is going to rehab, hard to believe that this demented patient will participate fully in rehab Subjective No complaints Objective Vital Signs Date Time Temp Pulse Resp B/P (MAP) Pulse Ox O2 Delivery O2 Flow Rate FiO2 03/02/19 11:00 98.0 64 18 94/60 (71) 95 Room Air 98.0 Intake and Output 03/02/19 07:00 Intake Total 360 ml Output Total 150 ml Balance 210 ml Intake Oral 360 ml Output Urine Total 150 ml # Voids 4 PHYSICAL EXAM Alert. Does not follow commands or speak [place]. PERRL. EOMI. CN: no focal findings. Muscle tone: gegenhalten type rigidity Muscle strength: 4/5 DTR: 1+ Plantar reflex: flexor Gait: not examined in bed. Sensory exam: not cooperative. Cerebellar: not cooperative Review of Relevant I have reviewed the following items zully (where applicable) has been applied. Labs Laboratory Tests Test 03/01/19 14:21 03/02/19 03:00 Glucose (Fingerstick) 161 mg/dL (70-99) White Blood Count 7.3 x10^3/uL (4.0-11.0) Red Blood Count 5.46 x10^6/uL (4.30-5.70) Hemoglobin 15.9 g/dL (13.0-17.5) Hematocrit 47.3 % (39.0-53.0) Mean Corpuscular Volume 87 fL (79-100) Mean Corpuscular Hemoglobin 29 pg (25-35) Mean Corpuscular Hemoglobin Concent 34 g/dL (31-37) Red Cell Distribution Width 14.4 % (11.5-14.5) Platelet Count 181 x10^3/uL (140-400) Neutrophils (%) (Auto) 55 % (31-73) Lymphocytes (%) (Auto) 31 % (24-48) Monocytes (%) (Auto) 10 % (0-9) Eosinophils (%) (Auto) 3 % (0-3) Basophils (%) (Auto) 1 % (0-3) Neutrophils # (Auto) 4.0 x10^3uL (1.8-7.7) Lymphocytes # (Auto) 2.3 x10^3/uL (1.0-4.8) Monocytes # (Auto) 0.7 x10^3/uL (0.0-1.1) Eosinophils # (Auto) 0.3 x10^3/uL (0.0-0.7) Basophils # (Auto) 0.0 x10^3/uL (0.0-0.2) Sodium Level 136 mmol/L (136-145) Potassium Level 4.6 mmol/L (3.5-5.1) Chloride Level 99 mmol/L (98-107) Carbon Dioxide Level 25 mmol/L (21-32) Anion Gap 12 (6-14) Blood Urea Nitrogen 27 mg/dL (8-26) Creatinine 1.4 mg/dL (0.7-1.3) Estimated GFR (Cockcroft-Gault) 47.9 BUN/Creatinine Ratio 19 (6-20) Glucose Level 122 mg/dL (70-99) Calcium Level 9.2 mg/dL (8.5-10.1) Total Bilirubin 0.4 mg/dL (0.2-1.0) Aspartate Amino Transf (AST/SGOT) 21 U/L (15-37) Alanine Aminotransferase (ALT/SGPT) 22 U/L (16-63) Alkaline Phosphatase 115 U/L (46-116) Total Protein 8.2 g/dL (6.4-8.2) Albumin 3.6 g/dL (3.4-5.0) Albumin/Globulin Ratio 0.8 (1.0-1.7) Laboratory Tests Test 03/01/19 14:21 03/02/19 03:00 Glucose (Fingerstick) 161 mg/dL (70-99) White Blood Count 7.3 x10^3/uL (4.0-11.0) Red Blood Count 5.46 x10^6/uL (4.30-5.70) Hemoglobin 15.9 g/dL (13.0-17.5) Hematocrit 47.3 % (39.0-53.0) Mean Corpuscular Volume 87 fL (79-100) Mean Corpuscular Hemoglobin 29 pg (25-35) Mean Corpuscular Hemoglobin Concent 34 g/dL (31-37) Red Cell Distribution Width 14.4 % (11.5-14.5) Platelet Count 181 x10^3/uL (140-400) Neutrophils (%) (Auto) 55 % (31-73) Lymphocytes (%) (Auto) 31 % (24-48) Monocytes (%) (Auto) 10 % (0-9) Eosinophils (%) (Auto) 3 % (0-3) Basophils (%) (Auto) 1 % (0-3) Neutrophils # (Auto) 4.0 x10^3uL (1.8-7.7) Lymphocytes # (Auto) 2.3 x10^3/uL (1.0-4.8) Monocytes # (Auto) 0.7 x10^3/uL (0.0-1.1) Eosinophils # (Auto) 0.3 x10^3/uL (0.0-0.7) Basophils # (Auto) 0.0 x10^3/uL (0.0-0.2) Sodium Level 136 mmol/L (136-145) Potassium Level 4.6 mmol/L (3.5-5.1) Chloride Level 99 mmol/L (98-107) Carbon Dioxide Level 25 mmol/L (21-32) Anion Gap 12 (6-14) Blood Urea Nitrogen 27 mg/dL (8-26) Creatinine 1.4 mg/dL (0.7-1.3) Estimated GFR (Cockcroft-Gault) 47.9 BUN/Creatinine Ratio 19 (6-20) Glucose Level 122 mg/dL (70-99) Calcium Level 9.2 mg/dL (8.5-10.1) Total Bilirubin 0.4 mg/dL (0.2-1.0) Aspartate Amino Transf (AST/SGOT) 21 U/L (15-37) Alanine Aminotransferase (ALT/SGPT) 22 U/L (16-63) Alkaline Phosphatase 115 U/L (46-116) Total Protein 8.2 g/dL (6.4-8.2) Albumin 3.6 g/dL (3.4-5.0) Albumin/Globulin Ratio 0.8 (1.0-1.7) Medications Current Medications Sodium Chloride 500 ml @ 500 mls/hr 1X ONCE IV Last administered on 09:55; Start 02/22/19 at 10:00; Stop 02/22/19 at 10:59; Status DC Atorvastatin Calcium (Lipitor) 40 mg HS PO Last administered on 03/01/19 21:07 ; Start 02/22/19 at 21:00 Isosorbide Mononitrate (Imdur) 30 mg DAILY PO Last administered on 03/01/19 09: 01; Start 02/22/19 at 17:00 Metoprolol Succinate (Toprol Xl) 75 mg DAILY PO ; Start 02/22/19 at 17:00; Stop 02/23/19 at 15:45; Status DC Pantoprazole Sodium (Protonix) 40 mg DAILYAC PO Last administered on 03/02/19 06:08; Start 02/22/19 at 17:00 Ranolazine (Ranexa) 500 mg BID PO Last administered on 03/02/19 09:41; Start at 21:00 Levothyroxine Sodium (Synthroid) 50 mcg DAILY06 PO Last administered on 06:08; Start 02/22/19 at 17:00 Lisinopril (Prinivil) 5 mg BID PO Last administered on 03/01/19 21:12; Start at 21:00 Dextrose/Sodium Chloride 1,000 ml @ 100 mls/hr Q10H IV Last administered on 13:50; Start 02/22/19 at 16:30; Stop 02/23/19 at 18:50; Status DC Metoprolol Tartrate (Lopressor Vial) 5 mg Q6HRS IVP Last administered on 09:33; Start 02/23/19 at 16:30; Stop 02/28/19 at 06:18; Status DC Acetaminophen (Tylenol) 650 mg PRN Q8HRS PRN PO pain Last administered on 08:36; Start 02/24/19 at 14:30 Amlodipine Besylate (Norvasc) 5 mg DAILY PO Last administered on 03/02/19 09:42 ; Start 02/26/19 at 10:15 Docusate Sodium (Colace) 100 mg 1X ONCE PO Last administered on 02/26/19at 13: 13; Start 02/26/19 at 13:00; Stop 02/26/19 at 13:01; Status DC Sennosides (Senna) 8.6 mg PRN BID PRN PO CONSTIPATION Last administered on 02/27at 08:52; Start 02/26/19 at 13:00; Stop 02/27/19 at 15:58; Status DC Sennosides (Senna) 8.6 mg BID PO Last administered on 03/02/19at 09:41; Start at 21:00 Metoprolol Tartrate (Lopressor) 50 mg BID PO Last administered on 03/02/19at 09: 41; Start 02/28/19 at 09:00 Active Scripts Active Amlodipine Besylate 5 Mg Tablet 2.5 Mg PO DAILY 30 Days Ranexa (Ranolazine) 500 Mg Tab.er.12h 500 Mg PO BID 30 Days Isosorbide Mononitrate Er (Isosorbide Mononitrate) 30 Mg Tab.er.24h 30 Mg PO DAILY 30 Days Synthroid (Levothyroxine Sodium) 50 Mcg Tablet 1 Tab PO DAILY Furosemide 20 Mg Tablet 20 Mg PO DAILY 30 Days Lisinopril 5 Mg Tablet 5 Mg PO BID 30 Days Metoprolol Succinate 50 Mg Tab.er.24h 75 Mg PO DAILY 30 Days Pantoprazole Sodium 40 Mg Tablet.dr 40 Mg PO DAILYAC 30 Days Reported Lipitor (Atorvastatin Calcium) 40 Mg Tablet 40 Mg PO HS Vitals/I & O Vital Sign - Last 24 Hours 03/01/19 03/01/19 03/01/19 03/01/19 15:00 19:25 20:00 21:11 Temp 97.6 97.6 Pulse 60 60 60 Resp 18 28 B/P (MAP) 106/62 (77) 109/56 (73) 109/56 Pulse Ox 97 97 O2 Delivery Room Air Room Air Room Air 03/01/19 03/01/19 03/01/19 03/02/19 21:12 21:13 23:41 03:21 Temp 97.4 98.0 97.4 98.0 Pulse 60 60 60 60 Resp 20 20 B/P (MAP) 109/56 109/56 121/47 (71) 127/71 (89) Pulse Ox 99 98 O2 Delivery Room Air Room Air 03/02/19 03/02/19 03/02/19 03/02/19 07:00 08:00 09:41 09:41 Temp 97.9 97.9 Pulse 62 62 62 Resp 18 B/P (MAP) 130/74 (92) 130/74 130/74 Pulse Ox 99 O2 Delivery Room Air Room Air 03/02/19 03/02/19 09:42 11:00 Temp 98.0 98.0 Pulse 62 64 Resp 18 B/P (MAP) 130/74 94/60 (71) Pulse Ox 95 O2 Delivery Room Air Intake and Output 03/01/19 03/01/19 03/02/19 15:00 23:00 07:00 Intake Total 360 ml Output Total 150 ml Balance [address] HEAD WO CONTRAST History: Mental status change Comparison: February 27, 2019 Technique: Noncontrast CT imaging was performed of the head. Exposure: One or more of the following individualized dose reduction techniques were utilized for this examination: 1. Automated exposure control 2. Adjustment of the mA and/or kV according to patient size 3. Use of iterative reconstruction technique. Findings: There is a 1.4 cm transverse by 1.1 cm AP by 1.3 cm cc focus of hyperdense parenchymal hemorrhage of the left frontal lobe extending to the cortical surface. Size is very similar. No new focus of intracranial hemorrhage is identified. There is no new midline shift. There is stable third and lateral ventriculomegaly, component of supratentorial atrophy. There is again scattered at least moderate ill-defined low-density of the supratentorial parenchyma bilaterally. There is atherosclerotic calcification of the carotid siphons bilaterally. Impression: 1. Previously seen left frontal region parenchymal hematoma is similar, no new hemorrhage. There is again scattered ill-defined low-density of the supratentorial parenchyma bilaterally most commonly due to chronic microvascular ischemic disease in a patient this age. There is third and lateral ventriculomegaly although there is component of atrophy present. YANIRA BAIRD MD Mar 02, 2019 12:06
--- NOTE | 2019-03-02 12:15 | NUR ---
Called into pt room by TIMOTHY Garza. Pt sitting in chair unresponsive. Pt breathing, pulse felt. Sternal rub preformed with minimal reaction. GABBY Escobar stayed with pt while this RN called Dr. Elias. New orders placed. Pt to transfer to . Pt in transferred to bed by GABBY Del Rio and GABBY Escobar without complications. Fluids started. Pt responding to light painful stimuli. Family at bedside. Will continue to monitor.
[2019-03-02] MEDS ORDERED: IV NORMAL SALINE 500ML BAG 500 ML IV ONE (12:30)
--- NOTE | 2019-03-02 13:06 | EKG ---
[facility] [address] [place] [address] Test Date: 2019-03-02 Test Time: 12:46:50 Pat Name: ZOHRA RICH Department: Room: 438 1 Gender: M Wood Turner: AT : 1930 Requested By: AUGUST HUITRON Order Number: [id number] Reading MD: Francis Askew MD Measurements Intervals [place] Rate: 60 P: -67 MO: 290 QRS: 52 QRSD: 90 T: -104 QT: 444 QTc: 448 Interpretive Statements PROBABLE A-PACED RHYTHM 1ST DEGREE AVB NON-SPECIFIC ST/T CHANGES Electronically Signed On 03-03-2019 9:39:25 CDT by Francis Askew MD
[2019-03-02] MEDS: ACETAMINOPHEN 325 MG TABLET. PO PRN (13:27)
[2019-03-02] MEDS: ISOSORBIDE MONONITRATE ER 30 MG TAB.ER.24H PO SCH (14:00)
[2019-03-02] MEDS: IV NORMAL SALINE 1000ML BAG 1,000 ML IV SCH ×2 (14:00→19:27)
--- NOTE | 2019-03-02 14:49 | NUR ---
Nursing: Patient transferred to unit via bed accompanied by nurse. Unable to orient to room. Oriented to self. Vitals assessed and stable. Family at bedside. IV fluid running when arriving to unit. Will continue to monitor.
[2019-03-02 15:25] LABS: BASE EXCESS ABG -2 mmol/L (-3-3); HCO3 ABG 21 mmol/L (21-28); PCO2 ABG 33 mmHg (35-46); PO2 ABG 80 mmHg (65-108); SAT O2 ABG 96 % (92-99)
--- NOTE | 2019-03-02 16:16 | PDOC ---
[employer] 03/02/19 1616: CARDIO Progress Notes Date and Time Date of Service 03/02/19 Time of Evaluation 1530 Subjective Subjective: No Chest Pain, No shortness of breath Vitals Vitals Vital Signs Date Time Temp Pulse Resp B/P (MAP) Pulse Ox O2 Delivery O2 Flow Rate FiO2 03/02/19 15:00 98.2 92 16 122/73 (89) 97 Room Air 98.2 Weight Weight [ ] Input and Output Intake and Output Intake and Output 03/02/19 06:59 Intake Total 360 ml Output Total 150 ml Balance 210 ml Intake Oral 360 ml Output Urine Total 150 ml # Voids 4 Laboratory Labs Laboratory Tests Test 03/02/19 03:00 03/02/19 12:17 03/02/19 12:50 White Blood Count 7.3 x10^3/uL (4.0-11.0) Red Blood Count 5.46 x10^6/uL (4.30-5.70) Hemoglobin 15.9 g/dL (13.0-17.5) Hematocrit 47.3 % (39.0-53.0) Mean Corpuscular Volume 87 fL (79-100) Mean Corpuscular Hemoglobin 29 pg (25-35) Mean Corpuscular Hemoglobin Concent 34 g/dL (31-37) Red Cell Distribution Width 14.4 % (11.5-14.5) Platelet Count 181 x10^3/uL (140-400) Neutrophils (%) (Auto) 55 % (31-73) Lymphocytes (%) (Auto) 31 % (24-48) Monocytes (%) (Auto) 10 % (0-9) Eosinophils (%) (Auto) 3 % (0-3) Basophils (%) (Auto) 1 % (0-3) Neutrophils # (Auto) 4.0 x10^3uL (1.8-7.7) Lymphocytes # (Auto) 2.3 x10^3/uL (1.0-4.8) Monocytes # (Auto) 0.7 x10^3/uL (0.0-1.1) Eosinophils # (Auto) 0.3 x10^3/uL (0.0-0.7) Basophils # (Auto) 0.0 x10^3/uL (0.0-0.2) Sodium Level 136 mmol/L (136-145) Potassium Level 4.6 mmol/L (3.5-5.1) Chloride Level 99 mmol/L (98-107) Carbon Dioxide Level 25 mmol/L (21-32) Anion Gap 12 (6-14) Blood Urea Nitrogen 27 mg/dL (8-26) Creatinine 1.4 mg/dL (0.7-1.3) Estimated GFR (Cockcroft-Gault) 47.9 BUN/Creatinine Ratio 19 (6-20) Glucose Level 122 mg/dL (70-99) Calcium Level 9.2 mg/dL (8.5-10.1) Total Bilirubin 0.4 mg/dL (0.2-1.0) Aspartate Amino Transf (AST/SGOT) 21 U/L (15-37) Alanine Aminotransferase (ALT/SGPT) 22 U/L (16-63) Alkaline Phosphatase 115 U/L (46-116) Total Protein 8.2 g/dL (6.4-8.2) Albumin 3.6 g/dL (3.4-5.0) Albumin/Globulin Ratio 0.8 (1.0-1.7) Glucose (Fingerstick) 184 mg/dL (70-99) Troponin I Quantitative 0.356 ng/mL (0.000-0.055) Physical Exam HEENT: Neck Supple W Full Motion Chest: Symmetric LUNGS: Clear to Auscultation Heart: S1S2, RRR (100% paced) Abdomen: Soft N/T Extremities: No Edema Neurology: alert Assessment Assessment 1. Unresponsive event; CT head without new findings. Doubt cardiac etiology. 2. ICM 3. NSTEMI; trop 0.4. Type II, demand ischemia with h/o chronic troponin elevation 4. CAD: Recent LHC with patent stent to D2, otherwise nonobstructive disease 5. HTN: low-normotensive 6. Chronic diastolic CHF; LVEF 55-60% 7. SSS s/p PPM implantation ([place]) 8. COPD 9. TAMIA on CKD3 10. HLP; statin 11. PAFIB; v-paced 12. Hypothyroidism 13. Dementia Recommendations Avoid antiplatelet/anticoagulation Secondary prevention as able Hold antiHTN therapy as warranted Plans for [facility] re[facility] Follow neuro recPETE Saravia MD 03/02/19 7310: CARDIO Progress Notes Assessment Assessment Patient seen and examined. Agree with ATG JAVA DEVELOPER's assessment and plan. Episode of unresponsiveness uncertain etiology Recent device check showed normal function Slight troponin elevation demand ischemia CAD status clinically stable Chronic diastolic heart failure compensated CARTER BLOCK APRN Mar 02, 2019 16:16 PETE ZUÑIGA MD Mar 02, 2019 16:53
[2019-03-02 18:16] LABS: FIO2 ABG 21
[2019-03-02] MEDS: ATORVASTATIN CALCIUM 40 MG TABLET. PO SCH (21:00)
[2019-03-03 03:36] VITALS: BP 133/80
[2019-03-03] MEDS: LEVOTHYROXINE 50 MCG TABLET PO SCH (05:42)
--- NOTE | 2019-03-03 05:52 | NUR ---
patient awake all night,pulled IV 2X confused trying to get up on bed twice pulling diaper out and hospital gown stated want to go home,reorient as needed
[2019-03-03 07:00] VITALS: BP 147/64
[2019-03-03] MEDS: RANOLAZINE 500 MG TAB.ER.12H PO SCH (08:44)
[2019-03-03] MEDS: LISINOPRIL 5 MG TABLET. PO SCH (08:44)
[2019-03-03] MEDS: PANTOPRAZOLE 40 MG TABLET.DR. PO SCH (08:45)
[2019-03-03] MEDS: ISOSORBIDE MONONITRATE ER 30 MG TAB.ER.24H PO SCH (08:45)
[2019-03-03] MEDS: SENNOSIDES 8.6 MG TABLET PO SCH (08:45)
[2019-03-03] MEDS: amLODIPine BESYLATE 5 MG TABLET PO SCH (08:45)
[2019-03-03] MEDS: METOPROLOL TART IMMED RELEASE 50 MG TABLET. PO SCH (08:47)
--- NOTE | 2019-03-03 10:19 | PDOC ---
PROGRESS NOTES Subjective Subjective feels better , Objective Objective Vital Signs Date Time Temp Pulse Resp B/P (MAP) Pulse Ox O2 Delivery O2 Flow Rate FiO2 03/03/19 08:47 65 03/03/19 07:30 Room Air 03/03/19 07:00 98.2 19 147/64 (91) 98 98.2 Intake and Output 03/03/19 07:00 Intake Total 280 ml Output Total 150 ml Balance 130 ml Intake Oral 280 ml Output Urine Total 150 ml # Voids 4 # Bowel Movements 1 Physical Exam Abdomen: Normal bowel sounds, Soft Heart: Regular rate, Normal S1 Extremities: No clubbing General: Alert, Cooperative, No acute distress HEENT: Atraumatic (scalp hematoma) Lungs: Clear to auscultation MUSCULOSKELETAL: Other (BELTRAN) Neuro: Normal speech Psych/Mental Status: Mood NL Skin: No significant lesion Diagnosis Problem List Problems Medical Problems: (1) Fall Status: Acute (2) Intracranial hemorrhage Status: Acute Assessment Assessment Problems Medical Problems: (1) Fall Status: Acute (2) Intracranial hemorrhage Status: Acute FINAL IMPRESSION: 1. Intracranial bleed. 2. Mechanical fall at home.Scalp hematoma. 3. Coronary artery disease. The patient had a cardiac stent 2 years ago. He is on Plavix.Chronically elevated troponin. 4. Hypothyroidism. 5. Pacemaker for sick sinus syndrome. 6. 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 7. Mild aortic insufficiency. 8. Hypertension. 9. Hyperlipidemia. PLAN:another episode of unresponsiveness yesterday,hypotensive given fluids , improved. seen by cardiology ,no arrhythmias stable for discharge to rehab. d/c to Rehab/[facility] today CT scan of head ,decrease in the hemorrhage. Hypertension- stable Continue PT OT speech therapy. spoke with rehab dr espinosa. d/riki all blood thinners, due to ICB. Dr. Kendrick's notes appreciated. spoke with RN and family members Plan Plan of Care Problems Medical Problems: (1) Fall Status: Acute (2) Intracranial hemorrhage Status: Acute Comment Review of Relevant I have reviewed the following items zully (where applicable) has been applied. Labs Laboratory Tests Test 03/02/19 12:17 03/02/19 12:50 03/02/19 15:20 03/02/19 20:30 Glucose (Fingerstick) 184 mg/dL (70-99) Troponin I Quantitative 0.356 ng/mL (0.000-0.055) 0.333 ng/mL (0.000-0.055) O2 Saturation 96 % (92-99) Arterial Blood pH 7.42 (7.35-7.45) Arterial Blood pCO2 at Patient Temp 33 mmHg (35-46) Arterial Blood pO2 at Patient Temp 80 mmHg (65-108) Arterial Blood HCO3 21 mmol/L (21-28) Arterial Blood Base Excess -2 mmol/L (-3-3) FiO2 21 Test 03/03/19 04:15 Troponin I Quantitative 0.364 ng/mL (0.000-0.055) Medications Current Medications Sodium Chloride 500 ml @ 500 mls/hr 1X ONCE IV ; Start 03/02/19 at 12:30; Stop 03/02/19 at 13:29; Status DC Sodium Chloride 1,000 ml @ 75 mls/hr [id number] IV Last administered on 03/02/19at 19:27; Start 03/02/19 at 12:30 Vitals/I & O Vital Sign - Last 24 Hours 03/02/19 03/02/19 03/02/19 03/02/19 11:00 12:20 14:00 15:00 Temp 98.0 98.2 98.0 98.2 Pulse 64 60 92 Resp 18 16 16 B/P (MAP) 94/60 (71) 80/50 (60) 122/73 (89) Pulse Ox 95 97 O2 Delivery Room Air Room Air Room Air Room Air 03/02/19 03/02/19 03/02/19 03/02/19 19:10 19:30 20:58 21:00 Temp 97.4 97.4 Pulse 64 63 63 Resp 16 B/P (MAP) 132/64 (86) 135/89 (104) 135/89 Pulse Ox 94 O2 Delivery Room Air Room Air 03/02/19 03/02/19 03/02/19 03/03/19 21:00 21:04 23:36 03:36 Temp 97.9 98.1 97.9 98.1 Pulse 63 63 60 64 Resp 18 26 B/P (MAP) 135/89 135/89 134/63 (86) 133/80 (97) Pulse Ox 94 95 O2 Delivery Room Air Room Air 03/03/19 03/03/19 03/03/194/19 07:00 07:30 08:44 08:44 Temp 98.2 98.2 Pulse 60 65 65 Resp 19 B/P (MAP) 147/64 (91) Pulse Ox 98 O2 Delivery Room Air Room Air 03/03/19 03/03/19 03/03/19 08:45 08:45 08:47 Pulse 65 65 65 Intake and Output 03/02/19 03/02/19 03/03/19 15:00 23:00 07:00 Intake Total 120 ml 160 ml Output Total 150 ml Balance 120 ml 10 ml Nutrition Consultation Dietary Evaluation: Recommendations by RD: Protein supplementation Comments: Continue regular diet as ordered, honor food preferences, and provide snacks as requested d/c Ensure Expected Outcomes/Goals: PO intake to meet >75% est needs- met, goal ongoing Interpretation of weight loss: >7.5% in 3 months Malnutrition Findings: Weight Status: Appropriate AUGUST HUITRON MD Mar 03, 2019 10:18
[2019-03-03 11:00] VITALS: BP 120/65
--- NOTE | 2019-03-03 11:26 | NUR ---
SS following up with discharge planning. Pt accepted at [facility]. Discharge orders received. SS phoned and faxed discharge orders and clinical updates to [facility], . Pt will discharge today and go to [facility] between 1430 and 1500 via [employer] transportation, . Report# [phone]. Room Number 2225. Pt, pt's family, and pt's RN notified.
--- NOTE | 2019-03-03 12:39 | PDOC ---
PROGRESS NOTES Subjective Subjective No new complaints. Objective Objective Vital Signs Date Time Temp Pulse Resp B/P (MAP) Pulse Ox O2 Delivery O2 Flow Rate FiO2 03/03/19 11:00 98.0 60 18 120/65 (83) 99 Room Air 98.0 Intake and Output 03/03/19 06:59 Intake Total 280 ml Output Total 150 ml Balance 130 ml Intake Oral 280 ml Output Urine Total 150 ml # Voids 4 # Bowel Movements 1 Physical Exam Physical Exam He is sitting in bed with head end of bed is propped up.He had some problems with being less responsive yesterday,that resulted in his delay of transfer to rehab unit to day. Assessment Assessment Problems Medical Problems: (1) Fall Status: Acute (2) Intracranial hemorrhage Status: Acute Plan Plan of Care Agree with plans for rehab unit transfer when medically stable. Comment Review of Relevant I have reviewed the following items zully (where applicable) has been applied. Labs Laboratory Tests Test 03/01/19 14:21 03/02/19 03:00 03/02/19 12:17 03/02/19 12:50 Glucose (Fingerstick) 161 mg/dL (70-99) 184 mg/dL (70-99) White Blood Count 7.3 x10^3/uL (4.0-11.0) Red Blood Count 5.46 x10^6/uL (4.30-5.70) Hemoglobin 15.9 g/dL (13.0-17.5) Hematocrit 47.3 % (39.0-53.0) Mean Corpuscular Volume 87 fL (79-100) Mean Corpuscular Hemoglobin 29 pg (25-35) Mean Corpuscular Hemoglobin Concent 34 g/dL (31-37) Red Cell Distribution Width 14.4 % (11.5-14.5) Platelet Count 181 x10^3/uL (140-400) Neutrophils (%) (Auto) 55 % (31-73) Lymphocytes (%) (Auto) 31 % (24-48) Monocytes (%) (Auto) 10 % (0-9) Eosinophils (%) (Auto) 3 % (0-3) Basophils (%) (Auto) 1 % (0-3) Neutrophils # (Auto) 4.0 x10^3uL (1.8-7.7) Lymphocytes # (Auto) 2.3 x10^3/uL (1.0-4.8) Monocytes # (Auto) 0.7 x10^3/uL (0.0-1.1) Eosinophils # (Auto) 0.3 x10^3/uL (0.0-0.7) Basophils # (Auto) 0.0 x10^3/uL (0.0-0.2) Sodium Level 136 mmol/L (136-145) Potassium Level 4.6 mmol/L (3.5-5.1) Chloride Level 99 mmol/L (98-107) Carbon Dioxide Level 25 mmol/L (21-32) Anion Gap 12 (6-14) Blood Urea Nitrogen 27 mg/dL (8-26) Creatinine 1.4 mg/dL (0.7-1.3) Estimated GFR (Cockcroft-Gault) 47.9 BUN/Creatinine Ratio 19 (6-20) Glucose Level 122 mg/dL (70-99) Calcium Level 9.2 mg/dL (8.5-10.1) Total Bilirubin 0.4 mg/dL (0.2-1.0) Aspartate Amino Transf (AST/SGOT) 21 U/L (15-37) Alanine Aminotransferase (ALT/SGPT) 22 U/L (16-63) Alkaline Phosphatase 115 U/L (46-116) Total Protein 8.2 g/dL (6.4-8.2) Albumin 3.6 g/dL (3.4-5.0) Albumin/Globulin Ratio 0.8 (1.0-1.7) Troponin I Quantitative 0.356 ng/mL (0.000-0.055) Test 03/02/19 15:20 03/02/19 20:30 03/03/19 04:15 O2 Saturation 96 % (92-99) Arterial Blood pH 7.42 (7.35-7.45) Arterial Blood pCO2 at Patient Temp 33 mmHg (35-46) Arterial Blood pO2 at Patient Temp 80 mmHg (65-108) Arterial Blood HCO3 21 mmol/L (21-28) Arterial Blood Base Excess -2 mmol/L (-3-3) FiO2 21 Troponin I Quantitative 0.333 ng/mL (0.000-0.055) 0.364 ng/mL (0.000-0.055) Laboratory Tests Test 03/02/19 12:50 4/3/19 15:20 03/02/19 20:30 03/03/19 04:15 Troponin I Quantitative 0.356 ng/mL (0.000-0.055) 0.333 ng/mL (0.000-0.055) 0.364 ng/mL (0.000-0.055) O2 Saturation 96 % (92-99) Arterial Blood pH 7.42 (7.35-7.45) Arterial Blood pCO2 at Patient Temp 33 mmHg (35-46) Arterial Blood pO2 at Patient Temp 80 mmHg (65-108) Arterial Blood HCO3 21 mmol/L (21-28) Arterial Blood Base Excess -2 mmol/L (-3-3) FiO2 21 Medications Current Medications Sodium Chloride 500 ml @ 500 mls/hr 1X ONCE IV Last administered on 09:55; Start 02/22/19 at 10:00; Stop 02/22/19 at 10:59; Status DC Atorvastatin Calcium (Lipitor) 40 mg HS PO Last administered on 03/02/19 21:00 ; Start 02/22/19 at 21:00 Isosorbide Mononitrate (Imdur) 30 mg DAILY PO Last administered on 03/03/19 08: 45; Start 02/22/19 at 17:00 Metoprolol Succinate (Toprol Xl) 75 mg DAILY PO ; Start 02/22/19 at 17:00; Stop 02/23/19 at 15:45; Status DC Pantoprazole Sodium (Protonix) 40 mg DAILYAC PO Last administered on 03/03/19 08:45; Start 02/22/19 at 17:00 Ranolazine (Ranexa) 500 mg BID PO Last administered on 03/03/19 08:44; Start at 21:00 Levothyroxine Sodium (Synthroid) 50 mcg DAILY06 PO Last administered on 05:42; Start 02/22/19 at 17:00 Lisinopril (Prinivil) 5 mg BID PO Last administered on 03/03/19 08:44; Start at 21:00 Dextrose/Sodium Chloride 1,000 ml @ 100 mls/hr Q10H IV Last administered on 13:50; Start 02/22/19 at 16:30; Stop 02/23/19 at 18:50; Status DC Metoprolol Tartrate (Lopressor Vial) 5 mg Q6HRS IVP Last administered on 09:33; Start 02/23/19 at 16:30; Stop 02/28/19 at 06:18; Status DC Acetaminophen (Tylenol) 650 mg PRN Q8HRS PRN PO pain Last administered on 13:27; Start 02/24/19 at 14:30 Amlodipine Besylate (Norvasc) 5 mg DAILY PO Last administered on 03/03/19 08:45 ; Start 02/26/19 at 10:15 Docusate Sodium (Colace) 100 mg 1X ONCE PO Last administered on 02/26/19 13: 13; Start 02/26/19 at 13:00; Stop 02/26/19 at 13:01; Status DC Sennosides (Senna) 8.6 mg PRN BID PRN PO CONSTIPATION Last administered on 02/27 08:52; Start 02/26/19 at 13:00; Stop 02/27/19 at 15:58; Status DC Sennosides (Senna) 8.6 mg BID PO Last administered on 03/03/19 08:45; Start at 21:00 Metoprolol Tartrate (Lopressor) 50 mg BID PO Last administered on 03/03/19 08: 47; Start 02/28/19 at 09:00 Sodium Chloride 500 ml @ 500 mls/hr 1X ONCE IV ; Start 03/02/19 at 12:30; Stop 03/02/19 at 13:29; Status DC Sodium Chloride 1,000 ml @ 75 mls/hr [id number] IV Last administered on 03/02/19 19:27; Start 03/02/19 at 12:30 Active Scripts Active Amlodipine Besylate 5 Mg Tablet 2.5 Mg PO DAILY 30 Days Ranexa (Ranolazine) 500 Mg Tab.er.12h 500 Mg PO BID 30 Days Isosorbide Mononitrate Er (Isosorbide Mononitrate) 30 Mg Tab.er.24h 30 Mg PO DAILY 30 Days Synthroid (Levothyroxine Sodium) 50 Mcg Tablet 1 Tab PO DAILY Furosemide 20 Mg Tablet 20 Mg PO DAILY 30 Days Lisinopril 5 Mg Tablet 5 Mg PO BID 30 Days Metoprolol Succinate 50 Mg Tab.er.24h 75 Mg PO DAILY 30 Days Pantoprazole Sodium 40 Mg Tablet.dr 40 Mg PO DAILYAC 30 Days Reported Lipitor (Atorvastatin Calcium) 40 Mg Tablet 40 Mg PO HS Vitals/I & O Vital Sign - Last 24 Hours 03/02/19 03/02/19 03/02/19 03/02/19 14:00 15:00 19:10 19:30 Temp 98.2 97.4 98.2 97.4 Pulse 92 64 Resp 16 16 B/P (MAP) 122/73 (89) 132/64 (86) Pulse Ox 97 94 O2 Delivery Room Air Room Air Room Air Room Air 03/02/19 03/02/19 03/02/19 03/02/19 20:58 21:00 21:00 21:04 Pulse 63 63 63 63 B/P (MAP) 135/89 (104) 135/89 135/89 135/89 03/02/19 03/03/19 03/03/19 03/03/19 23:36 03:36 07:00 07:30 Temp 97.9 98.1 98.2 97.9 98.1 98.2 Pulse 60 64 60 Resp 18 26 19 B/P (MAP) 134/63 (86) 133/80 (97) 147/64 (91) Pulse Ox 94 95 98 O2 Delivery Room Air Room Air Room Air Room Air 03/03/19 03/03/19 03/03/19 03/03/19 08:44 08:44 08:45 08:45 Pulse 65 65 65 65 03/03/19 03/03/19 08:47 11:00 Temp 98.0 98.0 Pulse 65 60 Resp 18 B/P (MAP) 120/65 (83) Pulse Ox 99 O2 Delivery Room Air Intake and Output 03/02/19 03/02/19 03/03/19 14:59 22:59 06:59 Intake Total 120 ml 160 ml Output Total 150 ml Balance 120 ml 10 ml Nutrition Consultation Dietary Evaluation: Recommendations by RD: Protein supplementation Comments: Continue regular diet as ordered, honor food preferences, and provide snacks as requested d/c Ensure Expected Outcomes/Goals: PO intake to meet >75% est needs- met, goal ongoing Interpretation of weight loss: >7.5% in 3 months Malnutrition Findings: Weight Status: Appropriate DAYA DUBON MD Mar 03, 2019 12:39
--- NOTE | 2019-03-03 13:57 | PDOC ---
PROGRESS NOTES Assessment Problems Medical Problems: (1) Fall Status: Acute (2) Intracranial hemorrhage Status: Acute He had another episode of unresponsiveness yesterday, hypotensive, fine today Right superior frontal lobe intracranial hemorrhage and intraventricular hemorrhage, improving clinically and radiographically Metabolic encephalopathy. Plan Avoid antiplatelet and anticoagulant agent at the present time. Agree with discharge plans, palliative care. He is going to rehab, hard to believe that this demented patient will participate fully in rehab Discussed with [id number] Subjective No complaints Objective Vital Signs Date Time Temp Pulse Resp B/P (MAP) Pulse Ox O2 Delivery O2 Flow Rate FiO2 03/03/19 11:00 98.0 60 18 120/65 (83) 99 Room Air 98.0 Intake and Output 03/03/19 06:59 Intake Total 280 ml Output Total 150 ml Balance 130 ml Intake Oral 280 ml Output Urine Total 150 ml # Voids 4 # Bowel Movements 1 PHYSICAL EXAM Alert. Does not follow commands or speak [place]. PERRL. EOMI. CN: no focal findings. Muscle tone: gegenhalten type rigidity Muscle strength: 4/5 DTR: 1+ Plantar reflex: flexor Gait: not examined in bed. Sensory exam: not cooperative. Cerebellar: not cooperative Review of Relevant I have reviewed the following items zully (where applicable) has been applied. Labs Laboratory Tests Test 03/01/19 14:21 03/02/19 03:00 03/02/19 12:17 03/02/19 12:50 Glucose (Fingerstick) 161 mg/dL (70-99) 184 mg/dL (70-99) White Blood Count 7.3 x10^3/uL (4.0-11.0) Red Blood Count 5.46 x10^6/uL (4.30-5.70) Hemoglobin 15.9 g/dL (13.0-17.5) Hematocrit 47.3 % (39.0-53.0) Mean Corpuscular Volume 87 fL (79-100) Mean Corpuscular Hemoglobin 29 pg (25-35) Mean Corpuscular Hemoglobin Concent 34 g/dL (31-37) Red Cell Distribution Width 14.4 % (11.5-14.5) Platelet Count 181 x10^3/uL (140-400) Neutrophils (%) (Auto) 55 % (31-73) Lymphocytes (%) (Auto) 31 % (24-48) Monocytes (%) (Auto) 10 % (0-9) Eosinophils (%) (Auto) 3 % (0-3) Basophils (%) (Auto) 1 % (0-3) Neutrophils # (Auto) 4.0 x10^3uL (1.8-7.7) Lymphocytes # (Auto) 2.3 x10^3/uL (1.0-4.8) Monocytes # (Auto) 0.7 x10^3/uL (0.0-1.1) Eosinophils # (Auto) 0.3 x10^3/uL (0.0-0.7) Basophils # (Auto) 0.0 x10^3/uL (0.0-0.2) Sodium Level 136 mmol/L (136-145) Potassium Level 4.6 mmol/L (3.5-5.1) Chloride Level 99 mmol/L (98-107) Carbon Dioxide Level 25 mmol/L (21-32) Anion Gap 12 (6-14) Blood Urea Nitrogen 27 mg/dL (8-26) Creatinine 1.4 mg/dL (0.7-1.3) Estimated GFR (Cockcroft-Gault) 47.9 BUN/Creatinine Ratio 19 (6-20) Glucose Level 122 mg/dL (70-99) Calcium Level 9.2 mg/dL (8.5-10.1) Total Bilirubin 0.4 mg/dL (0.2-1.0) Aspartate Amino Transf (AST/SGOT) 21 U/L (15-37) Alanine Aminotransferase (ALT/SGPT) 22 U/L (16-63) Alkaline Phosphatase 115 U/L (46-116) Total Protein 8.2 g/dL (6.4-8.2) Albumin 3.6 g/dL (3.4-5.0) Albumin/Globulin Ratio 0.8 (1.0-1.7) Troponin I Quantitative 0.356 ng/mL (0.000-0.055) Test 03/02/19 15:20 03/02/19 20:30 03/03/19 04:15 O2 Saturation 96 % (92-99) Arterial Blood pH 7.42 (7.35-7.45) Arterial Blood pCO2 at Patient Temp 33 mmHg (35-46) Arterial Blood pO2 at Patient Temp 80 mmHg (65-108) Arterial Blood HCO3 21 mmol/L (21-28) Arterial Blood Base Excess -2 mmol/L (-3-3) FiO2 21 Troponin I Quantitative 0.333 ng/mL (0.000-0.055) 0.364 ng/mL (0.000-0.055) Laboratory Tests Test 03/02/19 15:20 03/02/19 20:30 03/03/19 04:15 O2 Saturation 96 % (92-99) Arterial Blood pH 7.42 (7.35-7.45) Arterial Blood pCO2 at Patient Temp 33 mmHg (35-46) Arterial Blood pO2 at Patient Temp 80 mmHg (65-108) Arterial Blood HCO3 21 mmol/L (21-28) Arterial Blood Base Excess -2 mmol/L (-3-3) FiO2 21 Troponin I Quantitative 0.333 ng/mL (0.000-0.055) 0.364 ng/mL (0.000-0.055) Medications Current Medications Sodium Chloride 500 ml @ 500 mls/hr 1X ONCE IV Last administered on 09:55; Start 02/22/19 at 10:00; Stop 02/22/19 at 10:59; Status DC Atorvastatin Calcium (Lipitor) 40 mg HS PO Last administered on 03/02/19 21:00 ; Start 02/22/19 at 21:00 Isosorbide Mononitrate (Imdur) 30 mg DAILY PO Last administered on 03/03/19 08: 45; Start 02/22/19 at 17:00 Metoprolol Succinate (Toprol Xl) 75 mg DAILY PO ; Start 02/22/19 at 17:00; Stop 02/23/19 at 15:45; Status DC Pantoprazole Sodium (Protonix) 40 mg DAILYAC PO Last administered on 03/03/19 08:45; Start 02/22/19 at 17:00 Ranolazine (Ranexa) 500 mg BID PO Last administered on 03/03/19 08:44; Start at 21:00 Levothyroxine Sodium (Synthroid) 50 mcg DAILY06 PO Last administered on 05:42; Start 02/22/19 at 17:00 Lisinopril (Prinivil) 5 mg BID PO Last administered on 03/03/19 08:44; Start at 21:00 Dextrose/Sodium Chloride 1,000 ml @ 100 mls/hr Q10H IV Last administered on 13:50; Start 02/22/19 at 16:30; Stop 02/23/19 at 18:50; Status DC Metoprolol Tartrate (Lopressor Vial) 5 mg Q6HRS IVP Last administered on 09:33; Start 02/23/19 at 16:30; Stop 02/28/19 at 06:18; Status DC Acetaminophen (Tylenol) 650 mg PRN Q8HRS PRN PO pain Last administered on 13:27; Start 02/24/19 at 14:30 Amlodipine Besylate (Norvasc) 5 mg DAILY PO Last administered on 03/03/19 08:45 ; Start 02/26/19 at 10:15 Docusate Sodium (Colace) 100 mg 1X ONCE PO Last administered on 02/26/19 13: 13; Start 02/26/19 at 13:00; Stop 02/26/19 at 13:01; Status DC Sennosides (Senna) 8.6 mg PRN BID PRN PO CONSTIPATION Last administered on 02/27 08:52; Start 02/26/19 at 13:00; Stop 02/27/19 at 15:58; Status DC Sennosides (Senna) 8.6 mg BID PO Last administered on 03/03/19 08:45; Start at 21:00 Metoprolol Tartrate (Lopressor) 50 mg BID PO Last administered on 03/03/19 08: 47; Start 02/28/19 at 09:00 Sodium Chloride 500 ml @ 500 mls/hr 1X ONCE IV ; Start 03/02/19 at 12:30; Stop 03/02/19 at 13:29; Status DC Sodium Chloride 1,000 ml @ 75 mls/hr [id number] IV Last administered on 03/02/19 19:27; Start 03/02/19 at 12:30 Active Scripts Active Amlodipine Besylate 5 Mg Tablet 2.5 Mg PO DAILY 30 Days Ranexa (Ranolazine) 500 Mg Tab.er.12h 500 Mg PO BID 30 Days Isosorbide Mononitrate Er (Isosorbide Mononitrate) 30 Mg Tab.er.24h 30 Mg PO DAILY 30 Days Synthroid (Levothyroxine Sodium) 50 Mcg Tablet 1 Tab PO DAILY Furosemide 20 Mg Tablet 20 Mg PO DAILY 30 Days Lisinopril 5 Mg Tablet 5 Mg PO BID 30 Days Metoprolol Succinate 50 Mg Tab.er.24h 75 Mg PO DAILY 30 Days Pantoprazole Sodium 40 Mg Tablet.dr 40 Mg PO DAILYAC 30 Days Reported Lipitor (Atorvastatin Calcium) 40 Mg Tablet 40 Mg PO HS Vitals/I & O Vital Sign - Last 24 Hours 03/02/19 03/02/19 03/02/19 03/02/19 14:00 15:00 19:10 19:30 Temp 98.2 97.4 98.2 97.4 Pulse 92 64 Resp 16 16 B/P (MAP) 122/73 (89) 132/64 (86) Pulse Ox 97 94 O2 Delivery Room Air Room Air Room Air Room Air 03/02/19 03/02/19 03/02/19 03/02/19 20:58 21:00 21:00 21:04 Pulse 63 63 63 63 B/P (MAP) 135/89 (104) 135/89 135/89 135/89 03/02/19 03/03/19 03/03/19 03/03/19 23:36 03:36 07:00 07:30 Temp 97.9 98.1 98.2 97.9 98.1 98.2 Pulse 60 64 60 Resp 18 26 19 B/P (MAP) 134/63 (86) 133/80 (97) 147/64 (91) Pulse Ox 94 95 98 O2 Delivery Room Air Room Air Room Air Room Air 03/03/19 03/03/19 03/03/19 03/03/19 08:44 08:44 08:45 08:45 Pulse 65 65 65 65 03/03/19 03/03/19 08:47 11:00 Temp 98.0 98.0 Pulse 65 60 Resp 18 B/P (MAP) 120/65 (83) Pulse Ox 99 O2 Delivery Room Air Intake and Output 03/02/19 03/02/19 03/03/19 14:59 22:59 06:59 Intake Total 120 ml 160 ml Output Total 150 ml Balance 120 ml 10 ml YANIRA BAIRD MD Mar 03, 2019 13:57
--- NOTE | 2019-03-03 14:32 | NUR ---
Discharge: Report called to GABBY Garcia at rehab [phone] at 1344. Jose requested we leave patients IV in place at discharge. All belongings with patient. Patients daughter at bedside. Waiting on transport.
--- NOTE | 2019-03-03 14:56 | NUR ---
Patient assisted to wheelchair x1 assist with gait belt. patient assisted off of unit via wheelchair accompanied by transport and daughter.
--- NOTE | 2019-03-03 16:31 | PDOC ---
Provider Note Provider Note Discharge summary dictated.#[id number] AUGUST HUITRON MD Mar 03, 2019 16:31
--- NOTE | 2019-03-04 03:28 | DS ---
DATE OF DISCHARGE: 03/03/2019 REASON FOR ADMISSION TO THE HOSPITAL: Intracranial bleed mechanical fall at home. CONSULTATIONS: 1. Dr. Lord. 2. Dr. Kendrick. 3. Dr. Le. 4. Cardiology, Dr. Botello. PROCEDURES DONE: CT head x 5. HOSPITAL COURSE: The patient is an 88-year-old male with history of dementia, hypertension, coronary artery disease. The patient had a cardiac stent 6 months ago and a cardiac catheterization 2 months ago, which shows patent graft. He always carries elevated troponin. He had a mechanical fall at home. Family found him on the floor, had a scalp hematoma. CT head shows intracranial bleed. The patient was admitted to the ICU, seen by Neurosurgery, had repeat CT scans and that is resolving slowly. The patient was moved out of the ICU to medical floor, seen by Dr. Le and also Dr. Kendrick. The patient was being evaluated to go to rehab place. Had episodes of slight confusion and unresponsiveness. The patient had repeat CT scan which was negative for more bleed. In fact, the bleeding was resolving. The patient was felt to be a candidate for rehab and was transferred to rehab place. FINAL DIAGNOSES: 1. Mechanical fall at home. 2. Intracranial bleed. 3. Coronary artery disease, previous stent 6 months ago, open patent. 4. Pacemaker. 5. Hypertension. 6. Hyperlipidemia. DISPOSITION: Rehab place. See [facility] for discharge medications. The patient is taken off aspirin and Plavix secondary to intracranial bleed and see if it has improved. AUGUST HUITRON MD DR: TIMI/lara JOB#: [id number] / [id number]
== END 2019-03-03 14:45 | DRG 64 ==
LOC: ER 09:13 → 1 WEST ICU 12:12 → 4 NORTH 02-23 19:24 → 2 NORTH 03-02 13:10
PROVIDERS: ADMIT Internal Medicine; ATTEND Internal Medicine
DX: I61.5 Nontraumatic intracerebral hemorrhage, intraventricular (principal); I50.43 Acute on chronic combined systolic (congestive) and diastolic (congestive) heart failure; G93.41 Metabolic encephalopathy; I21.A1 Myocardial infarction type 2; I13.0 Hypertensive heart and chronic kidney disease with heart failure and stage 1 through stage 4 chronic kidney disease, or unspecified chronic kidney disease; N17.9 Acute kidney failure, unspecified; N18.3 Chronic kidney disease, stage 3 (moderate); I25.10 Atherosclerotic heart disease of native coronary artery without angina pectoris; E03.9 Hypothyroidism, unspecified; E78.5 Hyperlipidemia, unspecified; E78.00 Pure hypercholesterolemia, unspecified; F03.90 Unspecified dementia, unspecified severity, without behavioral disturbance, psychotic disturbance, mood disturbance, and anxiety; G47.30 Sleep apnea, unspecified; G93.89 Other specified disorders of brain; H54.61 Unqualified visual loss, right eye, normal vision left eye; H54.62 Unqualified visual loss, left eye, normal vision right eye; I25.2 Old myocardial infarction; I35.1 Nonrheumatic aortic (valve) insufficiency; I48.91 Unspecified atrial fibrillation; J44.9 Chronic obstructive pulmonary disease, unspecified; K21.9 Gastro-esophageal reflux disease without esophagitis; M19.90 Unspecified osteoarthritis, unspecified site; S00.03XA Contusion of scalp, initial encounter; Z79.02 Long term (current) use of antithrombotics/antiplatelets; Z82.49 Family history of ischemic heart disease and other diseases of the circulatory system; Z95.5 Presence of coronary angioplasty implant and graft; Z87.891 Personal history of nicotine dependence; W18.30XA Fall on same level, unspecified, initial encounter; Y92.009 Unspecified place in unspecified non-institutional (private) residence as the place of occurrence of the external cause; I95.9 Hypotension, unspecified
CPT/HCPCS: 36415; 36600; 70450; 71045; 72125; 80048; 80053; 81001; 82805; 82962; 84443; 84484; 85025; 85610; 85730; 87641; 93005; 96360; J3490; J7030; J7040; J7042; 92526; 92610; 97110; 97116; 97530; 97535; 99285-25

== ENCOUNTER 2019-06-09 22:15 | Inpatient (IN) | payer MEDICARE, OTHER ==
[~2019-06-09] VITALS: Ht 160 cm; Wt 56.5 kg
[~2019-06-09 22:15] MED LIST changes: -PANT40TA5 PO; +PANT40TA77 PO
[2019-06-09] MEDS ORDERED: ASPIRIN 325 MG TABLET PO ONE (22:30)
[2019-06-09 22:34] LABS: BASO % 1 % (0-3); EOS # 0.3 x10^3/uL (0.0-0.7); EOS % 4 % (0-3); HEMATOCRIT 42.2 % (39.0-53.0); HEMOGLOBIN 14.5 g/dL (13.0-17.5); LYMPH # 2.1 x10^3/uL (1.0-4.8); LYMPH % 28 % (24-48); MEAN CORPUSCULAR HEMOGLOBIN 30 pg (25-35); MEAN CORPUSCULAR HGB CONC 34 g/dL (31-37); MEAN CORPUSCULAR VOLUME 86 fL (79-100); MONO # 0.4 x10^3/uL (0.0-1.1); MONO % 6 % (0-9); NEUT # 4.6 x10^3/uL (1.8-7.7); NEUT % 62 % (31-73); PLATELET COUNT 169 x10^3/uL (140-400); RED BLOOD COUNT 4.88 x10^6/uL (4.30-5.70); RED CELL DISTRIBUTION WIDTH 16.5 % (11.5-14.5); WHITE BLOOD COUNT 7.4 x10^3/uL (4.0-11.0)
[2019-06-09 22:45] LABS: CALCIUM 9.3 mg/dL (8.5-10.1); CREATININE 1.2 mg/dL (0.7-1.3); GFR 57.1; POTASSIUM 4.5 mmol/L (3.5-5.1); PROTHROMBIN TIME PATIENT 12.9 SEC (11.7-14.0)
[2019-06-09 22:53] LABS: ALBUMIN 3.5 g/dL (3.4-5.0); ALBUMIN/GLOBULIN RATIO 0.8 (1.0-1.7); MAGNESIUM 2.3 mg/dL (1.8-2.4); TOTAL BILIRUBIN 0.4 mg/dL (0.2-1.0)
--- NOTE | 2019-06-09 23:04 | RAD ---
AP chest. HISTORY: Chest pain AP view was taken of the chest. Heart is enlarged. Left pacemaker is unchanged. There is mild vascular congestion. There is no pleural effusion. There is a tortuous vessel creates a density in the medial right apex. There are no confluent areas of infiltrate. Pattern is similar to January. IMPRESSION: 1. Cardiomegaly. 2. Mild vascular congestion. 3. No confluent infiltrates. Electronically signed by: Alber Hills MD (06/09/2019 11:01 PM) [facility]
--- NOTE | 2019-06-09 23:15 | PHYS DOC ---
Past Medical History Past Medical History: Arrhythmia, Dementia, GERD, High Cholesterol, Hypertension, MO Additional Past Medical Histor: SLEEP APNEA, irregular heart rate, THYROID DZ Past Surgical History: Angioplasty, Pacemaker Additional Past Surgical Histo: CARDIAC STENTS, HEART CATH 09/2018 Additional Information: Nonsmoker Alcohol Use: None Drug Use: None Adult General Chief Complaint Chief Complaint: CHEST PAIN HPI HPI Patient is an 89-year-old male who presents chest pain. Yesterday he started having midsternal chest pain and shortness of breath. He is having a difficult time breathing and had significant pain with each breath. He denies head pain and abdominal pain. When his family members tried to bring him and he was "stiff as a board", which is abnormal for hip, and they had a difficult time moving him. His most recent fall was 2 weeks ago, as far as they know. Family does report that he was admitted to two weeks ago for head injury and brain bleed. HPI limited due to patient's dementia. Review of Systems Review of Systems Respiratory: Denies cough, reports shortness of breath Cardiovascular: Reports chest pain, denies palpitations Review of Systems limited due to patient's dementia. Current Medications Current Medications Current Medications Medications (Trade) Dose Ordered Sig/Mel Start Time Stop Time Status Last Admin Dose Admin Aspirin (Laurie Aspirin) 325 mg 1X ONCE 06/09/19 22:30 06/09/19 22:31 DC 06/09/19 22:49 325 MG Allergies Allergies Allergies Coded Allergies Type Severity Reaction Last Updated Verified No Known Drug Allergies 04/01/17 No Physical Exam Physical Exam Constitutional: Well developed, no acute distress, non-toxic appearance HENT: Normocephalic, atraumatic, oropharynx moist Eyes: PERRL, EOMI, conjunctiva normal, no discharge Neck: Normal range of motion, no tenderness, supple Cardiovascular: Heart rate normal, regular rhythm Lungs & Thorax: Bilateral breath sounds clear to auscultation, no wheezing Abdomen: Soft, no tenderness Skin: Warm, dry, no erythema, no rash Back: No tenderness, no CVA tenderness Extremities: No tenderness, ROM intact, no edema Neurologic: Neuro exam limited because patient does not follow commands. Patient moves extremities, sensation intact. Psychologic: Unable to obtain Current Patient Data Vital Signs Vital Signs Date Time Temp Pulse Resp B/P (MAP) Pulse Ox O2 Delivery O2 Flow Rate FiO2 06/09/19 23:15 61 16 144/74 (97) 99 Room Air 06/09/19 22:15 98.6 98.6 Lab Values Laboratory Tests Test 06/09/19 22:20 White Blood Count 7.4 x10^3/uL (4.0-11.0) Red Blood Count 4.88 x10^6/uL (4.30-5.70) Hemoglobin 14.5 g/dL (13.0-17.5) Hematocrit 42.2 % (39.0-53.0) Mean Corpuscular Volume 86 fL (79-100) Mean Corpuscular Hemoglobin 30 pg (25-35) Mean Corpuscular Hemoglobin Concent 34 g/dL (31-37) Red Cell Distribution Width 16.5 % (11.5-14.5) H Platelet Count 169 x10^3/uL (140-400) Neutrophils (%) (Auto) 62 % (31-73) Lymphocytes (%) (Auto) 28 % (24-48) Monocytes (%) (Auto) 6 % (0-9) Eosinophils (%) (Auto) 4 % (0-3) H Basophils (%) (Auto) 1 % (0-3) Neutrophils # (Auto) 4.6 x10^3/uL (1.8-7.7) Lymphocytes # (Auto) 2.1 x10^3/uL (1.0-4.8) Monocytes # (Auto) 0.4 x10^3/uL (0.0-1.1) Eosinophils # (Auto) 0.3 x10^3/uL (0.0-0.7) Basophils # (Auto) 0.0 x10^3/uL (0.0-0.2) Prothrombin Time 12.9 SEC (11.7-14.0) Prothrombin Time INR 1.0 (0.8-1.1) PTT 31 SEC (24-38) Sodium Level 136 mmol/L (136-145) Potassium Level 4.5 mmol/L (3.5-5.1) Chloride Level 101 mmol/L (98-107) Carbon Dioxide Level 30 mmol/L (21-32) Anion Gap 5 (6-14) L Blood Urea Nitrogen 16 mg/dL (8-26) Creatinine 1.2 mg/dL (0.7-1.3) Estimated GFR (Cockcroft-Gault) 57.1 BUN/Creatinine Ratio 13 (6-20) Glucose Level 110 mg/dL (70-99) H Calcium Level 9.3 mg/dL (8.5-10.1) Magnesium Level 2.3 mg/dL (1.8-2.4) Total Bilirubin 0.4 mg/dL (0.2-1.0) Aspartate Amino Transferase (AST) 29 U/L (15-37) Alanine Aminotransferase (ALT) 41 U/L (16-63) Alkaline Phosphatase 109 U/L (46-116) Creatine Kinase 76 U/L (39-308) Creatine Kinase MB (Mass) 3.7 ng/mL (0.0-3.6) H Creatine Kinase MB Relative Index 4.9 % (0-4) H Troponin I Quantitative 0.442 ng/mL (0.000-0.055) YJ-Eba-J-Type Natriuretic Peptide 706 pg/mL (0-449) H Total Protein 8.0 g/dL (6.4-8.2) Albumin 3.5 g/dL (3.4-5.0) Albumin/Globulin Ratio 0.8 (1.0-1.7) L Lipase 370 U/L (73-393) Laboratory Tests 06/09/19 22:20 Laboratory Tests 06/09/19 22:20 EKG EKG 06/09/19 at 2217: Atrial fibrillation at [address] segment elevation. Similar to previous ECG. Compare to 03/02/19 at 1246: Probable atrial paced rhythm at [address] segment elevation. Radiology/Procedures Radiology/Procedures PROCEDURE: CT HEAD AND CERVICAL SPINE WO CT brain without contrast, CT cervical spine without contrast HISTORY: Dementia altered mental status, pain CT brain CT scan of brain was done without contrast. There is a large mixed acute and chronic subdural hematoma on the right side measuring 2.2 cm in thickness. There is only slight shift of the midline to the left. Temporal horn of the lateral ventricle on the left is dilated. There is atrophy on the left. An acute CVA is not identified. Sinuses are clear. A skull fracture is not identified. IMPRESSION: 1. Large right mixed acute and chronic subdural hematoma which slight shift of the midline to the left 2. Dilated left lateral ventricle. ER physician was called and notified of findings at the 11:[address] cervical spine Axial CT images were obtained to the cervical spine. Sagittal and coronal reconstructed images were reviewed. There are calcified thyroid nodules. There is mild carotid artery calcification on each side. There is degenerative change in the cervical spine. There is no acute fracture. Degenerative disc disease is noted at C3-4, C5-6 and C6-7. IMPRESSION: 1. It extensive degenerative changes in the cervical spine. 2. No acute C-spine fracture PQRS Compliance Statement: One or more of the following individualized dose reduction techniques were utilized for this examination: 1. Automated exposure control 2. Adjustment of the mA and/or kV according to patient size 3. Use of iterative reconstruction technique Electronically signed by: Alber Hills MD (06/09/2019 11:50 PM) [facility] PROCEDURE: PORTABLE CHEST 1V AP chest. HISTORY: Chest pain AP view was taken of the chest. Heart is enlarged. Left pacemaker is unchanged. There is mild vascular congestion. There is no pleural effusion. There is a tortuous vessel creates a density in the medial right apex. There are no confluent areas of infiltrate. Pattern is similar to January. IMPRESSION: 1. Cardiomegaly. 2. Mild vascular congestion. 3. No confluent infiltrates. Electronically signed by: Alber Hills MD (06/09/2019 11:01 PM) [facility] [] Course & Med Decision Making Course & Med Decision Making Pertinent Labs and Imaging studies reviewed. (See chart for details) Mr. Veloz is an 89 year old male with a history of dementia, CHF, and TBI who presents with chest pain. The chest pain started yesterday and is located in the middle of his sternum. He is having shortness of breath and pain with each breath. His family said that he was abnormally stiff when they tried to move him to bring him to the hospital. He was admitted to 2 weeks ago after a fall and according to family had a brain bleed. He had a heart cath on 12/03/18 showing nonobstructive coronary artery disease with patent stent and EF of 40- 45%. At his previous hospitalizations his troponin was around 0.3. Today his troponin came back elevated at 0.442. EKG was negative for STEMI. Head CT showed a subacute subdural hematoma. Patient requiring admission for further evaluation and treatment. Discussed with Dr. Huitron (hospitalist) who is in agreement with admission. Discussed findings and plan with patient and family, who acknowledge understanding and agreement. Discussed with Dulce, the nurse for Dr. Butterfield (Neurosurgeon). [] Dragon Disclaimer Dragon Disclaimer This electronic medical record was generated, in whole or in part, using a voice recognition dictation system. Departure Departure Impression: Primary Impression: Subacute subdural hematoma Additional Impressions: Chest pain Elevated troponin Disposition: ADMITTED INPATIENT Admitting Physician: Lavelle Huitron Condition: GUARDED Referrals: LAVELLE HUITRON MD (PCP) The HEART Score for CP Pts HEART Score for Chest Pain: HEART Score for Chest Pain Response (Comments) Value History Highly Suspicious 2 ECG Normal 0 Age > 65 2 Risk Factors >3 Risk Factors or Hx CAD 2 Troponin >3 x Normal Limit 2 Total 8 Risk Factors: Risk Factors: DM, Current or recent (<one month) smoker, HTN, HLP, family history of CAD, obesity. Risk Scores: Score 0 - 3: 2.5% MACE over next 6 weeks - Discharge Home Score 4 - 6: 20.3% MACE over next 6 weeks - Admit for Clinical Observation Score 7 - 10: 72.7% MACE over next 6 weeks - Early Invasive Strategies Critical Care Time Critical care time was 30 minutes which includes time at bedside, spent in discussion of patient's care with specialists and/or family members, with interpretation of laboratory and/or radiological studies and is exclusive of procedures. Problem Qualifiers Additional Impressions: Chest pain Chest pain type: unspecified Qualified Codes: R07.9 - Chest pain, unspecified GORDO PERALTA DO Jun 09, 2019 23:15
[2019-06-09] MEDS ORDERED: ONDANSETRON PF 4 MG/2 ML VIAL. IV PRN (23:30)
[2019-06-09] MEDS ORDERED: fentaNYL PF VIAL 100 MCG/2 ML VIAL IV PRN (23:30)
--- NOTE | 2019-06-09 23:53 | RAD ---
CT brain without contrast, CT cervical spine without contrast HISTORY: Dementia altered mental status, pain CT brain CT scan of brain was done without contrast. There is a large mixed acute and chronic subdural hematoma on the right side measuring 2.2 cm in thickness. There is only slight shift of the midline to the left. Temporal horn of the lateral ventricle on the left is dilated. There is atrophy on the left. An acute CVA is not identified. Sinuses are clear. A skull fracture is not identified. IMPRESSION: 1. Large right mixed acute and chronic subdural hematoma which slight shift of the midline to the left 2. Dilated left lateral ventricle. ER physician was called and notified of findings at the 11:[address] cervical spine Axial CT images were obtained to the cervical spine. Sagittal and coronal reconstructed images were reviewed. There are calcified thyroid nodules. There is mild carotid artery calcification on each side. There is degenerative change in the cervical spine. There is no acute fracture. Degenerative disc disease is noted at C3-4, C5-6 and C6-7. IMPRESSION: 1. It extensive degenerative changes in the cervical spine. 2. No acute C-spine fracture PQRS Compliance Statement: One or more of the following individualized dose reduction techniques were utilized for this examination: 1. Automated exposure control 2. Adjustment of the mA and/or kV according to patient size 3. Use of iterative reconstruction technique Electronically signed by: Alber Hills MD (06/09/2019 11:50 PM) [facility]
[2019-06-10 00:35] VITALS: BP 154/71
--- NOTE | 2019-06-10 01:45 | NUR ---
Pt arrived to room 250 via bed from the ER accompanied by his son Julita. He is alert to self only, but is responsive to verbal cues although Hmong speaking. Pt complains via son that his stomach and chest are mildly uncomfortable. Eyes PERRLA 3 mm, seizure precautions initiated and bed alarm on. Pt incontinent of bladder and changed, cleaned up. NPO status and POC discussed with son. VSS, AV paced on tele, will continue to monitor.
[2019-06-10 03:00] VITALS: BP 159/72
[2019-06-10 07:00] VITALS: BP 160/77
--- NOTE | 2019-06-10 07:43 | EKG ---
[facility] [address] [place] [address] Test Date: 2019-06-09 Test Time: 22:17:08 Pat Name: ZOHRA RICH Department: Room: Gender: Software Sales: : 1930 Requested By: GORDO PERALTA Order Number: [id number] Reading MD: Measurements Intervals [place] Rate: 59 P: DC: QRS: 15 QRSD: 86 T: -14 QT: 440 QTc: 440 Interpretive Statements ATRIAL FIBRILLATION QRS(T) CONTOUR ABNORMALITY CONSISTENT WITH LATERAL INFARCT AGE UNDETERMINED ABNORMAL ECG No previous ECG available for comparison
--- NOTE | 2019-06-10 10:01 | PDOC ---
Provider Note Provider Note Pt seen .H&P dictated. #[id number]. AUGUST HUITRON MD Jun 10, 2019 10:01
--- NOTE | 2019-06-10 10:15 | PDOC2 ---
ASHA PAUL MUTUEL CASHIER 06/10/19 1015: CARDIAC CONSULT DATE OF CONSULT Date of Consult DATE: 06/10/19 TIME: 09:44 REASON FOR CONSULT Reason for Consult: Chest pain, elevated trop REFERRING PHYSICIAN Referring Physician: Rosanne SOURCE Source: Caregiver (son), Chart review, Patient HISTORY OF PRESENT ILLNESS HISTORY OF PRESENT ILLNESS This is an 89 yo male admitted for complains of chest pain. Apparently he also fell 2 weeks ago and upon imaging he has large right SDH with small midline shift. He has had episodes of falls in the past and in 01/2019 resulted to ICH. To date he has fallen 4 x in the last 3 months. His son could not exactly tell me if any dizzy spells were associated with fall but no passing out and his father has difficulty with recollection given his dementia. He has had intermittent chest pain and tightness but more so to his epigastric region which is reproducible with palpation. Also with some SOA. His mobility has been decreased PAST MEDICAL HISTORY Past Medical History Cardiovascular: CAD (with PCI/THOR to D2- 04/2016), CHF, HTN, Hyperlipidemia, Valve insufficiency (aortic), Other ([facility] PPM - 01/2013), ICM, SSS Pulmonary: Other (NANCY/CPAP), Pneumonia GI: GERD Heme/Onc: Other (DVT) Musculoskeletal: Osteoarthritis, fall Renal/: Chronic renal insuff (stage III) Endocrine: Hypothyroidism, thyroid nodules Neuro: dementia, ICH in 01/2019 associated with fall PAST SURGICAL HISTORY Past Surgical History Pacemaker ([facility]), Other (PCI/stent to D2) FAMILY HISTORY Family History noncontributory SOCIAL HISTORY Smoke: No ALCOHOL: none Drugs: None Lives: with Family CURRENT MEDICATIONS CURRENT MEDICATIONS Current Medications Medications (Trade) Dose Ordered Sig/Mel Route PRN Reason Start Time Stop Time Status Last Admin Dose Admin Aspirin (Laurie Aspirin) 325 mg 1X ONCE PO 06/09/19 22:30 06/09/19 22:31 DC 06/09/19 22:49 ALLERGIES ALLERGIES: Coded Allergies: No Known Drug Allergies (Unverified , 04/01/17) ROS Review of System limited, language barrier PHYSICAL EXAM General: Alert, Cooperative, No acute distress HEENT: Atraumatic, Mucous membr. moist/pink Lungs: Other (diminished bases) Heart: Regular rate (SR with intermittent pacing), Other (3/6 systolic murmur to LLS border) Abdomen: Soft, No tenderness Extremities: No cyanosis, No edema Skin: No breakdown, No significant lesion Neuro: Normal speech, Sensation intact Psych/Mental Status: Mental status NL, Mood NL MUSCULOSKELETAL: Osteoarthritic changes both hands VITALS/I&O VITALS/I&O: Vital Signs Date Time Temp Pulse Resp B/P (MAP) Pulse Ox O2 Delivery O2 Flow Rate FiO2 06/10/19 08:00 Room Air 06/10/19 07:00 97.9 63 16 160/77 (104) 96 97.9 LABS Lab: Laboratory Tests Test 06/09/19 22:20 06/10/19 02:30 06/10/19 04:00 White Blood Count 7.4 x10^3/uL (4.0-11.0) Red Blood Count 4.88 x10^6/uL (4.30-5.70) Hemoglobin 14.5 g/dL (13.0-17.5) Hematocrit 42.2 % (39.0-53.0) Mean Corpuscular Volume 86 fL (79-100) Mean Corpuscular Hemoglobin 30 pg (25-35) Mean Corpuscular Hemoglobin Concent 34 g/dL (31-37) Red Cell Distribution Width 16.5 % (11.5-14.5) H Platelet Count 169 x10^3/uL (140-400) Neutrophils (%) (Auto) 62 % (31-73) Lymphocytes (%) (Auto) 28 % (24-48) Monocytes (%) (Auto) 6 % (0-9) Eosinophils (%) (Auto) 4 % (0-3) H Basophils (%) (Auto) 1 % (0-3) Neutrophils # (Auto) 4.6 x10^3/uL (1.8-7.7) Lymphocytes # (Auto) 2.1 x10^3/uL (1.0-4.8) Monocytes # (Auto) 0.4 x10^3/uL (0.0-1.1) Eosinophils # (Auto) 0.3 x10^3/uL (0.0-0.7) Basophils # (Auto) 0.0 x10^3/uL (0.0-0.2) Prothrombin Time 12.9 SEC (11.7-14.0) Prothrombin Time INR 1.0 (0.8-1.1) PTT 31 SEC (24-38) Sodium Level 136 mmol/L (136-145) Potassium Level 4.5 mmol/L (3.5-5.1) Chloride Level 101 mmol/L (98-107) Carbon Dioxide Level 30 mmol/L (21-32) Anion Gap 5 (6-14) L Blood Urea Nitrogen 16 mg/dL (8-26) Creatinine 1.2 mg/dL (0.7-1.3) Estimated GFR (Cockcroft-Gault) 57.1 BUN/Creatinine Ratio 13 (6-20) Glucose Level 110 mg/dL (70-99) H Calcium Level 9.3 mg/dL (8.5-10.1) Magnesium Level 2.3 mg/dL (1.8-2.4) Total Bilirubin 0.4 mg/dL (0.2-1.0) Aspartate Amino Transferase (AST) 29 U/L (15-37) Alanine Aminotransferase (ALT) 41 U/L (16-63) Alkaline Phosphatase 109 U/L (46-116) Creatine Kinase 76 U/L (39-308) Creatine Kinase MB (Mass) 3.7 ng/mL (0.0-3.6) H Creatine Kinase MB Relative Index 4.9 % (0-4) H Troponin I Quantitative 0.442 ng/mL (0.000-0.055) 0.335 ng/mL (0.000-0.055) 0.310 ng/mL (0.000-0.055) OY-Pot-P-Type Natriuretic Peptide 706 pg/mL (0-449) H Total Protein 8.0 g/dL (6.4-8.2) Albumin 3.5 g/dL (3.4-5.0) Albumin/Globulin Ratio 0.8 (1.0-1.7) L Lipase 370 U/L (73-393) Triglycerides Level 119 mg/dL (0-150) Cholesterol Level 137 mg/dL (0-200) LDL Cholesterol, Calculated 67 mg/dL (0-100) VLDL Cholesterol, Calculated 24 mg/dL (0-40) Non-HDL Cholesterol Calculated 91 mg/dL (0-129) HDL Cholesterol 46 mg/dL (40-60) Cholesterol/HDL Ratio 3.0 Laboratory Tests 06/09/19 22:20 Laboratory Tests 06/09/19 22:20 ECHOCARDIOGRAM ECHOCARDIOGRAM <Conclusion> Limited echo to assess LV function. The left ventricular systolic function is normal. The ejection fraction is estimated at 55%. There is normal LV segmental wall motion. There is no evidence of significant pericardial effusion. DATE: 12/03/18 1334 HEART CATH HEART CATH Conclusion 1. Nonobstructive coronary artery disease as described above. The previously placed stent in the second diagonal branch was widely patent. Angiographic findings unchanged from prior cardiac catheterization. 2. Mild left ventricle systolic dysfunction with ejection fraction estimated at 40-45%. Recommendations Optimization of medical therapy. Consider maximizing antianginal treatment. Slight troponin elevation probably type II non-STEMI/demand ischemia. DATE: 12/03/18 1504 ASSESSMENT/PLAN ASSESSMENT/PLAN 1. Atypical CP: possibly GI 2. Traumatic mechanical fall with large SDH: last fall 2 weeks ago 3. ICM: prior EF at 40-45% 4. Mild diastolic CHF: appears compensated 4. Chronic troponin elevation: within his range. No acute changes to EKG. 5. CAD: Recent LHC with patent stent to D2, otherwise nonobstructive disease. Suspect microvascular dysfunction 6. HTN 7. SSS s/p PPM implantation ([facility]). Intermittent pacing 8. COPD 9. CKD3: stable 10. HLP; on goal 11. PAFIB; v-paced 12. Hypothyroidism 13. Dementia Recommendations 1. No antiplatelets at this time till cleared by neurosurgery 2. Interrogate device and note any contributing arrhythmias to fall 3. Restart BP regimen. If hydration is adequate then may restart home lasix. 4. Start on PPI. 5. Neurosurgery consult pending 6. Supportive care. PETE ZUÑIGA MD 06/10/191924: CARDIAC CONSULT ASSESSMENT/PLAN ASSESSMENT/PLAN Patient seen and examined. Agree with PHOTOGRAPHIC SPECIALIST's assessment and plan. CP with atypical features and most probably GI Recent cath results noted above - slight trop elevation chronic Follow NS recommendation for SDH Device interrogation normal Thank you for your consultation ASHA PAUL APRN Jun 10, 2019 10:15 PETE ZUÑIGA MD Jun 10, 2019 19:25
[2019-06-10] MEDS ORDERED: amLODIPine BESYLATE 5 MG TABLET PO SCH (10:30)
[2019-06-10 11:00] VITALS: BP 162/66
[2019-06-10] MEDS ORDERED: LEVOTHYROXINE 50 MCG TABLET PO SCH (11:00)
[2019-06-10] MEDS ORDERED: METOPROLOL SUCC 24HR ER 50 MG TAB.ER.24H. PO SCH (11:00)
[2019-06-10] MEDS ORDERED: FUROSEMIDE 20 MG TABLET PO SCH (11:00)
[2019-06-10] MEDS ORDERED: ISOSORBIDE MONONITRATE ER 30 MG TAB.ER.24H PO SCH (11:00)
[2019-06-10] MEDS ORDERED: RANOLAZINE 500 MG TAB.ER.12H PO SCH (11:00)
[2019-06-10] MEDS ORDERED: LISINOPRIL 5 MG TABLET. PO SCH (11:00)
[2019-06-10] MEDS ORDERED: PANTOPRAZOLE 40 MG TABLET.DR. PO SCH (11:00)
--- NOTE | 2019-06-10 11:10 | HP ---
ADMIT DATE: 06/09/2019 LOCATION: [facility] REASON FOR ADMISSION TO THE HOSPITAL: 1. Subdural hematoma. 2. Chest pain. HISTORY OF PRESENT ILLNESS: The patient is an 89-year-old male patient with history of dementia. He was admitted in February for small intracranial bleed and apparently, he was at 2 weeks ago for a fall and he was told there was some bleeding and because of dementia, they were not going to do anything at that point and the patient was brought to the hospital because he had some chest pain and shortness of breath. He was kind of stiff. CT scan shows a large subdural hematoma and the patient was admitted to the hospital. Neurosurgery was consulted. Cardiology was consulted. The patient chronically has elevated troponin of 0.4. He had a history of cardiac stents in the past. PAST MEDICAL HISTORY: He has coronary artery disease, cardiac stents, last cardiac cath was 1 year ago. He has a pacemaker, sleep apnea, CHF, hypertension, hyperlipidemia, dementia, and thyroid problems. PAST SURGICAL HISTORY: Pacemaker and cardiac stents. ALLERGIES: No known allergies. MEDICATIONS: Amlodipine 5 mg daily, atorvastatin 40 mg daily, Lasix 20 mg daily, isosorbide 30 mg daily, metoprolol 75 mg daily, Protonix 40 mg daily, Ranexa 500 mg twice a day, Thyroid Synthroid 50 mcg daily, and lisinopril 5 mg twice a day. PERSONAL HISTORY: Remote smoking in the past. Has not been smoking lately. Denies any alcohol or drugs. FAMILY HISTORY: Unremarkable. SOCIAL HISTORY: Lives at home and the patient's condition has been declining lately. PHYSICAL EXAMINATION: GENERAL: The patient is comfortable, communicates by gestures, able to move all upper and lower extremities. HEENT: Head is atraumatic. Pupils equal. Oral cavity: No congestion. NECK: Supple. CHEST: Symmetrical, has a pacemaker. CARDIOVASCULAR: S1, S2. LUNGS: Clear. No masses. ABDOMEN: Soft, no masses palpable. EXTERNAL GENITALIA: No Jose. RECTAL: Deferred. EXTREMITIES: No calf tenderness. No edema. Pulses 1+. NEUROLOGIC: The patient is able to follow commands. Only shakes his head for questions. LABORATORY DATA: Shows a white count of 7, hemoglobin 14, platelets 169. His INR is 1.0. Electrolytes: Sodium 136, potassium 4.5, chloride 101, bicarb 30, BUN 16, creatinine 1.2, glucose 110, magnesium 2.3. LFTs were normal. Lipase 370. Troponin of 0.4 and it is trending down to 0.3. Cholesterol is normal. DIAGNOSTIC DATA: Chest x-ray; cardiomegaly, no infiltrates. CT head, large right-sided rwhyy-[id number] subdural hematoma with a shift in the midline. FINAL IMPRESSION: 1. Subdural hematoma. 2. Degenerative joint disease of cervical spine. 3. Coronary artery disease, history of previous cardiac stents. 4. Chronic elevated troponin. 5. History of pacemaker. 6. Dementia. 7. Hypertension. 8. Hyperlipidemia. 9. Hypothyroidism. PLAN: At this time, he was admitted to the hospital, Cardiology consultation and we have a Neurosurgery consult to look at subdural if he is a candidate for surgery. youth nutritional monitor, Neuro followup and see how he improves. We will have PT, OT, and rehab. AUGUST HUITRON MD DR: TIMI/lara JOB#: [id number] / [id number]
--- NOTE | 2019-06-10 12:02 | NUR ---
SS following for discharge planning. SS reviewed pt chart. Pt is from home with family and is currently on room air. No discharge needs noted at this time. SS will continue to follow for discharge planning.
--- NOTE | 2019-06-10 14:04 | PDOC ---
Provider Note Provider Note patient seen and examined spoke with son per telephone on CT head - Large right mixed acute and chronic subdural hematoma which slight shift of the midline to the left patient was at [facility] 2 weeks ago, surgery was not recommended because he is a poor surgical candidate history of dementia will start decadron and repeat scan in a week SAMSON GONZALEZ MD Jun 10, 2019 14:04
[2019-06-10 15:00] VITALS: BP 97/54
[2019-06-10] MEDS ORDERED: DEXA2TAB PO (15:56)
--- NOTE | 2019-06-10 17:01 | PDOC ---
Provider Note Provider Note #[id number]. discharge summary dictated AUGUST HUITRON MD Jun 10, 2019 17:01
--- NOTE | 2019-06-10 17:43 | DS ---
DATE OF DISCHARGE: 06/10/2019 REASON FOR ADMISSION TO THE HOSPITAL: Subacute subdural hematoma. CONSULTATIONS: Dr. Lord, Neurosurgery; Dr. Botello, Cardiology. HOSPITAL COURSE: The patient is an 89-year-old male. The patient was apparently at [facility] two weeks ago, he had subdural hematoma. Because of his poor functional status, the patient and family opted conservative treatment. He was having some chest pain, came to the ER. He was also stiff. CT scan shows a subdural hematoma, subacute. Seen by Neurosurgery and Neurosurgery decided conservative treatment, put on Medrol, prednisone steroids for a week and see how he does. The patient's family also wanted him to come home and he had a slight elevation in troponin. He always has a slight elevation in troponin 0.4. Seen by Cardiology, no medical intervention needed at this time. The patient has history of coronary artery disease, had stents, but he cannot be on any anticoagulation secondary to intracranial bleed. FINAL DIAGNOSES: 1. Subacute subdural hematoma. 2. Coronary artery disease, history of previous stents. 3. Slight elevation in troponin, which is chronically elevated. 4. Coronary artery disease, history of cardiac stents and a pacemaker. 5. Hypertension. 6. Hyperlipidemia. 7. Hypothyroidism. DISPOSITION: Home. PLAN: To repeat CT in one week. The patient was put on steroids, dexamethasone 2 mg 3 times a day for a week. AUGUST HUITRON MD DR: TIMI/lara JOB#: [id number] / [id number]
[2019-06-10] MEDS ORDERED: ATORVASTATIN CALCIUM 40 MG TABLET. PO SCH (21:00)
== END 2019-06-10 17:30 | disposition home or self-care (01) | DRG 83 ==
LOC: ER 22:15 → 2 SOUTH 23:25
PROVIDERS: ADMIT Internal Medicine; ATTEND Internal Medicine
PROC: 4B02XSZ Measurement of Cardiac Pacemaker, External Approach (ICD-10-PCS; principal; 2019-06-09)
DX: S06.5X9A Traumatic subdural hemorrhage with loss of consciousness of unspecified duration, initial encounter (principal); I13.0 Hypertensive heart and chronic kidney disease with heart failure and stage 1 through stage 4 chronic kidney disease, or unspecified chronic kidney disease; I50.30 Unspecified diastolic (congestive) heart failure; R07.89 Other chest pain; E03.9 Hypothyroidism, unspecified; E04.2 Nontoxic multinodular goiter; E78.00 Pure hypercholesterolemia, unspecified; E78.5 Hyperlipidemia, unspecified; M19.90 Unspecified osteoarthritis, unspecified site; F03.90 Unspecified dementia, unspecified severity, without behavioral disturbance, psychotic disturbance, mood disturbance, and anxiety; W18.39XA Other fall on same level, initial encounter; G47.30 Sleep apnea, unspecified; I25.10 Atherosclerotic heart disease of native coronary artery without angina pectoris; J44.9 Chronic obstructive pulmonary disease, unspecified; K21.9 Gastro-esophageal reflux disease without esophagitis; M47.812 Spondylosis without myelopathy or radiculopathy, cervical region; N18.3 Chronic kidney disease, stage 3 (moderate); Z95.5 Presence of coronary angioplasty implant and graft; Z95.0 Presence of cardiac pacemaker; Y93.89 Activity, other specified; Y92.89 Other specified places as the place of occurrence of the external cause; Y99.8 Other external cause status
CPT/HCPCS: 36415; 70450; 71045; 72125; 80053; 80061; 82553; 83690; 83735; 83880; 84484; 85025; 85610; 85730; 93005

== ENCOUNTER → 2019-06-14 | Outpatient (CLI) | payer MEDICARE, OTHER ==
[2019-06-10 15:00] VITALS: BP 97/54
[~2019-06-14] MED LIST changes: +DEXA2TAB PO
--- NOTE | 2019-06-14 13:27 | RAD ---
CT HEAD WO CONTRAST History: Subdural hematoma Comparison: June 09, 2019 Technique: Noncontrast CT imaging was performed of the head. Exposure: One or more of the following individualized dose reduction techniques were utilized for this examination: 1. Automated exposure control 2. Adjustment of the mA and/or kV according to patient size 3. Use of iterative reconstruction technique. Findings: Unchanged right cerebral convexity multiloculated subdural mixed attenuation collection. There is thickened dura and the loculations are thickened, unchanged. Maximal thickness is 2.4 cm, similar compared to prior. Partial effacement of the right lateral ventricle. Mild leftward midline shift, unchanged. Prominence of the left lateral ventricle, similar compared to more remote studies. Foci of decreased attenuation within the hemispheric white matter, subacute or chronic microvascular ischemia, unchanged. Postoperative changes left globe. Imaged paranasal sinuses and mastoid air cells are clear. No acute calvarial fracture. Impression: 1. 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 Unchanged adjacent mass effect and mild leftward midline shift. 2. Dilated left lateral ventricle, similar compared to remote studies. When the patient's condition allows correlation for normal pressure hydrocephalus is advised. Electronically signed by: Franki Pablo DO (06/14/2019 1:25 PM) [id number]
== END | disposition home or self-care (01) ==
LOC: CT 14:26
PROVIDERS: ATTEND Neurological Surgery
DX: S06.5X0A Traumatic subdural hemorrhage without loss of consciousness, initial encounter (principal); G93.89 Other specified disorders of brain; X58.XXXA Exposure to other specified factors, initial encounter; Y93.89 Activity, other specified; Y92.89 Other specified places as the place of occurrence of the external cause; Y99.8 Other external cause status
CPT/HCPCS: 70450

== ENCOUNTER → 2019-06-20 | Outpatient (CLI) | payer MEDICARE, OTHER ==
[2019-06-10 15:00] VITALS: BP 97/54
--- NOTE | 2019-06-20 16:34 | RAD ---
CT HEAD WITHOUT CONTRAST 06/20/2019 2:30 PM Indication: Subdural hematoma Comparison: CT of the head without contrast June 14, 2019 Procedure: Multidetector CT imaging of the head was performed without the administration of contrast. Findings: Redemonstration of right convexity subdural fluid collection with areas of septation. The size of the subdural collection has minimally decreased in the interim since comparison study. Slightly decreased right supratentorial mass effect is seen. The ventricles and basilar cisterns have a grossly stable configuration appear to be grossly patent. Patchy periventricular deep white matter hypoattenuation is unchanged. Structures of the posterior fossa are grossly unchanged. No evidence of interval intracranial hemorrhage is identified. No acute osseous changes are noted in the interim since comparison study. Impression: Slight interval decrease in right convexity complex subdural fluid collection with septation, with mild corresponding decrease in mass effect CT DOSING PQRS STATEMENT: One or more of the following individualized dose reduction techniques were utilized for this examination: 1. Automated exposure control 2. Adjustment of the mA and/or kV according to patient size 3. Use of iterative reconstruction technique Electronically signed by: Kolby Pulido MD (06/20/2019 4:31 PM) [id number]
== END | disposition home or self-care (01) ==
LOC: CT 14:27
PROVIDERS: ATTEND Neurological Surgery
DX: S06.5X0A Traumatic subdural hemorrhage without loss of consciousness, initial encounter (principal); G93.89 Other specified disorders of brain; X58.XXXA Exposure to other specified factors, initial encounter; Y93.89 Activity, other specified; Y92.89 Other specified places as the place of occurrence of the external cause; Y99.8 Other external cause status
CPT/HCPCS: 70450

== ENCOUNTER → 2019-06-28 | Outpatient (CLI) | payer MEDICARE, OTHER ==
[2019-06-10 15:00] VITALS: BP 97/54
--- NOTE | 2019-06-28 15:06 | RAD ---
CT HEAD WO CONTRAST Clinical indications: Follow-up of subdural hematoma. COMPARISON: June 20, 2019. Technique: Noncontrast axial cross sectional scanning of the head was performed. PQRS compliance Statement One or more of the following individualized dose reduction techniques were utilized for this study: 1. Automated exposure control 2. Adjustment of the mA and/or kV according to patient size 3. Use of iterative reconstruction technique Findings: Again seen is a right convexity subdural hematoma measuring up to 22 mm in greatest thickness. It has not changed in size since the previous study. No new hyperdense hemorrhage is seen within it. Septations are again seen within it. Compression of adjacent sulci and mass effect upon the right lateral ventricle is unchanged. The rest of the ventricular system is dilated but unchanged. No significant midline shift is seen. Bilateral periventricular white matter hypodensity is seen consistent with chronic small vessel ischemic disease in this age group. Impression: Stable right convexity subdural hematoma. The Mass effect upon the right lateral ventricle and compression of adjacent sulci is again evident. Overall stable study. Electronically signed by: Chip Fernández MD (06/28/2019 3:03 PM) [facility]
== END | disposition home or self-care (01) ==
LOC: CT 11:11
PROVIDERS: ATTEND Neurological Surgery
DX: I62.00 Nontraumatic subdural hemorrhage, unspecified (principal); G93.89 Other specified disorders of brain; G93.5 Compression of brain
CPT/HCPCS: 70450